=== PATIENT | male | born 1930 | race Hispanic/Latino ===

== ENCOUNTER 2016-10-19 09:12 | Observation (INO) | payer MEDICARE ==
[2016-10-19 09:14] VITALS: BMI 32.3
--- NOTE | 2016-10-19 09:27 | ED PDOC ---
Arrival/HPI - General Chief Complaint: Medical Clearance Time Seen by Provider: 10/19/16 09:15 - History of Present Illness Narrative History of Present Illness (Text): 10/19/16 09:24 Patient is an 85 y/o M, bed bound at baseline, presenting after fall out of bed. Patient reports that his aide did not put up his bed rail, so he fell out of bed. He denies LOC. He denies any pain. He denies chest pain, shortness of breath, hip pain, headache or back pain. He reports that he is here because "my wants me checked out." PMD: Dr. Barnhart 10/19/16 09:44 presented to ED and agrees wtih above story. She reports that aide was trying to turn patient when she left the bed rail down. She also denies LOC. She reports that at baseline he cannot move his legs- only wiggle his toes and is bed bound. 10/19/16 09:45 Past Medical History - Past History Past History: Non-Contributing - Infectious Disease Hx of Infectious Diseases: None - Tetanus Immunization Tetanus Immunization: Unknown - Cardiac Hx Cardiac Arrhythmia: Yes (afib) Hx Hypertension: Yes - Pulmonary Hx Asthma: Yes - Neurological Hx Transient Ischemic Attacks (TIA): Yes (several) - HEENT Hx HEENT Disorder: (WEARS RX GLASSES) - Renal Hx Renal Disorder: Yes Date of Last Dialysis Treatment: 04/18/08 - Endocrine/Metabolic Hx Endocrine Disorders: No - Hematological/Oncological Hx Cancer: Yes (RENAL CELL CA) - Musculoskeletal/Rheumatological Hx Arthritis: Yes (both hips) - Gastrointestinal Hx Gastrointestinal Disorders: Yes (CONSTIPATION) - Genitourinary/Gynecological Hx Genitourinary Disorders: Yes (PYELONEPHRITIS,FREQUENT UTI'S,RENAL CA) Hx Incontinence: Yes Hx Reproductive Disorders: No Hx Urinary Tract Infection: Yes - Psychiatric Hx Depression: No Hx Emotional Abuse: No Hx Physical Abuse: No Hx Substance Use: No - Past Surgical History Past Surgical History: Non-Contributing - Surgical History Other/Comment: tumor removed from the kidney 2007 - Anesthesia Hx Anesthesia Reactions: No Hx Malignant Hyperthermia: No - Suicidal Assessment Feels Threatened In Home Enviroment: No Family/Social History Family/Social History: No Known Family HX Smoking Status: Former Smoker Hx Alcohol Use: No Hx Substance Use: No Hx Substance Use Treatment: No Allergies/Home Meds Allergies/Adverse Reactions: Allergies No Known Allergies Allergy (Verified 10/19/16 09:18) Home Medications: Home Meds Medication Instructions Recorded Confirmed Atorvastatin Calcium [Lipitor] 10 mg PO DAILY 07/13/12 10/19/16 Warfarin [Coumadin] 5 mg PO DAILY 09/22/12 10/19/16 Aspirin [Aspirin Chewable] 81 mg PO DAILY 10/17/13 10/19/16 Potassium Chloride [Klor-Con M10] 10 meq PO DAILY 09/25/16 10/19/16 Tobramycin 0.3% [Tobrex 0.3% Ophth 1 applic OU TID PRN 09/25/16 10/19/16 Oint] amLODIPine [Norvasc] 5 mg PO DAILY 10/19/16 10/19/16 Review of Systems - Review of Systems Constitutional: absent: Fatigue, Weight Change Eyes: absent: Vision Changes ENT: absent: Hearing Changes Respiratory: absent: SOB, Cough, Sputum, Wheezing Cardiovascular: absent: Chest Pain Gastrointestinal: absent: Abdominal Pain, Constipation, Diarrhea, Nausea, Vomiting Genitourinary Male: absent: Dysuria Musculoskeletal: absent: Arthralgias, Back Pain, Neck Pain, Joint Swelling, Myalgias Skin: absent: Rash, Skin Lesions Neurological: absent: Headache, Dizziness, Focal Weakness, Gait Changes Endocrine: absent: Diaphoresis Hemo/Lymphatic: absent: Adenopathy Psychiatric: absent: Anxiety Physical Exam Vital Signs Temp Pulse Resp BP Pulse Ox 10/19/16 09:22 98.5 F 81 16 147/89 94 L Temperature: Afebrile Blood Pressure: Normal Pulse: Regular Respiratory Rate: Normal Appearance: Positive for: Well-Appearing, Non-Toxic, Comfortable Mental Status: Positive for: Alert and Oriented X 3 - Systems Exam Head: Present: Atraumatic Pupils: Present: PERRL Extroacular Muscles: Present: EOMI Conjunctiva: Present: Normal Mouth: Present: Moist Mucous Membranes Neck: Present: Normal Range of Motion. No: Meningeal Signs, MIDLINE TENDERNESS Respiratory/Chest: Present: Clear to Auscultation, Good Air Exchange. No: Respiratory Distress, Accessory Muscle Use Cardiovascular: Present: Regular Rate and Rhythm, Normal S1, S2. No: Murmurs Abdomen: No: Tenderness, Distention Back: Present: Normal Inspection. No: Midline Tenderness Upper Extremity: Present: Normal Inspection, Normal ROM. No: Swelling Lower Extremity: Present: Other (able to move toes b/l (baseline). no bony tenderness to legs. no hip tenderness) Neurological: Present: GCS=15, CN II-XII Intact, Speech Normal Psychiatric: Present: Alert, Oriented x 3, Normal Insight, Normal Concentration Medical Decision Making ED Course and Treatment: 10/19/16 09:24 Patient has no complaints. At baseline neuro status. At baseline ambulation. Will get ct head due to anticoagulant use. 10/19/16 10:12 Head to toe exam again performed with at bedside. Patient continues to have his baseline movement and denies pain. No areas of tenderness. AAOx3. Will get CT head and reeval Report Date : 10/19/2016 10:19:59 PROCEDURE: CT HEAD WITHOUT CONTRAST. Dictator : Jeanie Soliman IMPRESSION: No evidence of acute intracranial hemorrhage intracranial collection mass effect or midline shift. Moderate atrophy and moderate to severe white matter changes are again seen. 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 Small air-fluid level at the right sphenoid sinus. 10/19/16 12:26 INR:1.91. Patient continues to deny pain and is AAOx3. Paged Dr. Barnhart and he recommends repeat CT head at 6 hours due to anticoagulant use. Will sign out to Dr. matos to continue to monitor, get repeat CT head and reevaluate. - RAD Interpretation Radiology Orders: 10/19/16 09:25 HEAD W/O CONTRAST [CT] Stat Disposition/Present on Arrival - Present on Arrival Any Indicators Present on Arrival: No History of DVT/PE: No History of Uncontrolled Diabetes: No Urinary Catheter: No History of Decub. Ulcer: No History Surgical Site Infection Following: None - Disposition Have Diagnosis and Disposition been Completed?: Yes Diagnosis: Fall Disposition Time: :26 Patient Plan: Observation Patient Problems: Current Active Problems Problem Status Diagnosed Fall Acute Urosepsis Acute Condition: FAIR
--- NOTE | 2016-10-19 10:21 | CT ---
PROCEDURE: CT HEAD WITHOUT CONTRAST. HISTORY: fall COMPARISON: Comparison is made to the previous study dated 10/10/2012 TECHNIQUE: Axial computed tomography images were obtained through the head/brain without intravenous contrast. Radiation dose: Total exam DLP = 768.07 mGy-cm. FINDINGS: HEMORRHAGE: No intracranial hemorrhage. BRAIN: Foci of encephalomalacia are again seen more prominent at the right frontal and left cerebellum suggestive of old infarct. There are also small foci of encephalomalacia at the iqbal radiata bilaterally larger on the right. Moderate atrophy and extensive white matter changes are again seen. VENTRICLES: Unremarkable. No hydrocephalus. CALVARIUM: Unremarkable. PARANASAL SINUSES: Small air-fluid level seen at the right sphenoid sinus. Otherwise the sinuses are clear. MASTOID AIR CELLS: Unremarkable as visualized. No inflammatory changes. OTHER FINDINGS: None. IMPRESSION: No evidence of acute intracranial hemorrhage intracranial collection mass effect or midline shift. Moderate atrophy and moderate to severe white matter changes are again seen. 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 Small air-fluid level at the right sphenoid sinus.
[2016-10-19 11:57] LABS: ADD MANUAL DIFF? NO
[2016-10-19 12:05] LABS: EOS # 0.1 (0.0-0.7); EOS % 1.2 % (1.5-5.0); GRAN # 7.91 (1.4-6.5); GRAN % 76.6 % (50.0-68.0); HEMATOCRIT 45.6 % (42.0-52.0); LYMPH # 1.8 (1.2-3.4); LYMPH % 17.1 % (22.0-35.0); MEAN CELL VOLUME 95.8 fL (80.0-105.0); MEAN CORPUSCULAR HEMOGLOBIN 31.9 pg (25.0-35.0); MEAN CORPUSCULAR HGB CONC 33.3 g/dl (31.0-37.0); MEAN PLATELET VOLUME 9.1 fl (7.0-11.0); MONO # 0.5 (0.1-0.6); MONO % 5.1 % (1.0-6.0); PLATELET COUNT 170 10^3/uL (120.0-450.0); RED CELL DISTRIBUTION WIDTH 14.5 % (11.5-14.5); WHITE BLOOD COUNT 10.3 10^3/ul (4.5-11.0)
[2016-10-19 12:17] LABS: BLOOD UREA NITROGEN 32 mg/dL (7-21); CALCIUM 9.2 mg/dL (8.4-10.5); CARBON DIOXIDE 30 mmol/L (21-33); CHLORIDE 100 mmol/L (98-107); GFR AFRICAN-AMERICAN > 60; GLUCOSE,RANDOM 126 mg/dL (70-110); POTASSIUM 4.3 mmol/L (3.6-5.0); SODIUM 140 mmol/L (132-148)
[2016-10-19 12:20] LABS: INR 1.91 (0.93-1.08); PARTIAL THROMBOPLASTIN TIME 35.6 Seconds (23.7-30.8)
--- NOTE | 2016-10-19 15:42 | CT ---
PROCEDURE: CT HEAD WITHOUT CONTRAST. HISTORY: repeat CT COMPARISON: Comparison is made to the previous study dated 10/19/2016 TECHNIQUE: Axial computed tomography images were obtained through the head/brain without intravenous contrast. Radiation dose: Total exam DLP = 710.91 mGy-cm. FINDINGS: HEMORRHAGE: No intracranial hemorrhage. 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 Atrophy and extensive white matter changes are also again seen. VENTRICLES: Unremarkable. No hydrocephalus. CALVARIUM: Unremarkable. PARANASAL SINUSES: Unremarkable as visualized. No significant inflammatory changes. MASTOID AIR CELLS: Unremarkable as visualized. No inflammatory changes. OTHER FINDINGS: None. IMPRESSION: No evidence of significant interval change compared to the previous exam. No evidence of acute intracranial hemorrhage.
--- NOTE | 2016-10-19 16:36 | RAD ---
HISTORY: cough r/o pna COMPARISON: January 07, 2016. TECHNIQUE: Chest PA and lateral FINDINGS: LUNGS: No active pulmonary disease. PLEURA: No significant pleural effusion identified. No pneumothorax apparent. CARDIOVASCULAR: Cardiomegaly. No evidence of acute, significant cardiovascular disease. OSSEOUS STRUCTURES: No significant abnormalities. VISUALIZED UPPER ABDOMEN: Normal. OTHER FINDINGS: None. IMPRESSION: No active disease. No significant interval change compared to the prior examination(s).
[2016-10-19 17:59] VITALS: BP 155/83; PULSE 78; RESP 20; TEMP 97.4; O2SAT 97
== END 2016-10-19 17:11 | disposition home or self-care (01) ==
LOC: ED 09:12 → EROBSV 09:27
PROVIDERS: ADMIT Emergency Medicine; ATTEND Emergency Medicine
DX: Z04.8 Encounter for examination and observation for other specified reasons (principal); W06.XXXA Fall from bed, initial encounter; Z74.01 Bed confinement status; I48.91 Unspecified atrial fibrillation; I10 Essential (primary) hypertension
CPT/HCPCS: 36415; 70450; 71020; 80048; 85025; 85610; 85730; 99283; G0378

== ENCOUNTER 2016-10-24 10:41 | Emergency (ER) | payer MEDICARE, OTHER ==
[2016-10-24 10:56] VITALS: TEMP 97.6
--- NOTE | 2016-10-24 11:00 | ED PDOC ---
Arrival/HPI - General Time Seen by Provider: 10/24/16 10:47 Historian: Patient, Spouse - History of Present Illness Narrative History of Present Illness (Text): 10/24/16 11:00 85 year old male with a past medical history that includes dementia, Afib, HTN, Asthma, Renal, presents to the emergency department with right shoulder pain for the past five days. Patient states pain is worse with movement. Patient's states he was seen in the emergency department for a fall five days ago. Patient claims he fell again but states he did not. No chest pain, shortness of breath. No other complaints at this time. PMD: Dr. Barnhart Time/Duration: < week Symptom Onset: Sudden Symptom Course: Unchanged Modifying Factors (Text): None Associated Symptoms (Text): None Past Medical History - Provider Review Nursing Documentation Reviewed: Yes Family/Social History - Physician Review Nursing Documentation Reviewed: Yes Family/Social History: Unknown Family HX Allergies/Home Meds Allergies/Adverse Reactions: Allergies No Known Allergies Allergy (Unverified 10/24/16 10:54) Home Medications: Home Meds Medication Instructions Recorded Confirmed Atorvastatin Calcium [Lipitor] 10 mg PO DAILY 07/13/12 10/19/16 Warfarin [Coumadin] 5 mg PO DAILY 09/22/12 10/19/16 Aspirin [Aspirin Chewable] 81 mg PO DAILY 10/17/13 10/19/16 Potassium Chloride [Klor-Con M10] 10 meq PO DAILY 09/25/16 10/19/16 Tobramycin 0.3% [Tobrex 0.3% Ophth 1 applic OU TID PRN 09/25/16 10/19/16 Oint] amLODIPine [Norvasc] 5 mg PO DAILY 10/19/16 10/19/16 Albuterol 0.083% [Albuterol 0.083% 1 inh INH PRN PRN 10/24/16 10/24/16 Inhal Ivette (2.5 mg/3 ml) UD] Aspirin [Aspirin Chewable] 81 mg PO DAILY 10/24/16 10/24/16 Atorvastatin [Lipitor] 10 mg PO DAILY 10/24/16 10/24/16 Budesonide [Pulmicort Respules] 1 inh INH PRN PRN 10/24/16 10/24/16 Clotrimazole/Betamethasone 1 appful TOP PRN PRN 10/24/16 10/24/16 [Lotrisone] Dexamethasone/Tobramycin [Tobradex 1 drop BOTHEYES TID PRN 10/24/16 10/24/16 Opht Susp] Econazole 1% [Spectazole Cr] 1 appful TOP PRN PRN 10/24/16 10/24/16 Erythromycin 0.5% [Erythromycin 1 appful BOTHEYES DAILY 10/24/16 10/24/16 0.5% Oint] Fluocinonide 0.05% Cream [Lidex 1 appful TOP PRN PRN 10/24/16 10/24/16 0.05% Cream] Furosemide [Lasix] 40 mg PO DAILY 10/24/16 10/24/16 Halobetasol Propionate [Ultravate] 1 appful TOP PRN PRN 10/24/16 10/24/16 Ipratropium 0.02% [Atrovent] 1 inh INH PRN PRN 10/24/16 10/24/16 Linaclotide [Linzess] 145 mcg PO DAILY 10/24/16 10/24/16 Potassium Chloride [Klor-Con 10] 10 meq PO DAILY 10/24/16 10/24/16 Silver Sulfadiazine 1% [Silvadene 1 appful TOP PRN PRN 10/24/16 10/24/16 1%] Warfarin [Coumadin] 5 mg PO DAILY 10/24/16 10/24/16 amLODIPine [Norvasc] 5 mg PO DAILY 10/24/16 10/24/16 Review of Systems - Physician Review All systems were reviewed & negative as marked: Yes - Review of Systems Respiratory: absent: SOB Cardiovascular: absent: Chest Pain Musculoskeletal: Other (Right shoulder pain) Physical Exam Vital Signs Reviewed: Yes Vital Signs Temp Pulse Resp BP Pulse Ox 10/24/16 11:17 73 18 157/95 H 96 10/24/16 10:55 97.6 F 76 19 157/96 H 96 Temperature: Afebrile Blood Pressure: Hypertensive Pulse: Regular Respiratory Rate: Normal Appearance: Positive for: Well-Appearing, Non-Toxic, Comfortable Pain Distress: Mild Mental Status: Positive for: other (Awake, alert, baseline) - Systems Exam Head: Present: Atraumatic, Normocephalic Pupils: Present: PERRL Extroacular Muscles: Present: EOMI Conjunctiva: Present: Normal Mouth: Present: Moist Mucous Membranes Neck: Present: Normal Range of Motion Respiratory/Chest: Present: Clear to Auscultation, Good Air Exchange. No: Respiratory Distress, Accessory Muscle Use Cardiovascular: Present: Regular Rate and Rhythm, Normal S1, S2. No: Murmurs Abdomen: Present: Normal Bowel Sounds. No: Tenderness, Distention, Peritoneal Signs Back: Present: Normal Inspection Upper Extremity: Present: NORMAL PULSES, Tenderness (to the right shoulder with decreased ROM. ), Neurovascularly Intact, Other (Right shoulder appears anteriorly displaced. Sensation intact. ). No: Cyanosis, Edema, Normal ROM Lower Extremity: Present: Normal Inspection. No: Edema Neurological: Present: GCS=15, CN II-XII Intact, Speech Normal Skin: Present: Warm, Dry, Normal Color. No: Rashes Psychiatric: Present: Alert, Normal Concentration Medical Decision Making ED Course and Treatment: Impression: 85 year old male with a past medical history that includes dementia presents to the emergency department with right shoulder pain for the past five days. Differential Diagnosis included but are not limited to: R/o fracture r/o dislocation Plan: -- XR right shoulder -- Reassess and disposition PROCEDURE: Radiographs of the Right Shoulder Side Trimmer : CELESTINO ALFARO MD BONES: There is a cortical step-off and linear lucency in the humeral head. There is diffuse bone demineralization. 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 IMPRESSION: Suspect of acute nondisplaced fracture in the head of the humerus. No dislocation. Progress Notes: 10/24/16 13:28 Dr. Godwin who is on ortho was called x [address] call[address] Dr[address] Lee was called and case was discussed with him. He said to place patient in a sling and have him f/u with him tomorrow in his office. - RAD Interpretation Radiology Orders: 10/24/16 11:00 SHOULDER RIGHT [RAD] Stat Chief Load Dispatcher: Radiologist - Scribe Statement The provider has reviewed the documentation as recorded by the Fany Hay Provider Scribe Attestation: All medical record entries made by the Fany were at my direction and personally dictated by me. I have reviewed the chart and agree that the record accurately reflects my personal performance of the history, physical exam, medical decision making, and the department course for this patient. I have also personally directed, reviewed, and agree with the discharge instructions and disposition. Disposition/Present on Arrival - Present on Arrival Any Indicators Present on Arrival: No - Disposition Have Diagnosis and Disposition been Completed?: Yes Diagnosis: Right humeral fracture Disposition: HOME/ ROUTINE Disposition Time: 13:29 Patient Plan: Discharge Patient Problems: Current Active Problems Problem Status Diagnosed Right humeral fracture Acute Urosepsis Acute Condition: IMPROVED Additional Instructions: Mr Flores, thank you for letting us take care of you today. Your provider was Dr. Tilley. You were treated for Right Humerus Fracture. The emergency medical care you received today was directed at your acute symptoms. If you were prescribed any medication, please fill it and take as directed. It may take several days for your symptoms to resolve. Return to the Emergency Department if your symptoms worsen, do not improve, or if you have any other problems. Please contact your doctor or call one of the physicians/clinics you have been referred to that are listed on the Patient Visit Information form that is included in your discharge packet. Bring any paperwork you were given at discharge with you along with any medications you are taking to your follow up visit. Our treatment cannot replace ongoing medical care by a primary care provider (PCP) outside of the emergency department. Make sure to follow up with Dr. Lee tomorrow for the shoulder fracture as discussed. Thank you for allowing the [facility] team to be part of your care today. If you had an X-Ray or CT scan: A Radiologist will review the ED reading if any change in treatment is needed we will contact you. If you had a blood, urine, or wound culture: It will take several days for the results, if any change in treatment is needed we will contact you. If you had an STI test: It will take 48 hours for the results. Please call after 1 week if you have not heard back. Referrals: Adams Barnhart MD [Primary Care Provider] - Follow up with primary Renard Espana DO [Staff Provider] - Follow up with primary
--- NOTE | 2016-10-24 12:10 | RAD ---
PROCEDURE: Radiographs of the Right Shoulder HISTORY: shoulder pain r/o fx r/o dislocation COMPARISON: No prior. FINDINGS: BONES: There is a cortical step-off and linear lucency in the humeral head. There is diffuse bone demineralization. 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 SOFT TISSUES: Normal. OTHER FINDINGS: None. IMPRESSION: Suspect of acute nondisplaced fracture in the head of the humerus. No dislocation.
[2016-10-24 12:31] VITALS: BMI 32.3
--- NOTE | 2016-10-24 15:00 | CT ---
PROCEDURE: CT Lumbar Spine without contrast HISTORY: Back pain r/o fx COMPARISON: None. TECHNIQUE: Axial computed tomography images were obtained of the lumbar spine without the use of intravenous contrast. Coronal and sagittal reformatted images were created and reviewed. Radiation dose: Total exam DLP = 710.91 mGy-cm. FINDINGS: VERTEBRAE: There is normal alignment of the lumbar vertebral bodies. Lumbar lordosis is maintained. There is diffuse bone demineralization. There is question of an age indeterminate superior endplate compression fracture in L2 vertebral body. There are multilevel Schmorl's nodes. DISCS/SPINAL CANAL/NEURAL FORAMINA: There is multilevel degenerative disc disease, worse at L5-S1. There is mild lower lumbar spinal canal stenosis. PARASPINAL SOFT TISSUES: Unremarkable. OTHER FINDINGS: There is an infrarenal IVC filter. Incompletely imaged is a 2.9 cm hyperdense mass in the left renal interpolar region. There is a large amount of stool in the sigmoid colon and rectum. There are bilateral hip arthroplasties. There is a 6.0 x 6.7 cm fluid collection with high attenuation density medial to the left pelvic sidewall. There is also probable erosion of the sidewall. There is ectasia of the infrarenal aorta. IMPRESSION: 1. Age indeterminate superior endplate compression fracture in the L2 vertebral body. 2. 2.9 cm high density lesion in the left interpolar region may represent a hemorrhagic cyst however correlation with retroperitoneal ultrasound is advised. 3. Large fluid collection along the left medial side wall with probable erosion of ischium. Findings are likely related to bursal fluid collection with probable high-density metallic components. Clinical follow-up is advised.
[2016-10-24 15:10] VITALS: BP 143/83; RESP 18
--- NOTE | 2016-10-24 15:18 | CT ---
PROCEDURE: CT Thoracic Spine without contrast HISTORY: Back pain r/o fx COMPARISON: None. TECHNIQUE: Axial computed tomography images were obtained of the thoracic spine without intravenous contrast. Coronal and sagittal reformatted images were created and reviewed. Radiation dose: Total exam DLP = 1262.05 mGy-cm. FINDINGS: VERTEBRAE: There is normal alignment of the thoracic vertebral bodies. Thoracic kyphosis is maintained. Vertebral bodies are normal in height. There is no acute fracture. There is diffuse bone demineralization. DISCS/SPINAL CANAL/NEURAL FORAMINA: There is multilevel degenerative disc disease in the lower thoracic spine. The spinal canal is grossly patent. PARASPINAL SOFT TISSUES: Normal. OTHER FINDINGS: There is a right lower lobe airspace disease and small right pleural effusion. The ascending aorta. There is mild cardiomegaly. There are atherosclerotic calcifications in the coronary arteries. There is cholelithiasis. IMPRESSION: 1. No acute fracture. 2. 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 3. Right lower lobe atelectasis/ pneumonia and small right pleural effusion. 4. Cholelithiasis.
[2016-10-24 15:42] VITALS: PULSE 65; O2SAT 96
== END 2016-10-24 15:55 | disposition home or self-care (01) ==
LOC: EDSEX → EDUNIT# → ED 10:41
DX: S42.301D Unspecified fracture of shaft of humerus, right arm, subsequent encounter for fracture with routine healing (principal); W06.XXXD Fall from bed, subsequent encounter; I48.91 Unspecified atrial fibrillation; I10 Essential (primary) hypertension

== ENCOUNTER 2017-03-06 20:03 | Inpatient (IN) | payer MEDICARE, OTHER ==
[2017-03-06 20:15] VITALS: BMI 39.1
--- NOTE | 2017-03-06 21:06 | ED PDOC ---
Arrival/HPI - General Chief Complaint: Abdominal Pain Time Seen by Provider: 03/06/17 20:04 Historian: Patient - History of Present Illness Narrative History of Present Illness (Text): 03/06/17 20:14 Amber Flores is an 86 year old male, whose past medical history includes dementia, atrial fibrillation, hypertension, asthma, COPD, and renal cell carcinoma, who presents to the Emergency department complaining of RLQ pain for past few months. Patient states pain worsened tonight. Patient denies any fever , chest pain, shortness of breath, nausea, vomiting, diarrhea, bowel changes, urinary symptoms, back pain, headache, or any other complaints. Time/Duration: Other (Few months) Symptom Onset: Gradual Symptom Course: Worsening Activities at Onset: Rest, Light Context: Home Past Medical History - Provider Review Nursing Documentation Reviewed: Yes - Past History Past History: Non-Contributing - Infectious Disease Hx of Infectious Diseases: None - Tetanus Immunization Tetanus Immunization: Unknown - Cardiac Hx Cardiac Disorders: Yes - Pulmonary Hx Chronic Obstructive Pulmonary Disease (COPD): Yes - Neurological Hx Transient Ischemic Attacks (TIA): Yes - HEENT Hx HEENT Disorder: No - Renal Other/Comment: kidney tumor - Endocrine/Metabolic Hx Endocrine Disorders: No - Hematological/Oncological Hx Blood Disorders: No - Integumentary Hx Dermatological Disorder: No - Musculoskeletal/Rheumatological Hx Musculoskeletal Disorders: Yes - Gastrointestinal Hx Gastrointestinal Disorders: No - Genitourinary/Gynecological Hx Genitourinary Disorders: No - Psychiatric Hx Psychophysiologic Disorder: No Hx Substance Use: No - Past Surgical History Past Surgical History: Non-Contributing - Surgical History Hx Cardiac Catheterization: Yes (x1 stent) Hx Coronary Stent: Yes Hx Joint Replacement: Yes Other/Comment: tumor removed from the kidney 2008 - Anesthesia Hx Anesthesia: Yes Hx Anesthesia Reactions: No Hx Malignant Hyperthermia: No - Suicidal Assessment Feels Threatened In Home Enviroment: No Family/Social History - Physician Review Nursing Documentation Reviewed: Yes Family/Social History: Unknown Family HX Smoking Status: Former Smoker Hx Alcohol Use: No Hx Substance Use: No Hx Substance Use Treatment: No Allergies/Home Meds Allergies/Adverse Reactions: Allergies No Known Allergies Allergy (Unverified 10/24/16 10:54) Home Medications: Home Meds Medication Instructions Recorded Confirmed Unobtainable 03/07/17 03/07/17 Review of Systems - Physician Review All systems were reviewed & negative as marked: Yes - Review of Systems Constitutional: Normal. absent: Fevers Eyes: Normal ENT: Normal Respiratory: Normal. absent: SOB, Cough Cardiovascular: Normal. absent: Chest Pain Gastrointestinal: Abdominal Pain. absent: Stool Changes, Diarrhea, Nausea, Vomiting Genitourinary Male: Normal. absent: Dysuria, Frequency, Hematuria, Urinary Output Changes Musculoskeletal: Normal. absent: Back Pain Skin: Normal. absent: Rash Neurological: Normal. absent: Headache, Dizziness Endocrine: Normal Hemo/Lymphatic: Normal Psychiatric: Normal Physical Exam Vital Signs Reviewed: Yes Vital Signs Temp Pulse Resp BP Pulse Ox 03/07/17 02:01 65 14 127/73 96 03/07/17 00:45 77 16 138/81 95 03/06/17 22:30 74 16 132/80 95 03/06/17 20:29 98.1 F 03/06/17 20:23 72 18 136/78 96 Temperature: Afebrile Blood Pressure: Normal Pulse: Regular Respiratory Rate: Normal Appearance: Positive for: Well-Appearing, Non-Toxic, Comfortable Pain Distress: None Mental Status: Positive for: Alert and Oriented X 3 - Systems Exam Head: Present: Atraumatic, Normocephalic Pupils: Present: PERRL Extroacular Muscles: Present: EOMI Conjunctiva: Present: Normal Mouth: Present: Moist Mucous Membranes Neck: Present: Normal Range of Motion Respiratory/Chest: Present: Clear to Auscultation, Good Air Exchange. No: Respiratory Distress, Accessory Muscle Use Cardiovascular: Present: Regular Rate and Rhythm, Normal S1, S2. No: Murmurs Abdomen: Present: Normal Bowel Sounds. No: Tenderness, Distention, Peritoneal Signs Back: Present: Normal Inspection Upper Extremity: Present: Normal Inspection. No: Cyanosis, Edema Lower Extremity: Present: Normal Inspection. No: Edema Neurological: Present: GCS=15, CN II-XII Intact, Speech Normal Skin: Present: Warm, Dry, Normal Color. No: Rashes Psychiatric: Present: Alert, Oriented x 3, Normal Insight, Normal Concentration Medical Decision Making ED Course and Treatment: 03/06/17 20:14 Impression: 86 year old male complaining of RLQ pain for past few months, worse today. Differential Diagnosis included but are not limited to: Plan: -- CT Abdomen and Pelvis w/o contrast -- EKG -- CXR -- Labs, cardiac enzymes, amylase, lipase, blood cultures -- UA -- Reassess and disposition Prior Visits: Notes and results from previous visits were reviewed. On 10/24/2016, pt was seen in the Emergency department for right shoulder pain. Pt was d/c home. Progress Notes: Reviewed EKG, NSR at 69 bpm. Sinus arrhythmia. LAD. Non-specific ST/T wave changes. 03/06/17 23:15 Reviewed radiology, Chest X-ray shows no acute processes. CT Abdomen and Pelvis shows: Dictated and Authenticated by: Brad Mccullough MD 1. 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 There is borderline aneurysmal dilatation of the descending thoracic aorta. Aneurysmal dilatation is also noted of the abdominal aorta measuring 3.8 cm in diameter. 2. Cholelithiasis. 3. Hypodense probable renal cysts are seen bilaterally. At the midpole of the left kidney, there is a 3.1 x 3.4 cm hyperdense complex or hemorrhagic probable cyst. Inferior to the right kidney, there is a 3.4 x 2.4 cm lesion which is hypodense centrally. This may be contributed by postoperative change. 4. Postoperative changes are identified with bilateral hip prostheses. There is acetabular protrusion on the left side, with an isodense mass medially measuring 5.8 x 4.3 cm. Malignancy is considered. 5. A mass is identified within the right side of the pelvis measuring 4.4 x 4.0 cm which is contiguous with the internal iliac arteries and suspicious for aneurysm. 6. There is a small right pleural effusion. A consolidation is visualized at the right lung base posteriorly, with calcifications. Additional pleural calcifications are visualized, which can be associated with asbestos exposure. 7. Additional CT findings described above. Correlation with prior studies is recommended. 03/06/17 23:[address] Hale, who is aware and agrees with plan. Accepts pt in to hospitalist service. residential program director notified. Pt will go to [facility] observation for abdominal pain. Pt aware and verbalizes understanding. - Lab Interpretations Microbiology Results: Microbiology Results 03/06/17 21:54 Blood-Venous Blood Culture - Preliminary NO GROWTH AFTER 3 DAYS 03/06/17 21:20 Blood-Venous Blood Culture - Preliminary NO GROWTH AFTER 3 DAYS Lab Results: 03/08/17 09:00 03/08/17 09:00 Lab Results 03/08/17 09:00: Sodium 138, Chloride 97 L, Potassium 4.7, Carbon Dioxide 32, Anion Gap 14, BUN 31 H, Creatinine 1.2, Est GFR ( Amer) > 60, Est GFR ( Non-Af Amer) 58, Random Glucose 88, Calcium 8.6, Total Bilirubin 0.5, AST 16, ALT 24, Alkaline Phosphatase 120, Total Protein 6.1, Albumin 3.4, Globulin 2.7, Albumin/Globulin Ratio 1.3 03/08/17 09:00: PT 18.2 H, INR 1.69 H 03/08/17 09:00: WBC 8.5, RBC 4.55, Hgb 14.2, Hct 43.8, MCV 96.3, MCH 31.2, MCHC 32.4, RDW 13.8, Plt Count 169, MPV 8.7, Gran % 69.1 H, Lymph % (Auto) 21.8 L, Beaver % (Auto) 7.5 H, Eos % (Auto) 1.5, Baso % (Auto) 0.1, Gran # 5.87, Lymph # 1.9, Beaver # 0.6, Eos # 0.1, Baso # 0.01 03/07/17 07:35: Sodium 137, Chloride 101, Potassium 4.3, Carbon Dioxide 30, Anion Gap 10, BUN 35 H, Creatinine 1.2, Est GFR ( Amer) > 60, Est GFR ( Non-Af Amer) 58, Random Glucose 78, Calcium 8.3 L, Total Bilirubin 0.4, AST 20, ALT 23, Alkaline Phosphatase 112, Total Protein 5.7 L, Albumin 3.1, Globulin 2.6 , Albumin/Globulin Ratio 1.2 03/07/17 07:35: PT 18.9 H, INR 1.75 H 03/07/17 07:35: WBC 7.4, RBC 4.47, Hgb 13.8 L, Hct 42.9, MCV 96.0, MCH 30.9, MCHC 32.2, RDW 13.9, Plt Count 173, MPV 8.9, Gran % 63.4, Lymph % (Auto) 26.7, Beaver % (Auto) 7.0 H, Eos % (Auto) 2.8, Baso % (Auto) 0.1, Gran # 4.68, Lymph # 2.0, Beaver # 0.5, Eos # 0.2, Baso # 0.01 03/06/17 21:20: pO2 64 H, VBG pH 7.36, VBG pCO2 57.0, VBG HCO3 32.2 H, VBG Total CO2 33.9 H, VBG O2 Sat (Calc) 95.1 H, VBG Base Excess 5.0 H, VBG Potassium 4.7, Sodium 134.0, Chloride 103.0, Glucose 88, Lactate 0.8, FiO2 21.0 , Venous Blood Potassium 4.7 03/06/17 21:20: Sodium 136, Chloride 98, Potassium 4.8, Carbon Dioxide 31, Anion Gap 12, BUN 40 H, Creatinine 1.3, Est GFR ( Amer) > 60, Est GFR ( Non-Af Amer) 52, Random Glucose 86, Calcium 8.5, Total Bilirubin 0.3, AST 17, ALT 28, Alkaline Phosphatase 114, Lactate Dehydrogenase 336, Total Creatine Kinase < 20 L, Troponin I < 0.01, Total Protein 6.2, Albumin 3.3, Globulin 2.9, Albumin/Globulin Ratio 1.1, Amylase 78, Lipase 219 03/06/17 21:20: PT 20.2 H, INR 1.87 H, APTT 39.0 H 03/06/17 21:20: WBC 9.1 D, RBC 4.50, Hgb 14.2, Hct 43.3, MCV 96.2, MCH 31.6, MCHC 32.8, RDW 14.0, Plt Count 176, MPV 8.9, Gran % 63.2, Lymph % (Auto) 28.0, Beaver % (Auto) 6.4 H, Eos % (Auto) 2.3, Baso % (Auto) 0.1, Gran # 5.77, Lymph # 2.6, Beaver # 0.6, Eos # 0.2, Baso # 0.01 I have reviewed the lab results: Yes - RAD Interpretation Narrative RAD Interpretations (Text): CT Abdomen and Pelvis shows: Dictated and Authenticated by: Brad Mccullough MD Lower thorax: There 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 There is borderline aneurysmal dilatation of the descending thoracic aorta measuring 3.1 cm in diameter. Aneurysmal dilatation is also noted of the abdominal aorta measuring 3.8 cm in diameter. There is a small right pleural effusion. A consolidation is visualized at the right lung base posteriorly, with calcifications. Additional pleural calcifications are visualized, which can be associated with asbestos exposure. Atelectatic changes are identified at the left lung base. There is coronary artery calcification. ABDOMEN: Liver: No mass. Gallbladder and bile ducts: Multiple calcified gallstones are visualized. Pancreas: Normal contour. No ductal dilation. Spleen: No splenomegaly. Adrenals: No mass. Kidneys and ureters: Surgical clips are visualized within the right renal cortex. Right perinephric stranding and scarring is visualized. Inferior to the right kidney, there is a 3.4 x 2.4 cm lesion which is hypodense centrally. This may be contributed by postoperative change. Hypodense probable renal cysts are seen bilaterally. At the midpole of the left kidney, there is a 3.1 x 3.4 cm hyperdense complex or hemorrhagic probable cyst. Stomach and bowel: There is interposition of bowel anterior to the liver. There is fecal distention of the sigmoid colon. Appendix: No findings to suggest acute appendicitis. PELVIS: Bladder: No stones. Reproductive: Hydroceles are visualized within the scrotum. ABDOMEN and PELVIS: Intraperitoneal space: No free air. Bones/joints: Postoperative changes are identified with bilateral hip prostheses. There is acetabular protrusion on the left side, with an isodense mass medially measuring 5.8 x 4.3 cm. Malignancy is considered. Osteopenia. Hypertrophic degenerative changes are noted within the spine. There is dextroscoliosis of the thoracic spine. Soft tissues: Muscle atrophy is identified. Vasculature: A mass is identified within the right side of the pelvis measuring 4.4 x 4.0 cm which is contiguous with the internal iliac arteries and suspicious for aneurysm. An IVC filter is identified. Atherosclerotic changes are visualized. Lymph nodes: No enlarged lymph nodes. Other findings: Additional postoperative changes are identified involving the right hemipelvis. IMPRESSION: 1. 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 There is borderline aneurysmal dilatation of the descending thoracic aorta. Aneurysmal dilatation is also noted of the abdominal aorta measuring 3.8 cm in diameter. 2. Cholelithiasis. 3. Hypodense probable renal cysts are seen bilaterally. At the midpole of the left kidney, there is a 3.1 x 3.4 cm hyperdense complex or hemorrhagic probable cyst. Inferior to the right kidney, there is a 3.4 x 2.4 cm lesion which is hypodense centrally. This may be contributed by postoperative change. 4. Postoperative changes are identified with bilateral hip prostheses. There is acetabular protrusion on the left side, with an isodense mass medially measuring 5.8 x 4.3 cm. Malignancy is considered. 5. A mass is identified within the right side of the pelvis measuring 4.4 x 4.0 cm which is contiguous with the internal iliac arteries and suspicious for aneurysm. 6. There is a small right pleural effusion. A consolidation is visualized at the right lung base posteriorly, with calcifications. Additional pleural calcifications are visualized, which can be associated with asbestos exposure. 7. Additional CT findings described above. Correlation with prior studies is recommended. 03/06/17 23:15 Radiology Orders: 03/06/17 20:14 ABD & PELVIS W/O PO OR IV CONT [CT] Stat 03/06/17 20:16 CHEST ONE VIEW [RAD] Stat 03/08/17 08:00 ANGIOGRAPHY PELVIS WITH CONT [CT] Urgent Rotor Balancer: Radiologist - EKG Interpretation Interpreted by ED Physician: Yes Type: 12 lead EKG - Medication Orders Current Medication Orders: Albuterol/Ipratropium (Duoneb 3 Mg/0.5 Mg (3 Ml) Ud) 3 ml IH [id number] PRN PRN Reason: Shortness of Breath Amlodipine Besylate (Norvasc) 5 mg PO DAILY [facility] Last Admin: 03/09/17 09:23 Dose: 5 mg Aspirin (Aspirin Chewable) 81 mg PO DAILY [facility] Last Admin: 03/09/17 09:22 Dose: Atorvastatin Calcium (Lipitor) 10 mg PO DAILY [facility] Last Admin: 03/09/17 09:22 Dose: 10 mg Docusate Sodium (Colace) 100 mg PO TID [facility] Last Admin: 03/09/17 17:10 Dose: Not Given Non-Admin Reason: Patient Refused Furosemide (Lasix) 40 mg PO DAILY [facility] Last Admin: 03/09/17 09:26 Dose: 40 mg Labetalol HCl (Trandate) 100 mg PO BID PRN PRN Reason: Systolic Blood Pressure Last Admin: 03/07/17 16:35 Dose: 100 mg Nystatin (Nystop Topical Powder) 0 gm TOP DAILY [facility] Last Admin: 03/09/17 15:09 Dose: 1 unit Pantoprazole Sodium (Protonix Inj) 40 mg IVP DAILY [facility] Last Admin: 03/09/17 09:22 Dose: 40 mg Polyethylene Glycol (Miralax) 17 gm PO DAILY [facility] Last Admin: 03/09/17 09:22 Dose: 17 gm Potassium Chloride (Klor-Con 10) 10 meq PO DAILY [facility] Last Admin: 03/09/17 09:22 Dose: 10 meq Discontinued Medications Atropine Sulfate (Atropine) Confirm Administered Dose 1 mg .ROUTE .STK-MED ONE Stop: 03/10/17 06:22 Cefazolin Sodium (Ancef) Confirm Administered Dose 1 gm .ROUTE .STK-MED ONE Stop: 03/10/17 08:16 Fentanyl (Fentanyl) Confirm Administered Dose 100 mcg .ROUTE .STK-MED ONE Stop: 03/10/17 06:52 Heparin Sodium (Porcine) (Heparin) Confirm Administered Dose 10,000 units .ROUTE .STK-MED ONE Stop: 03/10/17 06:22 Sodium Chloride (Sodium Chloride 0.45%) 1,000 mls @ 60 mls/hr IV .[id number] [facility] Stop: 03/08/17 18:00 Last Admin: 03/08/17 08:28 Dose: 60 mls/hr Nitroglycerin/Dextrose (Nitroglycerin 50 Mg/250 Ml D5w) Confirm Administered Dose 50 mg in 250 mls @ ud IV .STK-MED ONE Stop: 03/10/17 06:23 Heparin Sodium (Porcine) (Heparin 1000 Units/500 Ml Ns) Confirm Administered Dose 2,000 mls @ ud IV .STK-MED ONE Stop: 03/10/17 06:23 Iodixanol (Visipaque 320 Mg/Ml 100 Ml) Confirm Administered Dose 200 ml IV .STK- MED ONE Stop: 03/10/17 06:22 Iodixanol (Visipaque 320 Mg/Ml 200 Ml) Confirm Administered Dose 200 ml IV .STK- MED ONE Stop: 03/10/17 06:22 Iodixanol (Visipaque) Confirm Administered Dose 150 ml IV .STK-MED ONE Stop: 03/10/17 06:24 Iohexol (Omnipaque 350 150 Ml) Confirm Administered Dose 150 ml .ROUTE .STK-MED ONE Stop: 03/08/17 07:57 Lidocaine HCl (Lidocaine 2% 20ml Vial) Confirm Administered Dose 40 ml .ROUTE .STK-MED ONE Stop: 03/10/17 06:22 Magnesium Citrate (Citrate Of Mag) 300 ml PO ONCE ONE Stop: 03/07/17 14:09 Last Admin: 03/07/17 14:59 Dose: 300 ml Midazolam HCl (Versed Inj) Confirm Administered Dose 2 mg .ROUTE .STK-MED ONE Stop: 03/10/17 06:52 Propofol (Diprivan) Confirm Administered Dose 200 mg .ROUTE .STK-MED ONE Stop: 03/10/17 07:50 Warfarin Sodium (Coumadin) 5 mg PO 1800 NICK PRN Reason: Protocol - Scribe Statement The provider has reviewed the documentation as recorded by the Scribeufemia Sierra All medical record entries made by the Scribe were at my direction and personally dictated by me. I have reviewed the chart and agree that the record accurately reflects my personal performance of the history, physical exam, medical decision making, and the department course for this patient. I have also personally directed, reviewed, and agree with the discharge instructions and disposition. Disposition/Present on Arrival - Present on Arrival Any Indicators Present on Arrival: No History of DVT/PE: Yes History of Uncontrolled Diabetes: No Urinary Catheter: No History of Decub. Ulcer: No History Surgical Site Infection Following: None - Disposition Have Diagnosis and Disposition been Completed?: Yes Diagnosis: Abdominal pain Disposition: HOSPITALIZED Disposition Time: 23:55 Condition: FAIR
[2017-03-06 21:44] LABS: VENOUS BLOOD GAS PO2 64 mm/Hg (30-55); VENOUS BLOOD PH 7.36 (7.32-7.43)
[2017-03-06 21:45] LABS: BASO # 0.01 K/mm3 (0.0-2.0); BASO % 0.1 % (0.0-3.0); EOS # 0.2 (0.0-0.7); EOS % 2.3 % (1.5-5.0); GRAN # 5.77 (1.4-6.5); GRAN % 63.2 % (50.0-68.0); HEMOGLOBIN 14.2 gm/dL (14.0-18.0); LYMPH # 2.6 (1.2-3.4); MEAN CELL VOLUME 96.2 fL (80.0-105.0); MEAN CORPUSCULAR HEMOGLOBIN 31.6 pg (25.0-35.0); MEAN CORPUSCULAR HGB CONC 32.8 g/dl (31.0-37.0); MEAN PLATELET VOLUME 8.9 fl (7.0-11.0); MONO # 0.6 (0.1-0.6); MONO % 6.4 % (1.0-6.0); PLATELET COUNT 176 10^3/uL (120.0-450.0); WHITE BLOOD COUNT 9.1 10^3/ul (4.5-11.0)
[2017-03-06 21:54] LABS: ALB/GLOB RATIO 1.1 (1.1-1.8); ALBUMIN 3.3 g/dL (3.0-4.8); AMYLASE 78 U/L (35-125); BLOOD UREA NITROGEN 40 mg/dL (7-21); CALCIUM 8.5 mg/dL (8.4-10.5); GFR AFRICAN-AMERICAN > 60; GFR NON-AFRICAN AMERICAN 52
[2017-03-06 21:59] LABS: INR 1.87 (0.93-1.08); PROTHROMBIN TIME 20.2 Seconds (9.9-11.8)
[2017-03-06 22:01] LABS: ALT/SGPT 28 U/L (7-56); AST/SGOT 17 U/L (15-59); LIPASE 219 U/L (23-300)
[2017-03-06 22:07] LABS: TROPONIN I < 0.01 ng/mL
--- NOTE | 2017-03-06 23:05 | CT ---
EXAM: CT Abdomen and Pelvis Without Intravenous Contrast CLINICAL HISTORY: The patient age is 86 years old and is male; Pain; Abdominal pain; Patient HX: Abd pain Facility exam id and description: Ct abdpelscon abd pelvis w/o po or iv cont TECHNIQUE: Axial computed tomography images of the abdomen and pelvis without intravenous contrast. This CT exam was performed using one or more of the following dose reduction techniques: automated exposure control, adjustment of the mA and/or kV according to patient size, and/or use of iterative reconstruction technique. Coronal and sagittal reformatted images were created and reviewed. EXAM DATE/TIME: 03/06/2017 8:14 PM COMPARISON: No relevant prior studies available. 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 There is borderline aneurysmal dilatation of the descending thoracic aorta measuring 3.1 cm in diameter. Aneurysmal dilatation is also noted of the abdominal aorta measuring 3.8 cm in diameter. There is a small right pleural effusion. A consolidation is visualized at the right lung base posteriorly, with calcifications. Additional pleural calcifications are visualized, which can be associated with asbestos exposure. Atelectatic changes are identified at the left lung base. There is coronary artery calcification. ABDOMEN: Liver: No mass. Gallbladder and bile ducts: Multiple calcified gallstones are visualized. Pancreas: Normal contour. No ductal dilation. Spleen: No splenomegaly. Adrenals: No mass. Kidneys and ureters: Surgical clips are visualized within the right renal cortex. Right perinephric stranding and scarring is visualized. Inferior to the right kidney, there is a 3.4 x 2.4 cm lesion which is hypodense centrally. This may be contributed by postoperative change. Hypodense probable renal cysts are seen bilaterally. At the midpole of the left kidney, there is a 3.1 x 3.4 cm hyperdense complex or hemorrhagic probable cyst. Stomach and bowel: There is interposition of bowel anterior to the liver. There is fecal distention of the sigmoid colon. Appendix: No findings to suggest acute appendicitis. PELVIS: Bladder: No stones. Reproductive: Hydroceles are visualized within the scrotum. ABDOMEN and PELVIS: Intraperitoneal space: No free air. Bones/joints: Postoperative changes are identified with bilateral hip prostheses. There is acetabular protrusion on the left side, with an isodense mass medially measuring 5.8 x 4.3 cm. Malignancy is considered. Osteopenia. Hypertrophic degenerative changes are noted within the spine. There is dextroscoliosis of the thoracic spine. Soft tissues: Muscle atrophy is identified. Vasculature: A mass is identified within the right side of the pelvis measuring 4.4 x 4.0 cm which is contiguous with the internal iliac arteries and suspicious for aneurysm. An IVC filter is identified. Atherosclerotic changes are visualized. Lymph nodes: No enlarged lymph nodes. Other findings: Additional postoperative changes are identified involving the right hemipelvis. IMPRESSION: 1. 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 There is borderline aneurysmal dilatation of the descending thoracic aorta. Aneurysmal dilatation is also noted of the abdominal aorta measuring 3.8 cm in diameter. 2. Cholelithiasis. 3. Hypodense probable renal cysts are seen bilaterally. At the midpole of the left kidney, there is a 3.1 x 3.4 cm hyperdense complex or hemorrhagic probable cyst. Inferior to the right kidney, there is a 3.4 x 2.4 cm lesion which is hypodense centrally. This may be contributed by postoperative change. 4. Postoperative changes are identified with bilateral hip prostheses. There is acetabular protrusion on the left side, with an isodense mass medially measuring 5.8 x 4.3 cm. Malignancy is considered. 5. A mass is identified within the right side of the pelvis measuring 4.4 x 4.0 cm which is contiguous with the internal iliac arteries and suspicious for aneurysm. 6. There is a small right pleural effusion. A consolidation is visualized at the right lung base posteriorly, with calcifications. Additional pleural calcifications are visualized, which can be associated with asbestos exposure. 7. Additional CT findings described above. Correlation with prior studies is recommended.
--- NOTE | 2017-03-07 02:44 | CP.PCM.HP ---
<RICHARDSON GARCES - Last Filed: 03/07/17 02:47> History of Present Illness - History of Present Illness History of Present Illness: CC: RLQ Pain HPI: Mr. Flores is an 86 year old male, whose past medical history includes dementia, atrial fibrillation, hypertension, asthma, COPD, and renal cell carcinoma, presented to the ED complaining of RLQ pain. Patient reports an intermittent sharp to dull non-radiating RLQ pain over the course of the past 5 months. Patient reports that over the course of the past week it has gotten worse and this prompted him to come to the ED. Patients endorses that patient suffers from chronic constipation and that usually the pain is somewhat relieved with prescription linzess and OTC colace. However, these have actually worsened the pain over the past week. Patient reports his last BM was on 03/05. 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 Patients reports that the abdominal aorta and internal iliac aneurysmal dilatation are new findings to her knowledge. Patient denies any fever, anorexia, painful urination , hematuria, or bloody diarrhea over the course of the past few months. Currently, patient states that his pain is somewhat resolved but still present on palpation but is otherwise asymptomatic. Patient denies any fever, headache, dizziness, changes in vision, chest pain, cough, shortness of breath, N/V, diarrhea, urinary symptoms, back pain or neck pain. PMH: DVT, dementia, atrial fibrillation, hypertension, asthma, COPD, bilateral hip replacement, and renal cell carcinoma PSH: cardiac stent (2000), multiple hip surgeries, tumor removal of kidney (2007 ) Family History: No aneurysms Social History: Former smoker (Quit 40 years ago), denies alcohol or illicit drug use, lives at home with , has several caretakers as patient is unable to ambulate due to complications from hip surgery Allergies: NKDA Home meds: as per MAR Present on Admission - Present on Admission Any Indicators Present on Admission: Yes History of DVT/PE: Yes Review of Systems - Review of Systems Review of Systems: As per HPI Past Patient History - Infectious Disease Hx of Infectious Diseases: None - Tetanus Immunizations Tetanus Immunization: Unknown - Past Social History Smoking Status: Former Smoker - CARDIAC Hx Cardiac Disorders: Yes - PULMONARY Hx Chronic Obstructive Pulmonary Disease (COPD): Yes - NEUROLOGICAL Hx Transient Ischemic Attacks (TIA): Yes - HEENT Hx HEENT Problems: No - RENAL Other/Comment: kidney tumor - ENDOCRINE/METABOLIC Hx Endocrine Disorders: No - HEMATOLOGICAL/ONCOLOGICAL Hx Blood Disorders: No - INTEGUMENTARY Hx Dermatological Problems: No - MUSCULOSKELETAL/RHEUMATOLOGICAL Hx Musculoskeletal Disorders: Yes - GASTROINTESTINAL Hx Gastrointestinal Disorders: No - GENITOURINARY/GYNECOLOGICAL Hx Genitourinary Disorders: No - PSYCHIATRIC Hx Psychophysiologic Disorder: No Hx Substance Use: No - SURGICAL HISTORY Hx Cardiac Catheterization: Yes (x1 stent) Hx Coronary Stent: Yes Hx Joint Replacement: Yes Other/Comment: tumor removed from the kidney 2007 - ANESTHESIA Hx Anesthesia: Yes Hx Anesthesia Reactions: No Hx Malignant Hyperthermia: No Meds Allergies/Adverse Reactions: Allergies Allergy/AdvReac Type Severity Reaction Status Date / Time No Known Allergies Allergy Unverified 10/24/16 10:54 Physical Exam - Constitutional Appears: No Acute Distress - Head Exam Head Exam: NORMAL INSPECTION, NORMOCEPHALIC - Eye Exam Eye Exam: EOMI, Normal appearance, PERRL - ENT Exam ENT Exam: Mucous Membranes Moist, Normal Exam - Neck Exam Neck exam: Positive for: Full Rom, Normal Inspection. Negative for: Lymphadenopathy, Tenderness - Respiratory Exam Respiratory Exam: Clear to Auscultation Bilateral, NORMAL BREATHING PATTERN. absent: Rales, Rhonchi, Wheezes, Respiratory Distress - Cardiovascular Exam Cardiovascular Exam: REGULAR RHYTHM, RRR, +S1, +S2. absent: Tachycardia, Irregular Rhythm, Systolic Murmur - GI/Abdominal Exam GI & Abdominal Exam: Normal Bowel Sounds, Tenderness. absent: Distended, Firm, Guarding, Mass, Rebound, Rigid Additional comments: RLQ and hypogastric TTP - Exam Exam: absent: Bladder Distension - Extremities Exam Extremities exam: Positive for: normal capillary refill, pedal pulses present. Negative for: calf tenderness, pedal edema, tenderness Additional comments: multiple scab-like lesions on bilateral LE - Back Exam Back exam: absent: CVA tenderness (L), CVA tenderness (R) - Neurological Exam Neurological exam: Alert, Oriented x3 - Psychiatric Exam Psychiatric exam: Normal Affect, Normal Mood - Skin Skin Exam: Dry, Intact, Normal Color, Warm Results - Vital Signs Recent Vital Signs: Last Vital Signs Temp 98.1 F 03/06/17 20:29 Pulse 72 03/06/17 20:23 Resp 18 03/06/17 20:23 BP 136/78 03/06/17 20:23 Pulse Ox 96 03/06/17 20:23 - Labs Result Diagrams: 03/06/17 21:20 03/06/17 21:20 Assessment & Plan - Assessment and Plan (Free Text) Assessment: 86 year old male, whose past medical history includes dementia, atrial fibrillation, hypertension, asthma, COPD, and renal cell carcinoma, presented to the ED complaining of RLQ pain Plan: 1. RLQ tenderness with new onset right internal iliac aneurysm -see CT report -Amylase, Lipase WNL -UA pending -cont norvasc, lasix and KCL -Labetalol 100mg BID PRN for SBP >150 (held if HR <55) -monitor BP with Q8H vital signs -monitor daily CBC -Vascular/IR and Surgery consulted, will follow recommendations 2. History of DVT -cont coumadin 5mg PO every other day (home dose) -monitor daily INR -will adjust as necessary based on INR 3. History of ACS -cont ASA and lipitor 4. GI Prophylaxis -protonix Patient seen and case discussed with attending, Dr. Hale. - Date & Time Date: 03/07/17 Time: 02:30 Decision To Admit - Pt Status Changed To: Hospital Disposition Of: Observation - . Bed Request Type: Med/Surg <Benton Hale MD - Last Filed: 03/07/17 09:06> Results - Vital Signs Recent Vital Signs: Last Vital Signs Temp 98.0 F 03/07/17 08:08 Pulse 95 H 03/07/17 08:08 Resp 20 03/07/17 08:08 BP 138/84 03/07/17 08:08 Pulse Ox 95 03/07/17 08:08 - Labs Result Diagrams: 03/07/17 07:35 03/07/17 07:35 Labs: Laboratory Results - last 24 hr 03/07/17 03/07/17 03/07/17 07:35 07:35 07:35 WBC 7.4 RBC 4.47 Hgb 13.8 L Hct 42.9 MCV 96.0 MCH 30.9 MCHC 32.2 RDW 13.9 Plt Count 173 MPV 8.9 Gran % 63.4 Lymph % (Auto) 26.7 [place] % (Auto) 7.0 H Eos % (Auto) 2.8 Baso % (Auto) 0.1 Gran # 4.68 Lymph # 2.0 [place] # 0.5 Eos # 0.2 Baso # 0.01 PT 18.9 H INR 1.75 H Sodium 137 Potassium 4.3 Chloride 101 Carbon Dioxide 30 Anion Gap 10 BUN 35 H Creatinine 1.2 Est GFR ( Amer) > 60 Est GFR (Non-Af Amer) 58 Random Glucose 78 Calcium 8.3 L Total Bilirubin 0.4 AST 20 ALT 23 Alkaline Phosphatase 112 Total Protein 5.7 L Albumin 3.1 Globulin 2.6 Albumin/Globulin Ratio 1.2 Attending/Attestation - Attestation I have personally seen and examined this patient.: Yes I have fully participated in the care of the patient.: Yes I have reviewed all pertinent clinical information: Yes Notes (Text): -I agree with the above H&P completed by the resident physician with the following additions and/or changes: The patient is an 86 year old man, with a history of dementia, DVT (on Coumadin) , CAD (s/p PCI) paroxysmal atrial fibrillation, hypertension, COPD, and renal cell carcinoma (s/p resection), who presents with 1 month history of worsening intermittent RLQ abdominal pain. Over the past few days, the pain became markedly more severe and pulsatile in character and as a result, the patient decided to come to the ED. CT-A/P done in the ED shows basically unchanged aortic (ascending and descending aneurysms). 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 Given his acutely worsening pain, RLQ tenderness and possibly new right iliac artery aneurysm on imaging, he will be admitted for observation , in order to have a specialist evaluation and also for pain control.
[2017-03-07] MEDS ORDERED: Albuterol-Ipratrop 3 mg / 0.5 (3 ml) UD IH PRN (02:52)
--- NOTE | 2017-03-07 06:37 | CP.PCM.CON ---
History of Present Illness - History of Present Illness History of Present Illness: General surgery consult note for Jessy Olguin, PGY-1 Pt S & E at bedside. 86M w/PMH sig for DVT, dementia, afib, HTN, asthma, COPD, B/L hip replacement, RCC consulted for RUQ ab pain x 1 day. Pain is sharp, intermittent, non radiating,. Pt reports having similar episodes in the past. Aggravated by food. No alleviating factors identified. Admits to headache, dysuria. Denies N/V/F/C, SOB, CP, constipation, diarrhea, other changes in bowel or bladder habits. PMH: DVT, dementia, afib, HTN, asthma, COPD, B/L hip replacement, RCC PSH: cardiac stent (2000), multiple hip surgeries, tumor removal of kidney (2007 ) All: NKDA SH: Occasional ETOH use (#1 drink/mo), 1ppd x 10 yr tobacco hx, denies illicit drugs Review of Systems - Review of Systems Systems not reviewed;Unavailable: Dementia All systems: reviewed and no additional remarkable complaints except - Constitutional Constitutional: absent: Chills, Fever - EENT Eyes: Change in Vision Ears: absent: Dizziness Nose/Mouth/Throat: absent: Sore Throat - Cardiovascular Cardiovascular: absent: Chest Pain, Palpitations - Respiratory Respiratory: absent: Cough - Gastrointestinal Gastrointestinal: Abdominal Pain. absent: Constipation, Diarrhea, Hematemesis, Hematochezia, Nausea, Vomiting - Genitourinary Genitourinary: Dysuria. absent: Hematuria - Musculoskeletal Musculoskeletal: absent: Numbness, Tingling - Neurological Neurological: absent: Weakness Past Patient History - Infectious Disease Hx of Infectious Diseases: None - Tetanus Immunizations Tetanus Immunization: Unknown - Past Social History Smoking Status: Former Smoker - CARDIAC Hx Hypertension: Yes - PULMONARY Hx Chronic Obstructive Pulmonary Disease (COPD): Yes - NEUROLOGICAL HX Cerebrovascular Accident: Yes - HEENT Hx HEENT Problems: No - RENAL Other/Comment: kidney tumor - ENDOCRINE/METABOLIC Hx Endocrine Disorders: No - HEMATOLOGICAL/ONCOLOGICAL Hx Blood Disorders: No - INTEGUMENTARY Hx Dermatological Problems: No - MUSCULOSKELETAL/RHEUMATOLOGICAL Hx Falls: No - GASTROINTESTINAL Hx Gastrointestinal Disorders: No - GENITOURINARY/GYNECOLOGICAL Hx Genitourinary Disorders: No - PSYCHIATRIC Hx Psychophysiologic Disorder: No Hx Substance Use: No - SURGICAL HISTORY Other/Comment: rt. Kidney tumor removed - ANESTHESIA Hx Anesthesia: Yes Hx Anesthesia Reactions: No Hx Malignant Hyperthermia: No Meds Allergies/Adverse Reactions: Allergies Allergy/AdvReac Type Severity Reaction Status Date / Time No Known Allergies Allergy Unverified 10/24/16 10:54 - Medications Medications: Current Medications Albuterol/Ipratropium (Duoneb 3 Mg/0.5 Mg (3 Ml) Ud) 3 ml IH [id number] PRN PRN Reason: Shortness of Breath Amlodipine Besylate (Norvasc) 5 mg PO DAILY [facility] Aspirin (Aspirin Chewable) 81 mg PO DAILY [facility] Atorvastatin Calcium (Lipitor) 10 mg PO DAILY [facility] Furosemide (Lasix) 40 mg PO DAILY [facility] Labetalol HCl (Trandate) 100 mg PO BID PRN PRN Reason: Systolic Blood Pressure Pantoprazole Sodium (Protonix Inj) 40 mg IVP DAILY [facility] Potassium Chloride (Klor-Con 10) 10 meq PO DAILY [facility] Warfarin Sodium (Coumadin) 5 mg PO QOTHERDAY@1800 [facility] PRN Reason: Protocol Physical Exam - Constitutional Appears: Non-toxic, No Acute Distress - Head Exam Head Exam: ATRAUMATIC, NORMAL INSPECTION, NORMOCEPHALIC - Eye Exam Eye Exam: EOMI, Normal appearance - ENT Exam ENT Exam: Mucous Membranes Moist, Normal Exam - Neck Exam Neck exam: Positive for: Normal Inspection - Respiratory Exam Respiratory Exam: Clear to Auscultation Bilateral, NORMAL BREATHING PATTERN - Cardiovascular Exam Cardiovascular Exam: REGULAR RHYTHM, +S1, +S2 - GI/Abdominal Exam GI & Abdominal Exam: Normal Bowel Sounds, Soft. absent: Distended, Firm, Guarding, Pulsatile Mass, Rebound, Rigid, Tenderness - Extremities Exam Extremities exam: Negative for: tenderness - Neurological Exam Neurological exam: Alert, CN II-XII Intact Additional comments: AOx2 (time, self, not place) - Psychiatric Exam Psychiatric exam: Normal Affect, Normal Mood - Skin Skin Exam: Dry, Warm Additional comments: Lower extremities with diffuse dark discoloration of skin, LLE w/large 5x4 cm dark, papular lesion on anterior aspect on leg Results - Vital Signs Recent Vital Signs: Last Vital Signs Temp 97.5 F L 03/07/17 03:10 Pulse 79 03/07/17 03:10 Resp 18 03/07/17 03:10 BP 160/89 H 03/07/17 03:10 Pulse Ox 96 03/07/17 02:01 - Labs Result Diagrams: 03/06/17 21:20 03/06/17 21:20 Assessment & Plan - Assessment and Plan (Free Text) Assessment: 86M w/RUQ ab pain Plan: Cholelithaisis and previously noted aneurysms on ab CT LFTs WNL No change in size of aneurysm Serial U/S as outpatient to monitor aneurysm On ASA, Coumadin No surgical intervention at this time Further recs as per Dr. Jonnie SALOMON attending Audra, PGY-1 - Date & Time Date: 03/07/17 Time: 06:15
[2017-03-07 07:55] LABS: BASO # 0.01 K/mm3 (0.0-2.0); BASO % 0.1 % (0.0-3.0); EOS # 0.2 (0.0-0.7); EOS % 2.8 % (1.5-5.0); GRAN # 4.68 (1.4-6.5); GRAN % 63.4 % (50.0-68.0); HEMOGLOBIN 13.8 gm/dL (14.0-18.0); LYMPH % 26.7 % (22.0-35.0); MEAN CORPUSCULAR HEMOGLOBIN 30.9 pg (25.0-35.0); MEAN CORPUSCULAR HGB CONC 32.2 g/dl (31.0-37.0); MEAN PLATELET VOLUME 8.9 fl (7.0-11.0); MONO # 0.5 (0.1-0.6); PLATELET COUNT 173 10^3/uL (120.0-450.0); RBC 4.47 10^6/uL (3.5-6.1); RED CELL DISTRIBUTION WIDTH 13.9 % (11.5-14.5); WHITE BLOOD COUNT 7.4 10^3/ul (4.5-11.0)
[2017-03-07 08:01] LABS: INR 1.75 (0.93-1.08); PROTHROMBIN TIME 18.9 Seconds (9.9-11.8)
[2017-03-07 08:13] LABS: ALB/GLOB RATIO 1.2 (1.1-1.8); ALBUMIN 3.1 g/dL (3.0-4.8); ALT/SGPT 23 U/L (7-56); AST/SGOT 20 U/L (15-59); BLOOD UREA NITROGEN 35 mg/dL (7-21); CALCIUM 8.3 mg/dL (8.4-10.5); GFR AFRICAN-AMERICAN > 60; GFR NON-AFRICAN AMERICAN 58
[2017-03-07] MEDS: Potassium Chloride 10 mEq ER Tab PO SCH (09:35)
--- NOTE | 2017-03-07 09:38 | RAD ---
PROCEDURE: CHEST RADIOGRAPH, 1 VIEW HISTORY: pain COMPARISON: 10/19/2016 FINDINGS: LUNGS: Clear. PLEURA: No pneumothorax or pleural fluid seen. CARDIOVASCULAR: Moderate cardiomegaly OSSEOUS STRUCTURES: No significant abnormalities. VISUALIZED UPPER ABDOMEN: Normal. OTHER FINDINGS: None. IMPRESSION: No active disease.
[2017-03-07] MEDS: POLYETHYLENE GLYCOL 3350 17 GM/Dose PACKET PO SCH (12:40)
[2017-03-07] MEDS ORDERED: Magnesium Citrate Oral SOL (300 ml) PO ONE (14:08)
[2017-03-07] MEDS: Sodium Chloride 0.45% 1,000 ML IV SCH (16:34)
--- NOTE | 2017-03-07 19:57 | CON ---
DATE: 03/07/2017 TIME: 04:00 p.m. CHIEF COMPLAINT/HISTORY OF PRESENT ILLNESS: I have known Mr. Flores for several years regarding previous DVT and stasis changes. He is essentially bedridden at this time, but coherent and responsive. He is admitted with right lower quadrant pain(approx [address] of the abdomen and pelvis demonstrates a 5 cm right internal iliac aneurysm. No obvious hematoma is appreciated. Mr. Flores also has ectatic changes in the thoracic and abdominal aorta. His groin pulses are normal. PAST MEDICAL HISTORY: Significant for the previous DVTs with IVC filter placement. He has significant bilateral lower extremity stasis changes. He has a history of atrial fibrillation (on Coumadin). He has asthma and COPD. He has had previous bilateral hip replacements with revisions. He has a history renal cell carcinoma with partial resection-right kidney. I reviewed his CT scan and spoke with Mr. Flores and his at length. Certainly, his right internal iliac aneurysm is above 3 cm threshold for repair. Mr. Flores is not a candidate for traditional surgical repair. The most concerning issue is the tenderness he is experiencing in the right lower quadrant, which appears to be new over the past several months and related to the aneurysm. I discussed with him/ endovascular repair with stent grafting and embolization including alternatives and potential complications. The family will discuss the issue among themselves and decide what they would like to do. In the meantime, I will perform a CTA of the pelvis and obtain measurements for stent graft placement and embolization. Jorge Fabian MD MTDD
[2017-03-08] MEDS: Sodium Chloride 0.45% 1,000 ML IV SCH (08:28)
[2017-03-08 09:28] LABS: BASO # 0.01 K/mm3 (0.0-2.0); BASO % 0.1 % (0.0-3.0); EOS # 0.1 (0.0-0.7); EOS % 1.5 % (1.5-5.0); GRAN # 5.87 (1.4-6.5); GRAN % 69.1 % (50.0-68.0); HEMOGLOBIN 14.2 g/dL (14.0-18.0); LYMPH # 1.9 (1.2-3.4); LYMPH % 21.8 % (22.0-35.0); MEAN CELL VOLUME 96.3 fl (80.0-105.0); MEAN CORPUSCULAR HEMOGLOBIN 31.2 pg (25.0-35.0); MEAN CORPUSCULAR HGB CONC 32.4 g/dl (31.0-37.0); MEAN PLATELET VOLUME 8.7 fl (7.0-11.0); MONO # 0.6 (0.1-0.6); MONO % 7.5 % (1.0-6.0); PLATELET COUNT 169 10^3/uL (120.0-450.0); RBC 4.55 10^6/uL (3.5-6.1); RED CELL DISTRIBUTION WIDTH 13.8 % (11.5-14.5); WHITE BLOOD COUNT 8.5 10^3/ul (4.5-11.0)
[2017-03-08 09:37] LABS: INR 1.69 (0.93-1.08); PROTHROMBIN TIME 18.2 Seconds (9.9-11.8)
--- NOTE | 2017-03-08 09:42 | CARD ---
APPROVED REPORT EKG Measurement Heart [id number] MI [id number] <Conclusion> Normal sinus rhythm with sinus arrhythmia Left axis deviation, LAHB Septal infarct, old No change
[2017-03-08] MEDS: POLYETHYLENE GLYCOL 3350 17 GM/Dose PACKET PO SCH (09:44)
[2017-03-08 09:46] LABS: ALB/GLOB RATIO 1.3 (1.1-1.8); ALBUMIN 3.4 g/dL (3.0-4.8); ALT/SGPT 24 U/L (7-56); AST/SGOT 16 U/L (15-59); BLOOD UREA NITROGEN 31 mg/dL (7-21); CALCIUM 8.6 mg/dL (8.4-10.5); GFR AFRICAN-AMERICAN > 60; GFR NON-AFRICAN AMERICAN 58
[2017-03-08] MEDS: Potassium Chloride 10 mEq ER Tab PO SCH (09:49)
--- NOTE | 2017-03-08 09:57 | CT ---
PROCEDURE: CT Pelvis with contrast HISTORY: 5cm rt iliac aneursym. CTA 50cc cont/50 saline. COMPARISON: 01/07/2016 TECHNIQUE: Contiguous axial images of the pelvis with contrast. Coronal and sagittal reformats generated. Contrast dose: 100 cc Omni 350 Radiation dose: Total exam DLP = 504 mGy-cm. This CT exam was performed using one or more of the following dose reduction techniques: Automated exposure control, adjustment of the mA and/or kV according to patient size, and/or use of iterative reconstruction technique. FINDINGS: BLADDER: Unremarkable. No mass. REPRODUCTIVE ORGANS: Unremarkable. VISUALIZED BOWEL: Unremarkable. PERITONEUM: Unremarkable, as visualized. No free fluid. No free air. LYMPH NODES: Unremarkable. No enlarged lymph nodes. VASCULATURE: There is a 4 cm partially thrombosed aneurysm on the right side of the pelvis. This arises from the right internal iliac artery. The right common and external iliac arteries are unremarkable. Finding is best seen on axial image 122 and coronal image 54. There is enhancement within the lumen of the aneurysm that is less intense than the adjacent arterial enhancement indicating slow flow. There is a large amount of thrombus. 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 Bilateral hip prostheses. OTHER FINDINGS: None. 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
--- NOTE | 2017-03-08 16:23 | CP.PCM.PN ---
<Lisa Magaña - Last Filed: 03/08/17 16:19> Subjective - Date & Time of Evaluation Date of Evaluation: 03/08/17 Time of Evaluation: 16:20 - Subjective Subjective: PT S&E at bedside. PAL. Patient states he had multiple bowel movements. Patient admits to some pain, but states he's doing fine. Patient is a poor historian due to dementia, but is able to answer questions. Patient denies F/C, N/V. Admits to abdominal pain, multiple bowel movements and history of constipation. PAtient and were seen at bedside: patient and were made aware of 's stent placement with IR Objective - Vital Signs/Intake and Output Vital Signs (last 24 hours): Temp Pulse Resp BP Pulse Ox 97.8 F 63 20 128/65 95 03/08/17 16:15 03/08/17 16:15 03/08/17 16:15 03/08/17 16:15 03/08/17 16:15 Intake and Output: 03/08/17 03/08/17 06:59 18:59 Intake Total 640 Balance 640 - Medications Medications: Current Medications Albuterol/Ipratropium (Duoneb 3 Mg/0.5 Mg (3 Ml) Ud) 3 ml IH [id number] PRN PRN Reason: Shortness of Breath Amlodipine Besylate (Norvasc) 5 mg PO DAILY [facility] Last Admin: 03/08/17 09:49 Dose: 5 mg Aspirin (Aspirin Chewable) 81 mg PO DAILY [facility] Last Admin: 03/08/17 09:49 Dose: 81 mg Atorvastatin Calcium (Lipitor) 10 mg PO DAILY [facility] Last Admin: 03/08/17 09:49 Dose: 10 mg Docusate Sodium (Colace) 100 mg PO TID [facility] Last Admin: 03/08/17 13:12 Dose: Not Given Furosemide (Lasix) 40 mg PO DAILY [facility] Last Admin: 03/08/17 09:49 Dose: 40 mg Sodium Chloride (Sodium Chloride 0.45%) 1,000 mls @ 60 mls/hr IV .[id number] [facility] Stop: 03/08/17 18:00 Last Admin: 03/08/17 08:28 Dose: 60 mls/hr Labetalol HCl (Trandate) 100 mg PO BID PRN PRN Reason: Systolic Blood Pressure Last Admin: 03/07/17 16:35 Dose: 100 mg Pantoprazole Sodium (Protonix Inj) 40 mg IVP DAILY [facility] Last Admin: 03/08/17 09:48 Dose: 40 mg Polyethylene Glycol (Miralax) 17 gm PO DAILY [facility] Last Admin: 03/08/17 09:44 Dose: Not Given Potassium Chloride (Klor-Con 10) 10 meq PO DAILY [facility] Last Admin: 03/08/17 09:49 Dose: 10 meq Warfarin Sodium (Coumadin) 5 mg PO QOTHERDAY@1800 [facility] PRN Reason: Protocol - Labs Labs: PT 18.2 Seconds (9.9-11.8) H 03/08/17 09:00 INR 1.69 (0.93-1.08) H 03/08/17 09:00 APTT 39.0 Seconds (23.7-30.8) H 03/06/17 21:20 - Constitutional Appears: Confused, Chronically Ill - Head Exam Head Exam: NORMAL INSPECTION - Eye Exam Eye Exam: EOMI, Normal appearance - ENT Exam ENT Exam: Mucous Membranes Moist - Neck Exam Neck Exam: Full ROM - Respiratory Exam Respiratory Exam: Clear to Ausculation Bilateral, NORMAL BREATHING PATTERN - GI/Abdominal Exam GI & Abdominal Exam: Soft, Tenderness, Hypoactive Bowel Sounds. absent: Guarding, Rebound Additional comments: tenderness in right lower quadrant and midepigastric region. less than yesterday's exam no rebound tenderness, no radiating pain. no involuntary guarding - Extremities Exam Extremities Exam: Full ROM. absent: Pedal Edema - Psychiatric Exam Psychiatric exam: Normal Mood Additional comments: dementia - Skin Skin Exam: Dry, Mottled, Warm Assessment and Plan - Assessment and Plan (Free Text) Assessment: 86 M Admitted for RUQ abdominal pain and RLQ abdominal pain with a PMH of chronic constipation, DVT, dementia, afib, HTN, asthma, COPD, B/L hip replacement, and renal cell carcinoma Plan: 1. RLQ tenderness with new onset right internal iliac aneurysm -cont norvasc, lasix and KCL -monitor BP with Q8H vital signs -monitor daily CBC -IR will place stent 2. History of DVT -cont coumadin 5mg PO every other day -monitor daily INR -will adjust as necessary based on INR 3. History of ACS -cont ASA and lipitor 4. Hx of tobacco abuse 1ppd x 10 yr tobacco hx, denies illicit drugs 5. GI Prophylaxis -protonix <Rangasamy,Ajantha - Last Filed: 03/08/17 17:06> Objective - Vital Signs/Intake and Output Vital Signs (last 24 hours): Temp Pulse Resp BP Pulse Ox 97.8 F 63 20 128/65 95 03/08/17 16:15 03/08/17 16:15 03/08/17 16:15 03/08/17 16:15 03/08/17 16:15 Intake and Output: 03/08/17 03/08/17 06:59 18:59 Intake Total 640 Balance 640 - Medications Medications: Current Medications Albuterol/Ipratropium (Duoneb 3 Mg/0.5 Mg (3 Ml) Ud) 3 ml IH [id number] PRN PRN Reason: Shortness of Breath Amlodipine Besylate (Norvasc) 5 mg PO DAILY [facility] Last Admin: 03/08/17 09:49 Dose: 5 mg Aspirin (Aspirin Chewable) 81 mg PO DAILY [facility] Last Admin: 03/08/17 09:49 Dose: 81 mg Atorvastatin Calcium (Lipitor) 10 mg PO DAILY [facility] Last Admin: 03/08/17 09:49 Dose: 10 mg Docusate Sodium (Colace) 100 mg PO TID [facility] Last Admin: 03/08/17 13:12 Dose: Not Given Furosemide (Lasix) 40 mg PO DAILY [facility] Last Admin: 03/08/17 09:49 Dose: 40 mg Sodium Chloride (Sodium Chloride 0.45%) 1,000 mls @ 60 mls/hr IV .[id number] [facility] Stop: 03/08/17 18:00 Last Admin: 03/08/17 08:28 Dose: 60 mls/hr Labetalol HCl (Trandate) 100 mg PO BID PRN PRN Reason: Systolic Blood Pressure Last Admin: 03/07/17 16:35 Dose: 100 mg Pantoprazole Sodium (Protonix Inj) 40 mg IVP DAILY [facility] Last Admin: 03/08/17 09:48 Dose: 40 mg Polyethylene Glycol (Miralax) 17 gm PO DAILY [facility] Last Admin: 03/08/17 09:44 Dose: Not Given Potassium Chloride (Klor-Con 10) 10 meq PO DAILY [facility] Last Admin: 08/08/17 09:49 Dose: 10 meq - Labs Labs: PT 18.2 Seconds (9.9-11.8) H 03/08/17 09:00 INR 1.69 (0.93-1.08) H 03/08/17 09:00 APTT 39.0 Seconds (23.7-30.8) H 03/06/17 21:20 Attending/Attestation - Attestation I have personally seen and examined this patient.: Yes I have fully participated in the care of the patient.: Yes I have reviewed all pertinent clinical information, including history, physical exam and plan: Yes Notes (Text): 03/08/17 17:03 attending note; Patient seen and examined with resident. Patient's by the bedside. Patient is a 86-year-old male with a past medical history of aortic aneurysm, dementia, atrial fibrillation, hypertension, asthma and COPD, presented to the ED complaining of RLQ pain.CT abdomen and pelvis showed right iliac aneurysm. Patient was evaluated By Dr. Jorge Fabian. Plan for stent on . Surgery evaluation appreciated. Hold Coumadin. constipation; resolved. Continue MiraLAX and Colace. The diagnosis and treatment plan discussed with patient's in detail. Upon discharge the patient will follow-up with PMD . 03/08/17 17:04
[2017-03-09 06:19] LABS: BASO # 0.01 K/mm3 (0.0-2.0); BASO % 0.1 % (0.0-3.0); EOS # 0.1 (0.0-0.7); EOS % 1.7 % (1.5-5.0); GRAN # 5.03 (1.4-6.5); HEMOGLOBIN 13.8 g/dL (14.0-18.0); LYMPH # 1.9 (1.2-3.4); MEAN CELL VOLUME 96.2 fl (80.0-105.0); MEAN CORPUSCULAR HEMOGLOBIN 31.2 pg (25.0-35.0); MEAN CORPUSCULAR HGB CONC 32.4 g/dl (31.0-37.0); MEAN PLATELET VOLUME 8.6 fl (7.0-11.0); MONO # 0.6 (0.1-0.6); MONO % 8.2 % (1.0-6.0); PLATELET COUNT 176 10^3/uL (120.0-450.0); RBC 4.43 10^6/uL (3.5-6.1); WHITE BLOOD COUNT 7.7 10^3/ul (4.5-11.0)
[2017-03-09 06:23] LABS: INR 1.43 (0.93-1.08); PROTHROMBIN TIME 15.4 Seconds (9.9-11.8)
[2017-03-09 07:05] LABS: ALB/GLOB RATIO 1.2 (1.1-1.8); ALBUMIN 3.2 g/dL (3.0-4.8); ALT/SGPT 24 U/L (7-56); AST/SGOT 17 U/L (15-59); BLOOD UREA NITROGEN 29 mg/dL (7-21); CALCIUM 8.4 mg/dL (8.4-10.5); GFR AFRICAN-AMERICAN > 60; GFR NON-AFRICAN AMERICAN 52
[2017-03-09] MEDS: Potassium Chloride 10 mEq ER Tab PO SCH (09:22)
[2017-03-09] MEDS: POLYETHYLENE GLYCOL 3350 17 GM/Dose PACKET PO SCH (09:22)
[2017-03-09] MEDS: Nystatin 100,000 Units/gm Topical Pow(15 gm) TOP SCH (15:09)
--- NOTE | 2017-03-09 15:36 | CP.PCM.PN ---
Addendum entered and electronically signed by Lisa Magaña DO 03/09/17 15:51: procedure is 03/10 (not today 03/09) Original Note: <Lisa Magaña - Last Filed: 03/09/17 15:37> Subjective - Date & Time of Evaluation Date of Evaluation: 03/09/17 Time of Evaluation: 15:29 - Subjective Subjective: PT S&E at bedside. NAEON. Patient states he had multiple bowel movements. Patient admits to some pain, but states he's doing fine. Patient is a poor historian due to dementia, but is able to answer questions. Patient denies F/C, N/V. Admits to abdominal pain, multiple bowel movements and history of constipation. Patient and were seen at bedside: patient and were made aware of today's stent placement with IR . 03/09 Objective - Vital Signs/Intake and Output Vital Signs (last 24 hours): Temp Pulse Resp BP Pulse Ox 97.7 F 70 20 147/84 68 L 03/09/17 08:00 03/09/17 09:23 03/09/17 08:00 03/09/17 09:26 03/09/17 08:00 Intake and Output: 03/09/17 03/09/17 06:59 18:59 Intake Total 960 480 Balance 960 480 - Medications Medications: Current Medications Albuterol/Ipratropium (Duoneb 3 Mg/0.5 Mg (3 Ml) Ud) 3 ml IH [id number] PRN PRN Reason: Shortness of Breath Amlodipine Besylate (Norvasc) 5 mg PO DAILY [facility] Last Admin: 03/09/17 09:23 Dose: 5 mg Aspirin (Aspirin Chewable) 81 mg PO DAILY [facility] Last Admin: 03/09/17 09:22 Dose: Not Given Atorvastatin Calcium (Lipitor) 10 mg PO DAILY [facility] Last Admin: 03/09/17 09:22 Dose: 10 mg Docusate Sodium (Colace) 100 mg PO TID [facility] Last Admin: 03/09/17 13:26 Dose: Not Given Furosemide (Lasix) 40 mg PO DAILY [facility] Last Admin: 03/09/17 09:26 Dose: 40 mg Labetalol HCl (Trandate) 100 mg PO BID PRN PRN Reason: Systolic Blood Pressure Last Admin: 03/07/17 16:35 Dose: 100 mg Nystatin (Nystop Topical Powder) 0 gm TOP DAILY [facility] Pantoprazole Sodium (Protonix Inj) 40 mg IVP DAILY [facility] Last Admin: 03/09/17 09:22 Dose: 40 mg Polyethylene Glycol (Miralax) 17 gm PO DAILY [facility] Last Admin: 03/09/17 09:22 Dose: 17 gm Potassium Chloride (Klor-Con 10) 10 meq PO DAILY [facility] Last Admin: 03/09/17 09:22 Dose: 10 meq - Labs Labs: 03/09/17 05:30 03/09/17 05:30 PT 15.4 Seconds (9.9-11.8) H 03/09/17 05:30 INR 1.43 (0.93-1.08) H 03/09/17 05:30 APTT 39.0 Seconds (23.7-30.8) H 03/06/17 21:20 - Constitutional Appears: Non-toxic - Head Exam Head Exam: NORMAL INSPECTION - Eye Exam Eye Exam: EOMI, Normal appearance - ENT Exam ENT Exam: Mucous Membranes Moist - Neck Exam Neck Exam: Full ROM - Respiratory Exam Respiratory Exam: Clear to Ausculation Bilateral, NORMAL BREATHING PATTERN. absent: Accessory Muscle Use, Respiratory Distress - Cardiovascular Exam Cardiovascular Exam: absent: Bradycardia, Tachycardia - GI/Abdominal Exam GI & Abdominal Exam: Soft, Tenderness, Normal Bowel Sounds. absent: Guarding, Rigid Assessment and Plan - Assessment and Plan (Free Text) Assessment: 86 M Admitted for RUQ abdominal pain and RLQ abdominal pain with a PMH of chronic constipation, DVT, dementia, afib, HTN, asthma, COPD, B/L hip replacement, and renal cell carcinoma Plan: 1. RLQ tenderness with new onset right internal iliac aneurysm -cont norvasc, lasix and KCL -monitor BP with Q8H vital signs -monitor daily CBC -IR will place stent today 03/09 monitor stent entrance site for signs of induration, infection, drainage. 2. History of DVT -cont coumadin 5mg PO every other day -monitor daily INR -will adjust as necessary based on INR 3. History of ACS -cont ASA and lipitor 4. Hx of tobacco abuse 1ppd x 10 yr tobacco hx, denies illicit drugs 5. GI Prophylaxis -protonix <Rangasamy,Ajantha - Last Filed: 03/09/17 17:35> Objective - Vital Signs/Intake and Output Vital Signs (last 24 hours): Temp Pulse Resp BP Pulse Ox 97.4 F L 72 19 132/76 95 03/09/17 16:00 03/09/17 16:00 03/09/17 16:00 03/09/17 16:00 03/09/17 16:00 Intake and Output: 03/09/17 03/09/17 06:59 18:59 Intake Total 960 480 Balance 960 480 - Medications Medications: Current Medications Albuterol/Ipratropium (Duoneb 3 Mg/0.5 Mg (3 Ml) Ud) 3 ml IH [id number] PRN PRN Reason: Shortness of Breath Amlodipine Besylate (Norvasc) 5 mg PO DAILY [facility] Last Admin: 03/09/17 09:23 Dose: 5 mg Aspirin (Aspirin Chewable) 81 mg PO DAILY [facility] Last Admin: 03/09/17 09:22 Dose: Not Given Atorvastatin Calcium (Lipitor) 10 mg PO DAILY [facility] Last Admin: 03/09/17 09:22 Dose: 10 mg Docusate Sodium (Colace) 100 mg PO TID [facility] Last Admin: 03/09/17 17:10 Dose: Not Given Furosemide (Lasix) 40 mg PO DAILY [facility] Last Admin: 03/09/17 09:26 Dose: 40 mg Labetalol HCl (Trandate) 100 mg PO BID PRN PRN Reason: Systolic Blood Pressure Last Admin: 03/07/17 16:35 Dose: 100 mg Nystatin (Nystop Topical Powder) 0 gm TOP DAILY [facility] Pantoprazole Sodium (Protonix Inj) 40 mg IVP DAILY [facility] Last Admin: 03/09/17 09:22 Dose: 40 mg Polyethylene Glycol (Miralax) 17 gm PO DAILY [facility] Last Admin: 03/09/17 09:22 Dose: 17 gm Potassium Chloride (Klor-Con 10) 10 meq PO DAILY [facility] Last Admin: 03/09/17 09:22 Dose: 10 meq - Labs Labs: 03/09/17 05:30 03/09/17 05:30 PT 15.4 Seconds (9.9-11.8) H 03/09/17 05:30 INR 1.43 (0.93-1.08) H 03/09/17 05:30 APTT 39.0 Seconds (23.7-30.8) H 03/06/17 21:20 Attending/Attestation - Attestation I have personally seen and examined this patient.: Yes I have fully participated in the care of the patient.: Yes I have reviewed all pertinent clinical information, including history, physical exam and plan: Yes Notes (Text): 03/09/17 17:35 attending note; Patient seen and examined with resident. Patient's daughter by the bedside. Patient is a 86-year-old male with a past medical history of aortic aneurysm, dementia, atrial fibrillation, hypertension, asthma and COPD, presented to the ED complaining of RLQ pain.CT abdomen and pelvis showed right iliac aneurysm. Patient was evaluated By Dr. Jorge Fabian. Plan for stent in AM. Surgery evaluation appreciated. Coumadin on hold. constipation; resolved. Continue MiraLAX and Colace. Upon discharge the patient will follow-up with PMD .
[2017-03-10] MEDS ORDERED: Lidocaine 2% Inj (20ml) ONE (06:21)
[2017-03-10] MEDS ORDERED: Iodixanol 320 MG/ML 100 ML BOTTLE IV ONE (06:21)
[2017-03-10] MEDS ORDERED: Iodixanol 320 MG/ML 200 ML BOTTLE IV ONE (06:21)
[2017-03-10] MEDS ORDERED: Nitroglycerin 50mg in D5W 50 MG/250 ML BOTTLE IV ONE (06:22)
[2017-03-10] MEDS ORDERED: Heparin 2,000 ML IV ONE (06:22)
[2017-03-10] MEDS ORDERED: Iodixanol 320 mg/ml 150 ml Bottle IV ONE (06:23)
[2017-03-10 06:39] LABS: BASO # 0.01 K/mm3 (0.0-2.0); BASO % 0.1 % (0.0-3.0); EOS # 0.2 (0.0-0.7); GRAN % 65.6 % (50.0-68.0); HEMOGLOBIN 13.8 g/dL (14.0-18.0); LYMPH # 1.8 (1.2-3.4); LYMPH % 23.2 % (22.0-35.0); MEAN CELL VOLUME 95.8 fl (80.0-105.0); MEAN CORPUSCULAR HEMOGLOBIN 30.7 pg (25.0-35.0); MEAN CORPUSCULAR HGB CONC 32.1 g/dl (31.0-37.0); MEAN PLATELET VOLUME 8.8 fl (7.0-11.0); MONO # 0.7 (0.1-0.6); MONO % 9.1 % (1.0-6.0); PLATELET COUNT 178 10^3/uL (120.0-450.0); RBC 4.49 10^6/uL (3.5-6.1); RED CELL DISTRIBUTION WIDTH 13.9 % (11.5-14.5); WHITE BLOOD COUNT 7.9 10^3/ul (4.5-11.0)
[2017-03-10 06:44] LABS: INR 1.23 (0.93-1.08); PROTHROMBIN TIME 13.3 Seconds (9.9-11.8)
[2017-03-10] MEDS ORDERED: Midazolam 2 MG/2 ML VIAL ONE (06:51)
[2017-03-10 06:54] LABS: ALB/GLOB RATIO 1.2 (1.1-1.8); ALBUMIN 3.2 g/dL (3.0-4.8); CALCIUM 8.5 mg/dL (8.4-10.5)
[2017-03-10] MEDS ORDERED: Propofol 10 mg/ml Inj (20 ML) ONE ×2 (07:49→08:17)
[2017-03-10] MEDS ORDERED: Sodium Chloride 0.9% 1,000 ML IV SCH (09:15)
[2017-03-10] MEDS ORDERED: Morphine 2 mg/ml ISec IVP PRN (09:15)
--- NOTE | 2017-03-10 13:30 | CP.PCM.PN ---
Subjective - Date & Time of Evaluation Date of Evaluation: 03/10/17 Time of Evaluation: 11:00 Objective - Vital Signs/Intake and Output Vital Signs (last 24 hours): Temp Pulse Resp BP Pulse Ox 97.4 F L 69 20 139/82 99 03/10/17 09:07 03/10/17 12:40 03/10/17 12:40 03/10/17 12:00 03/10/17 12:40 Intake and Output: 03/10/17 03/10/17 06:59 18:59 Intake Total 360 Balance 360 - Medications Medications: Current Medications Albuterol/Ipratropium (Duoneb 3 Mg/0.5 Mg (3 Ml) Ud) 3 ml IH [id number] PRN PRN Reason: Shortness of Breath Amlodipine Besylate (Norvasc) 5 mg PO DAILY [facility] Last Admin: 03/09/17 09:23 Dose: 5 mg Aspirin (Aspirin Chewable) 81 mg PO DAILY [facility] Last Admin: 03/09/17 09:22 Dose: Not Given Atorvastatin Calcium (Lipitor) 10 mg PO DAILY [facility] Last Admin: 03/09/17 09:22 Dose: 10 mg Docusate Sodium (Colace) 100 mg PO TID [facility] Last Admin: 03/10/17 10:46 Dose: Not Given Furosemide (Lasix) 40 mg PO DAILY [facility] Last Admin: 03/09/17 09:26 Dose: 40 mg Sodium Chloride (Sodium Chloride 0.45%) 1,000 mls @ 80 mls/hr IV .[id number] [facility] Stop: 03/11/17 08:00 Labetalol HCl (Trandate) 100 mg PO BID PRN PRN Reason: Systolic Blood Pressure Last Admin: 03/07/17 16:35 Dose: 100 mg Nystatin (Nystop Topical Powder) 0 gm TOP DAILY [facility] Last Admin: 03/09/17 15:09 Dose: 1 unit Ondansetron HCl (Zofran Inj) 4 mg IVP ONCE PRN PRN Reason: Nausea/Vomiting Ondansetron HCl (Zofran Inj) 4 mg IVP ONCE PRN PRN Reason: Nausea/Vomiting Pantoprazole Sodium (Protonix Inj) 40 mg IVP DAILY [facility] Last Admin: 03/09/17 09:22 Dose: 40 mg Polyethylene Glycol (Miralax) 17 gm PO DAILY [facility] Last Admin: 03/09/17 09:22 Dose: 17 gm Potassium Chloride (Klor-Con 10) 10 meq PO DAILY [facility] Last Admin: 03/09/17 09:22 Dose: 10 meq - Labs Labs: 03/10/17 06:15 03/10/17 06:15 PT 13.3 Seconds (9.9-11.8) H 03/10/17 06:15 INR 1.23 (0.93-1.08) H 03/10/17 06:15 APTT 39.0 Seconds (23.7-30.8) H 03/06/17 21:20
--- NOTE | 2017-03-10 13:38 | CP.PCM.PN ---
<Lisa Magaña - Last Filed: 03/10/17 19:50> Subjective - Date & Time of Evaluation Date of Evaluation: 03/10/17 Time of Evaluation: 13:34 - Subjective Subjective: Progress Note for Dr. Heidi Canales PT S&E at bedside. NAEON. Patient is a poor historian due to dementia, but is able to answer questions. Patient denies F/C, N/V. This morning, patient was taken for stent placement with IR 8/ POD#0. Patient moved to ICU 129-2 for post -op management. PT S&E at bedside after the procedure. tolerating pain well. Patient tolerated his solid diet well. No complaints. Patient's said they were told the plan was to Discharge the patient tomorrow if patient does well overnight. Objective - Vital Signs/Intake and Output Vital Signs (last 24 hours): Temp Pulse Resp BP Pulse Ox 97.4 F L 69 20 139/82 99 03/10/17 09:07 03/10/17 12:40 03/10/17 12:40 03/10/17 12:00 03/10/17 12:40 Intake and Output: 03/10/17 03/10/17 06:59 18:59 Intake Total 360 Balance 360 - Medications Medications: Current Medications Albuterol/Ipratropium (Duoneb 3 Mg/0.5 Mg (3 Ml) Ud) 3 ml IH [id number] PRN PRN Reason: Shortness of Breath Amlodipine Besylate (Norvasc) 5 mg PO DAILY [facility] Last Admin: 03/09/17 09:23 Dose: 5 mg Aspirin (Aspirin Chewable) 81 mg PO DAILY [facility] Last Admin: 03/09/17 09:22 Dose: Not Given Atorvastatin Calcium (Lipitor) 10 mg PO DAILY [facility] Last Admin: 03/09/17 09:22 Dose: 10 mg Docusate Sodium (Colace) 100 mg PO TID [facility] Last Admin: 03/10/17 10:46 Dose: Not Given Furosemide (Lasix) 40 mg PO DAILY [facility] Last Admin: 03/09/17 09:26 Dose: 40 mg Sodium Chloride (Sodium Chloride 0.45%) 1,000 mls @ 80 mls/hr IV .[id number] [facility] Stop: 03/11/17 08:00 Labetalol HCl (Trandate) 100 mg PO BID PRN PRN Reason: Systolic Blood Pressure Last Admin: 03/07/17 16:35 Dose: 100 mg Nystatin (Nystop Topical Powder) 0 gm TOP DAILY [facility] Last Admin: 03/09/17 15:09 Dose: 1 unit Ondansetron HCl (Zofran Inj) 4 mg IVP ONCE PRN PRN Reason: Nausea/Vomiting Ondansetron HCl (Zofran Inj) 4 mg IVP ONCE PRN PRN Reason: Nausea/Vomiting Pantoprazole Sodium (Protonix Inj) 40 mg IVP DAILY [facility] Last Admin: 03/09/17 09:22 Dose: 40 mg Polyethylene Glycol (Miralax) 17 gm PO DAILY [facility] Last Admin: 03/09/17 09:22 Dose: 17 gm Potassium Chloride (Klor-Con 10) 10 meq PO DAILY [facility] Last Admin: 03/09/17 09:22 Dose: 10 meq - Labs Labs: 03/10/17 06:15 03/10/17 06:15 PT 13.3 Seconds (9.9-11.8) H 03/10/17 06:15 INR 1.23 (0.93-1.08) H 03/10/17 06:15 APTT 39.0 Seconds (23.7-30.8) H 03/06/17 21:20 - Constitutional Appears: Non-toxic - Head Exam Head Exam: NORMAL INSPECTION - Eye Exam Eye Exam: EOMI, Normal appearance - ENT Exam ENT Exam: Mucous Membranes Moist - Neck Exam Neck Exam: Full ROM - Respiratory Exam Respiratory Exam: Decreased Breath Sounds, NORMAL BREATHING PATTERN. absent: Accessory Muscle Use, Respiratory Distress - Cardiovascular Exam Cardiovascular Exam: REGULAR RHYTHM - GI/Abdominal Exam GI & Abdominal Exam: Soft, Tenderness - Extremities Exam Extremities Exam: absent: Pedal Edema - Neurological Exam Neurological Exam: Awake. absent: Normal Gait, Oriented x3 Additional comments: Patient is bedridden - Psychiatric Exam Psychiatric exam: Normal Affect, Normal Mood - Skin Skin Exam: Dry, Intact, Normal Color, Warm Additional comments: entrance site for stent placement (Left inguinal region) hematoma, drainage. 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 POD#0 PMH of chronic constipation, DVT, dementia, A fib, HTN, Asthma, COPD, and renal cell carcinoma Plan: Diet: monitor for tolerance. patient tolerated regular diet. likely to DC tomorrow if patient is doing well on new diet and hemodynamically stable. 1. RLQ tenderness with new onset right internal iliac aneurysm and AAA -cont norvasc, lasix and KCL -monitor BP with Q8H vital signs -monitor daily CBC -IR will place stent today s/p stent placement POD #0 monitor EVAR and stent graft entrance site for signs of induration, infection, drainage. 2. History of DVT -coumadin placed on hold prior to procedure. - cont coumadin 5mg PO every other day when IR okay'd - monitor daily INR 1.43 -will adjust as necessary based on INR 3. History of ACS -cont ASA and lipitor 4. Hx of tobacco abuse encourage smoking cessation 1ppd x 10 yr tobacco hx, denies illicit drugs 5. GI Prophylaxis -protonix <Heidi Canales B - Last Filed: 03/11/17 17:53> Objective - Vital Signs/Intake and Output Vital Signs (last 24 hours): Temp Pulse Resp BP Pulse Ox 98.3 F 82 20 132/63 95 03/10/17 16:00 03/11/17 10:00 03/11/17 10:00 03/11/17 09:15 03/11/17 10:00 Intake and Output: 03/11/17 03/11/17 06:59 18:59 Intake Total 950 Balance 950 - Labs Labs: 03/11/17 06:10 03/11/17 06:10 PT 12.7 Seconds (9.9-11.8) H 03/11/17 06:10 INR 1.18 (0.93-1.08) H 03/11/17 06:10 APTT 39.0 Seconds (23.7-30.8) H 03/06/17 21:20 Attending/Attestation - Attestation I have personally seen and examined this patient.: Yes I have fully participated in the care of the patient.: Yes I have reviewed all pertinent clinical information, including history, physical exam and plan: Yes Notes (Text): I have seen and examined patient at bedside. Agree with the note above with the following additions/ exceptions: Briefly this is 86 year old male with history of aortic aneurysm,dementia, atrial fibrillation, hypertension, asthma and COPD who was admitted for RLQ pain and found to have right iliac artery aneurysm now s/p stent by IR. Patient denies any complaints. As per Dr Fabian, patient can be discharged tomorrow. Upon discharge patient will follow up with Dr Urias. Dr Heidi ayala
[2017-03-10] MEDS: Sodium Chloride 0.45% 1,000 ML IV SCH (13:39)
[2017-03-10] MEDS: Potassium Chloride 10 mEq ER Tab PO SCH (13:42)
[2017-03-10] MEDS: Nystatin 100,000 Units/gm Topical Pow(15 gm) TOP SCH (13:43)
[2017-03-10] MEDS: POLYETHYLENE GLYCOL 3350 17 GM/Dose PACKET PO SCH (13:43)
--- NOTE | 2017-03-10 13:54 | CP.PCM.CON ---
<Dione Calloway - Last Filed: 03/10/17 13:59> History of Present Illness - History of Present Illness History of Present Illness: ICU Consult Note 86 bed-ridden M with PMHx of DVT (on Coumadin-held), CAD (s/p PCI) paroxysmal atrial fibrillation, hypertension, COPD, and renal cell carcinoma (s/p resection ), who presents with 1 month history of worsening intermittent RLQ abdominal pain. presented to [facility] [place] with complaints of worsening RLQ localized pain. 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 IR, Dr. Jorge Fabian evaluated pt for EVAR with stent grafting. Pt was taken for procedure this morning and tolerated well. ICU was consulted for close monitoring for HD stability. Pt was seen ad examined at bedside with family present. Pt has no acute complaints other than being hungry. He denied any pains at this time, and stated that his abdominal pain has resolved since the procedure. Pt family noted that he has a history of constipation however has been moving his bowels regularly while admitted. Pt denied fever, chills, sob, chest pains, abdominal pains, n/v/d/c or urinary symptoms. PMHx: DVT, dementia, afib, HTN, asthma, COPD, B/L hip replacement, RCC PSHx: cardiac stent (2000), multiple hip surgeries, tumor removal of kidney ( 2007) SHx: Occasional ETOH use (#1 drink/mo), 1ppd x 10 yr tobacco hx, denies illicit drugs Allergies: NKDA Review of Systems - Review of Systems Review of Systems: as per hpi otherwise negative Past Patient History - Infectious Disease Hx of Infectious Diseases: None - Tetanus Immunizations Tetanus Immunization: Unknown - Past Social History Smoking Status: Former Smoker - CARDIAC Hx Cardiac Disorders: Yes - PULMONARY Hx Chronic Obstructive Pulmonary Disease (COPD): Yes - NEUROLOGICAL Hx Transient Ischemic Attacks (TIA): Yes - HEENT Hx HEENT Problems: No - RENAL Other/Comment: kidney tumor - ENDOCRINE/METABOLIC Hx Endocrine Disorders: No - HEMATOLOGICAL/ONCOLOGICAL Hx Blood Disorders: No - INTEGUMENTARY Hx Dermatological Problems: No - MUSCULOSKELETAL/RHEUMATOLOGICAL Hx Musculoskeletal Disorders: Yes - GASTROINTESTINAL Hx Gastrointestinal Disorders: No - GENITOURINARY/GYNECOLOGICAL Hx Genitourinary Disorders: No - PSYCHIATRIC Hx Psychophysiologic Disorder: No Hx Substance Use: No - SURGICAL HISTORY Hx Cardiac Catheterization: Yes (x1 stent) Hx Coronary Stent: Yes Hx Joint Replacement: Yes Other/Comment: tumor removed from the kidney 2008 - ANESTHESIA Hx Anesthesia: Yes Hx Anesthesia Reactions: No Hx Malignant Hyperthermia: No Meds Allergies/Adverse Reactions: Allergies Allergy/AdvReac Type Severity Reaction Status Date / Time No Known Allergies Allergy Unverified 10/24/16 10:54 - Medications Medications: Current Medications Albuterol/Ipratropium (Duoneb 3 Mg/0.5 Mg (3 Ml) Ud) 3 ml IH [id number] PRN PRN Reason: Shortness of Breath Amlodipine Besylate (Norvasc) 5 mg PO DAILY [facility] Last Admin: 03/09/17 09:23 Dose: 5 mg Aspirin (Aspirin Chewable) 81 mg PO DAILY [facility] Last Admin: 03/09/17 09:22 Dose: Not Given Atorvastatin Calcium (Lipitor) 10 mg PO DAILY [facility] Last Admin: 03/09/17 09:22 Dose: 10 mg Docusate Sodium (Colace) 100 mg PO TID [facility] Last Admin: 03/10/17 10:46 Dose: Not Given Furosemide (Lasix) 40 mg PO DAILY [facility] Last Admin: 03/09/17 09:26 Dose: 40 mg Sodium Chloride (Sodium Chloride 0.45%) 1,000 mls @ 80 mls/hr IV .[id number] [facility] Stop: 03/11/17 08:00 Labetalol HCl (Trandate) 100 mg PO BID PRN PRN Reason: Systolic Blood Pressure Last Admin: 03/07/17 16:35 Dose: 100 mg Nystatin (Nystop Topical Powder) 0 gm TOP DAILY [facility] Last Admin: 03/09/17 15:09 Dose: 1 unit Ondansetron HCl (Zofran Inj) 4 mg IVP ONCE PRN PRN Reason: Nausea/Vomiting Ondansetron HCl (Zofran Inj) 4 mg IVP ONCE PRN PRN Reason: Nausea/Vomiting Pantoprazole Sodium (Protonix Inj) 40 mg IVP DAILY [facility] Last Admin: 03/09/17 09:22 Dose: 40 mg Polyethylene Glycol (Miralax) 17 gm PO DAILY [facility] Last Admin: 03/09/17 09:22 Dose: 17 gm Potassium Chloride (Klor-Con 10) 10 meq PO DAILY [facility] Last Admin: 03/09/17 09:22 Dose: 10 meq Physical Exam - Constitutional Appears: No Acute Distress - Head Exam Head Exam: ATRAUMATIC, NORMAL INSPECTION, NORMOCEPHALIC - Eye Exam Eye Exam: EOMI, Normal appearance, PERRL Pupil Exam: NORMAL ACCOMODATION, PERRL - ENT Exam ENT Exam: Mucous Membranes Moist, Normal Exam - Neck Exam Neck exam: Positive for: Normal Inspection - Respiratory Exam Respiratory Exam: Clear to Auscultation Bilateral, NORMAL BREATHING PATTERN - Cardiovascular Exam Cardiovascular Exam: Irregular Rhythm, +S1, +S2 - GI/Abdominal Exam GI & Abdominal Exam: Normal Bowel Sounds, Soft. absent: Tenderness Additional comments: + left groin dressing CDI - Extremities Exam Additional comments: eschar on left le dopplerable pulses on b/l R>L - Neurological Exam Neurological exam: Alert, CN II-XII Intact, Normal Gait, Oriented x3, Reflexes Normal - Psychiatric Exam Psychiatric exam: Normal Affect, Normal Mood - Skin Skin Exam: Dry, Intact, Normal Color, Warm Results - Vital Signs Recent Vital Signs: Last Vital Signs Temp 97.4 F L 03/10/17 09:07 Pulse 69 03/10/17 12:40 Resp 20 03/10/17 12:40 BP 139/82 03/10/17 12:00 Pulse Ox 99 03/10/17 12:40 - Labs Result Diagrams: 03/10/17 06:15 03/10/17 06:15 Labs: Laboratory Results - last 24 hr 03/10/17 03/10/17 03/10/17 06:15 06:15 06:15 WBC 7.9 RBC 4.49 Hgb 13.8 L Hct 43.0 MCV 95.8 MCH 30.7 MCHC 32.1 RDW 13.9 Plt Count 178 MPV 8.8 Gran % 65.6 Lymph % (Auto) 23.2 [place] % (Auto) 9.1 H Eos % (Auto) 2.0 Baso % (Auto) 0.1 Gran # 5.20 Lymph # 1.8 [place] # 0.7 H Eos # 0.2 Baso # 0.01 PT 13.3 H INR 1.23 H Sodium 137 Potassium 4.7 Chloride 99 Carbon Dioxide 31 Anion Gap 12 BUN 29 H Creatinine 1.5 H Est GFR ( Amer) 54 Est GFR (Non-Af Amer) 44 Random Glucose 87 Calcium 8.5 Total Bilirubin 0.5 AST 23 ALT 23 Alkaline Phosphatase 115 Total Protein 5.8 Albumin 3.2 Globulin 2.6 Albumin/Globulin Ratio 1.2 Blood Type Antibody Screen BBK History Checked 03/10/17 06:15 WBC RBC Hgb Hct MCV MCH MCHC RDW Plt Count MPV Gran % Lymph % (Auto) [place] % (Auto) Eos % (Auto) Baso % (Auto) Gran # Lymph # [place] # Eos # Baso # PT INR Sodium Potassium Chloride Carbon Dioxide Anion Gap BUN Creatinine Est GFR ( Amer) Est GFR (Non-Af Amer) Random Glucose Calcium Total Bilirubin AST ALT Alkaline Phosphatase Total Protein Albumin Globulin Albumin/Globulin Ratio Blood Type B POSITIVE Antibody Screen Negative BBK History Checked Patient has bt Assessment & Plan - Assessment and Plan (Free Text) Assessment: 86 bed-ridden M with PMHx of DVT (on Coumadin-held), CAD (s/p PCI) paroxysmal atrial fibrillation, hypertension, COPD, and renal cell carcinoma (s/p resection ), admitted to ICU s/p EVAR with stent grafting POD#0 for close HD monitoring and further deterioration. Neuro: hx Dementia stable mentating well Respiratory: Stable 02 sat >90% on NC Hx COPD continue duonebs CVS: rt iliac artery aneurysm, IR Dr. Jorge Fabian consulted s/p EVAR with stent grafting for rt iliac artery aneurysm POD#0 HD stable, no signs of bleeding, dopplerable pulses b/l LE continue to monitor vitals q1 HTN stable Afib on coumadin - held s/p procedure, will resume as per IR reccs continue home meds GI: GI ppx NPO will advance diet as tolerated miralax and colace for constipation Renal: mild worsening of renal fcn s/p EVAR continue to monitor renal fcn strict I&Os gentle hydration 1/2 NS @80cc/hr continue to monitor electrolytes and supplement as needed ID: stable afebrile no leukocytosis continue to monitor Heme: INR 1.23, coumadin held s/p EVAR will resume pending IR reccs Endo: Maintain euglycemia 140-180 DVT GI ppx reviewed Seen reviewed and discussed with attending <Keegan Fields - Last Filed: 03/10/17 15:08> Meds - Medications Medications: Current Medications Albuterol/Ipratropium (Duoneb 3 Mg/0.5 Mg (3 Ml) Ud) 3 ml IH [id number] PRN PRN Reason: Shortness of Breath Amlodipine Besylate (Norvasc) 5 mg PO DAILY [facility] Last Admin: 03/10/17 13:43 Dose: 5 mg Aspirin (Aspirin Chewable) 81 mg PO DAILY [facility] Last Admin: 03/10/17 13:42 Dose: 81 mg Atorvastatin Calcium (Lipitor) 10 mg PO DAILY [facility] Last Admin: 03/10/17 13:44 Dose: 10 mg Docusate Sodium (Colace) 100 mg PO TID [facility] Last Admin: 03/10/17 13:41 Dose: 100 mg Furosemide (Lasix) 40 mg PO DAILY [facility] Last Admin: 03/10/17 13:42 Dose: 40 mg Sodium Chloride (Sodium Chloride 0.45%) 1,000 mls @ 80 mls/hr IV .[id number] [facility] Stop: 03/11/17 08:00 Last Admin: 03/10/17 13:39 Dose: 80 mls/hr Labetalol HCl (Trandate) 100 mg PO BID PRN PRN Reason: Systolic Blood Pressure Last Admin: 03/07/17 16:35 Dose: 100 mg Nystatin (Nystop Topical Powder) 0 gm TOP DAILY [facility] Last Admin: 03/09/17 15:09 Dose: 1 unit Ondansetron HCl (Zofran Inj) 4 mg IVP ONCE PRN PRN Reason: Nausea/Vomiting Ondansetron HCl (Zofran Inj) 4 mg IVP ONCE PRN PRN Reason: Nausea/Vomiting Pantoprazole Sodium (Protonix Inj) 40 mg IVP DAILY [facility] Last Admin: 03/10/17 13:42 Dose: 40 mg Polyethylene Glycol (Miralax) 17 gm PO DAILY [facility] Last Admin: 03/10/17 13:43 Dose: 17 gm Potassium Chloride (Klor-Con 10) 10 meq PO DAILY [facility] Last Admin: 03/10/17 13:42 Dose: 10 meq Results - Vital Signs Recent Vital Signs: Last Vital Signs Temp 97.4 F L 03/10/17 09:07 Pulse 69 03/10/17 12:40 Resp 20 03/10/17 12:40 BP 142/87 03/10/17 13:42 Pulse Ox 99 03/10/17 12:40 - Labs Result Diagrams: 03/10/17 06:15 03/10/17 06:15 Labs: Laboratory Results - last 24 hr 03/10/17 03/10/17 03/10/17 06:15 06:15 06:15 WBC 7.9 RBC 4.49 Hgb 13.8 L Hct 43.0 MCV 95.8 MCH 30.7 MCHC 32.1 RDW 13.9 Plt Count 178 MPV 8.8 Gran % 65.6 Lymph % (Auto) 23.2 [place] % (Auto) 9.1 H Eos % (Auto) 2.0 Baso % (Auto) 0.1 Gran # 5.20 Lymph # 1.8 [place] # 0.7 H Eos # 0.2 Baso # 0.01 PT 13.3 H INR 1.23 H Sodium 137 Potassium 4.7 Chloride 99 Carbon Dioxide 31 Anion Gap 12 BUN 29 H Creatinine 1.5 H Est GFR ( Amer) 54 Est GFR (Non-Af Amer) 44 Random Glucose 87 Calcium 8.5 Total Bilirubin 0.5 AST 23 ALT 23 Alkaline Phosphatase 115 Total Protein 5.8 Albumin 3.2 Globulin 2.6 Albumin/Globulin Ratio 1.2 Blood Type Antibody Screen BBK History Checked 03/10/17 06:15 WBC RBC Hgb Hct MCV MCH MCHC RDW Plt Count MPV Gran % Lymph % (Auto) [place] % (Auto) Eos % (Auto) Baso % (Auto) Gran # Lymph # [place] # Eos # Baso # PT INR Sodium Potassium Chloride Carbon Dioxide Anion Gap BUN Creatinine Est GFR ( Amer) Est GFR (Non-Af Amer) Random Glucose Calcium Total Bilirubin AST ALT Alkaline Phosphatase Total Protein Albumin Globulin Albumin/Globulin Ratio Blood Type B POSITIVE Antibody Screen Negative BBK History Checked Patient has bt Assessment & Plan - Assessment and Plan (Free Text) Assessment: Patient seen and examined with Dr Calloway, agree with assesment and plan with following additions/exceptions: 86 bed-ridden M with PMHx of DVT (on Coumadin-held), CAD (s/p PCI) paroxysmal atrial fibrillation, hypertension, COPD, and renal cell carcinoma (s/p resection ), admitted to ICU s/p EVAR with stent grafting POD#0 for close HD monitoring and further deterioration. 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
[2017-03-10 17:54] VITALS: TEMP 98.3
--- NOTE | 2017-03-10 20:08 | VASCULAR ---
PROCEDURE: 1. Stent graft repair right internal iliac artery aneurysm 2. Sub selective embolization posterior division right internal iliac artery HISTORY: Symptomatic 4-5 cm right internal iliac artery aneurysm. PHYSICIAN(S): Jorge Fabian M.D. TECHNIQUE: The relative risks and indications of the procedure were explained to the patient, his , and daughter and consent obtained. The patient was hydrated prior to the procedure and the appropriate labs drawn. The patient was placed supine on the arteriogram table and the left groin prepped and draped in the usual sterile fashion. Conscious sedation and monitoring were provided throughout the procedure by the anesthesia department. The left common femoral artery was punctured under ultrasound guidance with a micropuncture set. Two Perclose devices were pre deployed at the left puncture site. A 5 [place]gas[place] sheath was placed at the left groin. A 5 [place]gas[place] marker catheter was placed in the distal abdominal aorta and multiple DSA abdominal and pelvic arteriograms performed. The catheter was advanced over the bifurcation and exchanged for a a bearing sting catheter. This catheter was placed the origin of the right internal iliac artery. Selective right internal iliac artery angiograms were obtained. The catheter was advanced through the aneurysm and into the large posterior division. Additional sub selective right internal iliac artery arteriograms were performed. A support wire was placed in the right inferior gluteal artery. A 6 Monegasque 65 cm sheath was placed in the posterior division of the right internal iliac artery. A 12 millimeter Amplatzer -2 plug was deployed in the proximal posterior division. The sheath was retracted and 0.035 glidewire advanced into the right SFA. Exchange is made for a Amplatz support wire. A marker catheter J a gram of the right iliac system was performed. An 18-14 by 100 over a olivo iliac stent graft was deployed from the right common iliac artery origin to the right external iliac artery. Completion angiogram showed a widely patent right iliac system with no opacification of the right internal iliac artery aneurysm. The sheath was removed and hemostasis obtained with the pre deployed Perclose systems. The patient tolerated the procedure well. FINDINGS: The distal abdominal aorta and common and external iliac arteries are widely patent. There is brisk opacification of the iliac venous system and IVC, consistent with small fistulas bilaterally. There is a large saccular aneurysm of the right internal iliac artery. Large posterior division branches are seen. The anterior division is not opacified. IMPRESSION: 1.Successful stent graft repair of a large right internal iliac artery aneurysm. 2. Successful sub selective embolization of posterior division of the right internal iliac artery
[2017-03-11] MEDS: Sodium Chloride 0.45% 1,000 ML IV SCH (03:00)
[2017-03-11 06:28] LABS: BASO # 0.01 K/mm3 (0.0-2.0); BASO % 0.1 % (0.0-3.0); EOS # 0.1 (0.0-0.7); GRAN # 6.58 (1.4-6.5); GRAN % 71.7 % (50.0-68.0); HEMOGLOBIN 13.3 g/dL (14.0-18.0); LYMPH # 1.7 (1.2-3.4); LYMPH % 18.9 % (22.0-35.0); MEAN CELL VOLUME 95.6 fl (80.0-105.0); MEAN CORPUSCULAR HEMOGLOBIN 30.8 pg (25.0-35.0); MEAN CORPUSCULAR HGB CONC 32.2 g/dl (31.0-37.0); MEAN PLATELET VOLUME 8.7 fl (7.0-11.0); MONO # 0.8 (0.1-0.6); MONO % 8.3 % (1.0-6.0); PLATELET COUNT 166 10^3/uL (120.0-450.0); RBC 4.32 10^6/uL (3.5-6.1); RED CELL DISTRIBUTION WIDTH 13.9 % (11.5-14.5); WHITE BLOOD COUNT 9.2 10^3/ul (4.5-11.0)
[2017-03-11 06:38] LABS: INR 1.18 (0.93-1.08); PROTHROMBIN TIME 12.7 Seconds (9.9-11.8)
[2017-03-11 06:45] LABS: ALB/GLOB RATIO 1.2 (1.1-1.8); ALT/SGPT 22 U/L (7-56); AST/SGOT 16 U/L (15-59); BLOOD UREA NITROGEN 26 mg/dL (7-21); CALCIUM 8.3 mg/dL (8.4-10.5); GFR AFRICAN-AMERICAN > 60; GFR NON-AFRICAN AMERICAN 58
[2017-03-11 06:58] VITALS: RESP 20
[2017-03-11] MEDS: Potassium Chloride 10 mEq ER Tab PO SCH (09:15)
[2017-03-11] MEDS: POLYETHYLENE GLYCOL 3350 17 GM/Dose PACKET PO SCH (09:15)
[2017-03-11 09:17] VITALS: BP 132/63
[2017-03-11] MEDS ORDERED: Nystatin 100,000 Units/gm Topical Pow(15 gm) TOP SCH (10:00)
[2017-03-11 10:49] VITALS: PULSE 82; O2SAT 95
--- NOTE | 2017-03-11 15:53 | CP.PCM.DIS ---
<GómezLisa - Last Filed: 03/11/17 16:10> Provider - Provider Date of Admission: 03/08/17 13:25 Attending physician: Heidi Canales MD Primary care physician: Adams Barnhart MD Consults: Consult: Dr. Fabian for RLQ pain and R internal ilial artery aneurysm Consult: Dr. Cristina for RLQ pain and R internal ilial artery aneurysm Time Spent in preparation of Discharge (in minutes): 15 Hospital Course - Lab Results Lab Results: Most Recent Lab Values WBC 9.2 10^3/ul (4.5-11.0) 03/11/17 06:10 RBC 4.32 10^6/uL (3.5-6.1) 03/11/17 06:10 Hgb 13.3 g/dL (14.0-18.0) L 03/11/17 06:10 Hct 41.3 % (42.0-52.0) L 03/11/17 06:10 MCV 95.6 fl (80.0-105.0) 03/11/17 06:10 MCH 30.8 pg (25.0-35.0) 03/11/17 06:10 MCHC 32.2 g/dl (31.0-37.0) 03/11/17 06:10 RDW 13.9 % (11.5-14.5) 03/11/17 06:10 Plt Count 166 10^3/uL (120.0-450.0) 03/11/17 06:10 MPV 8.7 fl (7.0-11.0) 03/11/17 06:10 Gran % 71.7 % (50.0-68.0) H 03/11/17 06:10 Lymph % (Auto) 18.9 % (22.0-35.0) L 03/11/17 06:10 Luna % (Auto) 8.3 % (1.0-6.0) H 03/11/17 06:10 Eos % (Auto) 1.0 % (1.5-5.0) L 03/11/17 06:10 Baso % (Auto) 0.1 % (0.0-3.0) 03/11/17 06:10 Gran # 6.58 (1.4-6.5) H 03/11/17 06:10 Lymph # 1.7 (1.2-3.4) 03/11/17 06:10 Luna # 0.8 (0.1-0.6) H 03/11/17 06:10 Eos # 0.1 (0.0-0.7) 03/11/17 06:10 Baso # 0.01 K/mm3 (0.0-2.0) 03/11/17 06:10 PT 12.7 Seconds (9.9-11.8) H 03/11/17 06:10 INR 1.18 (0.93-1.08) H 03/11/17 06:10 APTT 39.0 Seconds (23.7-30.8) H 03/06/17 21:20 pO2 64 mm/Hg (30-55) H 03/06/17 21:20 VBG pH 7.36 (7.32-7.43) 03/06/17 21:20 VBG pCO2 57.0 (40-60) 03/06/17 21:20 VBG HCO3 32.2 mmol/l (21-28) H 03/06/17 21:20 VBG Total CO2 33.9 mmol.L (22-28) H 03/06/17 21:20 VBG O2 Sat (Calc) 95.1 % (40-65) H 03/06/17 21:20 VBG Base Excess 5.0 mmol/L (0.0-2.0) H 03/06/17 21:20 VBG Potassium 4.7 mmol/L (3.6-5.2) 03/06/17 21:20 Sodium 134.0 mmol/L (132-148) 03/06/17 21:20 Chloride 103.0 mmol/L (98-107) 03/06/17 21:20 Glucose 88 mg/dl (75-110) 03/06/17 21:20 Lactate 0.8 mmol/L (0.7-2.1) 03/06/17 21:20 FiO2 21.0 % 03/06/17 21:20 Sodium 137 mmol/L (132-148) 03/11/17 06:10 Potassium 4.4 mmol/L (3.6-5.0) 03/11/17 06:10 Chloride 102 mmol/L (98-107) 03/11/17 06:10 Carbon Dioxide 27 mmol/L (21-33) 03/11/17 06:10 Anion Gap 12 (10-20) 03/11/17 06:10 BUN 26 mg/dL (7-21) H 03/11/17 06:10 Creatinine 1.2 mg/dL (0.5-1.4) 03/11/17 06:10 Est GFR ( Amer) > 60 03/11/17 06:10 Est GFR (Non-Af Amer) 58 03/11/17 06:10 Random Glucose 89 mg/dL (70-110) 03/11/17 06:10 Calcium 8.3 mg/dL (8.4-10.5) L 03/11/17 06:10 Total Bilirubin 0.5 mg/dL (0.2-1.3) 03/11/17 06:10 AST 16 U/L (15-59) 03/11/17 06:10 ALT 22 U/L (7-56) 03/11/17 06:10 Alkaline Phosphatase 108 U/L (38-133) 03/11/17 06:10 Lactate Dehydrogenase 336 U/L (333-699) 03/06/17 21:20 Total Creatine Kinase < 20 U/L (35-230) L 03/06/17 21:20 Troponin I < 0.01 ng/mL 03/06/17 21:20 Total Protein 5.5 g/dL (5.8-8.3) L 03/11/17 06:10 Albumin 3.0 g/dL (3.0-4.8) 03/11/17 06:10 Globulin 2.6 gm/dL 03/11/17 06:10 Albumin/Globulin Ratio 1.2 (1.1-1.8) 03/11/17 06:10 Amylase 78 U/L (35-125) 03/06/17 21:20 Lipase 219 U/L (23-300) 03/06/17 21:20 Venous Blood Potassium 4.7 mmol/L (3.6-5.2) 03/06/17 21:20 Blood Type B POSITIVE 03/10/17 06:15 Antibody Screen Negative 03/10/17 06:15 BBK History Checked Patient has bt 03/10/17 06:15 - Hospital Course Hospital Course: Discharge Note for 03/07 bed-ridden patient admitted for RLQ pain that occurred intermittently for the past few months, worsening over the past week, which brought the patient to the ED. Patient admitted for surgery and IR consult to evaluate the aortic aneurysm and right iliac aneurysm. Patient stayed at the hospital, bowel movements were monitored. Patient was placed on miralax to help with the bowel movements. Patient was a poor historian during his stay due to dementia, but very pleasant. 03/09 Admits to abdominal pain, multiple bowel movements and history of constipation. Patient and were seen at bedside each day during rounds with Dr. Henson and Dr. Canales when service was changed. Patient was stable for EVAR and stent graft placement on 03/10. POD#0. Patient moved to ICU 129-2 for post-op management. Patient observed overnight with no issues. 03/11 POD#1 Today PT S&E at bedside. NAEON. Patient is a poor historian due to dementia, but is able to answer questions. Patient denies F/C, N/V. Patient's was at bedside and stated she would like to talk to social work. Patient has Visiting nurses come 3 times a week and she would like more help if funding was available. Marielos Johnathon spoke with family and made referral to [facility] to see if they could provide services. [facility] set up for discharge to transport the patient to his home. - Date & Time of H&P Date of H&P: 03/11/17 Time of H&P: 16:05 Discharge Exam - Head Exam Head Exam: NORMAL INSPECTION - Eye Exam Eye Exam: EOMI, Normal appearance - ENT Exam ENT Exam: Mucous Membranes Moist - Respiratory Exam Respiratory Exam: NORMAL BREATHING PATTERN. absent: Accessory Muscle Use, Decreased Breath Sounds, Prolonged Expiratory Phase, Respiratory Distress - Cardiovascular Exam Cardiovascular Exam: absent: Bradycardia, Tachycardia - GI/Abdominal Exam GI & Abdominal Exam: Distended, Tenderness. absent: Pulsatile Mass, Rebound - Extremities Exam Additional comments: patient does not move his lower extremities. decreased blood flow delayed capillary refill skin lesion on left olivo 3"x3" diameter, raised, papule, brown/black (never biopsied) - Skin Skin Exam: Dry, Mottled (patient has poor circulation of lower extremities, dry skin, with some ecchymosis and a large papule located on left leg (anterior tibial)), Pallor Discharge Plan - Follow Up Plan Condition: FAIR Disposition: HOME/ ROUTINE Patient education suggested?: Yes Instructions: Constipation (DC), How to Prevent Pressure Ulcers (DC), Abdominal Aortic Aneurysm Repair (DC), Acute Abdominal Pain (DC), Acute Abdominal Pain (GEN) Additional Instructions: 1. Follow up with your primary doctor, Dr. Barnhart within 1 week. 2. Follow up with your vascular doctor, Dr. Jorge Fabian within 1-2 weeks of discharge. 3. Continue to take your medications as directed 4. Coumadin given on 03/11 in the hospital (day of discharge), skip coumadin dose tomorrow (03/12) and resume home regimen of coumadin 5mg every other day. 5. Return to the emergency room should your condition worsen. Referrals: Adams Barnhart MD [Primary Care Provider] - Jorge Fabian MD [Staff Provider] - <Heidi Canales - Last Filed: 03/11/17 17:59> Provider - Provider Date of Admission: 03/08/17 13:25 Attending physician: Heidi Canales MD Primary care physician: Adams Barnhart MD Hospital Course - Lab Results Lab Results: Most Recent Lab Values WBC 9.2 10^3/ul (4.5-11.0) 03/11/17 06:10 RBC 4.32 10^6/uL (3.5-6.1) 03/11/17 06:10 Hgb 13.3 g/dL (14.0-18.0) L 03/11/17 06:10 Hct 41.3 % (42.0-52.0) L 03/11/17 06:10 MCV 95.6 fl (80.0-105.0) 03/11/17 06:10 MCH 30.8 pg (25.0-35.0) 03/11/17 06:10 MCHC 32.2 g/dl (31.0-37.0) 03/11/17 06:10 RDW 13.9 % (11.5-14.5) 03/11/17 06:10 Plt Count 166 10^3/uL (120.0-450.0) 03/11/17 06:10 MPV 8.7 fl (7.0-11.0) 03/11/17 06:10 Gran % 71.7 % (50.0-68.0) H 03/11/17 06:10 Lymph % (Auto) 18.9 % (22.0-35.0) L 03/11/17 06:10 Luna % (Auto) 8.3 % (1.0-6.0) H 03/11/17 06:10 Eos % (Auto) 1.0 % (1.5-5.0) L 03/11/17 06:10 Baso % (Auto) 0.1 % (0.0-3.0) 03/11/17 06:10 Gran # 6.58 (1.4-6.5) H 03/11/17 06:10 Lymph # 1.7 (1.2-3.4) 03/11/17 06:10 Luna # 0.8 (0.1-0.6) H 03/11/17 06:10 Eos # 0.1 (0.0-0.7) 03/11/17 06:10 Baso # 0.01 K/mm3 (0.0-2.0) 03/11/17 06:10 PT 12.7 Seconds (9.9-11.8) H 03/11/17 06:10 INR 1.18 (0.93-1.08) H 03/11/17 06:10 APTT 39.0 Seconds (23.7-30.8) H 03/06/17 21:20 pO2 64 mm/Hg (30-55) H 03/06/17 21:20 VBG pH 7.36 (7.32-7.43) 03/06/17 21:20 VBG pCO2 57.0 (40-60) 03/06/17 21:20 VBG HCO3 32.2 mmol/l (21-28) H 03/06/17 21:20 VBG Total CO2 33.9 mmol.L (22-28) H 03/06/17 21:20 VBG O2 Sat (Calc) 95.1 % (40-65) H 03/06/17 21:20 VBG Base Excess 5.0 mmol/L (0.0-2.0) H 03/06/17 21:20 VBG Potassium 4.7 mmol/L (3.6-5.2) 03/06/17 21:20 Sodium 134.0 mmol/L (132-148) 03/06/17 21:20 Chloride 103.0 mmol/L (98-107) 03/06/17 21:20 Glucose 88 mg/dl (75-110) 03/06/17 21:20 Lactate 0.8 mmol/L (0.7-2.1) 03/06/17 21:20 FiO2 21.0 % 03/06/17 21:20 Sodium 137 mmol/L (132-148) 03/11/17 06:10 Potassium 4.4 mmol/L (3.6-5.0) 03/11/17 06:10 Chloride 102 mmol/L (98-107) 03/11/17 06:10 Carbon Dioxide 27 mmol/L (21-33) 03/11/17 06:10 Anion Gap 12 (10-20) 03/11/17 06:10 BUN 26 mg/dL (7-21) H 03/11/17 06:10 Creatinine 1.2 mg/dL (0.5-1.4) 03/11/17 06:10 Est GFR ( Amer) > 60 03/11/17 06:10 Est GFR (Non-Af Amer) 58 03/11/17 06:10 Random Glucose 89 mg/dL (70-110) 03/11/17 06:10 Calcium 8.3 mg/dL (8.4-10.5) L 03/11/17 06:10 Total Bilirubin 0.5 mg/dL (0.2-1.3) 03/11/17 06:10 AST 16 U/L (15-59) 03/11/17 06:10 ALT 22 U/L (7-56) 03/11/17 06:10 Alkaline Phosphatase 108 U/L (38-133) 03/11/17 06:10 Lactate Dehydrogenase 336 U/L (333-699) 03/06/17 21:20 Total Creatine Kinase < 20 U/L (35-230) L 03/06/17 21:20 Troponin I < 0.01 ng/mL 03/06/17 21:20 Total Protein 5.5 g/dL (5.8-8.3) L 03/11/17 06:10 Albumin 3.0 g/dL (3.0-4.8) 03/11/17 06:10 Globulin 2.6 gm/dL 03/11/17 06:10 Albumin/Globulin Ratio 1.2 (1.1-1.8) 03/11/17 06:10 Amylase 78 U/L (35-125) 03/06/17 21:20 Lipase 219 U/L (23-300) 03/06/17 21:20 Venous Blood Potassium 4.7 mmol/L (3.6-5.2) 03/06/17 21:20 Blood Type B POSITIVE 03/10/17 06:15 Antibody Screen Negative 03/10/17 06:15 BBK History Checked Patient has bt 03/10/17 06:15 Attending/Attestation - Attestation I have personally seen and examined this patient.: Yes I have fully participated in the care of the patient.: Yes I have reviewed all pertinent clinical information, including history, physical exam and plan: Yes Notes (Text): I have seen and examined patient at bedside. 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 Patient denies any complaints. Patient is cleared for discahrge by IR. Discussed with PMD who advised the patient to dc today and advise patient to resume coumadin at home. Patient's INR has not been therapeutic for many years. He also has IVC filter as per pmd. Upon discharge patient will follow up with Dr Urias. Dr Heidi Canales
== END 2017-03-11 15:13 | disposition home health service (06) | DRG 272 ==
LOC: ED 20:03 → ERH 03-07 00:17 → 5RNO 03-07 02:26 → OBSVTOIN 03-08 13:25 → CCU 03-10 10:07
PROVIDERS: ADMIT Internal Medicine; ATTEND Hospitalist
PROC: 04VE3DZ Restriction of Right Internal Iliac Artery with Intraluminal Device, Percutaneous Approach (ICD-10-PCS; principal; 2017-03-10)
DX: I72.3 Aneurysm of iliac artery (principal); I71.2 Thoracic aortic aneurysm, without rupture; F03.90 Unspecified dementia, unspecified severity, without behavioral disturbance, psychotic disturbance, mood disturbance, and anxiety; K59.09 Other constipation; I48.0 Paroxysmal atrial fibrillation; J44.9 Chronic obstructive pulmonary disease, unspecified; I25.10 Atherosclerotic heart disease of native coronary artery without angina pectoris; I10 Essential (primary) hypertension; Z96.643 Presence of artificial hip joint, bilateral; Z95.5 Presence of coronary angioplasty implant and graft; Z86.718 Personal history of other venous thrombosis and embolism; Z87.891 Personal history of nicotine dependence; Z85.528 Personal history of other malignant neoplasm of kidney; Z79.01 Long term (current) use of anticoagulants; Z74.01 Bed confinement status

== ENCOUNTER 2017-03-21 10:06 | Inpatient (IN) | payer MEDICARE, OTHER ==
[2017-03-21] MEDS ORDERED: Sodium Chloride 0.9% 500 ML IV STA (10:25)
[2017-03-21 10:27] VITALS: BMI 28.1
--- NOTE | 2017-03-21 10:33 | ED PDOC ---
Arrival/HPI - General Time Seen by Provider: 03/21/17 10:21 Historian: Spouse - History of Present Illness Narrative History of Present Illness (Text): 03/21/17 10:15 An 86 year old male whose past medical history includes, dementia, atrial fibrillation, hypertension, asthma, COPD, and renal cell carcinoma, as per , the patient presents to the emergency department with bright red blood per rectum yesterday. The patient's states that there was more blood present this morning and she called EMS. The patient denies fevers, chills, headache, cough, shortness of breath, dyspnea on exertion, nausea, vomiting, or any other complaint. PMD: Dr. Adams Barnhart Time/Duration: Other (Last night) Symptom Onset: Sudden Symptom Course: Unchanged Activities at Onset: Rest, Light Context: Home Past Medical History - Provider Review Nursing Documentation Reviewed: Yes - Past History Past History: Non-Contributing - Infectious Disease Hx of Infectious Diseases: None - Tetanus Immunization Tetanus Immunization: Unknown - Cardiac Hx Cardiac Disorders: Yes - Pulmonary Hx Chronic Obstructive Pulmonary Disease (COPD): Yes - Neurological Hx Transient Ischemic Attacks (TIA): Yes - HEENT Hx HEENT Disorder: No - Renal Other/Comment: kidney tumor - Endocrine/Metabolic Hx Endocrine Disorders: No - Hematological/Oncological Hx Blood Disorders: No - Integumentary Hx Dermatological Disorder: No - Musculoskeletal/Rheumatological Hx Musculoskeletal Disorders: Yes - Gastrointestinal Hx Gastrointestinal Disorders: No - Genitourinary/Gynecological Hx Genitourinary Disorders: No - Psychiatric Hx Psychophysiologic Disorder: No Hx Substance Use: No - Past Surgical History Past Surgical History: Non-Contributing - Surgical History Hx Cardiac Catheterization: Yes (x1 stent) Hx Coronary Stent: Yes Hx Joint Replacement: Yes Other/Comment: tumor removed from the kidney 2008 - Anesthesia Hx Anesthesia: Yes Hx Anesthesia Reactions: No Hx Malignant Hyperthermia: No - Suicidal Assessment Feels Threatened In Home Enviroment: No Family/Social History - Physician Review Nursing Documentation Reviewed: Yes Family/Social History: No Known Family HX Smoking Status: Former Smoker Hx Alcohol Use: No Hx Substance Use: No Hx Substance Use Treatment: No Allergies/Home Meds Allergies/Adverse Reactions: Allergies No Known Allergies Allergy (Unverified 10/24/16 10:54) Home Medications: Home Meds Medication Instructions Recorded Confirmed Albuterol Sulfate 1 puff PRN PRN 03/11/17 03/11/17 Amlodipine Besylate/Benazepril 5 mg PO DAILY 03/11/17 03/11/17 [Amlodipine-Benazepril 5-10 mg] Aspirin [Aspirin Chewable] 81 mg PO DAILY 03/11/17 03/11/17 Atorvastatin Calcium [Lipitor] 10 mg PO DAILY 03/11/17 03/11/17 Bisacodyl [Dulcolax] 5 mg PO PRN PRN 03/11/17 03/11/17 Cholecalciferol [Vitamin D 1000 IU] DAILY 03/11/17 Clotrimazole/Betameth Dip/Zinc 1 mg PRN PRN 03/11/17 03/11/17 [Dermacinrx Therazole Johnathon] Docusate [Colace] 70 mg PRN PRN 03/11/17 03/11/17 Econazole Nitrate 1 mg PRN PRN 03/11/17 03/11/17 Furosemide [Lasix] 40 mg PO DAILY 03/11/17 03/11/17 Ipratropium Frederica 0.5 mg PRN PRN 03/11/17 03/11/17 Neomycin Sulfate [Neomycin Tab] 03/11/17 Warfarin [Coumadin] 5 mg PO DAILY 03/11/17 03/11/17 Physical Exam - Physical Exam Narrative Physical Exam (Text): 03/21/17 10:26 - Review of Systems Constitutional: Normal. absent: Fatigue, Weight Change, Fevers Eyes: Normal ENT: Normal Respiratory: Normal absent: SOB, Cough, Sputum Cardiovascular: Normal absent: Chest pain, Palpitations, Syncope Gastrointestinal:(+) bright red blood per rectum. absent: Abdominal pain, Diarrhea, Nausea, Vomiting Genitourinary: Normal. absent: Dysuria, Frequency, Hematuria Musculoskeletal: Normal. absent: Arthralgias, Back Pain, Neck Pain Skin: Normal Neurological: Normal absent: Focal Weakness Endocrine: Normal Hemo/Lymphatic: Normal Psychiatric: Normal - Physical exam Patient appears age appropriate, speaking full sentences without difficulty - Systems Exam Head: Present: Atraumatic, Normocephalic Pupils: Present: PERRL Extraocular Muscles: Present: EOMI Conjunctiva: Present: Normal Mouth: Present: Moist Mucous Membranes Neck: Present: Normal Range of Motion. No: MIDLINE TENDERNESS, Paraspinal Tenderness Respiratory/Chest: Present: Clear to Auscultation, Good Air Exchange. No: Respiratory Distress, Accessory Muscle Use, Tachypnic Cardiovascular: Present: Regular Rate and Rhythm, Normal S1, S2, Peripheral Pulses Present. No: Murmurs Abdomen: Present: Normal Bowel Sounds, No: Tenderness, Peritoneal Signs, Rebound, Guarding, Distention Gastrointestinal: Bright red blood per rectum noted. multiple external hemorrhoids. [employer] Representative [employer] Juliette present. Back: Present: Normal Inspection. No: Midline Tenderness, Paraspinal Tenderness Upper Extremity: Present: Normal Inspection. No: Cyanosis, Edema Lower Extremity: Present: Normal Inspection. No: Edema Neurological: Present: GCS=15, Speech Normal, cranial nerves II through XII fully intact with no cerebellar abnormality, neuro-sensory fully intact. No focal neurological deficits. Skin: Present: Warm, Dry, Normal Color. No: Rashes Lymphatic: Present: OX3, NI, NC Psychiatric: Present: Alert, Oriented x 3, Normal Insight, Normal Concentration Vital Signs Reviewed: Yes Vital Signs Temp Pulse Resp BP Pulse Ox 03/21/17 12:21 77 18 134/64 95 03/21/17 11:02 79 18 131/69 96 03/21/17 10:15 97.5 F L 81 18 133/73 96 Blood Pressure: Normal Pulse: Regular Respiratory Rate: Normal Medical Decision Making ED Course and Treatment: 03/21/17 10:18 Impression: An 86 year old male brought in via EMS with a complaint of bright red blood per rectum yesterday and this morning. On exam, bright red blood per rectum and external hemorrhoids noted. Pt in no distress, hemodynamically stable. Differential Diagnosis included but are not limited to: LGIB, hemorrhoids Plan: -- EKG -- Chest X-ray -- Labs --IV Fluids and Protonix -- Reassess and disposition Progress Notes: 03/21/17 10:32 EKG: Ordered, reviewed, and independently interpreted the EKG. Rate : 87 BPM Rhythm : Irregular A- Fib Interpretation : No ST-segment elevations. PVC. 03/21/17 11:48 Chest X-ray Dictator : Vira Myrick MD Report Date : 03/21/2017 10:56:20 IMPRESSION: Apparent new opacity in the right apex and upper lobe could represent prominent SVC shadow however atelectasis/pneumonia cannot be excluded. Follow-up is advised 03/21/17 11:[address] Sumner, accepted admission to his service. Pt and aware of and agree with plan - Lab Interpretations Lab Results: 03/21/17 10:58 03/21/17 10:58 Lab Results 03/21/17 10:58: Blood Type B POSITIVE, Antibody Screen Negative, BBK History Checked Patient has bt 03/21/17 10:58: Sodium 141, Potassium 4.8, Chloride 103, Carbon Dioxide 29, Anion Gap 14, BUN 27 H, Creatinine 1.1, Est GFR ( Amer) > 60, Est GFR ( Non-Af Amer) > 60, Random Glucose 94, Calcium 9.1, Total Bilirubin 0.4, AST 16, ALT 20, Alkaline Phosphatase 96, Lactate Dehydrogenase 329 L, Total Creatine Kinase < 20 L, Troponin I 0.01, Total Protein 6.5, Albumin 3.5, Globulin 3.0, Albumin/Globulin Ratio 1.2, Amylase 72, Lipase 119 03/21/17 10:58: PT 15.7 H, INR 1.45 H, APTT 37.0 H 03/21/17 10:58: WBC 11.4 H D, RBC 4.47, Hgb 14.1, Hct 42.9, MCV 96.0, MCH 31.5, MCHC 32.9, RDW 13.7, Plt Count 250, MPV 8.9, Gran % 72.1 H, Lymph % (Auto) 18.3 L, Otero % (Auto) 7.6 H, Eos % (Auto) 1.9, Baso % (Auto) 0.1, Gran # 8.19 H, Lymph # 2.1, Otero # 0.9 H, Eos # 0.2, Baso # 0.01 I have reviewed the lab results: Yes - RAD Interpretation Radiology Orders: 03/21/17 10:25 CHEST PORTABLE [RAD] Stat - EKG Interpretation Interpreted by ED Physician: Yes Type: 12 lead EKG - Medication Orders Current Medication Orders: Ceftriaxone Sodium (Rocephin 1 Gram Ivpb) 1 gm in 100 mls @ 200 mls/hr IV STAT STA PRN Reason: Protocol Stop: 03/21/17 12:25 Last Admin: 03/21/17 12:13 Dose: 200 mls/hr Azithromycin (Zithromax 500mg In Ns) 500 mg in 250 mls @ 167 mls/hr IVPB STAT STA PRN Reason: Protocol Stop: 03/21/17 13:25 Discontinued Medications Sodium Chloride (Sodium Chloride 0.9%) 500 mls @ 1,000 mls/hr IV .Q30M STA Stop: 03/21/17 10:54 Last Admin: 03/21/17 10:45 Dose: 1,000 mls/hr Pantoprazole Sodium (Protonix Inj) 80 mg IVP STAT STA Stop: 03/21/17 10:26 Last Admin: 03/21/17 10:45 Dose: 80 mg - Scribe Statement The provider has reviewed the documentation as recorded by the Fany Ramirez Provider Scribe Attestation: All medical record entries made by the Fany were at my direction and personally dictated by me. I have reviewed the chart and agree that the record accurately reflects my personal performance of the history, physical exam, medical decision making, and the department course for this patient. I have also personally directed, reviewed, and agree with the discharge instructions and disposition. Disposition/Present on Arrival - Present on Arrival Any Indicators Present on Arrival: No History of DVT/PE: Yes History of Uncontrolled Diabetes: No Urinary Catheter: No History Surgical Site Infection Following: None - Disposition Have Diagnosis and Disposition been Completed?: Yes Diagnosis: Rectal bleed Disposition: HOSPITALIZED Disposition Time: 11:56 Patient Plan: Admission Patient Problems: Current Active Problems Problem Status Onset Rectal bleed Acute Condition: FAIR
--- NOTE | 2017-03-21 10:58 | RAD ---
HISTORY: poss admission COMPARISON: 03/06/2017. FINDINGS: LUNGS: There is opacity in the right apex and upper lobe, new since the prior examination. The left lung is clear. PLEURA: No significant pleural effusion identified, no pneumothorax apparent. CARDIOVASCULAR: The cardiomediastinal silhouette is stable. Atherosclerotic aortic arch calcifications are present. OSSEOUS STRUCTURES: No significant abnormalities. VISUALIZED UPPER ABDOMEN: Normal. OTHER FINDINGS: None. IMPRESSION: Apparent new opacity in the right apex and upper lobe could represent prominent SVC shadow however atelectasis/pneumonia cannot be excluded. Follow-up is advised
[2017-03-21 11:09] LABS: BASO # 0.01 K/mm3 (0.0-2.0); BASO % 0.1 % (0.0-3.0); EOS # 0.2 (0.0-0.7); EOS % 1.9 % (1.5-5.0); GRAN # 8.19 (1.4-6.5); GRAN % 72.1 % (50.0-68.0); HEMATOCRIT 42.9 % (42.0-52.0); LYMPH # 2.1 (1.2-3.4); LYMPH % 18.3 % (22.0-35.0); MEAN CORPUSCULAR HEMOGLOBIN 31.5 pg (25.0-35.0); MEAN CORPUSCULAR HGB CONC 32.9 g/dl (31.0-37.0); MEAN PLATELET VOLUME 8.9 fl (7.0-11.0); MONO # 0.9 (0.1-0.6); MONO % 7.6 % (1.0-6.0); RED CELL DISTRIBUTION WIDTH 13.7 % (11.5-14.5); WHITE BLOOD COUNT 11.4 10^3/ul (4.5-11.0)
[2017-03-21 11:14] LABS: INR 1.45 (0.93-1.08)
[2017-03-21 11:36] LABS: ALB/GLOB RATIO 1.2 (1.1-1.8); ALKALINE PHOSPHATASE 96 U/L (38-133); ALT/SGPT 20 U/L (7-56); AMYLASE 72 U/L (35-125); AST/SGOT 16 U/L (15-59); BILIRUBIN,TOTAL 0.4 mg/dL (0.2-1.3); BLOOD UREA NITROGEN 27 mg/dL (7-21); CALCIUM 9.1 mg/dL (8.4-10.5); CARBON DIOXIDE 29 mmol/L (21-33); CHLORIDE 103 mmol/L (98-107); GFR AFRICAN-AMERICAN > 60; GLUCOSE,RANDOM 94 mg/dL (70-110); LIPASE 119 U/L (23-300); POTASSIUM 4.8 mmol/L (3.6-5.0); SODIUM 141 mmol/L (132-148); TOTAL PROTEIN 6.5 g/dL (5.8-8.3)
[2017-03-21] MEDS ORDERED: Azithromycin 500MG/NS 250ml 500 MG/250 ML BAG IVPB STA (11:56)
[2017-03-21] MEDS ORDERED: cefTRIAXone 1 gm 1 GM/100 ML BAG IV STA (11:56)
[2017-03-21 11:59] LABS: TROPONIN I 0.01 ng/mL
[2017-03-21] MEDS ORDERED: Ipratropium 0.02% Inhal Soln (0.5 mg/2.5 ml) UD IH PRN ×2 (13:05→13:58)
[2017-03-21] MEDS ORDERED: Bisacodyl 5mg EC Tab PO PRN (13:07)
--- NOTE | 2017-03-21 13:59 | CP.PCM.HP ---
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 Patient's reports that last night, patient began to complain of intense rectal pain, and when she examined his rectum, he had a hard , painful lump inside his rectum, that was not bleeding. states that this morning when she checked his diaper, he had a bright red blood in his diaper, about as much as "a light period on a pad", and after changing his diaper, he had more blood on the diaper. She did not check his rectum at the time and does not know if he had active bleeding. Additionally, states that over the past week, the patient has been complaining of intermittent, diffuse, abdominal pain, but he has no pain currently. Last bowel movement was 2 days ago (03/19). Denies nausea, vomiting, light headedness. states that patient has never had a problem with rectal bleeding in the past and has never had a colonoscopy. Pt was evaluated in the ED, had a CARLA (+) occult positive, labs & blood cx including CBC (Hgb = 14.1), had an EKG showing afib with no STTWC, and was given IV Protonix and IVF. Pt additionally had a CXR showing new RUL opacity, possible prominent SVC shadow vs atelectasis/pneumonia, and was started on Ceftriaxone 1gm and Zithromax 500 mg. PMHX: Dementia, afib, HTN, hypercholesterolemia, DVT (last 5 years ago), constipation, gallstones, kidney tumor (resected, RCC per EMR), COPD, asthma, AAA, Right iliac aneurysm PSHX: R iliac aneurysm with stent placement 03/11/[address] Fabian, hip surgery 5 years ago, cardiac stent 2001, resected RCC, hip surgeries x 5. Med hx: Daily: Warfarin 5 mg PO, Furosemide 40 mg PO, Vitamin D, Lipitor 10 mg PO, ASA 81 mg PO, Amlodipine-Benazepril 5 mg PO, PRN: Albuterol 1 puff, Ipatropium 0.5 mg, Econazole nitrate 1 mg, Colace 70 mg, Dermacinrx Therazole Johnathon 2 mg, Ducolax 5 mg PO Allergies: NKDA Family hx: no family history of CA Social history: - lives with , has visiting healthcare aides - denies smoking, EtOH, or recreational drugs - normal appetite Urologist: Vicky GI: Miky (is patient's 's physician) PMD: Dr. Barnhart ROS: General: Denies fevers or chills HEENT: Denies cough or congestion CV: Denies chest pain Resp: (+) occasional SOB (takes nebulizer tx PRN, Hx COPD) GI: (+) rectal bleed x 1 day, (+) Intermittent, diffuse abd pain x 1 week, (+) constipation. Denies N/V/D. : (+) Occasional hematuria. Denies dysuria, urinary retention MSK: (+) chronic LE claudication Neuro: Dementia at baseline, no recent changes in mentation, unable to walk or move self at baseline Present on Admission - Present on Admission Any Indicators Present on Admission: Yes History of DVT/PE: Yes History of Uncontrolled Diabetes: No Urinary Catheter: No Decubitus Ulcer Present: No Past Patient History - Infectious Disease Hx of Infectious Diseases: None - Tetanus Immunizations Tetanus Immunization: Unknown - Past Social History Smoking Status: Former Smoker - CARDIAC Hx Cardiac Disorders: Yes - PULMONARY Hx Chronic Obstructive Pulmonary Disease (COPD): Yes - NEUROLOGICAL Hx Transient Ischemic Attacks (TIA): Yes - HEENT Hx HEENT Problems: No - RENAL Other/Comment: kidney tumor - ENDOCRINE/METABOLIC Hx Endocrine Disorders: No - HEMATOLOGICAL/ONCOLOGICAL Hx Blood Disorders: No - INTEGUMENTARY Hx Dermatological Problems: No - MUSCULOSKELETAL/RHEUMATOLOGICAL Hx Musculoskeletal Disorders: Yes - GASTROINTESTINAL Hx Gastrointestinal Disorders: No - GENITOURINARY/GYNECOLOGICAL Hx Genitourinary Disorders: No - PSYCHIATRIC Hx Psychophysiologic Disorder: No Hx Substance Use: No - SURGICAL HISTORY Hx Cardiac Catheterization: Yes (x1 stent) Hx Coronary Stent: Yes Hx Joint Replacement: Yes Other/Comment: tumor removed from the kidney 2007 - ANESTHESIA Hx Anesthesia: Yes Hx Anesthesia Reactions: No Hx Malignant Hyperthermia: No Meds Allergies/Adverse Reactions: Allergies Allergy/AdvReac Type Severity Reaction Status Date / Time No Known Allergies Allergy Unverified 10/24/16 10:54 Physical Exam - Constitutional Appears: Non-toxic, No Acute Distress, Confused - Head Exam Head Exam: NORMAL INSPECTION, NORMOCEPHALIC - Eye Exam Eye Exam: EOMI, Normal appearance - ENT Exam ENT Exam: Mucous Membranes Moist - Respiratory Exam Respiratory Exam: Clear to Auscultation Bilateral, NORMAL BREATHING PATTERN. absent: Accessory Muscle Use, Respiratory Distress - Cardiovascular Exam Cardiovascular Exam: Irregular Rhythm. absent: Bradycardia, Tachycardia - GI/Abdominal Exam GI & Abdominal Exam: Distended, Hypoactive Bowel Sounds, Tenderness Additional comments: tenderness to palpation on left lower quadrant. Distended abdomen. hypoactive bowel sounds - Extremities Exam Extremities exam: Positive for: pedal pulses present. Negative for: full ROM, joint swelling, normal inspection, pedal edema Additional comments: large black raised papule on left anterior olivo. no biopsy in the past. It has not grown in size since last visit. dimensions roughly 2.5" x 2.5" - Neurological Exam Additional comments: patient cannot move lower extremities. upper extremities are weak - Psychiatric Exam Psychiatric exam: Normal Affect, Normal Mood - Skin Skin Exam: Dry, Intact, Normal Color, Warm Results - Vital Signs Recent Vital Signs: Last Vital Signs Temp 97.5 F L 03/21/17 10:15 Pulse 85 03/21/17 13:25 Resp 18 03/21/17 13:25 BP 132/61 03/21/17 13:25 Pulse Ox 95 03/21/17 13:25 - Labs Result Diagrams: 03/21/17 10:58 03/21/17 10:58 Assessment & Plan - Assessment and Plan (Free Text) Assessment: 86M presents with GI bleeding per rectum. PMH: Plan: Rectal bleeding monitor daily H/Hs CBC q6H coumadin (on hold) ASA 81 mg POQD (on hold) f/u Dr. Bolaños's recommendations for colonoscopy or sigmoidoscopy Constipation CT Abdomen/Pelvis PO contrast (gastrograffin) Monitor BM Miralax, Dulcolax, Colace (PRN post CT abdomen results) A-fib 03/21 EKbpm, irregularly irregular rhythm. atrial fibrillation coumadin (on hold) ASA 81 mg POQD (on hold) INR: 1.45 monitor INR Elevated WBC 11.4 CXR: inconclusive. monitor ceftriaxone 1 gm IVP QDaily daily CBCs q6H Vitals stable HTN c/w Norvasc furosemide on hold. monitor BP HLD Hx continue lipitor Diet: Heart Healthy Diet GI PPX: Protonix DVT PPX: held for evaluation of rectal bleed Consult: Dr. Bolaños Cardio: Dr. Tripathi - Date & Time Date: 03/21/17 Time: 14:17
--- NOTE | 2017-03-21 15:34 | CARD ---
APPROVED REPORT EKG Measurement Heart [id number] <Conclusion> Sinus rhythm with occasional premature ventricular complexes and premature atrial complexes Left axis deviation Inferior infarct, age undetermined Anteroseptal infarct, age undetermined Abnormal ECG
[2017-03-21] MEDS ORDERED: Pneumococcal 23-Valent Vaccine IM ONE (16:41)
[2017-03-21 18:20] LABS: BASO # 0.02 K/mm3 (0.0-2.0); BASO % 0.2 % (0.0-3.0); EOS # 0.2 (0.0-0.7); GRAN # 7.33 (1.4-6.5); GRAN % 71.6 % (50.0-68.0); HEMATOCRIT 41.3 % (42.0-52.0); LYMPH % 19.2 % (22.0-35.0); MEAN CELL VOLUME 96.3 fl (80.0-105.0); MEAN CORPUSCULAR HEMOGLOBIN 31.9 pg (25.0-35.0); MEAN CORPUSCULAR HGB CONC 33.2 g/dl (31.0-37.0); MEAN PLATELET VOLUME 8.9 fl (7.0-11.0); MONO # 0.7 (0.1-0.6); RED CELL DISTRIBUTION WIDTH 13.8 % (11.5-14.5); WHITE BLOOD COUNT 10.2 10^3/ul (4.5-11.0)
[2017-03-21 20:41] LABS: URINE BILIRUBIN NEGATIVE (NEGATIVE); URINE BLOOD SMALL (NEGATIVE); URINE GLUCOSE (UA) NEGATIVE (NEGATIVE); URINE KETONE NEGATIVE (NEGATIVE); URINE LEUKOCYTE ESTERASE NEGATIVE Leu/uL (NEGATIVE); URINE PROTEIN NEGATIVE mg/dL (<30 mg/dL); URINE UROBILINOGEN 0.2 E.U./dL (<1 E.U./dL)
[2017-03-21 20:42] LABS: URINE APPEARANCE CLEAR (CLEAR); URINE COLOR YELLOW (YELLOW)
[2017-03-21 21:45] LABS: URINE BACTERIA SMALL (NEG); URINE EPITHELIAL CELLS 0 - 2 /hpf (0-5); URINE WBC 0 - 2 /hpf (0-6)
[2017-03-21 21:56] LABS: BASO # 0.01 K/mm3 (0.0-2.0); BASO % 0.1 % (0.0-3.0); EOS # 0.2 (0.0-0.7); EOS % 1.9 % (1.5-5.0); GRAN # 6.37 (1.4-6.5); GRAN % 69.6 % (50.0-68.0); HEMATOCRIT 38.4 % (42.0-52.0); LYMPH % 21.8 % (22.0-35.0); MEAN CORPUSCULAR HEMOGLOBIN 30.4 pg (25.0-35.0); MEAN PLATELET VOLUME 8.3 fl (7.0-11.0); MONO # 0.6 (0.1-0.6); MONO % 6.6 % (1.0-6.0); RED CELL DISTRIBUTION WIDTH 13.5 % (11.5-14.5); WHITE BLOOD COUNT 9.1 10^3/ul (4.5-11.0)
[2017-03-22 04:22] LABS: BASO # 0.01 K/mm3 (0.0-2.0); BASO % 0.1 % (0.0-3.0); EOS # 0.2 (0.0-0.7); GRAN # 6.01 (1.4-6.5); GRAN % 69.1 % (50.0-68.0); HEMATOCRIT 38.9 % (42.0-52.0); LYMPH # 1.9 (1.2-3.4); LYMPH % 21.3 % (22.0-35.0); MEAN CELL VOLUME 95.3 fl (80.0-105.0); MEAN CORPUSCULAR HEMOGLOBIN 31.6 pg (25.0-35.0); MEAN CORPUSCULAR HGB CONC 33.2 g/dl (31.0-37.0); MEAN PLATELET VOLUME 8.3 fl (7.0-11.0); MONO # 0.7 (0.1-0.6); MONO % 7.5 % (1.0-6.0); RED CELL DISTRIBUTION WIDTH 13.6 % (11.5-14.5); WHITE BLOOD COUNT 8.7 10^3/ul (4.5-11.0)
[2017-03-22 04:28] LABS: ALKALINE PHOSPHATASE 85 U/L (38-133); ALT/SGPT 24 U/L (7-56); AST/SGOT 23 U/L (15-59); BILIRUBIN,TOTAL 0.5 mg/dL (0.2-1.3); BLOOD UREA NITROGEN 28 mg/dL (7-21); CALCIUM 8.5 mg/dL (8.4-10.5); CARBON DIOXIDE 27 mmol/L (21-33); CHLORIDE 103 mmol/L (95-110); GFR AFRICAN-AMERICAN > 60; GLUCOSE,RANDOM 86 mg/dL (70-110); INR 1.55 (0.93-1.08); POTASSIUM 4.1 mmol/L (3.6-5.0); SODIUM 138 mmol/L (132-148); TOTAL PROTEIN 5.9 g/dL (5.8-8.3)
--- NOTE | 2017-03-22 06:20 | CON ---
DATE: REASON FOR CONSULTATION: Abnormal EKG, history of coronary artery disease as well as rectal bleeding. HISTORY OF PRESENT ILLNESS: The patient is an 86 years old white male who has a history of coronary artery disease status post coronary stenting in 2000, history of DVT and IVC filter placement and recently early this month, he was admitted because of right lower quadrant pain and was found to have right iliac artery aneurysm, underwent EVAR and stent graft placement by interventional radiology. The patient has a history of paroxysmal atrial fibrillation. The patient is on Coumadin therapy. The patient was admitted because of rectal bleeding. According to the , she noticed him to have very painful hard mass in the rectum with rectal bleeding. According to , the patient had only hemorrhoids in the past. There was no reported chest pain or shortness of breath. SOCIAL HISTORY: The patient is a nonsmoker, nondrinker. He is . Lives with his and he is practically bedridden. PAST MEDICAL HISTORY: History of bilateral hip replacement, history of hypertension, coronary artery disease status post coronary intervention in 2000, history of DVT, and recently underwent EVAR for right iliac artery aneurysm. CURRENT MEDICATIONS: Atrovent inhaler q. 4 hours, Dulcolax 5 mg p.o. daily, Lasix 40 mg once a day, Lipitor 10 mg once a day, Norvasc 5 mg once a day, Protonix 40 mg intravenously twice a day, Rocephin 1 g intravenously daily and Zithromax 500 mg intravenously daily. PHYSICAL EXAMINATION: GENERAL: The patient is an elderly male who does not appear to be in acute distress. VITAL SIGNS: Blood pressure 120/66, heart rate 68, temperature 98 and respiration 18. HEENT: Normocephalic. NECK: No JVD. CHEST: Diminished breath sounds bilaterally. HEART: S1 and S2 regular. ABDOMEN: Soft. EXTREMITIES: Chronic skin changes and possible bilateral leg cellulitis. LABORATORY DATA: CBC; WBC 11.4, hemoglobin and hematocrit 14.1 and 42.9 and platelet count 150,000. INR 1.45. PTT 37. SMA-7 within normal limits except for BUN of 27, one set of troponin is negative. EKG revealed sinus rhythm with APCs and PVCs. Left axis deviation. Anterior and anteroseptal infarcts of indeterminate age. Recent CT angiography of the abdomen and pelvis on 03/08/2017 revealed 4 cm partially thrombosed aneurysm arising from the right internal iliac artery that study must have been done prior to the intervention. ASSESSMENT: 1. Rectal bleeding, questionable rectal mass. 2. Coronary artery disease with history of coronary stenting some 16 years ago. The patient is currently chest pain free and no acute ischemic EKG changes. 3. History of paroxysmal atrial fibrillation. 4. History of deep vein thrombosis. 5. 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 RECOMMENDATIONS: Continue current IV Rocephin and IV Zithromax. Continue Lasix 40 mg orally daily, Norvasc 5 mg once a day, Lipitor 10 mg once a day, Atrovent inhaler q. 4 hours. The patient is not a suitable candidate for either antiplatelet or anticoagulation therapy. The patient will be scheduled for an echocardiogram. The patient will undergo CAT scan of the abdomen and pelvis and will have gastrointestinal evaluation by Dr. Bolaños. Alex Tripathi MD
[2017-03-22] MEDS: Azithromycin 500MG/NS 250ml 500 MG/250 ML BAG IVPB SCH (11:05)
[2017-03-22] MEDS: cefTRIAXone 1 gm 1 GM/100 ML BAG IVPB SCH (11:08)
[2017-03-22 12:13] LABS: BASO # 0.01 K/mm3 (0.0-2.0); BASO % 0.1 % (0.0-3.0); EOS # 0.2 (0.0-0.7); EOS % 2.3 % (1.5-5.0); GRAN # 5.38 (1.4-6.5); GRAN % 72.9 % (50.0-68.0); HEMATOCRIT 38.2 % (42.0-52.0); LYMPH # 1.5 (1.2-3.4); LYMPH % 20.1 % (22.0-35.0); MEAN CELL VOLUME 95.7 fl (80.0-105.0); MEAN CORPUSCULAR HEMOGLOBIN 31.3 pg (25.0-35.0); MEAN CORPUSCULAR HGB CONC 32.7 g/dl (31.0-37.0); MEAN PLATELET VOLUME 8.5 fl (7.0-11.0); MONO # 0.3 (0.1-0.6); MONO % 4.6 % (1.0-6.0); RED CELL DISTRIBUTION WIDTH 13.6 % (11.5-14.5); WHITE BLOOD COUNT 7.4 10^3/ul (4.5-11.0)
--- NOTE | 2017-03-22 13:33 | CP.PCM.PN ---
Subjective - Date & Time of Evaluation Date of Evaluation: 03/22/17 Time of Evaluation: 13:10 - Subjective Subjective: MEDICINE PROGRESS NOTE: Pt seen and examined at bedside, with present in room. Pt had no new complaints however reports that patient "moans" whenever she presses on his abdomen but reports that this is consistent with his chronic constipation. Pt reports that he is using his IS. Pt denies any headache, dizziness, fever, chills, shortness of breath, cough, chest pain, abdominal pain, N/V, diarrhea or any urinary symptoms. Objective - Vital Signs/Intake and Output Vital Signs (last 24 hours): Temp Pulse Resp BP Pulse Ox 97.6 F 80 22 109/72 93 L 03/22/17 08:16 03/22/17 08:16 03/22/17 08:16 03/22/17 08:16 03/22/17 08:16 Intake and Output: 03/22/17 03/22/17 06:59 18:59 Intake Total 360 240 Balance 360 240 - Medications Medications: Current Medications Amlodipine Besylate (Norvasc) 5 mg PO DAILY [facility] Last Admin: 03/22/17 11:06 Dose: 5 mg Atorvastatin Calcium (Lipitor) 10 mg PO DIN [facility] Stop: 03/28/17 17:01 Last Admin: 03/21/17 19:15 Dose: 10 mg Bisacodyl (Dulcolax) 5 mg PO DAILY PRN PRN Reason: Constipation Last Admin: 03/22/17 11:53 Dose: 5 mg Furosemide (Lasix) 40 mg PO DAILY [facility] Ceftriaxone Sodium (Rocephin 1 Gram Ivpb) 1 gm in 100 mls @ 100 mls/hr IVPB DAILY [facility] PRN Reason: Protocol Last Admin: 03/22/17 11:08 Dose: 100 mls/hr Azithromycin (Zithromax 500mg In Ns) 500 mg in 250 mls @ 167 mls/hr IVPB DAILY [facility] PRN Reason: Protocol Last Admin: 03/22/17 11:05 Dose: 167 mls/hr Ipratropium Lincoln (Atrovent) 0.5 mg IH Q4H PRN PRN Reason: Shortness of Breath Pantoprazole Sodium (Protonix Inj) 40 mg IVP BID [facility] Last Admin: 03/22/17 11:05 Dose: 40 mg - Labs Labs: 03/22/17 12:00 03/22/17 04:05 PT 16.7 Seconds (9.9-11.8) H 03/22/17 04:05 INR 1.55 (0.93-1.08) H 03/22/17 04:05 APTT 37.0 Seconds (23.7-30.8) H 03/21/17 10:58 - Constitutional Appears: Non-toxic, No Acute Distress - Head Exam Head Exam: ATRAUMATIC, NORMOCEPHALIC - Eye Exam Eye Exam: EOMI, Normal appearance, PERRL - ENT Exam ENT Exam: Mucous Membranes Moist, Normal Exam, Normal Oropharynx - Neck Exam Neck Exam: absent: Lymphadenopathy, Tenderness - Respiratory Exam Respiratory Exam: Clear to Ausculation Bilateral, NORMAL BREATHING PATTERN. absent: Rales, Rhonchi, Wheezes, Respiratory Distress - Cardiovascular Exam Cardiovascular Exam: Irregular Rhythm, +S1, +S2. absent: Tachycardia, Diastolic murmur, Murmur - GI/Abdominal Exam GI & Abdominal Exam: Soft, Normal Bowel Sounds. absent: Distended, Firm, Guarding, Rigid, Tenderness - Rectal Exam Rectal Exam: Deferred - Exam Exam: absent: Bladder Distension - Extremities Exam Extremities Exam: Normal Capillary Refill. 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 Rectal Hemorrhage -rectum clear of hemorrhage since admission, per nursing -CT abdomen/pelvis read pending -continue to hold ASA and coumadin, pending GI recommendations -H/H stable at 12.5/38.2, so CBC's will be obtained daily as opposed to Q6H -GI consulted, all recommendations appreciated 2. Leukocytosis -resolved with WBC at 7.4 -chest x-ray showing opacity in right apex and upper lobe, pneumonia not excluded -UA with small amount of bacteria -continue rocephin and zithromax (day 2) -normotensive, non-tachycardic and afebrile since admission -blood culture pending -pneumococcal vaccine administered 3. Atrial Fibrillation -EKG showing atrial fibrillation at 87 bpm -coumadin and ASA on hold pending GI recommendations -INR at 1.55 -ECHO pending -cardiology consulted, all recommendations appreciated -heart healthy diet 4. Constipation -continue Dulcolax PRN 5. HTN -continue Norvasc -hold furosemide -monitoring BP with vital signs Q4H 6. HLD -continue lipitor 7. COPD -continue atrovent PRN -continue PT/OT 8. GI Prophylaxis -Protonix Patient seen and case discussed with attending, Dr. Sumner.
--- NOTE | 2017-03-22 13:58 | CT ---
PROCEDURE: CT Abdomen and Pelvis without intravenous contrast HISTORY: constipation/rule out SBO - with *gastrograffin COMPARISON: 03/06/2017 TECHNIQUE: Without contrast.. Contrast Dose: Radiation dose: Total exam DLP = 1292 mGy-cm. This CT exam was performed using one or more of the following dose reduction techniques: Automated exposure control, adjustment of the mA and/or kV according to patient size, and/or use of iterative reconstruction technique. FINDINGS: LOWER THORAX: There is an infiltrate at the right lung base. Unchanged. Coronary artery calcifications are seen. LIVER: Unremarkable. No gross lesion or ductal dilatation. GALLBLADDER AND BILE DUCTS: Gallstones. No inflammation PANCREAS: Unremarkable. No gross lesion or ductal dilatation. SPLEEN: Unremarkable. ADRENALS: Unremarkable. No mass. KIDNEYS AND URETERS: Bilateral renal cysts. Dense hemorrhagic cysts on the left VASCULATURE: Right iliac stents. 4.4 cm right internal iliac aneurysm. A caval filter is present BOWEL: Unremarkable. No obstruction. No gross mural thickening. APPENDIX: Unremarkable. Normal appendix. PERITONEUM: Unremarkable. No free fluid. No free air. LYMPH NODES: Unremarkable. No enlarged lymph nodes. BLADDER: Unremarkable. REPRODUCTIVE: Unremarkable. BONES: No acute fracture. OTHER FINDINGS: None. IMPRESSION: No evidence of small bowel obstruction. No acute changes from prior study
--- NOTE | 2017-03-22 16:45 | CARD ---
APPROVED REPORT EXAM: Two-dimensional and M-mode echocardiogram with Doppler and color Doppler. INDICATION Cardiac Disease: CAD 2D DIMENSIONS IVSd1.4 (0.7-1.1cm)LVDd4.5 (3.9-5.9cm) PWd1.4 (0.7-1.1cm)LVDs3.4 (2.5-4.0cm) FS (%) 25.3 %LVEF (%)50.1 (>50%) M-Mode DIMENSIONS Aortic Root3.30 (2.2-3.7cm)Aortic Cusp Exc.1.20 (1.5-2.0cm) Aortic Valve AoV Peak Xxcuuexb945.0cm/Alaina Peak GR.13mmHg Mitral Valve MV E Eokluypa03.8cm/sMV A Qfgamwqw16.1cm/sE/A ratio0.6 TDI E/Lateral E'0.0E/Medial E'0.0 Pulmonary Valve PV Peak Llrxkxwx55.2cm/sPV Peak Grad.3mmHg Tricuspid Valve TR Peak Seolbqdx854au/sRAP [id number] Peak Gr.35mmHg [id number] LEFT VENTRICLE The left ventricle is normal size. There is mild concentric left ventricular hypertrophy. Left ventricle is borderline. Septal hypokinesis Transmitral Doppler flow pattern is Grade I-abnormal relaxation pattern. RIGHT VENTRICLE The right ventricle is normal size. There is normal right ventricular wall thickness. The right ventricular systolic function is normal. ATRIA The left atrium size is normal. The right atrium size is normal. AORTIC VALVE The aortic valve is not well visualized. MITRAL VALVE The mitral valve is mildly thickened. TRICUSPID VALVE There is mild to moderate pulmonary hypertension. GREAT VESSELS The aortic root is moderately enlarged. PERICARDIAL EFFUSION There is a trace loculated anterior pericardial effusion. <Conclusion> The left ventricle is normal size. There is mild concentric left ventricular hypertrophy. Left ventricle is borderline. Septal hypokinesis Transmitral Doppler flow pattern is Grade I-abnormal relaxation pattern. There is mild to moderate pulmonary hypertension. The aortic root is moderately enlarged.
[2017-03-22] MEDS: Pantoprazole 40 mg EC Tab PO SCH (17:22)
[2017-03-22] MEDS ORDERED: Peg-Electrolyte Oral Soln 4L (Golytely) PO ONE (19:13)
--- NOTE | 2017-03-22 23:57 | CON ---
DATE: 03/22/2017 REASON FOR CONSULTATION: Rectal discomfort, rectal pain and bleeding per rectum. HISTORY OF PRESENT ILLNESS: This 86-year-old patient with a past medical history of dementia, atrial fibrillation, history of DVT, chronic constipation, on Coumadin, history of coronary artery disease, status post inferior vena cava filter placement. At present, was brought and admitted to the hospital with a rectal bleeding complaint. He was found to have a hard rectal "mass" and painful. They were concerned because of large amount of bleeding per rectum. The patient also was complaining of some abdominal pain. In the ER he was found to have mild leukocytosis with the white cell count at 11.4, had a CT scan of the abdomen done, which was reviewed. The patient had a significant amount of stool left side of the colon and iliac aneurysm 4.4 cm right side. The patient has been using only Dulcolax tablet. The patient did not have any significant bowel movement. PAST MEDICAL HISTORY: Other past medical history as above. History of gallstones, history of kidney tumor removed, COPD, asthma, right iliac aneurysm, coronary artery disease status post stent placement. ALLERGY: NO KNOWN DRUG ALLERGY. 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 Denies smoking, alcohol now. FAMILY HISTORY: Noncontributory REVIEW OF SYSTEMS: Positive as above. Other systems reviewed negative. PHYSICAL EXAMINATION: GENERAL: The patient is lying in the bed, not in any acute distress. LABORATORY DATA: WBC count 7.4, hemoglobin 12.5, hematocrit 30.2, platelets 224. INR 1.55. Chemistry is essentially unremarkable with BUN 28 and creatinine 1.2. IMPRESSION: 1. This 86-year-old patient with chronic constipation admitted with rectal pain, abdominal pain and also mild leukocytosis. CT reviewed showed a significant amount of stool in the left side of the colon. The rectal examination showed what is felt like a posterior [id number] with increased sphincter tone, large amount of stool in the colon, pasty stools, could not have it completely removed by manual disimpaction. 2. Atrial fibrillation, history of deep vein thrombosis, right iliac aneurysm, on Coumadin, INR 1.55. 3. Leukocytosis, abdominal pain rule out colitis. The patient is clinically more comfortable, no tenderness at the present time. 4. Other comorbidities include coronary artery disease, chronic obstructive pulmonary disease, dyslipidemia, atrial fibrillation, dementia, gallstones. RECOMMENDATION: We would start the patient on Golytely one gallon, half a gallon to be taken today and half a gallon in the a.m. We will also give one Fleet oral enema with Golytely. The patient is 86 years with multiple medical comorbidities. Present admission is mainly for fecal impaction with fissure with bleeding per rectum. If the patient continues to have rectal bleeding or drop in blood count, we would consider colonoscopic evaluation. We will discuss with the patient's prior to considering colonic evaluation. Thank you very much for allowing me to participate in the care of the patient. Andreas Bolaños MD
--- NOTE | 2017-03-23 00:24 | PN ---
DATE: SUBJECTIVE: The patient denies any rectal pain. No chest pain or shortness of breath at this time. PHYSICAL EXAMINATION VITAL SIGNS: Blood pressure 114/71, heart rate 69, temperature 98.5, respirations 20. HEENT: Normocephalic. CHEST: Diminished breath sounds over the bases. HEART: S1 and S2 regular. EXTREMITIES: Chronic skin changes involving both lower extremities. LABORATORY DATA: SMA-7 is within normal limits except for BUN of 28. INR is 1.55. Hemoglobin and hematocrit 12.5 and 38.2. White count and platelet count are within normal limits. Abdomen and pelvic CT scan revealed no evidence of small bowel obstruction. Echocardiographic study revealed mild concentric LVH with borderline ejection fraction, septal hypokinesis, reduced diastolic compliance, and [id number] hypertension with moderately dilated aortic root. ASSESSMENT: 1. Rectal bleeding. 2. Coronary artery disease, status post coronary artery stenting in 2000. 3. History of paroxysmal atrial fibrillation. 4. History of deep vein thrombosis and inferior vena cava filter placement. 5. History of recent endovascular aneurysm repair for 4 cm partially thrombosed right internal iliac artery aneurysm. 6. Dilated aortic root, rule out ascending aortic aneurysm. RECOMMENDATIONS: Continue current Lasix 40 mg once a day, Lipitor 10 mg once a day, Norvasc 5 mg once a day, IV Rocephin, and IV Zithromax. The patient is not a suitable candidate for either antiplatelet or anticoagulation until gastrointestinal evaluation and workup is concluded. Alex Tripathi MD
[2017-03-23 06:44] LABS: INR 1.36 (0.93-1.08)
[2017-03-23 06:52] LABS: ALB/GLOB RATIO 1.1 (1.1-1.8); ALKALINE PHOSPHATASE 89 U/L (38-133); ALT/SGPT 26 U/L (7-56); AST/SGOT 17 U/L (15-59); BASO # 0.01 K/mm3 (0.0-2.0); BASO % 0.1 % (0.0-3.0); BILIRUBIN,TOTAL 0.3 mg/dL (0.2-1.3); BLOOD UREA NITROGEN 28 mg/dL (7-21); CALCIUM 8.6 mg/dL (8.4-10.5); CARBON DIOXIDE 27 mmol/L (21-33); CHLORIDE 105 mmol/L (98-107); EOS # 0.2 (0.0-0.7); EOS % 2.2 % (1.5-5.0); GFR AFRICAN-AMERICAN > 60; GLUCOSE,RANDOM 95 mg/dL (70-110); GRAN # 5.62 (1.4-6.5); GRAN % 66.3 % (50.0-68.0); HEMATOCRIT 40.7 % (42.0-52.0); LYMPH % 23.3 % (22.0-35.0); MEAN CELL VOLUME 94.9 fl (80.0-105.0); MEAN CORPUSCULAR HGB CONC 32.7 g/dl (31.0-37.0); MEAN PLATELET VOLUME 8.4 fl (7.0-11.0); MONO # 0.7 (0.1-0.6); MONO % 8.1 % (1.0-6.0); POTASSIUM 4.1 mmol/L (3.6-5.0); RED CELL DISTRIBUTION WIDTH 13.6 % (11.5-14.5); SODIUM 140 mmol/L (132-148); TOTAL PROTEIN 5.9 g/dL (5.8-8.3); WHITE BLOOD COUNT 8.5 10^3/ul (4.5-11.0)
--- NOTE | 2017-03-23 09:55 | PQF GENQUE ---
This form is a permanent part of the medical record Clarification of your documentation is requested to better reflect the severity of illness and intensity of treatment of your patient. Indicators present 03/21 CXR- shows new opacity in Rt apex & upper lobe. Being treated w/ IV Rocephin, Zithromax. Please clarify if you are treating Pneumonia POA as this will show severity of illness & intensity of tx Pt followed by Dr Tripathi, IV Abx ordered by Dr Magaña [] Specify: [] [] Specify: [] [] Specify: [] [] Specify: [] Location in the medical record that reflects the above clinical findings: [x] CXR- 03/21 Treatment Provided: []IV Rocephin, Zithromax PHYSICIAN'S RESPONSE Based on your medical judgment of the clinical indicators outlined above please clarify the following: [] Practitioner response [] If unable to determine, please check the box, sign and date. Present On Admission (POA) Indicator: [] Present at the time of admission [] Not present at the time of admission [] Clinically Undetermined In responding to this query, please exercise your independent professional judgment. The fact that a question is asked does not imply that any particular answer is desired or expected. Thank you for your clarification on this documentation. If you have any questions please call:[ ][phone] * Thank you, [ ]Marietta Almodovar RN CDS edger machine helper SATINDER
[2017-03-23] MEDS: cefTRIAXone 1 gm 1 GM/100 ML BAG IVPB SCH (11:05)
[2017-03-23] MEDS: Pantoprazole 40 mg EC Tab PO SCH ×2 (11:06→17:53)
[2017-03-23] MEDS: Azithromycin 500MG/NS 250ml 500 MG/250 ML BAG IVPB SCH (11:54)
--- NOTE | 2017-03-23 14:46 | CP.PCM.PN ---
Subjective - Date & Time of Evaluation Date of Evaluation: 03/23/17 Time of Evaluation: 14:44 - Subjective Subjective: MEDICINE PROGRESS NOTE: Pt seen and examined at bedside. Pt had no new complaints during the time of evaluation. Of note, patients , who assists in subjective progress/ complaints, was not present as she was at a doctors appointment. Nursing reports that patient had several non-bloody BM's overnight with no complication. Pt reports that he is using his IS. Pt denies any headache, dizziness, fever, chills, shortness of breath, cough, chest pain, abdominal pain , N/V, diarrhea or any urinary symptoms. Objective - Vital Signs/Intake and Output Vital Signs (last 24 hours): Temp Pulse Resp BP Pulse Ox 98.2 F 83 22 159/94 H 94 L 03/23/17 06:00 03/23/17 11:07 03/23/17 06:00 03/23/17 11:07 03/23/17 06:00 Intake and Output: 03/23/17 03/23/17 06:59 18:59 Intake Total 780 480 Balance 780 480 - Medications Medications: Current Medications Amlodipine Besylate (Norvasc) 5 mg PO DAILY [facility] Last Admin: 03/23/17 11:07 Dose: 5 mg Atorvastatin Calcium (Lipitor) 10 mg PO DIN [facility] Stop: 03/28/17 17:01 Last Admin: 03/22/17 17:22 Dose: 10 mg Bisacodyl (Dulcolax) 5 mg PO DAILY PRN PRN Reason: Constipation Last Admin: 03/22/17 11:53 Dose: 5 mg Furosemide (Lasix) 40 mg PO DAILY [facility] Ceftriaxone Sodium (Rocephin 1 Gram Ivpb) 1 gm in 100 mls @ 100 mls/hr IVPB DAILY [facility] PRN Reason: Protocol Last Admin: 03/23/17 11:05 Dose: 100 mls/hr Azithromycin (Zithromax 500mg In Ns) 500 mg in 250 mls @ 167 mls/hr IVPB DAILY [facility] PRN Reason: Protocol Last Admin: 03/23/17 11:54 Dose: 167 mls/hr Ipratropium [place] (Atrovent) 0.5 mg IH Q4H PRN PRN Reason: Shortness of Breath Pantoprazole Sodium (Protonix Ec Tab) 40 mg PO BID [facility] Last Admin: 03/23/17 11:06 Dose: 40 mg - Labs Labs: 03/23/17 05:30 03/23/17 05:30 PT 14.7 Seconds (9.9-11.8) H 03/23/17 05:30 INR 1.36 (0.93-1.08) H 03/23/17 05:30 APTT 37.0 Seconds (23.7-30.8) H 03/21/17 10:58 - Constitutional Appears: Non-toxic, No Acute Distress - Head Exam Head Exam: ATRAUMATIC, NORMOCEPHALIC - Eye Exam Eye Exam: EOMI, Normal appearance, PERRL - ENT Exam ENT Exam: Mucous Membranes Moist, Normal Exam, Normal Oropharynx - Neck Exam Neck Exam: Full ROM, Normal Inspection. absent: Lymphadenopathy, Tenderness - Respiratory Exam Respiratory Exam: Clear to Ausculation Bilateral, NORMAL BREATHING PATTERN. absent: Rales, Rhonchi, Wheezes, Respiratory Distress - Cardiovascular Exam Cardiovascular Exam: REGULAR RHYTHM, +S1, +S2. absent: Tachycardia, Diastolic murmur, Murmur - GI/Abdominal Exam GI & Abdominal Exam: Soft, Normal Bowel Sounds. absent: Distended, Firm, Guarding, Tenderness - Exam Exam: absent: Bladder Distension - Extremities Exam Extremities Exam: Normal Capillary Refill. 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 Patient found to have RUL pneumonia on chest x-ray upon admission. Plan: 1. Rectal Hemorrhage -CT abdomen/pelvis showing no SBO and no acute changes from prior exam -GI rectal exam revealed posterior [id number] -rectum clear of hemorrhage since admission, per nursing -anticoagulation and antiplatelet on hold in setting of possible lower GI bleed -H/H stable at 13.3/40.7 -if patient should have resumption of rectal bleeding or becomes hemodynamically unstable, GI will consider colonoscopic evaluation -GI consulted, all recommendations appreciated -patient will need to follow up with Dr. Bolaños as an outpatient upon discharge -will consider transfer to TCU based on H/H 2. RUL/[place] Pneumonia -continue rocephin and zithromax (day 3) -leukocytosis seen on admission resolved with WBC count at 8.5 -normotensive, non-tachycardic and afebrile since admission -blood culture with no growth after 48 hours -pneumococcal vaccine administered 3. Atrial Fibrillation -EKG showing atrial fibrillation at 87 bpm -coumadin on hold in setting of possible lower GI bleed -INR at 1.36 -ECHO with normal atrial size and EF of 50.1%; see report for further details -cardiology consulted, all recommendations appreciated -heart healthy diet 4. Constipation -CT abdomen/pelvis showed large amounts of retained stool -given one gallon of golytely and one oral fleet enema overnight -nursing reports patient with multiple non-bloody BM's overnight -continue Dulcolax PRN 5. HTN -continue Norvasc -hold furosemide in setting of possible lower GI bleed -monitoring BP with vital signs Q4H 6. HLD -continue lipitor 7. CAD w/ Stent Placement -on hold in setting of possible lower GI bleed -cardiology consulted, appreciate all recommendations 8. COPD -continue atrovent PRN -continue PT/OT 9. GI/DVT Prophylaxis -Protonix/scd's Patient seen and case discussed with attending, Dr. Sumner.
[2017-03-23 16:19] VITALS: BP 140/88; PULSE 84; RESP 21; TEMP 98.4; O2SAT 91
--- NOTE | 2017-03-23 16:30 | PN ---
DATE: SUBJECTIVE: The patient denies any chest pain or abdominal pain. No reported rectal bleeding. PHYSICAL EXAMINATION: VITAL SIGNS: Blood pressure 159/94, heart rate 86, temperature 98.2, respirations 22. HEENT: Normocephalic. CHEST: Diminished breath sounds over the bases. HEART: S1 and S2 regular. ABDOMEN: Soft. EXTREMITIES: Chronic skin changes involving both lower extremities. LABORATORY DATA: Hemoglobin and hematocrit 15.3 and 42.7. No significant drop compared to admitting hemoglobin and hematocrit which were 14.1 and 42.9. SMA-7 is within normal limits except for BUN of 28. ASSESSMENT: 1. Coronary artery disease with history of coronary stenting in 2000. 2. Recent endovascular stenting to the right internal iliac artery. 3. Consider ascending aortic aneurysm. 4. Rectal bleeding on admission. RECOMMENDATIONS: Continue current Atrovent inhaler. Continue Lasix 40 mg p.o. once a day, Lipitor 10 mg once a day, Norvasc 5 mg once a day. Continue IV Rocephin and IV Zithromax. I did review gastroenterology evaluation yesterday by Dr. Staples and his plan is to consider colonoscopic evaluation after he discussed it with his . Alex Tripathi MD
--- NOTE | 2017-03-24 03:07 | CP.PCM.DIS ---
Provider - Provider Date of Admission: 03/21/17 12:05 Attending physician: Allen Sumner MD Primary care physician: Adams Barnhart MD Consults: GI-[facility] Cardio-[place] Time Spent in preparation of Discharge (in minutes): 49 Hospital Course - Lab Results Lab Results: Micro Results 03/21/17 13:15 Blood-Venous Blood Culture - Preliminary NO GROWTH AFTER 48 HOURS 03/21/17 12:40 Blood-Venous Blood Culture - Preliminary NO GROWTH AFTER 48 HOURS Most Recent Lab Values WBC 8.5 10^3/ul (4.5-11.0) 03/23/17 05:30 RBC 4.29 10^6/uL (3.5-6.1) 03/23/17 05:30 Hgb 13.3 g/dL (14.0-18.0) L 03/23/17 05:30 Hct 40.7 % (42.0-52.0) L 03/23/17 05:30 MCV 94.9 fl (80.0-105.0) 03/23/17 05:30 MCH 31.0 pg (25.0-35.0) 03/23/17 05:30 MCHC 32.7 g/dl (31.0-37.0) 03/23/17 05:30 RDW 13.6 % (11.5-14.5) 03/23/17 05:30 Plt Count 246 10^3/uL (120.0-450.0) 03/23/17 05:30 MPV 8.4 fl (7.0-11.0) 03/23/17 05:30 Gran % 66.3 % (50.0-68.0) 03/23/17 05:30 Lymph % (Auto) 23.3 % (22.0-35.0) 03/23/17 05:30 [place] % (Auto) 8.1 % (1.0-6.0) H 03/23/17 05:30 Eos % (Auto) 2.2 % (1.5-5.0) 03/23/17 05:30 Baso % (Auto) 0.1 % (0.0-3.0) 03/23/17 05:30 Gran # 5.62 (1.4-6.5) 03/23/17 05:30 Lymph # 2.0 (1.2-3.4) 03/23/17 05:30 [place] # 0.7 (0.1-0.6) H 03/23/17 05:30 Eos # 0.2 (0.0-0.7) 03/23/17 05:30 Baso # 0.01 K/mm3 (0.0-2.0) 03/23/17 05:30 Corrected WBC (Man) Cancelled 03/21/17 17:55 Neutrophils % (Manual) Cancelled 03/21/17 17:55 Band Neutrophils % Cancelled 03/21/17 17:55 Lymphocytes % (Manual) Cancelled 03/21/17 17:55 Atypical Lymphs % Cancelled 03/21/17 17:55 Monocytes % (Manual) Cancelled 03/21/17 17:55 Eosinophils % (Manual) Cancelled 03/21/17 17:55 Basophils % (Manual) Cancelled 03/21/17 17:55 Metamyelocytes % Cancelled 03/21/17 17:55 Myelocytes % Cancelled 03/21/17 17:55 Promyelocytes % Cancelled 03/21/17 17:55 Nucleated RBC % Cancelled 03/21/17 17:55 Hypersegmented Polys Cancelled 03/21/17 17:55 Immature Lymphocytes Cancelled 03/21/17 17:55 Blast Cells Cancelled 03/21/17 17:55 Smudge Cells Cancelled 03/21/17 17:55 Toxic Granulation Cancelled 03/21/17 17:55 Dohle Bodies Cancelled 03/21/17 17:55 Karin Rods Cancelled 03/21/17 17:55 Platelet Evaluation Cancelled 03/21/17 17:55 Plt Clumps, EDTA Cancelled 03/21/17 17:55 Large Platelets Cancelled 03/21/17 17:55 Giant Platelets Cancelled 03/21/17 17:55 Polychromasia Cancelled 03/21/17 17:55 Hypochromasia Cancelled 03/21/17 17:55 Hyperchromasia Cancelled 03/21/17 17:55 Poikilocytosis (manual Cancelled 03/21/17 17:55 Basophilic Stippling Cancelled 03/21/17 17:55 Anisocytosis (manual) Cancelled 03/21/17 17:55 Microcytosis (manual) Cancelled 03/21/17 17:55 Macrocytosis (manual) Cancelled 03/21/17 17:55 Spherocytes Cancelled 03/21/17 17:55 Sickle Cells Cancelled 03/21/17 17:55 Target Cells Cancelled 03/21/17 17:55 Tear Drop Cells Cancelled 03/21/17 17:55 Ovalocytes Cancelled 03/21/17 17:55 Stomatocytes Cancelled 03/21/17 17:55 Helmet Cells Cancelled 03/21/17 17:55 [address] Rings Cancelled 03/21/17 17:55 Jaja Cells Cancelled 03/21/17 17:55 Acanthocytes (Spur) Cancelled 03/21/17 17:55 Rouleaux Cancelled 03/21/17 17:55 Schistocytes Cancelled 03/21/17 17:55 PT 14.7 Seconds (9.9-11.8) H 03/23/17 05:30 INR 1.36 (0.93-1.08) H 03/23/17 05:30 APTT 37.0 Seconds (23.7-30.8) H 03/21/17 10:58 Sodium 140 mmol/L (132-148) 03/23/17 05:30 Potassium 4.1 mmol/L (3.6-5.0) 03/23/17 05:30 Chloride 105 mmol/L (98-107) 03/23/17 05:30 Carbon Dioxide 27 mmol/L (21-33) 03/23/17 05:30 Anion Gap 12 (10-20) 03/23/17 05:30 BUN 28 mg/dL (7-21) H 03/23/17 05:30 Creatinine 1.3 mg/dL (0.5-1.4) 03/23/17 05:30 Est GFR ( Amer) > 60 03/23/17 05:30 Est GFR (Non-Af Amer) 52 03/23/17 05:30 Random Glucose 95 mg/dL (70-110) 03/23/17 05:30 Calcium 8.6 mg/dL (8.4-10.5) 03/23/17 05:30 Total Bilirubin 0.3 mg/dL (0.2-1.3) 03/23/17 05:30 AST 17 U/L (15-59) 03/23/17 05:30 ALT 26 U/L (7-56) 03/23/17 05:30 Alkaline Phosphatase 89 U/L (38-133) 03/23/17 05:30 Lactate Dehydrogenase 329 U/L (333-699) L 03/21/17 10:58 Total Creatine Kinase < 20 U/L (35-230) L 03/21/17 10:58 Troponin I 0.01 ng/mL 03/21/17 10:58 Total Protein 5.9 g/dL (5.8-8.3) 03/23/17 05:30 Albumin 3.2 g/dL (3.0-4.8) 03/23/17 05:30 Globulin 2.8 gm/dL 03/23/17 05:30 Albumin/Globulin Ratio 1.1 (1.1-1.8) 03/23/17 05:30 Amylase 72 U/L (35-125) 03/21/17 10:58 Lipase 119 U/L (23-300) 03/21/17 10:58 Procalcitonin 0.21 NG/ML (0.19-0.49) 03/21/17 10:58 Urine Color Yellow (YELLOW) 03/21/17 20:32 Urine Appearance Clear (CLEAR) 03/21/17 20:32 Urine pH 6.0 (4.7-8.0) 03/21/17 20:32 Ur Specific [place] 1.010 (1.005-1.035) 03/21/17 20:32 Urine Protein Negative mg/dL (<30 mg/dL) 03/21/17 20:32 Urine Glucose (UA) Negative mg/dL (NEGATIVE) 03/21/17 20:32 Urine Ketones Negative mg/dL (NEGATIVE) 03/21/17 20:32 Urine Blood Small (NEGATIVE) H 03/21/17 20:32 Urine Nitrate Negative (NEGATIVE) 03/21/17 20:32 Urine Bilirubin Negative (NEGATIVE) 03/21/17 20:32 Urine Urobilinogen 0.2 E.U./dL (<1 E.U./dL) 03/21/17 20:32 Ur Leukocyte Esterase Negative Prakash/uL (NEGATIVE) 03/21/17 20:32 Urine RBC 5 - 10 /hpf (0-2) 08/21/17 20:32 Urine WBC 0 - 2 /hpf (0-6) 03/21/17 20:32 Ur Epithelial Cells 0 - 2 /hpf (0-5) 03/21/17 20:32 Urine Bacteria Small (NEG) 03/21/17 20:32 Blood Type B POSITIVE 03/21/17 10:58 Antibody Screen Negative 03/21/17 10:58 BBK History Checked Patient has bt 03/21/17 10:58 - Hospital Course Hospital Course: 86 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 Patient was evaluated in the ED with a CARLA , was found to have fecal occult positive blood test, a CBC showing a hemoglobin of 14.1, an EKG showing afib with no acute changes from prior EKG's, and was given IV Protonix and IVF. A chest x-ray showed new RUL opacity, possible prominent SVC shadow versus atelectasis/pneumonia and, given that he was also found to have a leukocytosis, he was then started on Ceftriaxone 1gm and Zithromax 500 mg. GI and Cardiology were consulted. All anticoagulation and antiplatelet therapy were placed on hold in setting of acute lower GI bleed. A CT Abdomen/Pelvis PO contrast ( gastrograffin) showed no acute findings and large amounts of retained stool. GI gave patient one gallon of golytely and one oral fleet enema, which caused patient to have successful BM, performed a rectal exam which revealed posterior [id number] and stated that if patient should have resumption of rectal bleeding or becomes hemodynamically unstable, that they would then consider emergent colonoscopic evaluation. A TCU evaluation was performed and patient was accepted into the TCU on 03/23 with instructions to continue all medication , consultation and lab orders as they were. - Date & Time of H&P Date of H&P: 03/21/17 Time of H&P: 13:57 Discharge Exam - Head Exam Head Exam: ATRAUMATIC, NORMOCEPHALIC - Eye Exam Eye Exam: EOMI, Normal appearance, PERRL - ENT Exam ENT Exam: Mucous Membranes Moist, Normal Exam, Normal Oropharynx - Neck Exam Neck exam: Full Rom, Normal Inspection - Respiratory Exam Respiratory Exam: NORMAL BREATHING PATTERN, UNREMARKABLE. absent: Rales, Rhonchi, Wheezes, Respiratory Distress - Cardiovascular Exam Cardiovascular Exam: +S1, +S2. absent: Tachycardia - GI/Abdominal Exam GI & Abdominal Exam: Normal Bowel Sounds, Soft. absent: Distended, Firm, Guarding, Tenderness - Exam Exam: absent: Bladder Distension - Extremities Exam Extremities exam: normal capillary refill, normal inspection, pedal pulses present - Back Exam Back exam: absent: CVA tenderness (L), CVA tenderness (R), paraspinal tenderness , vertebral tenderness - Neurological Exam Neurological exam: Alert, Oriented x3 - Psychiatric Exam Psychiatric exam: Normal Affect, Normal Mood - Skin Skin Exam: Dry, Intact, Normal Color, Warm Discharge Plan - Follow Up Plan Condition: FAIR Disposition: TRANSF TO SNF Instructions: Rectal Bleeding (DC), Rectal Bleeding (GEN), Anal Fissure (DC), Anal Fissure (GEN) Additional Instructions: 1. DISCHARGE TO TCU. PLEASE CONTINUE ALL ORDERS THEY ARE CURRENTLY ORDERED. REPEAT CBC AND CMP ON 03/24. Referrals: Adams Barnhart MD [Primary Care Provider] -
== END 2017-03-23 19:32 | DRG 393 ==
LOC: ED 10:06 → ERH 12:05 → 3RSO 16:38
PROVIDERS: ADMIT Internal Medicine; ATTEND Internal Medicine
DX: K60.2 Anal fissure, unspecified (principal); J18.9 Pneumonia, unspecified organism; J44.0 Chronic obstructive pulmonary disease with (acute) lower respiratory infection; I71.2 Thoracic aortic aneurysm, without rupture; R53.2 Functional quadriplegia; K92.2 Gastrointestinal hemorrhage, unspecified; I48.0 Paroxysmal atrial fibrillation; F03.90 Unspecified dementia, unspecified severity, without behavioral disturbance, psychotic disturbance, mood disturbance, and anxiety; I72.3 Aneurysm of iliac artery; E78.5 Hyperlipidemia, unspecified; K64.4 Residual hemorrhoidal skin tags; E78.00 Pure hypercholesterolemia, unspecified; I10 Essential (primary) hypertension; I25.10 Atherosclerotic heart disease of native coronary artery without angina pectoris; I77.810 Thoracic aortic ectasia; K59.09 Other constipation; K80.20 Calculus of gallbladder without cholecystitis without obstruction; Z79.01 Long term (current) use of anticoagulants; Z79.82 Long term (current) use of aspirin; Z79.899 Other long term (current) drug therapy; Z85.528 Personal history of other malignant neoplasm of kidney; Z86.718 Personal history of other venous thrombosis and embolism; Z86.73 Personal history of transient ischemic attack (TIA), and cerebral infarction without residual deficits; Z87.891 Personal history of nicotine dependence; Z95.5 Presence of coronary angioplasty implant and graft; Z96.643 Presence of artificial hip joint, bilateral; R40.2412 Glasgow coma scale score 13-15, at arrival to emergency department; Z74.01 Bed confinement status

== ENCOUNTER 2017-03-23 19:43 | Inpatient (IN) | payer OTHER ==
[~2017-03-23 19:43] MED LIST: Bisacodyl 5mg EC Tab PO PRN
[2017-03-23] MEDS ORDERED: Ipratropium 0.02% Inhal Soln (0.5 mg/2.5 ml) UD IH PRN (20:12)
[2017-03-24] MEDS: cefTRIAXone 1 gm 1 GM/100 ML BAG IVPB SCH (05:24)
[2017-03-24] MEDS: Azithromycin 500MG/NS 250ml 500 MG/250 ML BAG IVPB SCH (05:24)
[2017-03-24 07:57] LABS: BASO # 0.01 K/mm3 (0.0-2.0); BASO % 0.1 % (0.0-3.0); EOS # 0.2 (0.0-0.7); EOS % 3.4 % (1.5-5.0); GRAN # 4.61 (1.4-6.5); GRAN % 65.2 % (50.0-68.0); HEMATOCRIT 38.1 % (42.0-52.0); LYMPH # 1.6 (1.2-3.4); MEAN CELL VOLUME 95.7 fl (80.0-105.0); MEAN CORPUSCULAR HEMOGLOBIN 30.9 pg (25.0-35.0); MEAN CORPUSCULAR HGB CONC 32.3 g/dl (31.0-37.0); MEAN PLATELET VOLUME 8.4 fl (7.0-11.0); MONO # 0.7 (0.1-0.6); MONO % 9.3 % (1.0-6.0); RED CELL DISTRIBUTION WIDTH 13.7 % (11.5-14.5); WHITE BLOOD COUNT 7.1 10^3/ul (4.5-11.0)
[2017-03-24 08:10] LABS: ALB/GLOB RATIO 1.1 (1.1-1.8); ALKALINE PHOSPHATASE 81 U/L (38-133); ALT/SGPT 27 U/L (7-56); AST/SGOT 19 U/L (15-59); BILIRUBIN,TOTAL 0.2 mg/dL (0.2-1.3); BLOOD UREA NITROGEN 28 mg/dL (7-21); CALCIUM 8.6 mg/dL (8.4-10.5); CARBON DIOXIDE 28 mmol/L (21-33); CHLORIDE 106 mmol/L (98-107); GFR AFRICAN-AMERICAN > 60; GLUCOSE,RANDOM 83 mg/dL (70-110); POTASSIUM 4.1 mmol/L (3.6-5.0); SODIUM 141 mmol/L (132-148); TOTAL PROTEIN 5.5 g/dL (5.8-8.3)
[2017-03-24] MEDS: Pantoprazole 40 mg EC Tab PO SCH ×2 (10:30→18:23)
--- NOTE | 2017-03-24 15:09 | PN ---
DATE: SUBJECTIVE: I had evaluated the patient recently when he was admitted to telemetry and now he is transferred to TCU, and the patient has a history of coronary artery disease with coronary stenting in 2000, history of DVT and IVC filter placement and history of recent endovascular stent graft to the right internal iliac artery. He initially presented because of rectal pain and bleeding. Echocardiographic study revealed normal ejection fraction with septal hypokinesis. The patient was evaluated by music typographer who recommended colonoscopy after discussing the issue with the patient's . The patient at this time denies any chest pain. He does report rectal pain and constipation. No recurrence of rectal bleeding. PHYSICAL EXAMINATION: GENERAL: The patient is an elderly male who does not appear to be in any distress. VITAL SIGNS: Blood pressure 137/89, heart rate 78, temperature 98.4, respirations 18. HEENT: Pale conjunctivae. CHEST: Clear. HEART: S1 and S2 regular. ABDOMEN: Soft. EXTREMITIES: Chronic skin changes bilaterally. LABORATORY DATA: Hemoglobin and hematocrit 12.3 and 38.1, white count and platelet count are within normal limits. SMA-7 is within normal limits except for BUN of 28. ASSESSMENT: 1. Coronary artery disease with history of coronary stenting in 2000. 2. 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 3. Rectal bleeding. 4. Constipation. 5. Hypertension. RECOMMENDATIONS: Continue current IV Rocephin and IV Zithromax. Continue amlodipine at 5 mg once a day, Lasix at 40 mg once a day. Consider initiating baby aspirin after gastrointestinal clearance. Alex Tripathi MD
--- NOTE | 2017-03-24 19:42 | CP.PCM.HP ---
<RICHARDSON GARCES - Last Filed: 03/24/17 19:35> History of Present Illness - History of Present Illness History of Present Illness: CC: Hematochezia HPI: Mr. Flores is an 86 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 Patient reports no complaints at this visit. He states that his abdominal pain has significantly reduced in intensity, now that he is passing large amounts of stool. He denies any further hematochezia and this was confirmed with nursing staff. He denies headache, fever, chills, weight loss, changes in his vision, dysphagia, cough, shortness of breath, pleurisy, chest pain, palpitations, N/V, diarrhea, any urinary symptoms or any rectal pain. Previous Hospital Course: Patient was evaluated in the ED with a CARLA, was found to have fecal occult positive blood test, a CBC showing a hemoglobin of 14.1, an EKG showing afib with no acute changes from prior EKG's, and was given IV Protonix and IVF. A chest x-ray showed new RUL opacity, possible prominent SVC shadow versus atelectasis/pneumonia and, given that he was also found to have a leukocytosis, he was then started on Ceftriaxone 1gm and Zithromax 500 mg. GI and Cardiology were consulted. All anticoagulation and antiplatelet therapy were placed on hold in setting of acute lower GI bleed. A CT Abdomen/Pelvis PO contrast (gastrograffin) showed no acute findings and large amounts of retained stool. GI gave patient one gallon of golytely and one oral fleet enema, which caused patient to have successful BM, performed a rectal exam which revealed posterior [id number] and stated that if patient should have resumption of rectal bleeding or becomes hemodynamically unstable, that they would then consider emergent colonoscopic evaluation. A TCU evaluation was performed and patient was accepted into the TCU on 03/23 with instructions to continue all medication, consultation and lab orders as they were. PMH: Dementia, afib, HTN, hypercholesterolemia, DVT (last 5 years ago), constipation, gallstones, kidney tumor (resected, RCC per EMR), COPD, asthma, AAA, Right iliac aneurysm PSH: R iliac aneurysm with stent placement 03/11/[address] Fabian, cardiac stent 2002, resected RCC, hip arthroplasty Family: Denied Social: Denies tobacco, alcohol or illicit drug use and lives with his at his home who has the assistance of visiting healthcare aides Allergies: NKDA Home Medications: As per MAR Present on Admission - Present on Admission Any Indicators Present on Admission: No Review of Systems - Review of Systems Review of Systems: Please refer to HPI Past Patient History - Infectious Disease Hx of Infectious Diseases: None - Tetanus Immunizations Tetanus Immunization: Unknown - Past Social History Smoking Status: Former Smoker - CARDIAC Hx Cardiac Disorders: Yes ( denies mi) Hx Hypercholesterolemia: Yes Hx Hypertension: Yes - PULMONARY Hx Chronic Obstructive Pulmonary Disease (COPD): Yes - NEUROLOGICAL Hx Dementia: Yes Hx Parkinson's Disease: ( denies parkinsons) Hx Transient Ischemic Attacks (TIA): Yes Other/Comment: tia over 15 yrs ago and was found to have had multiple mini strokes prior to tia as per , denies hydrocephalis, spinal tap 2011 - HEENT Hx HEENT Problems: Yes Hx Cataracts: Yes (b/l not a candidate for sx) - RENAL Other/Comment: kidney tumor right removed 2007, 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 tumor was benign as per - ENDOCRINE/METABOLIC Hx Endocrine Disorders: No - HEMATOLOGICAL/ONCOLOGICAL Hx Blood Disorders: Yes (blood transfusion) - INTEGUMENTARY Other/Comment: ble +1 edema with brown discolored skin and multiple raised nodules, 4cm x 5cm dark brown oval shaped dark lumpy area lle doctors are awarre , has had for years no treatment as per - MUSCULOSKELETAL/RHEUMATOLOGICAL Hx Arthritis: Yes (both hips) - GASTROINTESTINAL Hx Gastrointestinal Disorders: (constipation, poor appetite) Hx Gall Bladder Disease: Yes (gallstones) - GENITOURINARY/GYNECOLOGICAL Hx Reproductive Disorders: No - PSYCHIATRIC Hx Psychophysiologic Disorder: No - SURGICAL HISTORY Hx Surgeries: Yes Hx Cardiac Catheterization: Yes (x1 stent 2000) Hx Coronary Stent: Yes Hx Joint Replacement: Yes Other/Comment: tumor removed from the kidney 2007 benign - ANESTHESIA Hx Anesthesia: Yes Hx Anesthesia Reactions: No Hx Malignant Hyperthermia: No Meds Allergies/Adverse Reactions: Allergies Allergy/AdvReac Type Severity Reaction Status Date / Time No Known Allergies Allergy Verified 03/23/17 23:14 Physical Exam - Constitutional Appears: Non-toxic, No Acute Distress - Head Exam Head Exam: ATRAUMATIC, NORMOCEPHALIC - Eye Exam Eye Exam: EOMI, Normal appearance, PERRL Pupil Exam: NORMAL ACCOMODATION - ENT Exam ENT Exam: Mucous Membranes Moist, Normal Exam - Neck Exam Neck exam: Negative for: Tenderness - Respiratory Exam Respiratory Exam: Clear to Auscultation Bilateral, NORMAL BREATHING PATTERN. absent: Rales, Rhonchi, Wheezes, Respiratory Distress - Cardiovascular Exam Cardiovascular Exam: +S1, +S2. absent: Tachycardia, JVD, Systolic Murmur - GI/Abdominal Exam GI & Abdominal Exam: Normal Bowel Sounds, Soft. absent: Distended, Firm, Guarding, Tenderness - Rectal Exam Rectal Exam: Deferred - Exam Exam: absent: Bladder Distension - Extremities Exam Extremities exam: Positive for: normal capillary refill, pedal pulses present. Negative for: calf tenderness, pedal edema - Back Exam Back exam: absent: CVA tenderness (L), CVA tenderness (R), paraspinal tenderness , vertebral tenderness - Neurological Exam Neurological exam: Alert, Oriented x3 - Psychiatric Exam Psychiatric exam: Normal Affect, Normal Mood - Skin Skin Exam: Dry, Intact, Normal Color, Warm Results - Vital Signs Recent Vital Signs: Last Vital Signs Temp 97.9 F 03/24/17 16:58 Pulse 71 03/24/17 16:58 Resp 18 03/24/17 16:58 BP 108/53 L 03/24/17 16:58 Pulse Ox 93 L 03/24/17 16:58 - Labs Result Diagrams: 03/24/17 07:00 03/24/17 07:00 Labs: Laboratory Results - last 24 hr 03/24/17 03/24/17 07:00 07:00 WBC 7.1 RBC 3.98 Hgb 12.3 L Hct 38.1 L MCV 95.7 MCH 30.9 MCHC 32.3 RDW 13.7 Plt Count 223 MPV 8.4 Gran % 65.2 Lymph % (Auto) 22.0 [place] % (Auto) 9.3 H Eos % (Auto) 3.4 Baso % (Auto) 0.1 Gran # 4.61 Lymph # 1.6 [place] # 0.7 H Eos # 0.2 Baso # 0.01 Sodium 141 Potassium 4.1 Chloride 106 Carbon Dioxide 28 Anion Gap 11 BUN 28 H Creatinine 1.3 Est GFR ( Amer) > 60 Est GFR (Non-Af Amer) 52 Random Glucose 83 Calcium 8.6 Total Bilirubin 0.2 AST 19 ALT 27 Alkaline Phosphatase 81 Total Protein 5.5 L Albumin 2.9 L Globulin 2.6 Albumin/Globulin Ratio 1.1 Assessment & Plan - Assessment and Plan (Free Text) Assessment: 86 year old 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 Patient found to have RUL pneumonia on chest x-ray upon admission. Now transferred to TCU for completion of treatment. Plan: 1. Rectal Hemorrhage -CT abdomen/pelvis showing no SBO and no acute changes from prior exam -GI rectal exam revealed posterior [id number] -rectum clear of hemorrhage since admission, per nursing -anticoagulation and antiplatelet on hold until GI clearance is obtained -H/H stable at 12.3/38.7 -if patient should have resumption of rectal bleeding or becomes hemodynamically unstable, GI will consider colonoscopic evaluation -GI consulted, all recommendations appreciated -patient will need to follow up with Dr. Bolaños as an outpatient upon discharge 2. RUL/[place] Pneumonia -continue rocephin and zithromax (day 5) -no leukocytosis, normotensive, non-tachycardic and afebrile since admission -blood culture with no growth after 96 hours -pneumococcal vaccine administered 3. Atrial Fibrillation -EKG showing atrial fibrillation at 87 bpm -coumadin on hold until GI clearance is obtained -INR at 1.36 -ECHO with normal atrial size and EF of 50.1%; see report for further details -cardiology consulted, all recommendations appreciated -heart healthy diet 4. Constipation -CT abdomen/pelvis showed large amounts of retained stool -nursing reports patient with multiple non-bloody BM's overnight -continue Dulcolax PRN 5. HTN -continue Norvasc and lasix 6. HLD -continue lipitor 7. CAD w/ Stent Placement -antiplatelets on hold until GI clearance is obtained -cardiology consulted, appreciate all recommendations 8. COPD -continue atrovent PRN -continue PT/OT 9. GI/DVT Prophylaxis -Protonix/scd's Patient seen and case discussed with attending, Dr. Heidi Canales. - Date & Time Date: 03/24/17 Time: 13:00 Decision To Admit - Pt Status Changed To: Hospital Disposition Of: Inpatient Admission - Admit Certification Admit to Inpatient:: After my assessment, the patient will require hospitalization for at least two midnights. This is because of the severity of symptoms shown, intensity of services needed, and/or the medical risk in this patient being treated as an outpatient. - . Bed Request Type: TRCU <Heidi Canales - Last Filed: 03/27/17 10:00> Results - Vital Signs Recent Vital Signs: Last Vital Signs Temp 98.0 F 03/27/17 06:00 Pulse 69 03/27/17 06:00 Resp 20 03/27/17 06:00 BP 118/71 03/27/17 06:00 Pulse Ox 95 03/27/17 06:00 - Labs Result Diagrams: 03/27/17 07:20 03/27/17 07:20 Labs: Laboratory Results - last 24 hr 03/27/17 03/27/17 03/27/17 07:20 07:20 07:20 WBC 8.3 RBC 4.06 Hgb 12.6 L Hct 39.1 L MCV 96.3 MCH 31.0 MCHC 32.2 RDW 13.9 Plt Count 198 MPV 8.3 Gran % 68.6 H Lymph % (Auto) 21.2 L [place] % (Auto) 7.9 H Eos % (Auto) 2.2 Baso % (Auto) 0.1 Gran # 5.66 Lymph # 1.8 [place] # 0.7 H Eos # 0.2 Baso # 0.01 PT 12.5 H INR 1.16 H Sodium 140 Potassium 3.8 Chloride 103 Carbon Dioxide 31 Anion Gap 10 BUN 27 H Creatinine 1.2 Est GFR ( Amer) > 60 Est GFR (Non-Af Amer) 58 Random Glucose 86 Calcium 8.6 Attending/Attestation - Attestation I have personally seen and examined this patient.: Yes I have fully participated in the care of the patient.: Yes I have reviewed all pertinent clinical information: Yes Notes (Text): I have seen and examined the patient at bedside. 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 ME exam revealed anal fissure. Anticoagulation and antiplatelets on hold due to GI bleeding. Patient also has RUL pneumonia on rocephin and zithro. Continue dulcolax. Upon discharge patient will follow up with Dr Urias. Dr Heidi Canales
[2017-03-24] MEDS ORDERED: POLYETHYLENE GLYCOL 3350 17 GM/Dose PACKET PO ONE (20:01)
[2017-03-25] MEDS: cefTRIAXone 1 gm 1 GM/100 ML BAG IVPB SCH (05:31)
[2017-03-25] MEDS: Azithromycin 500MG/NS 250ml 500 MG/250 ML BAG IVPB SCH (05:31)
[2017-03-25] MEDS ORDERED: POLYETHYLENE GLYCOL 3350 17 GM/Dose PACKET PO SCH (06:00)
[2017-03-25 07:24] LABS: BASO # 0.01 K/mm3 (0.0-2.0); BASO % 0.1 % (0.0-3.0); EOS # 0.2 (0.0-0.7); EOS % 2.2 % (1.5-5.0); GRAN # 5.04 (1.4-6.5); GRAN % 66.7 % (50.0-68.0); HEMATOCRIT 39.6 % (42.0-52.0); LYMPH # 1.8 (1.2-3.4); MEAN CELL VOLUME 95.2 fl (80.0-105.0); MEAN CORPUSCULAR HEMOGLOBIN 30.5 pg (25.0-35.0); MEAN CORPUSCULAR HGB CONC 32.1 g/dl (31.0-37.0); MEAN PLATELET VOLUME 8.3 fl (7.0-11.0); MONO # 0.5 (0.1-0.6); RED CELL DISTRIBUTION WIDTH 13.6 % (11.5-14.5); WHITE BLOOD COUNT 7.6 10^3/ul (4.5-11.0)
[2017-03-25 07:28] LABS: BLOOD UREA NITROGEN 26 mg/dL (7-21); CALCIUM 8.5 mg/dL (8.4-10.5); CARBON DIOXIDE 28 mmol/L (21-33); CHLORIDE 104 mmol/L (95-110); GFR AFRICAN-AMERICAN > 60; GLUCOSE,RANDOM 86 mg/dL (70-110); SODIUM 141 mmol/L (132-148)
[2017-03-25 09:20] LABS: INR 1.22 (0.93-1.08)
[2017-03-25] MEDS: Pantoprazole 40 mg EC Tab PO SCH ×2 (10:52→17:32)
[2017-03-25] MEDS ORDERED: POLYETHYLENE GLYCOL 3350 17 GM/Dose PACKET PO ONE (18:57)
--- NOTE | 2017-03-26 00:58 | PN ---
SUBJECTIVE: The patient denies any chest pain. No reported rectal bleeding. PHYSICAL EXAMINATION: VITAL SIGNS: Blood pressure 115/77, heart rate 84, temperature 98, respirations 18. HEENT: Normocephalic. CHEST: Clear. HEART: S1 and S2 regular. EXTREMITIES: Chronic skin changes bilaterally. LABORATORY DATA: Hemoglobin and hematocrit 12.7 and 39.6, white count and platelet count are within normal limits. SMA-7 is within normal limits except for BUN of 26. INR is 1.22. ASSESSMENT: 1. Status post rectal bleeding. 2. History of coronary artery disease, status post percutaneous coronary intervention in 2000. 3. Status post recent endovascular stenting to right internal iliac artery. RECOMMENDATIONS: Continue current Lipitor 10 mg once daily, Lasix 40 mg once a day, Norvasc 5 mg once a day. Continue IV Rocephin and IV Zithromax. Start aspirin at 81 mg once a day and Pepcid at 20 mg orally once a day unless contraindicated by nutrition teacher. Aelx Tripathi MD
[2017-03-26] MEDS: cefTRIAXone 1 gm 1 GM/100 ML BAG IVPB SCH (05:09)
[2017-03-26] MEDS ORDERED: POLYETHYLENE GLYCOL 3350 17 GM/Dose PACKET PO ONE (06:00)
[2017-03-26] MEDS: Azithromycin 500MG/NS 250ml 500 MG/250 ML BAG IVPB SCH (06:18)
[2017-03-26 07:34] LABS: BASO # 0.01 K/mm3 (0.0-2.0); BASO % 0.1 % (0.0-3.0); EOS # 0.2 (0.0-0.7); EOS % 2.4 % (1.5-5.0); GRAN # 5.94 (1.4-6.5); HEMATOCRIT 39.7 % (42.0-52.0); MEAN CELL VOLUME 95.9 fl (80.0-105.0); MEAN CORPUSCULAR HEMOGLOBIN 31.2 pg (25.0-35.0); MEAN CORPUSCULAR HGB CONC 32.5 g/dl (31.0-37.0); MEAN PLATELET VOLUME 8.5 fl (7.0-11.0); MONO # 0.8 (0.1-0.6); MONO % 8.5 % (1.0-6.0); RED CELL DISTRIBUTION WIDTH 13.7 % (11.5-14.5); WHITE BLOOD COUNT 8.9 10^3/ul (4.5-11.0)
[2017-03-26 07:42] LABS: INR 1.17 (0.93-1.08)
[2017-03-26 07:55] LABS: BLOOD UREA NITROGEN 26 mg/dL (7-21); CALCIUM 8.6 mg/dL (8.4-10.5); CARBON DIOXIDE 30 mmol/L (21-33); CHLORIDE 105 mmol/L (98-107); GFR AFRICAN-AMERICAN > 60; GLUCOSE,RANDOM 86 mg/dL (70-110); POTASSIUM 3.9 mmol/L (3.6-5.0); SODIUM 142 mmol/L (132-148)
[2017-03-26] MEDS: Pantoprazole 40 mg EC Tab PO SCH ×2 (09:13→17:38)
[2017-03-26] MEDS: POLYETHYLENE GLYCOL 3350 17 GM/Dose PACKET PO SCH (12:10)
--- NOTE | 2017-03-26 12:23 | CP.PCM.PN ---
<Dione Calloway - Last Filed: 03/26/17 12:19> Subjective - Date & Time of Evaluation Date of Evaluation: 03/26/17 Time of Evaluation: 11:00 - Subjective Subjective: IM Progress Note Pt seen and examined at bedside. No acute complaints at this time. No acute or adverse events overnight as per nursing staff. Pt is for abdominal US this AM. Pt denied fever, chills, sob, chest pains, abdominal pains, n/v/d/c or urinary symptoms. Objective - Vital Signs/Intake and Output Vital Signs (last 24 hours): Temp Pulse Resp BP Pulse Ox 98 F 92 H 18 116/68 91 L 03/25/17 14:00 03/26/17 09:12 03/25/17 23:36 03/26/17 09:12 03/25/17 14:00 - Medications Medications: Current Medications Amlodipine Besylate (Norvasc) 5 mg PO DAILY [facility] PRN Reason: Protocol Last Admin: 03/26/17 09:12 Dose: 5 mg Aspirin (Aspirin Chewable) 81 mg PO DAILY [facility] Last Admin: 03/26/17 10:26 Dose: 81 mg Atorvastatin Calcium (Lipitor) 10 mg PO DIN [facility] PRN Reason: Protocol Last Admin: 03/25/17 17:32 Dose: 10 mg Bisacodyl (Dulcolax) 5 mg PO DAILY PRN; Protocol PRN Reason: Constipation Last Admin: 03/25/17 13:43 Dose: 5 mg Famotidine (Pepcid) 20 mg PO 1000,2200 [facility] Last Admin: 03/26/17 09:13 Dose: 20 mg Furosemide (Lasix) 40 mg PO DAILY [facility] PRN Reason: Protocol Last Admin: 03/26/17 09:12 Dose: 40 mg Ceftriaxone Sodium (Rocephin 1 Gram Ivpb) 1 gm in 100 mls @ 100 mls/hr IVPB 0600 [facility] PRN Reason: Protocol Last Admin: 03/26/17 05:09 Dose: 100 mls/hr Azithromycin (Zithromax 500mg In Ns) 500 mg in 250 mls @ 167 mls/hr IVPB 0600 [facility] PRN Reason: Protocol Last Admin: 03/26/17 06:18 Dose: 167 mls/hr Ipratropium [place] (Atrovent) 0.5 mg IH Q4H PRN; Protocol PRN Reason: Shortness of Breath Pantoprazole Sodium (Protonix Ec Tab) 40 mg PO BID [facility] Last Admin: 03/26/17 09:13 Dose: 40 mg Polyethylene Glycol (Miralax) 17 gm PO DAILY [facility] Last Admin: 03/26/17 12:10 Dose: 17 gm - Labs Labs: 03/26/17 07:30 03/26/17 07:30 PT 12.6 Seconds (9.9-11.8) H 03/26/17 07:30 INR 1.17 (0.93-1.08) H 03/26/17 07:30 - Constitutional Appears: No Acute Distress - Head Exam Head Exam: ATRAUMATIC, NORMAL INSPECTION, NORMOCEPHALIC - Eye Exam Eye Exam: EOMI, Normal appearance, PERRL Pupil Exam: NORMAL ACCOMODATION, PERRL - ENT Exam ENT Exam: Mucous Membranes Moist, Normal Exam - Neck Exam Neck Exam: Full ROM, Normal Inspection. absent: Lymphadenopathy - Respiratory Exam Respiratory Exam: Clear to Ausculation Bilateral, NORMAL BREATHING PATTERN - Cardiovascular Exam Cardiovascular Exam: REGULAR RHYTHM, +S1, +S2. absent: Murmur - GI/Abdominal Exam GI & Abdominal Exam: Soft, Normal Bowel Sounds. absent: Tenderness - Extremities Exam Extremities Exam: Full ROM, Normal Capillary Refill, Normal Inspection. 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 Patient found to have RUL pneumonia on chest x-ray upon admission. Now transferred to TCU for completion of treatment. 1. Rectal Hemorrhage -CT abdomen/pelvis showing no SBO and no acute changes from prior exam -GI rectal exam revealed posterior [id number] -rectum clear of hemorrhage since admission, per nursing -anticoagulation and antiplatelet on hold until GI clearance is obtained ( pending family decision for colonoscopy) -H/H stable -if patient should have resumption of rectal bleeding or becomes hemodynamically unstable, GI will consider colonoscopic evaluation -GI consulted, all recommendations appreciated -patient will need to follow up with Dr. Bolaños as an outpatient upon discharge 2. RUL/[place] Pneumonia -continue rocephin and zithromax (day 5) -no leukocytosis, normotensive, non-tachycardic and afebrile since admission -blood culture with no growth after 96 hours -pneumococcal vaccine administered 3. Atrial Fibrillation -EKG showing atrial fibrillation at 87 bpm -coumadin on hold until GI clearance is obtained -INR at 1.36 -ECHO with normal atrial size and EF of 50.1%; see report for further details -cardiology consulted, all recommendations appreciated -heart healthy diet 4. Constipation -CT abdomen/pelvis showed large amounts of retained stool -nursing reports patient with multiple non-bloody BM's overnight -continue Dulcolax PRN 5. HTN -continue Norvasc and lasix 6. HLD -continue lipitor 7. CAD w/ Stent Placement -antiplatelets on hold until GI clearance is obtained -cardiology consulted, appreciate all recommendations 8. COPD -continue atrovent PRN -continue PT/OT 9. GI/DVT Prophylaxis -Protonix/scd's Patient seen and case discussed with attending <Heidi Canales - Last Filed: 03/27/17 10:03> Objective - Vital Signs/Intake and Output Vital Signs (last 24 hours): Temp Pulse Resp BP Pulse Ox 98.0 F 69 20 118/71 95 03/27/17 06:00 03/27/17 06:00 03/27/17 06:00 03/27/17 06:00 03/27/17 06:00 - Medications Medications: Current Medications Amlodipine Besylate (Norvasc) 5 mg PO DAILY [facility] PRN Reason: Protocol Last Admin: 03/26/17 09:12 Dose: 5 mg Aspirin (Aspirin Chewable) 81 mg PO DAILY [facility] Last Admin: 03/26/17 10:26 Dose: 81 mg Atorvastatin Calcium (Lipitor) 10 mg PO DIN [facility] PRN Reason: Protocol Last Admin: 03/26/17 17:38 Dose: 10 mg Bisacodyl (Dulcolax) 5 mg PO DAILY PRN; Protocol PRN Reason: Constipation Last Admin: 03/25/17 13:43 Dose: 5 mg Famotidine (Pepcid) 20 mg PO 1000,2200 [facility] Last Admin: 03/26/17 21:24 Dose: 20 mg Furosemide (Lasix) 40 mg PO DAILY [facility] PRN Reason: Protocol Last Admin: 03/26/17 09:12 Dose: 40 mg Ceftriaxone Sodium (Rocephin 1 Gram Ivpb) 1 gm in 100 mls @ 100 mls/hr IVPB 0600 [facility] PRN Reason: Protocol Last Admin: 03/27/17 05:33 Dose: 100 mls/hr Azithromycin (Zithromax 500mg In Ns) 500 mg in 250 mls @ 167 mls/hr IVPB 0600 [facility] PRN Reason: Protocol Last Admin: 03/27/17 06:00 Dose: 167 mls/hr Ipratropium [place] (Atrovent) 0.5 mg IH Q4H PRN; Protocol PRN Reason: Shortness of Breath Pantoprazole Sodium (Protonix Ec Tab) 40 mg PO BID [facility] Last Admin: 03/26/17 17:38 Dose: 40 mg Polyethylene Glycol (Miralax) 17 gm PO DAILY [facility] Last Admin: 03/26/17 12:10 Dose: 17 gm - Labs Labs: 03/27/17 07:20 03/27/17 07:20 PT 12.5 Seconds (9.9-11.8) H 03/27/17 07:20 INR 1.16 (0.93-1.08) H 03/27/17 07:20 Attending/Attestation - Attestation I have personally seen and examined this patient.: Yes I have fully participated in the care of the patient.: Yes I have reviewed all pertinent clinical information, including history, physical exam and plan: Yes Notes (Text): I have seen and examined the patient at bedside. 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 [place] exam revealed anal fissure. Anticoagulation and anti platelets on hold due to GI bleeding. Discussed with GI team. Plan for possible colonoscopy if patient and his agrees. Until then, plan to hold anticoagulants and antiplatelets. Patient also has RUL pneumonia on rocephin and zithro. Continue dulcolax. Miralax was added today. Upon discharge patient will follow up with Dr Urias. Dr Heidi Canales
--- NOTE | 2017-03-26 14:26 | RAD ---
HISTORY: fecal impaction COMPARISON: Comparison made with CT scan abdomen pelvis dated 03/21/2017 and with pelvic radiograph 11/04/2014 FINDINGS: BOWEL: The nonobstructive/nonspecific bowel gas pattern. . There appears to be a moderate amount of stool within the rectosigmoid colon. Mild fecal retention/constipation BONES: Bilateral total hip replacements with details. What appears represent acetabular protrusion on the left side. . Expansile mass lesion with multiple tiny at calcific like densities less well seen compared to high-resolution CT scan. Please refer to prior CT scan and corresponding report for additional OTHER FINDINGS: Metallic clips right upper quadrant of the abdomen with in situ IVC filter. Bilateral total hip replacements. . Endovascular stent grafts seen over the right aspect of the pelvis. Clinical correlation with history recommended. IMPRESSION: No evidence of acute mechanical bowel obstruction. Possible rectosigmoid constipation. Multiple metallic clips in the right upper quadrant of the abdomen. In situ IVC filter. Right iliac endovascular stent. Bilateral total hip replacements. Questionable expansile mass lesion arising from the left medial acetabulum. See prior CT scan abdomen pelvis 03/21/2017 for additional details.
[2017-03-26] MEDS ORDERED: Peg-Electrolyte Oral Soln 4L (Golytely) PO ONE (15:02)
[2017-03-27] MEDS: cefTRIAXone 1 gm 1 GM/100 ML BAG IVPB SCH (05:33)
[2017-03-27] MEDS: Azithromycin 500MG/NS 250ml 500 MG/250 ML BAG IVPB SCH (06:00)
[2017-03-27 08:18] LABS: BASO # 0.01 K/mm3 (0.0-2.0); BASO % 0.1 % (0.0-3.0); EOS # 0.2 (0.0-0.7); EOS % 2.2 % (1.5-5.0); GRAN # 5.66 (1.4-6.5); GRAN % 68.6 % (50.0-68.0); HEMATOCRIT 39.1 % (42.0-52.0); LYMPH # 1.8 (1.2-3.4); LYMPH % 21.2 % (22.0-35.0); MEAN CELL VOLUME 96.3 fl (80.0-105.0); MEAN CORPUSCULAR HGB CONC 32.2 g/dl (31.0-37.0); MEAN PLATELET VOLUME 8.3 fl (7.0-11.0); MONO # 0.7 (0.1-0.6); MONO % 7.9 % (1.0-6.0); RED CELL DISTRIBUTION WIDTH 13.9 % (11.5-14.5); WHITE BLOOD COUNT 8.3 10^3/ul (4.5-11.0)
[2017-03-27 08:25] LABS: INR 1.16 (0.93-1.08)
[2017-03-27 08:27] LABS: BLOOD UREA NITROGEN 27 mg/dL (7-21); CALCIUM 8.6 mg/dL (8.4-10.5); CARBON DIOXIDE 31 mmol/L (21-33); CHLORIDE 103 mmol/L (98-107); GFR AFRICAN-AMERICAN > 60; GLUCOSE,RANDOM 86 mg/dL (70-110); POTASSIUM 3.8 mmol/L (3.6-5.0); SODIUM 140 mmol/L (132-148)
[2017-03-27] MEDS: POLYETHYLENE GLYCOL 3350 17 GM/Dose PACKET PO SCH (10:32)
[2017-03-27] MEDS: Pantoprazole 40 mg EC Tab PO SCH ×2 (10:33→17:32)
--- NOTE | 2017-03-27 10:57 | CP.PCM.PN ---
Subjective - Date & Time of Evaluation Date of Evaluation: 03/26/17 Time of Evaluation: 15:30 - Subjective Subjective: Finally patient had bowel movements but small amount of stool. Abdominal x-ray was reviewed still has significant amount of stool in the rectosigmoid and sigmoid area. No complaint of abdominal pain. Patient's was at bedside at the time of examination. Objective - Vital Signs/Intake and Output Vital Signs (last 24 hours): Temp Pulse Resp BP Pulse Ox 98 F 92 H 18 116/68 91 L 03/25/17 14:00 03/26/17 09:12 03/25/17 23:36 03/26/17 09:12 03/25/17 14:00 - Medications Medications: Current Medications Amlodipine Besylate (Norvasc) 5 mg PO DAILY [facility] PRN Reason: Protocol Last Admin: 03/26/17 09:12 Dose: 5 mg Aspirin (Aspirin Chewable) 81 mg PO DAILY [facility] Last Admin: 03/26/17 10:26 Dose: 81 mg Atorvastatin Calcium (Lipitor) 10 mg PO DIN [facility] PRN Reason: Protocol Last Admin: 03/26/17 17:38 Dose: 10 mg Bisacodyl (Dulcolax) 5 mg PO DAILY PRN; Protocol PRN Reason: Constipation Last Admin: 03/25/17 13:43 Dose: 5 mg Famotidine (Pepcid) 20 mg PO 1000,2200 [facility] Last Admin: 03/26/17 09:13 Dose: 20 mg Furosemide (Lasix) 40 mg PO DAILY [facility] PRN Reason: Protocol Last Admin: 03/26/17 09:12 Dose: 40 mg Ceftriaxone Sodium (Rocephin 1 Gram Ivpb) 1 gm in 100 mls @ 100 mls/hr IVPB 0600 [facility] PRN Reason: Protocol Last Admin: 03/26/17 05:09 Dose: 100 mls/hr Azithromycin (Zithromax 500mg In Ns) 500 mg in 250 mls @ 167 mls/hr IVPB 0600 [facility] PRN Reason: Protocol Last Admin: 03/26/17 06:18 Dose: 167 mls/hr Ipratropium [place] (Atrovent) 0.5 mg IH Q4H PRN; Protocol PRN Reason: Shortness of Breath Pantoprazole Sodium (Protonix Ec Tab) 40 mg PO BID [facility] Last Admin: 03/26/17 17:38 Dose: 40 mg Polyethylene Glycol (Miralax) 17 gm PO DAILY [facility] Last Admin: 03/26/17 12:10 Dose: 17 gm - Labs Labs: 03/26/17 07:30 03/26/17 07:30 PT 12.6 Seconds (9.9-11.8) H 03/26/17 07:30 INR 1.17 (0.93-1.08) H 03/26/17 07:30 - Head Exam Head Exam: NORMOCEPHALIC. absent: ATRAUMATIC - Eye Exam Eye Exam: EOMI. absent: Scleral icterus Pupil Exam: PERRL - ENT Exam ENT Exam: Mucous Membranes Moist - Neck Exam Neck Exam: Normal Inspection. absent: Lymphadenopathy - Respiratory Exam Respiratory Exam: NORMAL BREATHING PATTERN. absent: Rales, Rhonchi - Cardiovascular Exam Cardiovascular Exam: +S1, +S2. absent: JVD - GI/Abdominal Exam GI & Abdominal Exam: Soft. absent: Tenderness, Mass - Extremities Exam Extremities Exam: Normal Inspection. absent: Calf Tenderness - Neurological Exam Neurological Exam: Alert, Awake - Skin Skin Exam: Intact Assessment and Plan - Assessment and Plan (Free Text) Assessment: This 86-year-old patient admitted with the significant constipation with the fecal impaction, rectal bleeding. Patient was found to have a anal fissure on rectal examination. Patient also had a large amount of stool in the left colon. History of DVT history of A. fib patient is on low-dose Coumadin. I did discuss with the Dr. Arvizu patient's primary doctor at length, and also with the patient's with the main cook chill technician at length. Patient's and his son was present at the time of examination patient's told me that they did discuss among the family members and they want this patient to have colonoscopy to find out the the bleeding problem as they're concerned about recurrence of the bleeding at home Patient's comorbidities and performance status were also explained and discussed the fully understood the risk benefits and alternatives Other comorbidities include right upper lobe pneumonia, history of atrial fibrillation, hypertension, coronary artery disease status post PCI, history of DVT,copd. PLAN 1. Will give half a gallon of GoLYTELY today. Consider colonoscopy for bowel clearance 2. Patient is a 70 R Coumadin and the INR has been normalized 3. Patient has been on antibiotics for pneumonia 4. Can resume anticoagulation with heparin, DVT prophylaxis
--- NOTE | 2017-03-28 06:20 | CON ---
DATE: 03/27/2017 HISTORY OF PRESENT ILLNESS: This patient was seen and evaluated earlier. I discussed with the nursing staff. The patient drank only 100 mL of the GoLYTELY so far today. The patient did have small amounts of semisolid stools. No bleeding per rectum. No abdominal pain. Tolerating the diet. PHYSICAL EXAMINATION: VITAL SIGNS: Stable. HEENT: Atraumatic. Anicteric. NECK: Supple. HEART: S1 and S2 heard. LUNGS: Bilateral air entry present. ABDOMEN: Soft. There is no tenderness. EXTREMITIES: No cyanosis. No clubbing. NEUROLOGIC: Alert and oriented. LABORATORY DATA: Reviewed. IMPRESSION: This 86-year-old admitted with weakness has rectal bleeding, found to have mild leukocytosis significant fecal impaction on the left side of colon. The patient had bleeding per rectum. Rectal examination revealed possible fissure and also large amount of stool. Initially, I ordered about a gallon of GoLYTELY, but the patient did not take it. I did have a detailed discussion with the patient's and also son, who were there over the weekend. Regarding the colonoscopy, his comorbidities and performance status are also discussed. However, after further discussion with family members, they decided to go ahead with the colonoscopy, as they were concerned about recurrence of the bleeding, when the anticoagulation is started again. History of atrial fibrillation, history of deep venous thrombosis. The patient was on Coumadin and low therapeutic dose level, when the patient was admitted it was nontherapeutic. RECOMMENDATIONS: 1. We start the patient start again. Encouraged the patient to finish his half a gallon of GoLYTELY and if the patient is able to complete the preparation, we consider continuing the patient for a colonoscopy on Tuesday. 2. The patient has a history of pneumonia. The patient has MRI . The patient to continue the antibiotics. We will continue to closely follow up his care and suggest further recommendations based on the clinical course. I have discussed his case with Dr. Heidi Canales earlier today. Thank you very much for allowing us to participate in the care of the patient. Andreas Bolaños MD [facility] # [id number]
[2017-03-28 07:13] LABS: BASO # 0.01 K/mm3 (0.0-2.0); BASO % 0.1 % (0.0-3.0); EOS # 0.2 (0.0-0.7); EOS % 1.8 % (1.5-5.0); GRAN # 5.84 (1.4-6.5); GRAN % 62.6 % (50.0-68.0); HEMATOCRIT 38.7 % (42.0-52.0); LYMPH # 2.5 (1.2-3.4); LYMPH % 27.1 % (22.0-35.0); MEAN CELL VOLUME 96.3 fl (80.0-105.0); MEAN CORPUSCULAR HEMOGLOBIN 30.6 pg (25.0-35.0); MEAN CORPUSCULAR HGB CONC 31.8 g/dl (31.0-37.0); MEAN PLATELET VOLUME 8.5 fl (7.0-11.0); MONO # 0.8 (0.1-0.6); MONO % 8.4 % (1.0-6.0); WHITE BLOOD COUNT 9.3 10^3/ul (4.5-11.0)
[2017-03-28 07:26] LABS: CALCIUM 8.7 mg/dL (8.4-10.5); POTASSIUM 3.9 mmol/L (3.6-5.0)
[2017-03-28 07:28] LABS: INR 1.13 (0.93-1.08)
[2017-03-28] MEDS: POLYETHYLENE GLYCOL 3350 17 GM/Dose PACKET PO SCH (10:22)
[2017-03-28] MEDS: Pantoprazole 40 mg EC Tab PO SCH ×2 (10:23→18:32)
[2017-03-28] MEDS ORDERED: Bisacodyl 5mg EC Tab PO ONE (10:30)
[2017-03-28] MEDS ORDERED: Peg-Electrolyte Oral Soln 4L (Golytely) PO ONE (12:00)
--- NOTE | 2017-03-28 13:53 | CP.PCM.PN ---
<Liane Worthy - Last Filed: 03/28/17 13:49> Subjective - Date & Time of Evaluation Date of Evaluation: 03/28/17 Time of Evaluation: 09:55 - Subjective Subjective: Seen and examined at the bedside, chart reviewed. Patient was given half a gallon of GoLYTELY yesterday, nursing reports that patient had to formed BMs last night and smears this morning, no reports of bleeding. Patient's is at the bedside. Patient denies nausea, vomiting, or abdominal pain., No reports of acute overnight events. Objective - Vital Signs/Intake and Output Vital Signs (last 24 hours): Temp Pulse Resp BP Pulse Ox 98.3 F 67 20 144/73 95 03/28/17 10:11 03/28/17 10:22 03/28/17 10:11 03/28/17 10:22 03/28/17 10:11 - Medications Medications: Current Medications Acetaminophen (Tylenol 325mg Tab) 650 mg PO Q6H PRN; Protocol PRN Reason: Pain, moderate (4-7) Last Admin: 03/28/17 10:25 Dose: 650 mg Amlodipine Besylate (Norvasc) 5 mg PO DAILY [facility] PRN Reason: Protocol Last Admin: 03/28/17 10:22 Dose: 5 mg Aspirin (Aspirin Chewable) 81 mg PO DAILY [facility] Last Admin: 03/28/17 10:21 Dose: 81 mg Atorvastatin Calcium (Lipitor) 10 mg PO DIN [facility] PRN Reason: Protocol Last Admin: 03/27/17 17:32 Dose: 10 mg Bisacodyl (Dulcolax) 5 mg PO DAILY PRN; Protocol PRN Reason: Constipation Last Admin: 03/25/17 13:43 Dose: 5 mg Famotidine (Pepcid) 20 mg PO 1000,2200 [facility] Last Admin: 03/28/17 10:22 Dose: 20 mg Heparin Sodium (Porcine) (Heparin) 5,000 units SC Q12 [facility] PRN Reason: Protocol Last Admin: 03/28/17 10:21 Dose: 5,000 units Ipratropium [place] (Atrovent) 0.5 mg IH Q4H PRN; Protocol PRN Reason: Shortness of Breath Pantoprazole Sodium (Protonix Ec Tab) 40 mg PO BID [facility] Last Admin: 03/28/17 10:23 Dose: 40 mg Polyethylene Glycol (Miralax) 17 gm PO DAILY [facility] Last Admin: 03/28/17 10:22 Dose: 17 gm - Labs Labs: 03/28/17 06:30 03/28/17 06:30 PT 12.2 Seconds (9.9-11.8) H 03/28/17 06:30 INR 1.13 (0.93-1.08) H 03/28/17 06:30 - Constitutional Appears: No Acute Distress - Head Exam Head Exam: NORMAL INSPECTION - Eye Exam Eye Exam: Normal appearance. absent: Scleral icterus - ENT Exam ENT Exam: Mucous Membranes Moist - Neck Exam Neck Exam: Normal Inspection - Respiratory Exam Respiratory Exam: NORMAL BREATHING PATTERN. absent: Respiratory Distress - Cardiovascular Exam Cardiovascular Exam: +S1, +S2 - GI/Abdominal Exam GI & Abdominal Exam: Soft, Normal Bowel Sounds. absent: Guarding, Tenderness, Rebound - Neurological Exam Neurological Exam: Alert, Awake, Oriented x3 - Skin Skin Exam: Dry, Warm Assessment and Plan - Assessment and Plan (Free Text) Assessment: Assessment: Constipation with fecal impaction and rectal bleeding History of DVT History of A. fib on low-dose Coumadin history of hypertension History of coronary artery disease status post PCI Right upper lobe pneumonia COPD PLAN: Patient placed on clear liquid diet Give half a gallon of GoLYTELY and Dulcolax tablets, see orders Nothing by mouth after midnight except medications Continue antibiotics Hold a.m. dose of heparin, see orders Check labs in a.m., CBC, BMP, PT/INR Seen and discussed with Dr. Bolaños <Andreas Bolaños V - Last Filed: 03/29/17 23:12> Objective - Vital Signs/Intake and Output Vital Signs (last 24 hours): Temp Pulse Resp BP Pulse Ox 97.8 F 77 18 122/74 91 L 03/28/17 16:42 03/28/17 16:42 03/28/17 16:42 03/28/17 16:42 03/28/17 16:42 - Medications Medications: Current Medications Acetaminophen (Tylenol 325mg Tab) 650 mg PO Q6H PRN; Protocol PRN Reason: Pain, moderate (4-7) Last Admin: 03/28/17 10:25 Dose: 650 mg Amlodipine Besylate (Norvasc) 5 mg PO DAILY [facility] PRN Reason: Protocol Last Admin: 03/28/17 10:22 Dose: 5 mg Aspirin (Aspirin Chewable) 81 mg PO DAILY [facility] Last Admin: 03/28/17 10:21 Dose: 81 mg Atorvastatin Calcium (Lipitor) 10 mg PO DIN [facility] PRN Reason: Protocol Last Admin: 03/28/17 18:32 Dose: 10 mg Bisacodyl (Dulcolax) 5 mg PO DAILY PRN; Protocol PRN Reason: Constipation Last Admin: 03/25/17 13:43 Dose: 5 mg Famotidine (Pepcid) 20 mg PO 1000,2200 [facility] Last Admin: 03/28/17 22:00 Dose: 20 mg Heparin Sodium (Porcine) (Heparin) 5,000 units SC Q12 [facility] PRN Reason: Protocol Last Admin: 03/28/17 22:00 Dose: 5,000 units Ipratropium [place] (Atrovent) 0.5 mg IH Q4H PRN; Protocol PRN Reason: Shortness of Breath Pantoprazole Sodium (Protonix Ec Tab) 40 mg PO 0600,1600 [facility] PRN Reason: Protocol Polyethylene Glycol (Miralax) 17 gm PO DAILY [facility] Last Admin: 03/28/17 10:22 Dose: 17 gm - Labs Labs: 03/28/17 06:30 03/28/17 06:30 PT 12.2 Seconds (9.9-11.8) H 03/28/17 06:30 INR 1.13 (0.93-1.08) H 03/28/17 06:30 Attending/Attestation - Attestation I have personally seen and examined this patient.: Yes I have fully participated in the care of the patient.: Yes I have reviewed all pertinent clinical information, including history, physical exam and plan: Yes Notes (Text): This patient underwent EGD and a colonoscopy today. EGD revealed a linear ulcer in the fundus extending to body and also large hiatus hernia. Colonoscopy found to have fair preparation , a polyp measuring about 1 cm in acutely angulated proximally sigmoid descending area. The polyp was atypical , could not rule out inflammatory polyp ,. In view of this acute difficult angulation, fair Preparation and also atypical appearance, the decision was made not to proceed with the polypectomy and multiple biopsies were taken.Patient does have also diverticulosis Patient had moderate to large internal hemorrhoids, and the prominent external hemorrhoids. The most likely cause for the bleeding was from hemorrhoids. . Patient with history of DVT before history of A. fib it is reasonable to resume anticoagulation Coumadin and closely follow up hemoglobin and hematocrit. Follow up on the biopsy report. If the family is agreeable we will consider repeat colonoscopy for polypectomy after review of the biopsy report the findings were discussed with the Parker Pérez
--- NOTE | 2017-03-28 15:32 | US ---
PROCEDURE: Right lower extremity venous US HISTORY: Leg pain and swelling. Evaluate for DVT. PHYSICIAN(S): Jorge Fabian M.D. TECHNIQUE: Duplex sonography and color-flow Doppler with graded compression were used to evaluate the deep venous system of the right lower extremity. The exam is limited by edema. The tibial veins are not well seen. FINDINGS: The visualized deep venous system of the right lower extremity is sonographically normal and compressible. Normal waveforms and augmentation are seen. There is no sonographic evidence for deep venous thrombosis in the visualized segments of the right lower extremity. IMPRESSION: 1. No sonographic evidence for deep venous thrombosis in the visualized segments of the right lower extremity. 2. Limited study
--- NOTE | 2017-03-28 18:31 | CP.PCM.PN ---
<Irasema Pandey - Last Filed: 03/28/17 18:38> Subjective - Date & Time of Evaluation Date of Evaluation: 03/28/17 Time of Evaluation: 07:20 - Subjective Subjective: Medicine progress note for Dr Canales. Patient lying comfortably in bed, in no acute distress. Patient denies abdominal pain, denies n/v/d, denies headache or dizziness. Patient c/o b/l LE pain. Patient denies dizziness. Patient reports he drunk some of the Golytely, had brown bowl movement last night, no blood. Objective - Vital Signs/Intake and Output Vital Signs (last 24 hours): Temp Pulse Resp BP Pulse Ox 97.8 F 77 18 122/74 91 L 03/28/17 16:42 03/28/17 16:42 03/28/17 16:42 03/28/17 16:42 03/28/17 16:42 - Medications Medications: Current Medications Acetaminophen (Tylenol 325mg Tab) 650 mg PO Q6H PRN; Protocol PRN Reason: Pain, moderate (4-7) Last Admin: 03/28/17 10:25 Dose: 650 mg Amlodipine Besylate (Norvasc) 5 mg PO DAILY [facility] PRN Reason: Protocol Last Admin: 03/28/17 10:22 Dose: 5 mg Aspirin (Aspirin Chewable) 81 mg PO DAILY [facility] Last Admin: 03/28/17 10:21 Dose: 81 mg Atorvastatin Calcium (Lipitor) 10 mg PO DIN [facility] PRN Reason: Protocol Last Admin: 03/27/17 17:32 Dose: 10 mg Bisacodyl (Dulcolax) 5 mg PO DAILY PRN; Protocol PRN Reason: Constipation Last Admin: 03/25/17 13:43 Dose: 5 mg Famotidine (Pepcid) 20 mg PO 1000,2200 [facility] Last Admin: 03/28/17 10:22 Dose: 20 mg Heparin Sodium (Porcine) (Heparin) 5,000 units SC Q12 [facility] PRN Reason: Protocol Last Admin: 03/28/17 10:21 Dose: 5,000 units Ipratropium [place] (Atrovent) 0.5 mg IH Q4H PRN; Protocol PRN Reason: Shortness of Breath Pantoprazole Sodium (Protonix Ec Tab) 40 mg PO BID [facility] Last Admin: 03/28/17 10:23 Dose: 40 mg Polyethylene Glycol (Miralax) 17 gm PO DAILY [facility] Last Admin: 03/28/17 10:22 Dose: 17 gm - Labs Labs: 03/28/17 06:30 03/28/17 06:30 PT 12.2 Seconds (9.9-11.8) H 03/28/17 06:30 INR 1.13 (0.93-1.08) H 03/28/17 06:30 - Constitutional Appears: No Acute Distress, Chronically Ill - Head Exam Head Exam: ATRAUMATIC, NORMAL INSPECTION, NORMOCEPHALIC - Eye Exam Eye Exam: EOMI, Normal appearance, PERRL. absent: Scleral icterus Pupil Exam: NORMAL ACCOMODATION, PERRL - ENT Exam ENT Exam: Mucous Membranes Moist, Normal Exam - Neck Exam Neck Exam: Full ROM, Normal Inspection - Respiratory Exam Respiratory Exam: Clear to Ausculation Bilateral, NORMAL BREATHING PATTERN. absent: Rales, Rhonchi, Wheezes, Respiratory Distress, Stridor - Cardiovascular Exam Cardiovascular Exam: Irregular Rhythm, +S1, +S2, Murmur. absent: Gallop, JVD, RRR, Rubs - GI/Abdominal Exam GI & Abdominal Exam: Soft, Normal Bowel Sounds. absent: Distended, Firm, Guarding, Rigid, Tenderness Additional comments: obese abdomen. - Extremities Exam Extremities Exam: Pedal Edema (+1) Additional comments: + Chronic venous stasis, and skin discoloration. - Neurological Exam Neurological Exam: Alert, Awake Additional comments: Baseline mild dementia. 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 Patient is currently in TCU for rehab, pending possible colonoscopy. Plan: 1. Hematochezia likely 2nd to rectal fissures due to constipation. - R/o internal bleed, - patient is pending for possible colonoscopy tomorrow if complaint with the prep. - CT abdo and pelvis on admission is negative - Patient had abdominal x-ray revealing constipation, - Anticoagulation and anti-platelet on hold, awaiting GI and family decision. - Otherwise H/H is stable at 12.3/38.7 - Will continue with protonix 40 mg bid. 2.Right upper lobe infiltration likely 2nd to PNA. - Completed 7 days course of antibiotics. - Will continue with duoneb - patient remains afebrile and has no leukocytosis. 3. Paroxysmal atrial Fibrillation - Coumadin on hold 2nd to hematochezia - Rate controlled off of HR control meds - Cardiology following. 4. Constipation - Patient to drink Golytely tonight for colonoscopy - Otherwise continue with miralax. 5. HTN - Will continue Norvasc and lasix 6. HLD -Will continue continue lipitor 7. CAD w/ Stent Placement - Antiplatelelts on hold 3nd to hematochezia - Pending colonoscopy. 8. 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 10) Chronic venous stasis of b/l lower extremities - LE u/s with no DVT. 11. GI/DVT Prophylaxis -Protonix/scd's Patient seen, examined and case discussed with Dr Canales. <Heidi Canales - Last Filed: 03/29/17 17:08> Objective - Vital Signs/Intake and Output Vital Signs (last 24 hours): Temp Pulse Resp BP Pulse Ox 98.3 F 62 20 127/72 97 03/29/17 10:01 03/29/17 10:36 03/29/17 10:01 03/29/17 10:36 03/29/17 10:01 - Medications Medications: Current Medications Acetaminophen (Tylenol 325mg Tab) 650 mg PO Q6H PRN; Protocol PRN Reason: Pain, moderate (4-7) Last Admin: 03/28/17 10:25 Dose: 650 mg Amlodipine Besylate (Norvasc) 5 mg PO DAILY [facility] PRN Reason: Protocol Last Admin: 03/29/17 10:36 Dose: 5 mg Aspirin (Aspirin Chewable) 81 mg PO 0800 [facility] Atorvastatin Calcium (Lipitor) 10 mg PO DIN [facility] PRN Reason: Protocol Last Admin: 03/28/17 18:32 Dose: 10 mg Bisacodyl (Dulcolax) 5 mg PO DAILY PRN; Protocol PRN Reason: Constipation Last Admin: 03/25/17 13:43 Dose: 5 mg Famotidine (Pepcid) 20 mg PO 1000,2200 [facility] Last Admin: 03/29/17 10:37 Dose: 20 mg Heparin Sodium (Porcine) (Heparin) 5,000 units SC 0600,1800 [facility] PRN Reason: Protocol Sodium Chloride (Sodium Chloride 0.9%) 1,000 mls @ 100 mls/hr IV .Q10H [facility] Ipratropium [place] (Atrovent) 0.5 mg IH Q4H PRN; Protocol PRN Reason: Shortness of Breath Pantoprazole Sodium (Protonix Ec Tab) 40 mg PO 0600,1600 [facility] PRN Reason: Protocol Last Admin: 03/29/17 16:57 Dose: 40 mg Polyethylene Glycol (Miralax) 17 gm PO DAILY [facility] Last Admin: 03/29/17 10:36 Dose: 17 gm - Labs Labs: 03/29/17 06:20 03/29/17 06:20 PT 12.0 Seconds (9.9-11.8) H 03/29/17 06:20 INR 1.11 (0.93-1.08) H 03/29/17 06:20 Attending/Attestation - Attestation I have personally seen and examined this patient.: Yes I have fully participated in the care of the patient.: Yes I have reviewed all pertinent clinical information, including history, physical exam and plan: Yes Notes (Text): I have seen and examined the patient at bedside. 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 RI exam revealed anal fissure. Anticoagulation and anti platelets on hold due to GI bleeding. Discussed with GI team. Plan for possible colonoscopy on Tuesday. Until then, plan to hold anticoagulants and antiplatelets. Patient also has RUL pneumonia. He has completed antibiotics. Continue dulcolax, miralax and go lytely Upon discharge patient will follow up with Dr Urias. Dr Heidi Canales
--- NOTE | 2017-03-28 18:36 | PN ---
SUBJECTIVE: The patient is experiencing right leg pain and constipation. PHYSICAL EXAMINATION: VITAL SIGNS: Blood pressure 144/73, heart rate 67, temperature 98.3, respirations 20. HEENT: Normocephalic. CHEST: Diminished breath sounds over the bases. HEART: S1 and S2 regular. EXTREMITIES: Right calf tenderness. LABORATORY DATA: Hemoglobin and hematocrit 12.3 and 38.7, white count and platelet count are within normal limits. SMA-7 is within normal limits except for BUN and creatinine of 29 and 1.5 respectively. ASSESSMENT: 1. Coronary artery disease with history of coronary artery stenting in 2000. 2. History of deep venous thrombosis and inferior vena cava filter placement. 3. Constipation and recent rectal bleeding. 4. Mild anemia. 5. Mild renal insufficiency. 6. History of recent right internal iliac artery stent graft placement. 7. 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 RECOMMENDATIONS: Continue aspirin 81 mg once a day, subcutaneous heparin 5000 units twice a day, discontinue Lasix, continue Lipitor 10 once a day, amlodipine 5 mg once a day. I did schedule a venous Doppler of the right lower extremity. I discussed the case with the patient's as well as the quality assurance coordinator, Dr. Bolaños. The family wanted everything to be done from the gastrointestinal point of view. Alex Tripathi MD
[2017-03-29] MEDS: Pantoprazole 40 mg EC Tab PO SCH ×3 (05:26→16:57)
[2017-03-29 07:18] LABS: BASO # 0.01 K/mm3 (0.0-2.0); BASO % 0.1 % (0.0-3.0); EOS # 0.2 (0.0-0.7); EOS % 2.2 % (1.5-5.0); GRAN # 4.89 (1.4-6.5); GRAN % 66.6 % (50.0-68.0); LYMPH # 1.8 (1.2-3.4); LYMPH % 24.6 % (22.0-35.0); MEAN CELL VOLUME 96.3 fl (80.0-105.0); MEAN CORPUSCULAR HEMOGLOBIN 30.4 pg (25.0-35.0); MEAN CORPUSCULAR HGB CONC 31.5 g/dl (31.0-37.0); MEAN PLATELET VOLUME 8.7 fl (7.0-11.0); MONO # 0.5 (0.1-0.6); MONO % 6.5 % (1.0-6.0); WHITE BLOOD COUNT 7.4 10^3/ul (4.5-11.0)
[2017-03-29 07:25] LABS: INR 1.11 (0.93-1.08)
[2017-03-29 07:27] LABS: BLOOD UREA NITROGEN 23 mg/dL (7-21); CALCIUM 8.4 mg/dL (8.4-10.5); CARBON DIOXIDE 33 mmol/L (21-33); CHLORIDE 101 mmol/L (95-110); GFR AFRICAN-AMERICAN > 60; GLUCOSE,RANDOM 80 mg/dL (70-110); POTASSIUM 3.5 mmol/L (3.6-5.0); SODIUM 143 mmol/L (132-148)
[2017-03-29] MEDS ORDERED: Potassium Chloride 20 mEq ER Tab PO STA (08:45)
[2017-03-29] MEDS: POLYETHYLENE GLYCOL 3350 17 GM/Dose PACKET PO SCH (10:36)
[2017-03-29] MEDS ORDERED: Sodium Chloride 0.9% 1,000 ML IV SCH (14:45)
--- NOTE | 2017-03-29 21:56 | PN ---
DATE: SUBJECTIVE: The patient denies any right leg pain compared to yesterday. He denies any chest pain. PHYSICAL EXAMINATION VITAL SIGNS: Blood pressure 127/72, heart rate 62, temperature 98.3 and respirations 20. HEENT: Normocephalic. HEART: S1 and S2 regular. CHEST: Diminished breath sounds at the bases. ABDOMEN: Soft. EXTREMITIES: Chronic bilateral leg skin changes. Venous Doppler of the right lower extremity revealed no evidence of DVT. LABORATORY DATA: Today's hemoglobin and hematocrit 12.3 and 39.0, white count and platelet count are within normal limits. SMA-7 is within normal limits except for potassium of 3.5 and BUN of 23. ASSESSMENT: 1. Coronary artery disease status post coronary stenting in 2000. 2. 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 3. Recent rectal bleeding. 4. Mild hypokalemia. 5. Mild anemia. RECOMMENDATIONS: Continue current aspirin, subcutaneous heparin, Lipitor, Norvasc, oral Pepcid. The patient will undergo upper and lower endoscopy today. The patient according to discharge summary was supposed to be placed on Coumadin for his endovascular stent and Coumadin need to be resumed once cleared from the gastrointestinal point of view. Alex Tripathi MD
[2017-03-30 06:07] LABS: INR 1.1 (0.93-1.08)
[2017-03-30] MEDS: Pantoprazole 40 mg EC Tab PO SCH (06:15)
[2017-03-30 10:39] VITALS: BP 117/72; PULSE 73; RESP 18; TEMP 98.4; O2SAT 94
[2017-03-30] MEDS: POLYETHYLENE GLYCOL 3350 17 GM/Dose PACKET PO SCH (10:46)
--- NOTE | 2017-03-30 13:49 | PN ---
SUBJECTIVE: The patient underwent endoscopy yesterday, preliminary report is consistent with gastric ulcer. No official report are available on the medical database. The patient denies any chest pain or shortness of breath. PHYSICAL EXAMINATION: VITAL SIGNS: Blood pressure 117/72, heart rate 76, temperature 98.4 and respirations 18. HEENT: Pale conjunctivae. CHEST: Clear. HEART: S1 and S2 regular. EXTREMITIES: No edema. LABORATORY DATA: INR is 1.10. PT 11.9. ASSESSMENT: 1. Status post right internal iliac endovascular stent grafting. 2. History of deep venous thrombosis with inferior vena cava placement. 3. Coronary artery disease, status post coronary stenting, 2000. 4. History of atrial fibrillation. 5. Recently reported gastric ulcer. RECOMMENDATIONS: Continue aspirin 81 mg once a day, subcutaneous heparin 5000 units twice a day, Lipitor 10 mg once a day, Norvasc 5 mg once a day. Case was discussed with Dr. Canales and Mrs. Darby Worthy APN. The patient is cleared for Coumadin therapy as an outpatient, unless he develops hematuria. Alex Tripathi MD
--- NOTE | 2017-03-30 14:02 | CP.PCM.DIS ---
Provider - Provider Date of Admission: 03/23/17 19:43 Attending physician: Heidi Canales MD Primary care physician: Adams Barnhart MD Consults: GI Cardiology Time Spent in preparation of Discharge (in minutes): 50 Hospital Course - Lab Results Lab Results: Most Recent Lab Values WBC 7.4 10^3/ul (4.5-11.0) D 03/29/17 06:20 RBC 4.05 10^6/uL (3.5-6.1) 03/29/17 06:20 Hgb 12.3 g/dL (14.0-18.0) L 03/29/17 06:20 Hct 39.0 % (42.0-52.0) L 03/29/17 06:20 MCV 96.3 fl (80.0-105.0) 03/29/17 06:20 MCH 30.4 pg (25.0-35.0) 03/29/17 06:20 MCHC 31.5 g/dl (31.0-37.0) 03/29/17 06:20 RDW 14.0 % (11.5-14.5) 03/29/17 06:20 Plt Count 205 10^3/uL (120.0-450.0) 03/29/17 06:20 MPV 8.7 fl (7.0-11.0) 03/29/17 06:20 Gran % 66.6 % (50.0-68.0) 03/29/17 06:20 Lymph % (Auto) 24.6 % (22.0-35.0) 03/29/17 06:20 [place] % (Auto) 6.5 % (1.0-6.0) H 03/29/17 06:20 Eos % (Auto) 2.2 % (1.5-5.0) 03/29/17 06:20 Baso % (Auto) 0.1 % (0.0-3.0) 03/29/17 06:20 Gran # 4.89 (1.4-6.5) 03/29/17 06:20 Lymph # 1.8 (1.2-3.4) 03/29/17 06:20 [place] # 0.5 (0.1-0.6) 03/29/17 06:20 Eos # 0.2 (0.0-0.7) 03/29/17 06:20 Baso # 0.01 K/mm3 (0.0-2.0) 03/29/17 06:20 PT 11.9 Seconds (9.9-11.8) H 03/30/17 05:45 INR 1.10 (0.93-1.08) H 03/30/17 05:45 Sodium 143 mmol/L (132-148) 03/29/17 06:20 Potassium 3.5 mmol/L (3.6-5.0) L 03/29/17 06:20 Chloride 101 mmol/L (95-110) 03/29/17 06:20 Carbon Dioxide 33 mmol/L (21-33) 03/29/17 06:20 Anion Gap 13 (10-20) 03/29/17 06:20 BUN 23 mg/dL (7-21) H 03/29/17 06:20 Creatinine 1.1 mg/dL (0.5-1.4) 03/29/17 06:20 Est GFR ( Amer) > 60 03/29/17 06:20 Est GFR (Non-Af Amer) > 60 03/29/17 06:20 Random Glucose 80 mg/dL (70-110) 03/29/17 06:20 Calcium 8.4 mg/dL (8.4-10.5) 03/29/17 06:20 Total Bilirubin 0.2 mg/dL (0.2-1.3) 03/24/17 07:00 AST 19 U/L (15-59) 03/24/17 07:00 ALT 27 U/L (7-56) 03/24/17 07:00 Alkaline Phosphatase 81 U/L (38-133) 03/24/17 07:00 Total Protein 5.5 g/dL (5.8-8.3) L 03/24/17 07:00 Albumin 2.9 g/dL (3.0-4.8) L 03/24/17 07:00 Globulin 2.6 gm/dL 03/24/17 07:00 Albumin/Globulin Ratio 1.1 (1.1-1.8) 03/24/17 07:00 - Hospital Course Hospital Course: 86 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 Patient reports no complaints at this visit. He states that his abdominal pain has significantly reduced in intensity, now that he is passing large amounts of stool. He denies any further hematochezia and this was confirmed with nursing staff. He denies headache, fever, chills, weight loss, changes in his vision, dysphagia, cough, shortness of breath, pleurisy, chest pain, palpitations, N/V, diarrhea, any urinary symptoms or any rectal pain. GI was consulted, CT and echo were ordered and obtained. Blood in the stool had stopped. Labs were ordered and reviewed accordingly. GI recommended colonoscopy and patient proceeded with colonoscopy. K was low and was repleted and monitored. Patients clinically improved and was discharged on coumadin. Discharge Exam - Head Exam Head Exam: ATRAUMATIC, NORMAL INSPECTION, NORMOCEPHALIC Discharge Plan - Discharge Medications Prescriptions: Atorvastatin [Lipitor] 10 mg PO DIN #30 tab Pantoprazole [Protonix EC Tab] 40 mg PO BID #30 ect - Follow Up Plan Condition: GOOD Disposition: HOME/ ROUTINE Instructions: Gastrointestinal Bleeding (DC), Fall Prevention for Older Adults (GEN), Sepsis (GEN) Additional Instructions: Please follow up with PMD in 1 week. Please come back if you experience fever, chills, chest pain or sob, if the Gi bleeding comes back or worsens. Referrals: Adams Barnhart MD [Primary Care Provider] -
--- NOTE | 2017-03-30 16:40 | CP.PCM.PN ---
Subjective - Date & Time of Evaluation Date of Evaluation: 03/30/17 Time of Evaluation: 10:10 - Subjective Subjective: seen and examined earlier today, the chart was reviewed. Patient with no acute overnight events. Patient had endoscopy and colonoscopy yesterday he denies any nausea, vomiting, or abdominal pain. No reports of overt GI bleed. Tolerating oral intake. No fever, chills Objective - Vital Signs/Intake and Output Vital Signs (last 24 hours): Temp Pulse Resp BP Pulse Ox 98.4 F 73 18 117/72 94 L 03/30/17 10:38 03/30/17 10:46 03/30/17 10:38 03/30/17 10:46 03/30/17 10:38 - Labs Labs: 03/29/17 06:20 03/29/17 06:20 PT 11.9 Seconds (9.9-11.8) H 03/30/17 05:45 INR 1.10 (0.93-1.08) H 03/30/17 05:45 - Constitutional Appears: No Acute Distress - Head Exam Head Exam: NORMOCEPHALIC - Eye Exam Eye Exam: Normal appearance. absent: Scleral icterus - ENT Exam ENT Exam: Mucous Membranes Moist - Respiratory Exam Respiratory Exam: NORMAL BREATHING PATTERN. absent: Respiratory Distress - Cardiovascular Exam Cardiovascular Exam: +S1, +S2 - GI/Abdominal Exam GI & Abdominal Exam: Soft, Normal Bowel Sounds. absent: Guarding, Tenderness, Rebound - Extremities Exam Extremities Exam: Normal Capillary Refill. absent: Calf Tenderness, Pedal Edema - Neurological Exam Neurological Exam: Alert, Awake, Oriented x3 - Skin Skin Exam: Dry, Warm Assessment and Plan - Assessment and Plan (Free Text) Assessment: Assessment: status post EGD colonoscopy. Found to have gastric ulcer, hiatal hernia, diverticulosis and erythematous polyp. History of DVT History of A. fib on low-dose Coumadin history of hypertension History of coronary artery disease status post PCI Right upper lobe pneumonia COPD PLAN: continue diet as tolerated Spoke with medical team and cardiology, patient restart Coumadin. continue PPI Follow-up biopsies Patient to be discharged home today Follow up with PCP Discussed with Dr. Bolaños
== END 2017-03-30 13:40 | disposition home or self-care (01) | DRG 190 ==
LOC: TRCU 19:43
PROVIDERS: ADMIT Internal Medicine; ATTEND Hospitalist
PROC: F07Z9YZ Gait Training/Functional Ambulation Treatment using Other Equipment (ICD-10-PCS; principal; 2017-03-24)
PROC: F08 Physical Rehabilitation and Diagnostic Audiology, Rehabilitation, Activities of Daily Living Treatment (ICD-10-PCS; 2017-03-24)
DX: J44.0 Chronic obstructive pulmonary disease with (acute) lower respiratory infection (principal); J18.9 Pneumonia, unspecified organism; R53.2 Functional quadriplegia; K60.2 Anal fissure, unspecified; K56.41 Fecal impaction; I11.0 Hypertensive heart disease with heart failure; F03.90 Unspecified dementia, unspecified severity, without behavioral disturbance, psychotic disturbance, mood disturbance, and anxiety; I50.22 Chronic systolic (congestive) heart failure; I48.2 Chronic atrial fibrillation; E78.5 Hyperlipidemia, unspecified; I25.10 Atherosclerotic heart disease of native coronary artery without angina pectoris; Z79.2 Long term (current) use of antibiotics; K57.30 Diverticulosis of large intestine without perforation or abscess without bleeding; K64.8 Other hemorrhoids; K64.4 Residual hemorrhoidal skin tags; K44.9 Diaphragmatic hernia without obstruction or gangrene; D64.9 Anemia, unspecified; E87.6 Hypokalemia; K25.9 Gastric ulcer, unspecified as acute or chronic, without hemorrhage or perforation; Z79.01 Long term (current) use of anticoagulants; Z86.718 Personal history of other venous thrombosis and embolism; Z86.73 Personal history of transient ischemic attack (TIA), and cerebral infarction without residual deficits; Z95.5 Presence of coronary angioplasty implant and graft; Z87.891 Personal history of nicotine dependence

== ENCOUNTER 2017-03-29 11:49 | Day surgery (SDC) | payer MEDICARE ==
[2017-03-29] MEDS ORDERED: Benzocaine/Butamben/Tetracai 14-2-2% TOP Spray TOP ONE (13:28)
[2017-03-29] MEDS ORDERED: Propofol 10 mg/ml Inj (20 ML) ONE (13:30)
[2017-03-29] MEDS ORDERED: ePHEDrine 50 mg/ml Inj ONE (13:55)
[2017-03-29 14:53] VITALS: TEMP 98
[2017-03-29 15:40] VITALS: BP 136/66; PULSE 71; RESP 16; O2SAT 95
== END 2017-03-29 16:03 ==
LOC: ENDO 11:49
PROVIDERS: ATTEND Internal Medicine Gastroenterology
DX: K62.0 Anal polyp (principal); K57.30 Diverticulosis of large intestine without perforation or abscess without bleeding; K25.9 Gastric ulcer, unspecified as acute or chronic, without hemorrhage or perforation; K29.50 Unspecified chronic gastritis without bleeding; K44.9 Diaphragmatic hernia without obstruction or gangrene; K64.4 Residual hemorrhoidal skin tags; K64.8 Other hemorrhoids
CPT/HCPCS: 43239; 45380; J2001; J2704; J7040

== ENCOUNTER 2017-05-24 10:27 | Inpatient (IN) | payer MEDICARE, OTHER ==
--- NOTE | 2017-05-24 10:55 | CT ---
PROCEDURE: CT HEAD WITHOUT CONTRAST. HISTORY: Code Stroke COMPARISON: 10/19/2016 CT TECHNIQUE: Axial computed tomography images were obtained through the head/brain without intravenous contrast. Radiation dose: Total exam DLP = 726 mGy-cm. This CT exam was performed using one or more of the following dose reduction techniques: Automated exposure control, adjustment of the mA and/or kV according to patient size, and/or use of iterative reconstruction technique. FINDINGS: HEMORRHAGE: No intracranial hemorrhage. BRAIN: There is right frontal encephalomalacia. Severe chronic microvascular disease is seen in the periventricular white matter. 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 There is moderate atrophy. There are no acute intracranial findings VENTRICLES: Unremarkable. No hydrocephalus. CALVARIUM: Unremarkable. PARANASAL SINUSES: Unremarkable as visualized. No significant inflammatory changes. MASTOID AIR CELLS: Unremarkable as visualized. No inflammatory changes. OTHER FINDINGS: None. IMPRESSION: No acute intracranial findings
--- NOTE | 2017-05-24 10:59 | RAD ---
HISTORY: stroke code COMPARISON: 03/21/2017 FINDINGS: LUNGS: There is elevation of the right hemidiaphragm. The lungs are clear PLEURA: No significant pleural effusion identified, no pneumothorax apparent. CARDIOVASCULAR: Mild cardiomegaly OSSEOUS STRUCTURES: No significant abnormalities. VISUALIZED UPPER ABDOMEN: Normal. OTHER FINDINGS: None. IMPRESSION: No active disease.
[2017-05-24 11:12] LABS: VENOUS BLOOD GAS BASE EXCESS 6.1 mmol/L (0.0-2.0); VENOUS BLOOD PH 7.34 (7.32-7.43)
[2017-05-24 11:15] LABS: EOS # 0.2 (0.0-0.7); EOS % 2.1 % (1.5-5.0); GRAN # 4.37 (1.4-6.5); GRAN % 54.9 % (50.0-68.0); HEMATOCRIT 44.5 % (42.0-52.0); LYMPH # 2.9 (1.2-3.4); LYMPH % 36.8 % (22.0-35.0); MEAN CELL VOLUME 96.1 fl (80.0-105.0); MEAN CORPUSCULAR HEMOGLOBIN 31.5 pg (25.0-35.0); MEAN CORPUSCULAR HGB CONC 32.8 g/dl (31.0-37.0); MEAN PLATELET VOLUME 8.7 fl (7.0-11.0); MONO # 0.5 (0.1-0.6); MONO % 6.2 % (1.0-6.0); RED CELL DISTRIBUTION WIDTH 14.5 % (11.5-14.5)
--- NOTE | 2017-05-24 11:16 | ED PDOC ---
Arrival/HPI - General Chief Complaint: Altered Mental Status Time Seen by Provider: 05/24/17 10:29 Historian: Patient, Spouse, EMS EM Caveat: Altered Mental Status - History of Present Illness Narrative History of Present Illness (Text): 05/24/17 11:00 A 86 year old male, whose past medical history includes atrial fibrillation on Coumadin, abdominal aortic aneurysm without rupture, URI, tachypnea, urosepsis, and shingles, presents to the emergency department via EMS for reported AMS. The patient's reports she found the patient at 09:30 this morning slow responding, but before that the patient was at baseline. The patient denies any shortness of breath, chest pain, and abdominal pain. Limited history is provided. 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, ivc filter placement 07/28/12, - Pulmonary Hx Respiratory Disorders: Yes (pe) - Neurological Hx Paralysis: Yes Hx Parkinson's Disease: ( denies parkinsons) Other/Comment: tia over 15 yrs ago and was found to have had multiple mini strokes prior to tia as per , denies hydrocephalis, spinal tap 2011 - HEENT Hx HEENT Disorder: Yes Hx Cataracts: Yes (b/l not a candidate for sx) - Renal Hx Renal Disorder: Yes Other/Comment: kidney tumor right removed 2007, 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 tumor was benign as per - Endocrine/Metabolic Hx Endocrine Disorders: No - Hematological/Oncological Hx Blood Disorders: Yes (blood transfusion) Hx Blood Transfusions: Yes Hx Blood Transfusion Reaction: No - Integumentary Other/Comment: ble +1 edema with brown discolored skin and multiple raised nodules, 4cm x 5cm dark brown oval shaped dark lumpy area lle doctors are awarre , has had for years no treatment as per - Musculoskeletal/Rheumatological Hx Musculoskeletal Disorders: Yes (LOWER EXTREMETY WEAKNESS R/T NEUROPATHY ) Hx Unsteady Gait: Yes (hoya lift/recliner/bed/w/ch) Other/Comment: b/l hip replacement, 2 revisions of the right, and 1 revision on the left, was using a walker for a time but then couldn't walk at all as per due to arthritis. Pt can only tolerate w/ch for 2 hours due to b/l hip pain, c/o chronic b/l calf pain - Gastrointestinal Hx Gastrointestinal Disorders: (constipation, poor appetite) Hx Gall Bladder Disease: Yes (gallstones) - Genitourinary/Gynecological Hx Genitourinary Disorders: (scrotal edema) Hx Hematuria: Yes Hx Prostate Problems: ( uncertain) Other/Comment: had cysto with dr casey over 10 yrs ago as per - Psychiatric Hx Emotional Abuse: No Hx Physical Abuse: No Hx Substance Use: No - Past Surgical History Past Surgical History: Non-Contributing - Surgical History Hx Cardiac Catheterization: Yes (x1 stent 2000) Other/Comment: tumor removed from the kidney 2007 benign - Anesthesia Hx Anesthesia Reactions: No Hx Malignant Hyperthermia: No - Suicidal Assessment Feels Threatened In Home Enviroment: No Family/Social History - Physician Review Nursing Documentation Reviewed: Yes Family/Social History: No Known Family HX Smoking Status: Never Smoked Hx Alcohol Use: No Hx Substance Use: No Hx Substance Use Treatment: No Allergies/Home Meds Allergies/Adverse Reactions: Allergies No Known Allergies Allergy (Verified 03/23/17 23:14) Home Medications: Home Meds Medication Instructions Recorded Confirmed Albuterol Sulfate 1 puff PRN PRN 03/11/17 05/24/17 Amlodipine Besylate/Benazepril 5 mg PO DAILY 03/11/17 05/24/17 [Amlodipine-Benazepril 5-10 mg] Aspirin [Aspirin Chewable] 81 mg PO DAILY 03/11/17 05/24/17 Docusate [Colace] 70 mg PRN PRN 03/11/17 05/24/17 Ipratropium [place] 0.5 mg PRN PRN 03/11/17 05/24/17 Warfarin [Coumadin] 5 mg PO DAILY 03/11/17 05/24/17 Ipratropium 0.02% [Atrovent] 0.02 % PRN PRN 03/21/17 05/24/17 Linaclotide [Linzess] 145 mcg PO DAILY 03/21/17 05/24/17 Potassium Chloride [Klor-Con 10] 10 meq PO DAILY 03/21/17 05/24/17 Review of Systems - Physician Review All systems were reviewed & negative as marked: Yes - Review of Systems Respiratory: absent: SOB Cardiovascular: absent: Chest Pain Gastrointestinal: absent: Abdominal Pain Psychiatric: Other (AMS) Physical Exam Vital Signs Reviewed: Yes Vital Signs Temp Pulse Resp BP Pulse Ox 05/24/17 12:30 66 16 155/87 H 96 05/24/17 10:59 98.7 F 67 17 141/96 H 95 Temperature: Afebrile Blood Pressure: Hypertensive Pulse: Regular Respiratory Rate: Normal Appearance: Positive for: Well-Appearing, Non-Toxic, Comfortable Pain Distress: None Mental Status: Positive for: Alert and Oriented X 3 Finger Stick Blood Glucose: 86 - Systems Exam Head: Present: Atraumatic, Normocephalic Pupils: Present: PERRL Extroacular Muscles: Present: EOMI Conjunctiva: Present: Normal Mouth: Present: Moist Mucous Membranes Neck: Present: Normal Range of Motion Respiratory/Chest: Present: Clear to Auscultation, Good Air Exchange. No: Respiratory Distress, Accessory Muscle Use Cardiovascular: Present: Regular Rate and Rhythm, Normal S1, S2. No: Murmurs Abdomen: Present: Normal Bowel Sounds. No: Tenderness, Distention, Peritoneal Signs, Rebound, Guarding Back: Present: Normal Inspection Upper Extremity: Present: Normal Inspection. No: Cyanosis, Edema Lower Extremity: Present: Normal Inspection. No: Edema Neurological: Present: GCS=15, CN II-XII Intact, Speech Normal, Motor Func Grossly Intact (baseline), Normal Sensory Function, Normal Cerebellar Funct, Other (slow to respond to questions) Skin: Present: Warm, Dry, Normal Color. No: Rashes Psychiatric: Present: Alert, Oriented x 3, Normal Insight, Normal Concentration Medical Decision Making ED Course and Treatment: 05/24/17 11:16 Impression: A 86 year old male AMS. Differential Diagnosis included but are not limited to: Plan: -- EKG -- Labs -- Reassess and disposition Progress Notes: EKG: Ordered, reviewed, and independently interpreted the EKG. Rate : 63 BPM Rhythm : NSR Interpretation : No ST/T changes. Comparison : No previous EKG for comparison. Report Date : 05/24/2017 10:58:07 Chest X-ray Build Technician : Renard Cardozo MD HISTORY:stroke code COMPARISON:03/21/2017 FINDINGS: LUNGS:There is elevation of the right hemidiaphragm. The lungs are clear PLEURA:No significant pleural effusion identified, no pneumothorax apparent. CARDIOVASCULAR:Mild cardiomegaly OSSEOUS STRUCTURES:No significant abnormalities. VISUALIZED UPPER ABDOMEN:Normal. OTHER FINDINGS:None. IMPRESSION:No active disease. PROCEDURE: CT HEAD WITHOUT CONTRAST. Report Date : 05/24/2017 10:54:08 Build Technician : Renard Cardozo MD HISTORY:Code Stroke COMPARISON:10/19/2016 CT FINDINGS: HEMORRHAGE:No intracranial hemorrhage. BRAIN:There is right frontal encephalomalacia. Severe chronic microvascular disease is seen in the periventricular white matter. 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 There is moderate atrophy. There are no acute intracranial findings VENTRICLES:Unremarkable. No hydrocephalus. CALVARIUM:Unremarkable. PARANASAL SINUSES:Unremarkable as visualized. No significant inflammatory changes. MASTOID AIR CELLS:Unremarkable as visualized. No inflammatory changes. OTHER FINDINGS:None. IMPRESSION:No acute intracranial findings - Lab Interpretations Lab Results: 05/24/17 10:50 05/24/17 10:50 Lab Results 05/24/17 10:50: pO2 29 L, VBG pH 7.34, VBG pCO2 63.0 H, VBG HCO3 34.0 H, VBG Total CO2 35.9 H, VBG O2 Sat (Calc) 64.1, VBG Base Excess 6.1 H, VBG Potassium 4.6, Sodium 139.0, Chloride 103.0, Glucose 90, Lactate 1.0, FiO2 21.0, Venous Blood Potassium 4.6 05/24/17 10:50: Blood Type B POSITIVE, Antibody Screen Negative, BBK History Checked Patient has bt 05/24/17 10:50: PT 30.9 H, INR 2.75 H, APTT 44.6 H 05/24/17 10:50: WBC 8.0, RBC 4.63, Hgb 14.6 D, Hct 44.5, MCV 96.1, MCH 31.5, MCHC 32.8, RDW 14.5, Plt Count 163, MPV 8.7, Gran % 54.9, Lymph % (Auto) 36.8 H , [place] % (Auto) 6.2 H, Eos % (Auto) 2.1, Baso % (Auto) 0.0, Gran # 4.37, Lymph # 2.9, [place] # 0.5, Eos # 0.2, Baso # 0.00 05/24/17 10:50: Sodium 141, Chloride 102, Potassium 4.7, Carbon Dioxide 32, Anion Gap 12, BUN 31 H, Creatinine 1.4, Est GFR ( Amer) 58, Est GFR (Non- Af Amer) 48, Random Glucose 90, Calcium 9.3, Total Bilirubin 0.6, AST 21, ALT 26 , Alkaline Phosphatase 128 H, Lactate Dehydrogenase 352, Total Creatine Kinase < 20 L, Troponin I 0.01, Total Protein 6.4, Albumin 3.6, Globulin 2.7, Albumin/ Globulin Ratio 1.3, Triglycerides 127, Cholesterol 130, LDL Cholesterol Direct 72, HDL Cholesterol 29 - RAD Interpretation Radiology Orders: 05/24/17 10:31 HEAD W/O (CODE STROKE) [CT] Stat CHEST PORTABLE [RAD] Stat - Medication Orders Current Medication Orders: Albuterol/Ipratropium (Duoneb 3 Mg/0.5 Mg (3 Ml) Ud) 3 ml IH [id number] NICK Aspirin (Aspirin Chewable) 81 mg PO DAILY NICK Atorvastatin Calcium (Lipitor) 10 mg PO DIN NICK Clonidine HCl (Catapres) 0.1 mg PO ONCE PRN PRN Reason: Other Pantoprazole Sodium (Protonix Ec Tab) 40 mg PO BID NICK Polyethylene Glycol (Miralax) 17 gm PO DAILY NICK Potassium Chloride (Klor-Con 10) 10 meq PO DAILY NICK Discontinued Medications Aspirin (Aspirin) 325 mg PO STAT STA Stop: 05/24/17 11:32 Last Admin: 05/24/17 11:41 Dose: 325 mg NIHSS Scale ([place]) Time Performed: 12:54 - How Severe is the Stoke Baseline Level of Consciousness: 1=Drowsy LOC to Questions: 0=Both comments correct LOC to commands: 0=Obeys both correctly Best Gaze: 0=Normal Visual: 0=No visual loss Facial: 0=Normal Motor Arm - Left: 0=No drift Motor Arm - Right: 0=No drift Motor Leg - Left: 0=No drift Motor Leg - Right: 0=No drift Limb Ataxia: 0=Absent Sensory: 0=Normal Best Language: 0=No aphasia Dysarthia: 0=Normal articulation Extinction & Inattention (Neglect): 0=Normal, no object Score: 1 Risk Level: Minor Stroke Risk rTPA Inclusion/Exclusion - Refusal of Treatment Patient Refused Treatment: No - Inclusion Criteria for Altepase Patient is 18 years or Older: Yes The Clinical Diagnosis of Ischemic Stroke That is Causing a Potentially Disabling Neurological Deficit: No Time of Onset is Well Established to be Less Than 270 Minute Before Treatment Would Begin: Yes Risk/Benefit Discussed With Patient/Family Member Present: Yes - Scribe Statement The provider has reviewed the documentation as recorded by the Sukhwinderibeufemia Marie Provider Scribe Attestation: All medical record entries made by the Scribe were at my direction and personally dictated by me. I have reviewed the chart and agree that the record accurately reflects my personal performance of the history, physical exam, medical decision making, and the department course for this patient. I have also personally directed, reviewed, and agree with the discharge instructions and disposition. Disposition/Present on Arrival - Present on Arrival Any Indicators Present on Arrival: No History of DVT/PE: Yes History of Uncontrolled Diabetes: No Urinary Catheter: No History of Decub. Ulcer: No History Surgical Site Infection Following: None - Disposition Have Diagnosis and Disposition been Completed?: Yes Diagnosis: Altered mental status Disposition: HOSPITALIZED Disposition Time: 01:00 Patient Problems: Current Active Problems Problem Status Onset Altered mental status Acute Condition: STABLE
[2017-05-24 11:24] LABS: ALB/GLOB RATIO 1.3 (1.1-1.8); ALKALINE PHOSPHATASE 128 U/L (38-126); ALT/SGPT 26 U/L (7-56); AST/SGOT 21 U/L (17-59); BILIRUBIN,TOTAL 0.6 mg/dL (0.2-1.3); BLOOD UREA NITROGEN 31 mg/dL (7-21); CALCIUM 9.3 mg/dL (8.4-10.5); CARBON DIOXIDE 32 mmol/L (21-33); CHLORIDE 102 mmol/L (98-107); CHOLESTEROL 130 mg/dL (130-200); GFR AFRICAN-AMERICAN 58; GLUCOSE,RANDOM 90 mg/dL (70-110); POTASSIUM 4.7 mmol/L (3.6-5.0); SODIUM 141 mmol/L (132-148); TOTAL PROTEIN 6.4 g/dL (5.8-8.3)
[2017-05-24 11:26] LABS: INR 2.75 (0.93-1.08); PARTIAL THROMBOPLASTIN TIME 44.6 Seconds (25.1-36.5)
[2017-05-24 11:38] LABS: TROPONIN I 0.01 ng/mL
--- NOTE | 2017-05-24 13:01 | CARD ---
APPROVED REPORT EKG Measurement Heart [id number] <Conclusion> Normal sinus rhythm Left axis deviation, LAHB Possible Anterior infarct, age undetermined
--- NOTE | 2017-05-24 14:02 | CP.PCM.HP ---
<SmithChino - Last Filed: 05/24/17 14:27> History of Present Illness - History of Present Illness History of Present Illness: 86 year 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 Patient did not recall what happened. History was obtained from who was bedside. She stated that around 8 am this monring she was giving the patient some tylenol for back pain and asked him what he wanted to eat for breakfast. The patient did not respond for 15-20 minutes, but he was able to move his eyes. As a result she called 911. She denied that he lost consciousness or had any seizure like activity. Patient has dementia and states he seems to be back at his baseline. Patient denied any CP, SOB, new onset weakness, slurred speech, change in vision, abdominal pain, fever, sore throat, headaches, dizziness or any other complaints. Past Medical History: Dementia, afib, HTN, hypercholesterolemia, DVT (5 years ago), constipation, gallstones, kidney tumor (resected, RCC per EMR), COPD, AAA , Right iliac aneurysm, CVA Past Surgical History: R iliac aneurysm with stent placement 03/11/[address] Fabian, hip surgery 5 years ago, cardiac stent 2001, resected RCC, hip surgeries x 5 Allergies: NKDA Medications: Warfarin 5 mg , Furosemide 40 mg PO, Vitamin D, Lipitor 10 mg PO, ASA 81 mg PO, Norvasc 5, PRN: Albuterol, Ipatropium 0.5 mg, Miralax Social history:franci villaloobs with , has visiting healthcare aides. denies smoking, EtOH, or recreational drugs Family Hx: nothing contributory PMD: Dr. Barnhart Present on Admission - Present on Admission Any Indicators Present on Admission: Yes History of DVT/PE: Yes Review of Systems - Constitutional Constitutional: absent: Chills, Fever, Headache, Lethargy, Malaise - EENT Eyes: absent: Blurred Vision, Change in Vision Ears: absent: Decreased Hearing Nose/Mouth/Throat: absent: Nasal Congestion, Nasal Discharge, Sore Throat - Cardiovascular Cardiovascular: absent: Chest Pain, Diaphoresis, Dyspnea, Lightheadedness, Palpitations, Pedal Edema, Rapid Heart Rate - Respiratory Respiratory: absent: Cough, Dyspnea, Wheezing, Chest Congestion - Gastrointestinal Gastrointestinal: absent: Abdominal Pain, Constipation, Diarrhea, Nausea, Vomiting - Genitourinary Genitourinary: absent: Change in Urinary Stream, Difficulty Urinating, Dysuria - Musculoskeletal Musculoskeletal: absent: Joint Swelling, Muscle Weakness, Numbness, Tingling - Integumentary Integumentary: absent: Rash - Neurological Neurological: absent: Burning Sensations, Disequilibrium, Numbness, Focal Weakness, Loss of Vision, Paresthesias, Vertigo, Weakness - Endocrine Endocrine: absent: Excessive Sweating, Polyuria Past Patient History - Infectious Disease Hx of Infectious Diseases: None - Tetanus Immunizations Tetanus Immunization: Unknown - Past Social History Smoking Status: Never Smoked - CARDIAC Hx Cardiac Disorders: Yes ( denies mi) Hx Pacemaker: No Hx Peripheral Edema: Yes (ble +1) Other/Comment: hx pe/dvt, on 03/10/17 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, ivc filter placement 07/28/12, - PULMONARY Hx Respiratory Disorders: Yes (pe) - NEUROLOGICAL Hx Paralysis: Yes Hx Parkinson's Disease: ( denies parkinsons) Other/Comment: tia over 15 yrs ago and was found to have had multiple mini strokes prior to tia as per , denies hydrocephalis, spinal tap 2011 - HEENT Hx HEENT Problems: Yes Hx Cataracts: Yes (b/l not a candidate for sx) - RENAL Hx Chronic Kidney Disease: Yes Other/Comment: kidney tumor right removed 2007, 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 tumor was benign as per - ENDOCRINE/METABOLIC Hx Endocrine Disorders: No - HEMATOLOGICAL/ONCOLOGICAL Hx Blood Disorders: Yes (blood transfusion) Hx Blood Transfusions: Yes Hx Blood Transfusion Reaction: No - INTEGUMENTARY Other/Comment: ble +1 edema with brown discolored skin and multiple raised nodules, 4cm x 5cm dark brown oval shaped dark lumpy area lle doctors are awarre , has had for years no treatment as per - MUSCULOSKELETAL/RHEUMATOLOGICAL Hx Musculoskeletal Disorders: Yes (LOWER EXTREMETY WEAKNESS R/T NEUROPATHY ) Hx Unsteady Gait: Yes (hoya lift/recliner/bed/w/ch) Other/Comment: b/l hip replacement, 2 revisions of the right, and 1 revision on the left, was using a walker for a time but then couldn't walk at all as per due to arthritis. Pt can only tolerate w/ch for 2 hours due to b/l hip pain, c/o chronic b/l calf pain - GASTROINTESTINAL Hx Gastrointestinal Disorders: (constipation, poor appetite) Hx Gall Bladder Disease: Yes (gallstones) - GENITOURINARY/GYNECOLOGICAL Hx Genitourinary Disorders: (scrotal edema) Hx Hematuria: Yes Hx Prostate Problems: ( uncertain) Other/Comment: had cysto with dr casey over 10 yrs ago as per - PSYCHIATRIC Hx Emotional Abuse: No Hx Physical Abuse: No Hx Substance Use: No - SURGICAL HISTORY Hx Cardiac Catheterization: Yes (x1 stent 2000) Other/Comment: tumor removed from the kidney 2007 benign - ANESTHESIA Hx Anesthesia Reactions: No Hx Malignant Hyperthermia: No Meds Allergies/Adverse Reactions: Allergies Allergy/AdvReac Type Severity Reaction Status Date / Time No Known Allergies Allergy Verified 03/23/17 23:14 Physical Exam - Constitutional Appears: Non-toxic, No Acute Distress - Head Exam Head Exam: ATRAUMATIC, NORMAL INSPECTION, NORMOCEPHALIC - Eye Exam Eye Exam: PERRL Pupil Exam: PERRL - ENT Exam ENT Exam: Mucous Membranes Moist, Normal Exam - Neck Exam Neck exam: Positive for: Normal Inspection. Negative for: Tenderness - Respiratory Exam Respiratory Exam: Clear to Auscultation Bilateral, NORMAL BREATHING PATTERN - Cardiovascular Exam Cardiovascular Exam: REGULAR RHYTHM, +S1, +S2 - GI/Abdominal Exam GI & Abdominal Exam: Normal Bowel Sounds - Extremities Exam Extremities exam: Positive for: pedal pulses present Additional comments: healing scar on left lower extremity upper and lower sensory in tact bilaterally patient able to move extremeties on command, baseline wekaness in all 4 limbs - Neurological Exam Neurological exam: Alert Additional comments: Alert, oriented x2 (knows name and pace, not time) - Psychiatric Exam Psychiatric exam: Normal Affect, Normal Mood - Skin Skin Exam: Abrasion Results - Vital Signs Recent Vital Signs: Last Vital Signs Temp 98.7 F 05/24/17 10:59 Pulse 66 05/24/17 12:30 Resp 16 05/24/17 12:30 BP 155/87 H 05/24/17 12:30 Pulse Ox 96 05/24/17 12:30 - Labs Result Diagrams: 05/24/17 10:50 05/24/17 10:50 Assessment & Plan - Assessment and Plan (Free Text) Assessment: 86 year 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 He is being worked up for possible stroke and being monitored in telemetry. Plan: 1. Transient increased Altered Mental Status - Rule Out CVA -EKG: normal sinus rhythm 63bpm, pending official read -CT Head: old infarct of left cerebral hemisphere, no acute intracranial event -Patient AAOx2, not to time -No focal neurological deficits present at this time -Aspirin given in ED, continue daily -continue lipitor 10mg -Neurology Consulted: Dr. Almodovar, will follow recommendations -Hemoglobin A1C ordered -TSH level ordered -bedside speech and swallow evaluation ordered 2. Afib-chronic, paroxysmal -Cold coumadin 5 due to INR -INR 2.75, continue to monitor and trend -ECHO: 03/2017 50%EF -holding Lasix due to Cr 1.4, continue to monitor 3. HTN-chronic -current BP: 155/87 -hold home medication norvasc -allow permissive HTN -Clonidine PRN if systolic BP> 180 4. HLD -continue home lipitor 10mg -lipid panel ordered, follow up 5. Constipation-chronic -continue home miralax 6. COPD -started on duonebs 7. GI/DVT prophylaxis -continue home pantoprazole -Sequential compression devices knee high ECHO with normal atrial size and EF of 50.1% <Heidi Canales - Last Filed: 05/24/17 17:17> Results - Vital Signs Recent Vital Signs: Last Vital Signs Temp 98.7 F 05/24/17 13:41 Pulse 68 05/24/17 13:41 Resp 18 05/24/17 13:41 BP 160/85 H 05/24/17 13:41 Pulse Ox 96 05/24/17 12:30 - Labs Result Diagrams: 05/24/17 10:50 05/24/17 10:50 Attending/Attestation - Attestation I have personally seen and examined this patient.: Yes I have fully participated in the care of the patient.: Yes I have reviewed all pertinent clinical information: Yes Notes (Text): I have seen and examined the patient at bedside. 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 Code stroke was called. CT head negative. He passed speech and swallow. Patient is back to baseline as per patients who is at the bedside. Aspirin and lipitor started. PT eval ordered. Upon discharge patient will follow up with Dr Urias. Dr Heidi Canales
[2017-05-24 14:13] VITALS: BMI 30.5
--- NOTE | 2017-05-24 15:20 | CP.PCM.CON ---
History of Present Illness - History of Present Illness History of Present Illness: Neurology consult note for Dr. Almodovar's service HPI: Patient is an 86yo male with past medical history of dementia, atrial fibrillation on coumadin, HTN, HLD, DVT, COPD and CVA [place] [facility] [place] mental status. Per patient's he had been in his usual state of health around 8am however shortly thereafter he was not responding to questions directed to him. Patient's reports that she subsequently called 911. She reports that he did not lose consciousness and denied any urinary/ fecal incontinence or tongue biting. At baseline, patient has underlying dementia and according to his he appears to be back to baseline. In the ER , a code stroke was called. Head CT revealed no acute intracranial abnormalities. Neurology consulted for altered mental status. Patient denied new onset weakness, numbness, tingling, slurred speech, change in vision, chest pain, palpitations, SOB, abdominal pain, nausea, vomiting, fever, chills. 12point ROS as per HPI above otherwise negative PMH: Dementia, afib, HTN, hypercholesterolemia, DVT (5 years ago), constipation , gallstones, kidney tumor (resected, RCC per EMR), COPD, AAA, Right iliac aneurysm, CVA PSH: R iliac aneurysm with stent placement 03/11/[address] Fabian, hip surgery 5 years ago, cardiac stent 2001, resected RCC, hip surgeries x 5 Allergies: NKDA Social Hx: Lives with , has visiting healthcare aides; denies tobacco, alcohol and illicit drug use Family Hx: reviewed and non-contributory Past Patient History - Infectious Disease Hx of Infectious Diseases: None - Tetanus Immunizations Tetanus Immunization: Unknown - Past Social History Smoking Status: Never Smoked - CARDIAC Hx Cardiac Disorders: Yes ( denies mi) Hx Pacemaker: No Hx Peripheral Edema: Yes (ble +1) Other/Comment: hx pe/dvt, on 03/10/17 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, ivc filter placement 07/28/12, - PULMONARY Hx Respiratory Disorders: Yes (pe) - NEUROLOGICAL Hx Paralysis: Yes Hx Parkinson's Disease: ( denies parkinsons) Other/Comment: tia over 15 yrs ago and was found to have had multiple mini strokes prior to tia as per , denies hydrocephalis, spinal tap 2011 - HEENT Hx HEENT Problems: Yes Hx Cataracts: Yes (b/l not a candidate for sx) - RENAL Hx Chronic Kidney Disease: Yes Other/Comment: kidney tumor right removed 2007, 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 tumor was benign as per - ENDOCRINE/METABOLIC Hx Endocrine Disorders: No - HEMATOLOGICAL/ONCOLOGICAL Hx Blood Disorders: Yes (blood transfusion) Hx Blood Transfusions: Yes Hx Blood Transfusion Reaction: No - INTEGUMENTARY Other/Comment: ble +1 edema with brown discolored skin and multiple raised nodules, 4cm x 5cm dark brown oval shaped dark lumpy area lle doctors are awarre , has had for years no treatment as per - MUSCULOSKELETAL/RHEUMATOLOGICAL Hx Musculoskeletal Disorders: Yes (LOWER EXTREMETY WEAKNESS R/T NEUROPATHY ) Hx Unsteady Gait: Yes (hoya lift/recliner/bed/w/ch) Other/Comment: b/l hip replacement, 2 revisions of the right, and 1 revision on the left, was using a walker for a time but then couldn't walk at all as per due to arthritis. Pt can only tolerate w/ch for 2 hours due to b/l hip pain, c/o chronic b/l calf pain - GASTROINTESTINAL Hx Gastrointestinal Disorders: (constipation, poor appetite) Hx Gall Bladder Disease: Yes (gallstones) - GENITOURINARY/GYNECOLOGICAL Hx Genitourinary Disorders: (scrotal edema) Hx Hematuria: Yes Hx Prostate Problems: ( uncertain) Other/Comment: had cysto with dr casey over 10 yrs ago as per - PSYCHIATRIC Hx Emotional Abuse: No Hx Physical Abuse: No Hx Substance Use: No - SURGICAL HISTORY Hx Cardiac Catheterization: Yes (x1 stent 2000) Other/Comment: tumor removed from the kidney 2007 benign - ANESTHESIA Hx Anesthesia Reactions: No Hx Malignant Hyperthermia: No Meds Allergies/Adverse Reactions: Allergies Allergy/AdvReac Type Severity Reaction Status Date / Time No Known Allergies Allergy Verified 03/23/17 23:14 - Medications Medications: Current Medications Albuterol/Ipratropium (Duoneb 3 Mg/0.5 Mg (3 Ml) Ud) 3 ml IH [id number] NICK Aspirin (Aspirin Chewable) 81 mg PO DAILY NICK Atorvastatin Calcium (Lipitor) 10 mg PO DIN NICK Clonidine HCl (Catapres) 0.1 mg PO ONCE PRN PRN Reason: Other Pantoprazole Sodium (Protonix Ec Tab) 40 mg PO BID NICK Polyethylene Glycol (Miralax) 17 gm PO DAILY NICK Potassium Chloride (Klor-Con 10) 10 meq PO DAILY NICK Physical Exam - Constitutional Appears: No Acute Distress - Head Exam Head Exam: ATRAUMATIC, NORMAL INSPECTION, NORMOCEPHALIC - Eye Exam Eye Exam: EOMI Pupil Exam: PERRL - ENT Exam ENT Exam: Mucous Membranes Moist - Respiratory Exam Respiratory Exam: Decreased Breath Sounds. absent: Rales, Rhonchi, Wheezes - Cardiovascular Exam Cardiovascular Exam: +S1, +S2. absent: Gallop, Rubs, Systolic Murmur - GI/Abdominal Exam GI & Abdominal Exam: Soft. absent: Distended, Firm, Guarding, Rebound, Tenderness - Neurological Exam Neurological exam: Alert, Oriented x3 - Psychiatric Exam Psychiatric exam: Normal Affect, Normal Mood - Skin Skin Exam: Dry, Intact, Normal Color, Warm Results - Vital Signs Recent Vital Signs: Last Vital Signs Temp 98.7 F 05/24/17 13:41 Pulse 68 05/24/17 13:41 Resp 18 05/24/17 13:41 BP 160/85 H 05/24/17 13:41 Pulse Ox 96 05/24/17 12:30 - Labs Result Diagrams: 05/24/17 10:50 05/24/17 10:50 Assessment & Plan - Assessment and Plan (Free Text) Plan: 86yo male with history of dementia, atrial fibrillation on coumadin, HTN, HLD, DVT, COPD, CVA and constipation presents for altered mental status. Code stroke called in the ER. Neurology consulted. 1. Altered mental status r/o CVA 2. Atrial fibrillation 3. Hypertension 4. Hyperlipidemia 5. COPD 6. Hx of CVA -Carotid doppler, EEG and MRI Brain has been ordered and is pending -Per patient's , he appears to be at his baseline at this time -CT Head reviewed; revealed no acute intracranial abnormalities -Continue ASA and lipitor for stroke prevention -Neurochecks q4h -Monitor and correct electrolyte abnormalities as indicated -Further recommendations as per attending, Dr. Almodovar Patient seen and case discussed/reviewed with attending, Dr. Almodovar - Date & Time Date: 05/24/17 Time: 15:21
[2017-05-24] MEDS: Pantoprazole 40 mg EC Tab PO SCH (17:09)
[2017-05-24] MEDS: Nystatin 100,000 Units/gm Topical Pow(15 gm) TOP SCH (17:09)
[2017-05-24] MEDS: Albuterol-Ipratrop 3 mg / 0.5 (3 ml) UD IH SCH (19:15)
--- NOTE | 2017-05-24 20:22 | MRI ---
EXAM: MR Head Without Intravenous Contrast EXAM DATE/TIME: 05/24/2017 3:23 PM CLINICAL HISTORY: The patient age is 86 years old and is male; Signs and symptoms; Other: ? Stroke; Additional info: Code stroke Facility exam id and description: Mri br s brain without contrast TECHNIQUE: Magnetic resonance images of the head/brain without intravenous contrast in multiple planes. COMPARISON: CT - HEAD W/O (CODE STROKE) 2017-05-24 10:37, CT - HEAD W/O CONTRAST 10/19/2016 3:25:37 PM FINDINGS: Artifacts: Motion artifact limits this study. Brain: There is a small focus of restricted diffusion within the left frontal white matter, consistent with acute or subacute infarct. This is heterogeneous in signal intensity on the ADC trace sequence. There is an area of encephalomalacia within the left cerebellar lobe, consistent with an old infarct. Peripherally within this area of encephalomalacia, there is a 0.9 x 0.6 cm T2 isointense durally based nodule, which demonstrates restricted diffusion. This is atypical for acute infarct. A small intracranial lesion is suggested. There is no magnetic susceptibility in this region to suggest hemorrhage. This is stable compared to prior CT studies. Encephalomalacia with adjacent gliosis is visualized within the right frontal lobe, consistent with an old infarct. There is moderate to extensive additional high FLAIR signal intensity within the cerebral white matter. There is no mass effect or restricted diffusion associated with this white matter disease. In a patient this age, this likely represents chronic small vessel ischemic disease. There is moderate prominence of the sulci, compatible with atrophy. Small T2 hyperintense chronic lacunar infarcts are visualized within the left cerebellar lobe. There is a small T2 hyperintense chronic lacunar infarct within the superior aspect of the left thalamus. Tiny T2 hyperintense dilated perivascular spaces and/or chronic ischemic changes are identified within the basal ganglia. There is prominent atrophy of the left frontal sulci. Ventricles: There is ventriculomegaly. Periventricular T2 hyperintensity is visualized. 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 Bones/joints: No acute abnormality. Sinuses: A small mucous retention cyst or polyp is identified in the right maxillary sinus. There is minimal mucosal thickening of scattered ethmoid air cells. Mucous retention cysts or polyps are also visualized in the left frontal sinus. Mastoid air cells: There is minimal mucosal thickening/effusions within the right mastoid air cells. Orbits: There is mild abnormal morphology of the bilateral optic globes, which is stable. IMPRESSION: 1. There is a small focus of restricted diffusion within the left frontal white matter, consistent with acute or subacute infarct. 2. There is an area of encephalomalacia within the left cerebellar lobe, consistent with an old infarct. Peripherally within this area of encephalomalacia, there is a 0.9 x 0.6 cm durally based nodule, which demonstrates restricted diffusion. This is atypical for acute infarct. A small intracranial lesion is suggested. This is stable compared to prior CT studies. Post contrast sequences are recommended. 3. Encephalomalacia with adjacent gliosis is visualized within the right frontal lobe, consistent with an old infarct. 4. There is moderate to extensive additional high FLAIR signal intensity within the cerebral white matter. In a patient this age, this likely represents chronic small vessel ischemic disease. 5. Moderate atrophy. 6. Additional chronic ischemic changes are noted above. 7. 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 8. Additional findings described above.
[2017-05-25] MEDS: Albuterol-Ipratrop 3 mg / 0.5 (3 ml) UD IH SCH ×4 (02:30→19:31)
[2017-05-25 07:04] LABS: CHOLESTEROL 132 mg/dL (130-200)
[2017-05-25 08:32] LABS: BASO # 0.01 K/mm3 (0.0-2.0); BASO % 0.1 % (0.0-3.0); EOS # 0.1 (0.0-0.7); EOS % 1.4 % (1.5-5.0); GRAN # 6.38 (1.4-6.5); GRAN % 69.6 % (50.0-68.0); HEMATOCRIT 44.1 % (42.0-52.0); LYMPH # 1.9 (1.2-3.4); LYMPH % 20.8 % (22.0-35.0); MEAN CORPUSCULAR HEMOGLOBIN 31.3 pg (25.0-35.0); MEAN CORPUSCULAR HGB CONC 32.9 g/dl (31.0-37.0); MEAN PLATELET VOLUME 9.3 fl (7.0-11.0); MONO # 0.7 (0.1-0.6); MONO % 8.1 % (1.0-6.0); RED CELL DISTRIBUTION WIDTH 14.3 % (11.5-14.5); WHITE BLOOD COUNT 9.2 10^3/ul (4.5-11.0)
[2017-05-25 08:37] LABS: ALB/GLOB RATIO 1.3 (1.1-1.8); ALKALINE PHOSPHATASE 129 U/L (38-126); ALT/SGPT 33 U/L (7-56); AST/SGOT 21 U/L (17-59); BILIRUBIN,TOTAL 0.7 mg/dL (0.2-1.3); BLOOD UREA NITROGEN 29 mg/dL (7-21); CALCIUM 9.3 mg/dL (8.4-10.5); CARBON DIOXIDE 29 mmol/L (21-33); CHLORIDE 104 mmol/L (98-107); GFR AFRICAN-AMERICAN > 60; GLUCOSE,RANDOM 99 mg/dL (70-110); POTASSIUM 4.5 mmol/L (3.6-5.0); SODIUM 139 mmol/L (132-148); TOTAL PROTEIN 6.3 g/dL (5.8-8.3)
[2017-05-25 08:46] LABS: INR 3.11 (0.93-1.08)
[2017-05-25] MEDS: Pantoprazole 40 mg EC Tab PO SCH ×2 (10:54→18:07)
[2017-05-25] MEDS: Nystatin 100,000 Units/gm Topical Pow(15 gm) TOP SCH ×3 (10:55→18:07)
[2017-05-25] MEDS: POLYETHYLENE GLYCOL 3350 17 GM/Dose PACKET PO SCH (10:55)
[2017-05-25] MEDS: Potassium Chloride 10 mEq ER Tab PO SCH (10:55)
[2017-05-25] MEDS: Multivitamin With Minerals Tab PO SCH (10:58)
--- NOTE | 2017-05-25 11:17 | CP.PCM.PN ---
<Chino Smith - Last Filed: 05/26/17 08:18> Subjective - Date & Time of Evaluation Date of Evaluation: 05/25/17 Time of Evaluation: 07:00 - Subjective Subjective: Patient seen and examined bedside. Patient was lying comfortably with no complaints. He was oriented to self but not time or place. He was asking why he was in the hospital and why he was receiving medicine. I explained the situation and how he was being worked up because of a possible stroke. he did not recall our meeting yesterday, or the face that his was present yesterday at bedside. He denies any chest pain, shortness of breath, fever, chills, abdominal pain, sore throat, fever or any other complaints. Objective - Vital Signs/Intake and Output Vital Signs (last 24 hours): Temp Pulse Resp BP Pulse Ox 97.2 F L 96 H 20 142/84 93 L 05/25/17 06:00 05/25/17 10:54 05/25/17 06:00 05/25/17 10:54 05/25/17 00:01 Intake and Output: 05/25/17 05/25/17 06:59 18:59 Intake Total 0 Output Total 2 Balance -2 - Medications Medications: Current Medications Albuterol/Ipratropium (Duoneb 3 Mg/0.5 Mg (3 Ml) Ud) 3 ml IH [id number] REPLACED BY [facility] Last Admin: 05/25/17 07:31 Dose: 3 ml Amlodipine Besylate (Norvasc) 5 mg PO DAILY REPLACED BY [facility] Last Admin: 05/25/17 10:54 Dose: 5 mg Ascorbic Acid (Vitamin C 500 Mg Tab) 500 mg PO DAILY REPLACED BY [facility] Last Admin: 05/25/17 10:54 Dose: 500 mg Aspirin (Aspirin Chewable) 81 mg PO DAILY REPLACED BY [facility] Last Admin: 05/25/17 10:54 Dose: 81 mg Atorvastatin Calcium (Lipitor) 10 mg PO DIN REPLACED BY [facility] Last Admin: 05/24/17 17:09 Dose: 10 mg Clonidine HCl (Catapres) 0.1 mg PO ONCE PRN PRN Reason: Other Furosemide (Lasix) 40 mg PO DAILY REPLACED BY [facility] Multivitamins/Minerals (Therapeutic-M Tab) 1 tab PO 0800 REPLACED BY [facility] Last Admin: 05/25/17 10:58 Dose: 1 tab Multivitamins/Vitamin C (Multi-Delyn Liquid) 15 ml PO 0800 REPLACED BY [facility] Nystatin (Nystop Topical Powder) 1 gm TOP TID REPLACED BY [facility] Last Admin: 05/25/17 10:55 Dose: 2 applic Pantoprazole Sodium (Protonix Ec Tab) 40 mg PO BID REPLACED BY [facility] Last Admin: 05/25/17 10:54 Dose: 40 mg Polyethylene Glycol (Miralax) 17 gm PO DAILY REPLACED BY [facility] Last Admin: 05/25/17 10:55 Dose: 17 gm Potassium Chloride (Klor-Con 10) 10 meq PO DAILY REPLACED BY [facility] Last Admin: 05/25/17 10:55 Dose: 10 meq Zinc Sulfate (Zinc Sulfate 220 Mg Cap) 220 mg PO DAILY REPLACED BY [facility] Last Admin: 05/25/17 10:54 Dose: 220 mg - Labs Labs: 05/25/17 06:30 05/25/17 06:30 PT 35.0 SECONDS (9.4-12.5) H 05/25/17 06:30 INR 3.11 (0.93-1.08) H 05/25/17 06:30 APTT 44.6 Seconds (25.1-36.5) H 05/24/17 10:50 - Constitutional Appears: Non-toxic, No Acute Distress - Head Exam Head Exam: ATRAUMATIC, NORMAL INSPECTION, NORMOCEPHALIC - Eye Exam Eye Exam: Normal appearance, PERRL Pupil Exam: NORMAL ACCOMODATION, PERRL - ENT Exam ENT Exam: Mucous Membranes Moist, Normal Exam - Neck Exam Neck Exam: Normal Inspection - Respiratory Exam Respiratory Exam: Clear to Ausculation Bilateral, NORMAL BREATHING PATTERN - Cardiovascular Exam Cardiovascular Exam: +S1, +S2 - GI/Abdominal Exam GI & Abdominal Exam: Normal Bowel Sounds. 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 He is being worked up for possible stroke and being monitored in telemetry. Plan: 1. Transient increased Altered Mental Status - Rule Out CVA -EKG: normal sinus rhythm 63bpm, left axis deviation, LAHB, possible anterior infarct, age undetermined -CT Head: small focus of restricted diffusion within the left frontal white matter consistent with acute or subacute infarct; please see full report -Patient AAOx1, not to time -No focal neurological deficits present at this time -Aspirin given in ED, Started on 325 daily today per neuro -continue lipitor 10mg -Neurology Consulted: Dr. Almodovar: -Recommends increasing ASA 81mg PO daily to full dose aspirin 325mg PO daily, Continue lipitor for stroke prevention, EEG ordered pending results, crotid doppler ordered pending -Neurochecks continue -Hemoglobin A1C : 5.9 -TSH level : 3.39 -bedside speech and swallow evaluation ordered 2. Afib-chronic, paroxysmal -Holding coumadin 5 due to INR -INR 3.11, continue to monitor and trend -ECHO: 03/2017 50%EF -resumed home lasix 40 , follow creatinine 3. HTN-chronic -current BP: 168/101 -hold home medication norvasc -allow permissive HTN -Clonidine PRN if systolic BP> 180 4. HLD -continue home lipitor 10mg -lipid panel: Cholesterol: 132, LDL: 71 5. Constipation-chronic -continue home miralax 6. COPD -continue on duonebs 7. Ulcer- Stage 1 -MVI started, continue vitamin C -air mattress -rotatet q2H 8. GI/DVT prophylaxis -continue home pantoprazole -Sequential compression devices knee high ECHO with normal atrial size and EF of 50.1% <Heidi Canales - Last Filed: 05/26/17 16:19> Objective - Vital Signs/Intake and Output Vital Signs (last 24 hours): Temp Pulse Resp BP Pulse Ox 97.4 F L 76 20 138/84 98 05/26/17 12:00 05/26/17 14:00 05/26/17 12:00 05/26/17 12:00 05/26/17 05:58 Intake and Output: 05/26/17 05/26/17 06:59 18:59 Intake Total 50 240 Balance 50 240 - Medications Medications: Current Medications Albuterol/Ipratropium (Duoneb 3 Mg/0.5 Mg (3 Ml) Ud) 3 ml IH [id number] REPLACED BY [facility] Last Admin: 05/26/17 13:45 Dose: 3 ml Amlodipine Besylate (Norvasc) 5 mg PO DAILY REPLACED BY [facility] Last Admin: 05/26/17 10:01 Dose: 5 mg Ascorbic Acid (Vitamin C 500 Mg Tab) 500 mg PO DAILY REPLACED BY [facility] Last Admin: 05/26/17 09:51 Dose: 500 mg Aspirin (Aspirin Chewable) 325 mg PO DAILY REPLACED BY [facility] Last Admin: 05/26/17 10:05 Dose: 325 mg Atorvastatin Calcium (Lipitor) 10 mg PO DIN REPLACED BY [facility] Last Admin: 05/25/17 18:10 Dose: 10 mg Clonidine HCl (Catapres) 0.1 mg PO ONCE PRN PRN Reason: Other Furosemide (Lasix) 40 mg PO DAILY REPLACED BY [facility] Last Admin: 05/26/17 09:52 Dose: 40 mg Multivitamins/Minerals (Therapeutic-M Tab) 1 tab PO 0800 REPLACED BY [facility] Last Admin: 05/26/17 08:34 Dose: Not Given Multivitamins/Vitamin C (Multi-Delyn Liquid) 15 ml PO 0800 REPLACED BY [facility] Last Admin: 05/26/17 08:36 Dose: 15 ml Nystatin (Nystop Topical Powder) 1 gm TOP TID REPLACED BY [facility] Last Admin: 05/26/17 13:25 Dose: 2 applic Pantoprazole Sodium (Protonix Ec Tab) 40 mg PO BID REPLACED BY [facility] Last Admin: 05/26/17 09:51 Dose: 40 mg Polyethylene Glycol (Miralax) 17 gm PO DAILY REPLACED BY [facility] Last Admin: 05/26/17 09:52 Dose: 17 gm Potassium Chloride (Klor-Con 10) 10 meq PO DAILY REPLACED BY [facility] Last Admin: 05/26/17 09:51 Dose: 10 meq Zinc Sulfate (Zinc Sulfate 220 Mg Cap) 220 mg PO DAILY REPLACED BY [facility] Last Admin: 05/26/17 09:51 Dose: 220 mg - Labs Labs: 05/26/17 08:10 05/26/17 08:10 PT 25.6 SECONDS (9.4-12.5) H 05/26/17 11:07 INR 2.29 (0.93-1.08) H 05/26/17 11:07 APTT 40.8 Seconds (25.1-36.5) H 05/26/17 11:07 Attending/Attestation - Attestation I have personally seen and examined this patient.: Yes I have fully participated in the care of the patient.: Yes I have reviewed all pertinent clinical information, including history, physical exam and plan: Yes Notes (Text): I have seen and examined the patient at bedside. 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 CT head negative. He passed speech and swallow. Patient is back to baseline as per patients who is at the bedside. Aspirin dose was increased from 81 mg to 325 mg. Continue lipitor . Contnue to hold coumadin as INR is supratherapeutic. PT eval pending. Upon discharge patient will follow up with Dr Urias. Dr Heidi Canales
--- NOTE | 2017-05-25 12:41 | CP.PCM.PN ---
Subjective - Date & Time of Evaluation Date of Evaluation: 05/25/17 Time of Evaluation: 12:37 - Subjective Subjective: Neurology progress note for Dr. Almodovar's service Patient seen and examined at bedside. No acute overnight events or new complaints reported. MRI reviewed. Carotid doppler pending read. Objective - Vital Signs/Intake and Output Vital Signs (last 24 hours): Temp Pulse Resp BP Pulse Ox 97.2 F L 96 H 20 120/84 93 L 05/25/17 06:00 05/25/17 10:54 05/25/17 06:00 05/25/17 11:48 05/25/17 00:01 Intake and Output: 05/25/17 05/25/17 06:59 18:59 Intake Total 0 Output Total 2 Balance -2 - Medications Medications: Current Medications Albuterol/Ipratropium (Duoneb 3 Mg/0.5 Mg (3 Ml) Ud) 3 ml IH [id number] [facility] Last Admin: 05/25/17 07:31 Dose: 3 ml Amlodipine Besylate (Norvasc) 5 mg PO DAILY [facility] Last Admin: 05/25/17 10:54 Dose: 5 mg Ascorbic Acid (Vitamin C 500 Mg Tab) 500 mg PO DAILY [facility] Last Admin: 05/25/17 10:54 Dose: 500 mg Aspirin (Aspirin Chewable) 81 mg PO DAILY [facility] Last Admin: 05/25/17 10:54 Dose: 81 mg Atorvastatin Calcium (Lipitor) 10 mg PO DIN [facility] Last Admin: 05/24/17 17:09 Dose: 10 mg Clonidine HCl (Catapres) 0.1 mg PO ONCE PRN PRN Reason: Other Furosemide (Lasix) 40 mg PO DAILY [facility] Last Admin: 05/25/17 11:48 Dose: 40 mg Multivitamins/Minerals (Therapeutic-M Tab) 1 tab PO 0800 [facility] Last Admin: 05/25/17 10:58 Dose: 1 tab Multivitamins/Vitamin C (Multi-Delyn Liquid) 15 ml PO 0800 [facility] Nystatin (Nystop Topical Powder) 1 gm TOP TID [facility] Last Admin: 05/25/17 10:55 Dose: 2 applic Pantoprazole Sodium (Protonix Ec Tab) 40 mg PO BID [facility] Last Admin: 05/25/17 10:54 Dose: 40 mg Polyethylene Glycol (Miralax) 17 gm PO DAILY [facility] Last Admin: 05/25/17 10:55 Dose: 17 gm Potassium Chloride (Klor-Con 10) 10 meq PO DAILY [facility] Last Admin: 05/25/17 10:55 Dose: 10 meq Zinc Sulfate (Zinc Sulfate 220 Mg Cap) 220 mg PO DAILY [facility] Last Admin: 05/25/17 10:54 Dose: 220 mg - Labs Labs: 05/25/17 06:30 05/25/17 06:30 PT 35.0 SECONDS (9.4-12.5) H 05/25/17 06:30 INR 3.11 (0.93-1.08) H 05/25/17 06:30 APTT 44.6 Seconds (25.1-36.5) H 05/24/17 10:50 - Constitutional Appears: No Acute Distress - Head Exam Head Exam: ATRAUMATIC, NORMOCEPHALIC - Eye Exam Eye Exam: EOMI Pupil Exam: PERRL - ENT Exam ENT Exam: Mucous Membranes Moist - Respiratory Exam Respiratory Exam: Decreased Breath Sounds. absent: Rales, Rhonchi, Wheezes - Cardiovascular Exam Cardiovascular Exam: +S1, +S2. absent: Gallop, Rubs - GI/Abdominal Exam GI & Abdominal Exam: Soft. absent: Distended, Guarding, Rigid, Tenderness, Rebound - Neurological Exam Neurological Exam: Alert, Awake - Psychiatric Exam Psychiatric exam: Normal Affect, Normal Mood - Skin Skin Exam: Dry, Intact, Normal Color, Warm Assessment and Plan - Assessment and Plan (Free Text) Plan: 86yo male with history of dementia, atrial fibrillation on coumadin, HTN, HLD, DVT, COPD, CVA and constipation presents for altered mental status. Code stroke called in the ER. Neurology consulted. 1. Altered mental status r/o CVA 2. Atrial fibrillation 3. Hypertension 4. Hyperlipidemia 5. COPD 6. Hx of CVA -MRI reviewed; small focus of restricted diffusion within the left frontal white matter consistent with acute or subacute infarct; please see full report -Carotid doppler pending read -EEG pending -CT Head reviewed; revealed no acute intracranial abnormalities -Recommend increasing ASA 81mg PO daily to full dose aspirin 325mg PO daily -Continue lipitor for stroke prevention -Neurochecks -Monitor and correct electrolyte abnormalities as indicated -Further recommendations as per attending, Dr. Almodovar Patient seen and case discussed/reviewed with attending, Dr. Almodovar
--- NOTE | 2017-05-25 18:44 | US ---
PROCEDURE: Bilateral carotid artery duplex ultrasound HISTORY: Carotid stenosis CVA PHYSICIAN(S): Jorge Fabian MD. TECHNIQUE: Duplex sonography and color-flow Doppler were used to evaluate the carotid bifurcations and limited segments of the vertebral arteries bilaterally. FINDINGS: There is moderate heterogeneous plaque noted at the carotid bifurcations bilaterally. The peak systolic velocity in the proximal right internal carotid artery is 79 cm/sec. This corresponds to a 20 to 39% proximal right ICA stenosis. Normal systolic velocities are noted in the proximal right external carotid artery. There is antegrade flow in the right vertebral artery. The peak systolic velocity in the proximal left internal carotid artery is 65 cm/sec. This corresponds to a 20 to 39% proximal left ICA stenosis. Normal systolic velocities are noted in the proximal left external carotid artery. There is antegrade flow in the left vertebral artery. IMPRESSION: 1. Bilateral 20-39% proximal ICA stenoses. 2. Antegrade flow in both vertebral arteries. 3. Limited study.
[2017-05-26 00:24] VITALS: O2SAT 98
[2017-05-26] MEDS: Albuterol-Ipratrop 3 mg / 0.5 (3 ml) UD IH SCH ×3 (01:30→13:45)
--- NOTE | 2017-05-26 07:47 | CP.PCM.PN ---
Subjective - Date & Time of Evaluation Date of Evaluation: 05/26/17 Time of Evaluation: 07:46 - Subjective Subjective: Neurology consult note for Dr. Almodovar's service Patient seen and examined at bedside this morning. No acute overnight events or new complaints reported. Denied chest pain, palpitations, SOB. Had breakfast this morning and was resting comfortably in bed. Objective - Vital Signs/Intake and Output Vital Signs (last 24 hours): Temp Pulse Resp BP Pulse Ox 97.7 F 83 18 122/70 98 05/26/17 05:58 05/26/17 05:58 05/26/17 05:58 05/26/17 05:58 05/26/17 05:58 Intake and Output: 05/26/17 05/26/17 06:59 18:59 Intake Total 50 Balance 50 - Medications Medications: Current Medications Albuterol/Ipratropium (Duoneb 3 Mg/0.5 Mg (3 Ml) Ud) 3 ml IH [id number] [facility] Last Admin: 05/26/17 07:14 Dose: 3 ml Amlodipine Besylate (Norvasc) 5 mg PO DAILY [facility] Last Admin: 05/25/17 10:54 Dose: 5 mg Ascorbic Acid (Vitamin C 500 Mg Tab) 500 mg PO DAILY [facility] Last Admin: 05/25/17 10:54 Dose: 500 mg Aspirin (Aspirin Chewable) 325 mg PO DAILY [facility] Atorvastatin Calcium (Lipitor) 10 mg PO DIN [facility] Last Admin: 05/25/17 18:10 Dose: 10 mg Clonidine HCl (Catapres) 0.1 mg PO ONCE PRN PRN Reason: Other Furosemide (Lasix) 40 mg PO DAILY [facility] Last Admin: 05/25/17 11:48 Dose: 40 mg Multivitamins/Minerals (Therapeutic-M Tab) 1 tab PO 0800 [facility] Last Admin: 05/25/17 10:58 Dose: 1 tab Multivitamins/Vitamin C (Multi-Delyn Liquid) 15 ml PO 0800 [facility] Nystatin (Nystop Topical Powder) 1 gm TOP TID [facility] Last Admin: 05/25/17 18:07 Dose: 2 applic Pantoprazole Sodium (Protonix Ec Tab) 40 mg PO BID [facility] Last Admin: 05/25/17 18:07 Dose: 40 mg Polyethylene Glycol (Miralax) 17 gm PO DAILY [facility] Last Admin: 05/25/17 10:55 Dose: 17 gm Potassium Chloride (Klor-Con 10) 10 meq PO DAILY [facility] Last Admin: 05/25/17 10:55 Dose: 10 meq Zinc Sulfate (Zinc Sulfate 220 Mg Cap) 220 mg PO DAILY [facility] Last Admin: 05/25/17 10:54 Dose: 220 mg - Labs Labs: 05/25/17 06:30 05/25/17 06:30 PT 35.0 SECONDS (9.4-12.5) H 05/25/17 06:30 INR 3.11 (0.93-1.08) H 05/25/17 06:30 APTT 44.6 Seconds (25.1-36.5) H 05/24/17 10:50 - Constitutional Appears: No Acute Distress - Head Exam Head Exam: ATRAUMATIC, NORMAL INSPECTION, NORMOCEPHALIC - Eye Exam Eye Exam: EOMI Pupil Exam: PERRL - ENT Exam ENT Exam: Mucous Membranes Moist - Neck Exam Neck Exam: Normal Inspection - Respiratory Exam Respiratory Exam: Decreased Breath Sounds. absent: Rales, Rhonchi, Wheezes - Cardiovascular Exam Cardiovascular Exam: +S1, +S2. absent: Gallop, Rubs - GI/Abdominal Exam GI & Abdominal Exam: Soft. absent: Distended, Firm, Guarding, Rigid, Tenderness , Rebound - Neurological Exam Neurological Exam: Alert, Awake, CN II-XII Intact (grossly intact) - Psychiatric Exam Psychiatric exam: Normal Affect, Normal Mood - Skin Skin Exam: Dry, Intact, Normal Color, Warm Assessment and Plan - Assessment and Plan (Free Text) Plan: 86yo male with history of dementia, atrial fibrillation on coumadin, HTN, HLD, DVT, COPD, CVA and constipation presents for altered mental status. Code stroke called in the ER. Neurology consulted. 1. Acute Cerebrovascular accident 2. Atrial fibrillation 3. Hypertension 4. Hyperlipidemia 5. COPD 6. Hx of CVA -MRI reviewed; small focus of restricted diffusion within the left frontal white matter consistent with acute or subacute infarct; please see full report -Carotid doppler reviewed -EEG reviewed; revealed no abnormalities -CT Head reviewed; revealed no acute intracranial abnormalities -Recommend increasing ASA 81mg PO daily to full dose aspirin 325mg PO daily -Continue lipitor for stroke prevention -Physical therapy evaluation/treatment -Neurochecks -Monitor and correct electrolyte abnormalities as indicated -Further recommendations as per attending, Dr. Scooby Patient seen and case discussed/reviewed with attending, Dr. Almodovar
[2017-05-26] MEDS ORDERED: Multi Vitamins 15 mL UD Oral Solution PO SCH (08:00)
[2017-05-26 08:20] LABS: BASO # 0.01 K/mm3 (0.0-2.0); BASO % 0.1 % (0.0-3.0); EOS # 0.1 (0.0-0.7); EOS % 1.5 % (1.5-5.0); GRAN # 5.84 (1.4-6.5); HEMATOCRIT 39.8 % (42.0-52.0); LYMPH # 2.9 (1.2-3.4); LYMPH % 30.2 % (22.0-35.0); MEAN CELL VOLUME 95.4 fl (80.0-105.0); MEAN CORPUSCULAR HEMOGLOBIN 30.7 pg (25.0-35.0); MEAN CORPUSCULAR HGB CONC 32.2 g/dl (31.0-37.0); MEAN PLATELET VOLUME 8.6 fl (7.0-11.0); MONO # 0.7 (0.1-0.6); MONO % 7.2 % (1.0-6.0); RED CELL DISTRIBUTION WIDTH 14.7 % (11.5-14.5); WHITE BLOOD COUNT 9.6 10^3/ul (4.5-11.0)
[2017-05-26 08:24] LABS: ALB/GLOB RATIO 1.2 (1.1-1.8); BILIRUBIN,TOTAL 0.7 mg/dL (0.2-1.3); CALCIUM 8.6 mg/dL (8.4-10.5); POTASSIUM 4.3 mmol/L (3.6-5.0); TOTAL PROTEIN 5.7 g/dL (5.8-8.3)
[2017-05-26] MEDS: Multivitamin With Minerals Tab PO SCH (08:34)
--- NOTE | 2017-05-26 08:40 | EEG ---
ELECTROENCEPHALOGRAM DATE: 05/25/2017 CONDITION OF THE RECORDING: Awake and past medical history of dementia, atrial fibrillation, hypertension, deep venous thrombosis, syncope. DESCRIPTION: Background activity of this tracing was composed of 8 to 9 cycles per second. Alpha rhythm small. Amount of beta activity 16 to 20 cycles per second was noted in the tracing and theta activity 5 to 7 cycles per second was noted in the tracing. Drowsiness composed of mixed beta and theta activity. Photic stimulation does not change the record. No activity was seen on the record. IMPRESSION: Normal awake and drowsy electroencephalogram. Darrian Almodovar MD
[2017-05-26] MEDS: Potassium Chloride 10 mEq ER Tab PO SCH (09:51)
[2017-05-26] MEDS: Pantoprazole 40 mg EC Tab PO SCH (09:51)
[2017-05-26] MEDS: POLYETHYLENE GLYCOL 3350 17 GM/Dose PACKET PO SCH (09:52)
[2017-05-26] MEDS: Nystatin 100,000 Units/gm Topical Pow(15 gm) TOP SCH ×2 (10:06→13:25)
--- NOTE | 2017-05-26 10:48 | PQF CVATIA ---
This form is a permanent part of the medical record Clarification of your documentation is requested to better reflect the severity of illness and intensity of treatment of your patient. Indicators present: DR Adams PN states, AMS, r/o CVA, CODE stroke activated , MRI- There is a small focus of restricted diffusion within the left frontal white matter, consistent with acute or subacute infarct. For specificity in Coding, Please document if principle DX POA is due to acute infarct [x] Altered mental status [] Aphasia [] Dysphagia [] Dysphasia [] Facial droop/numbness [] Gait disturbance [] Hemiparesis/plegia [] Speech impairment [] Weakness [x] Neuro Consult []x CT/MRI Findings [] Other: [] Location in the medical record that reflects the above clinical findings: [x] MRI results, Neuro progress notes Treatment Provided: []PT PHYSICIAN'S RESPONSE Based on your medical judgment of the clinical indicators outlined above, are you treating this patient for a known or suspected: [] Acute Cerebrovascular Accident (CVA) Please specify type i.e.; embolic, hemorrhagic, ischemic. Please specify the artery involved if known. [] Transient Ischemic Accident (TIA) [] Prolonged reversible ischemic neurological disorder [] Other, please indicate: [] [] If unable to determine, please check the box, sign and date. Present On Admission (POA) Indicator: [] Present at the time of admission [] Not present at the time of admission [] Clinically Undetermined In responding to this query, please exercise your independent professional judgment. The fact that a question is asked does not imply that any particular answer is desired or expected. Thank you for your clarification on this documentation. If you have any questions please call:[ ][phone] * Thank you, [ ]Marietta Almodovar RN CD[employer] criminal lawyer [employer]
[2017-05-26 11:33] LABS: INR 2.29 (0.93-1.08); PARTIAL THROMBOPLASTIN TIME 40.8 Seconds (25.1-36.5)
--- NOTE | 2017-05-26 12:05 | CP.PCM.DIS ---
<Chino Smith - Last Filed: 05/26/17 13:50> Provider - Provider Date of Admission: 05/24/17 11:47 Attending physician: Heidi Canales MD Primary care physician: Adams Barnhart MD Consults: Neuro: Scooby Time Spent in preparation of Discharge (in minutes): 70 Hospital Course - Lab Results Lab Results: Most Recent Lab Values WBC 9.6 10^3/ul (4.5-11.0) 05/26/17 08:10 RBC 4.17 10^6/uL (3.5-6.1) 05/26/17 08:10 Hgb 12.8 g/dL (14.0-18.0) L 05/26/17 08:10 Hct 39.8 % (42.0-52.0) L 05/26/17 08:10 MCV 95.4 fl (80.0-105.0) 05/26/17 08:10 MCH 30.7 pg (25.0-35.0) 05/26/17 08:10 MCHC 32.2 g/dl (31.0-37.0) 05/26/17 08:10 RDW 14.7 % (11.5-14.5) H 05/26/17 08:10 Plt Count 152 10^3/uL (120.0-450.0) 05/26/17 08:10 MPV 8.6 fl (7.0-11.0) 05/26/17 08:10 Gran % 61.0 % (50.0-68.0) 05/26/17 08:10 Lymph % (Auto) 30.2 % (22.0-35.0) 05/26/17 08:10 [place] % (Auto) 7.2 % (1.0-6.0) H 05/26/17 08:10 Eos % (Auto) 1.5 % (1.5-5.0) 05/26/17 08:10 Baso % (Auto) 0.1 % (0.0-3.0) 05/26/17 08:10 Gran # 5.84 (1.4-6.5) 05/26/17 08:10 Lymph # 2.9 (1.2-3.4) 05/26/17 08:10 [place] # 0.7 (0.1-0.6) H 05/26/17 08:10 Eos # 0.1 (0.0-0.7) 05/26/17 08:10 Baso # 0.01 K/mm3 (0.0-2.0) 05/26/17 08:10 PT 25.6 SECONDS (9.4-12.5) H 05/26/17 11:07 INR 2.29 (0.93-1.08) H 05/26/17 11:07 APTT 40.8 Seconds (25.1-36.5) H 05/26/17 11:07 D-Dimer, Quantitative 604 ng/mL (0-243) H 05/25/17 06:00 pO2 29 mm/Hg (30-55) L 05/24/17 10:50 VBG pH 7.34 (7.32-7.43) 05/24/17 10:50 VBG pCO2 63.0 (40-60) H 05/24/17 10:50 VBG HCO3 34.0 mmol/l (21-28) H 05/24/17 10:50 VBG Total CO2 35.9 mmol.L (22-28) H 05/24/17 10:50 VBG O2 Sat (Calc) 64.1 % (40-65) 05/24/17 10:50 VBG Base Excess 6.1 mmol/L (0.0-2.0) H 05/24/17 10:50 VBG Potassium 4.6 mmol/L (3.6-5.2) 05/24/17 10:50 Sodium 139.0 mmol/L (132-148) 05/24/17 10:50 Chloride 103.0 mmol/L (98-107) 05/24/17 10:50 Glucose 90 mg/dl (75-110) 05/24/17 10:50 Lactate 1.0 mmol/L (0.7-2.1) 05/24/17 10:50 FiO2 21.0 % 05/24/17 10:50 Sodium 140 mmol/L (132-148) 05/26/17 08:10 Potassium 4.3 mmol/L (3.6-5.0) 05/26/17 08:10 Chloride 103 mmol/L (98-107) 05/26/17 08:10 Carbon Dioxide 31 mmol/L (21-33) 05/26/17 08:10 Anion Gap 10 (10-20) 05/26/17 08:10 BUN 32 mg/dL (7-21) H 05/26/17 08:10 Creatinine 1.4 mg/dL (0.8-1.5) 05/26/17 08:10 Est GFR ( Amer) 58 05/26/17 08:10 Est GFR (Non-Af Amer) 48 05/26/17 08:10 Random Glucose 103 mg/dL (70-110) 05/26/17 08:10 Hemoglobin A1c 5.9 % (4.2-6.5) 05/24/17 10:50 Calcium 8.6 mg/dL (8.4-10.5) 05/26/17 08:10 Total Bilirubin 0.7 mg/dL (0.2-1.3) 05/26/17 08:10 AST 18 U/L (17-59) 05/26/17 08:10 ALT 32 U/L (7-56) 05/26/17 08:10 Alkaline Phosphatase 110 U/L (38-126) 05/26/17 08:10 Lactate Dehydrogenase 352 U/L (333-699) 05/24/17 10:50 Total Creatine Kinase < 20 U/L (35-230) L 05/24/17 10:50 Troponin I 0.01 ng/mL 05/24/17 10:50 Total Protein 5.7 g/dL (5.8-8.3) L 05/26/17 08:10 Albumin 3.1 g/dL (3.0-4.8) 05/26/17 08:10 Globulin 2.6 gm/dL 05/26/17 08:10 Albumin/Globulin Ratio 1.2 (1.1-1.8) 05/26/17 08:10 Triglycerides 78 mg/dL (35-160) 05/25/17 06:00 Cholesterol 132 mg/dL (130-200) 05/25/17 06:00 LDL Cholesterol Direct 71 mg/dL (0-129) 05/25/17 06:00 HDL Cholesterol 32 mg/dL (29-60) 05/25/17 06:00 TSH 3rd Generation 3.39 mIU/mL (0.46-4.68) 05/24/17 10:50 Venous Blood Potassium 4.6 mmol/L (3.6-5.2) 05/24/17 10:50 Blood Type B POSITIVE 05/24/17 10:50 Antibody Screen Negative 05/24/17 10:50 BBK History Checked Patient has bt 05/24/17 10:50 - Hospital Course Hospital Course: 86 year 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 He was being worked up for possible stroke and being monitored in telemetry. EKG was done, patient was given aspirin and liptor in the ED. The EKG showed normal sinus rhythm 63bpm, left axis deviation, LAHB, possible anterior infarct, age undetermined. CT head was done no acute process and MRI showed showing small focus of restricted diffusion within the left frontal white matter consistent with acute or subacute infarct. No focal neurological deficits were present. Neurology was consulted, Aspirin increased to 325 mg and liptor continued. EEG was ordered along with carotid dopplers. Hemoglobin A1C and TSH level were obtained and bedside speech and swallow evaluation was done. Other home meds were continued, Coumadin was held due to high INR. Duonebs was given for COPD. Patient was placed on an air mattress with rotation for a stage 1 ulcer on the back. Patient was followed and was stable and got neurology clearance to be discharged home. was present in the room and she agreed with the discharge plan. Patient was told to continue 325 aspirin at home plus new medications given for the ulcer. Patient was to also start warfarin at home tomorrow and follow up with the Primary medical doctor. Discharge Exam - Head Exam Head Exam: ATRAUMATIC, NORMAL INSPECTION, NORMOCEPHALIC - Eye Exam Eye Exam: EOMI, Normal appearance, PERRL Pupil Exam: NORMAL ACCOMODATION, PERRL - Respiratory Exam Respiratory Exam: Clear to PA & Lateral, UNREMARKABLE - Cardiovascular Exam Cardiovascular Exam: REGULAR RHYTHM, +S1, +S2 - GI/Abdominal Exam GI & Abdominal Exam: Normal Bowel Sounds. absent: Unremarkable - Neurological Exam Neurological exam: Alert Additional comments: Oriented to self and place not time - Psychiatric Exam Psychiatric exam: Normal Affect - Skin Skin Exam: Normal Color Discharge Plan - Discharge Medications Prescriptions: Ascorbic Acid [Vitamin C 500 mg Tab] 500 mg PO DAILY #30 tab Aspirin [Aspirin Chewable] 325 mg PO DAILY #30 chew Multimineral/Multivitamin [Therapeutic-M Tab] 1 tab PO 0800 #30 tab Nystatin [Nystop Topical Powder] 1 gm TOP TID #1 bottle Zinc [Zinc Sulfate 220 mg Cap] 220 mg PO DAILY #30 cap - Follow Up Plan Condition: STABLE Disposition: HOME/ ROUTINE Instructions: Altered Mental Status (GEN) Additional Instructions: Please resume previous home medications. Start the coumadin 5mg tomorrow at home. Continue the new MVI, Vitamin C and Zinc for the wound. Follow up the INR with PMD and further management. Continue PT/OT at home with home health care. If patient symptoms worsen or patient has similar symptoms on admission please come back to the Emergency room. Referrals: Adams Barnhart MD [Primary Care Provider] - <Heidi Canales - Last Filed: 05/26/17 16:24> Provider - Provider Date of Admission: 05/24/17 11:47 Attending physician: Heidi Canales MD Primary care physician: Adams Barnhart MD Hospital Course - Lab Results Lab Results: Most Recent Lab Values WBC 9.6 10^3/ul (4.5-11.0) 05/26/17 08:10 RBC 4.17 10^6/uL (3.5-6.1) 05/26/17 08:10 Hgb 12.8 g/dL (14.0-18.0) L 05/26/17 08:10 Hct 39.8 % (42.0-52.0) L 05/26/17 08:10 MCV 95.4 fl (80.0-105.0) 05/26/17 08:10 MCH 30.7 pg (25.0-35.0) 05/26/17 08:10 MCHC 32.2 g/dl (31.0-37.0) 05/26/17 08:10 RDW 14.7 % (11.5-14.5) H 05/26/17 08:10 Plt Count 152 10^3/uL (120.0-450.0) 05/26/17 08:10 MPV 8.6 fl (7.0-11.0) 05/26/17 08:10 Gran % 61.0 % (50.0-68.0) 05/26/17 08:10 Lymph % (Auto) 30.2 % (22.0-35.0) 05/26/17 08:10 [place] % (Auto) 7.2 % (1.0-6.0) H 05/26/17 08:10 Eos % (Auto) 1.5 % (1.5-5.0) 05/26/17 08:10 Baso % (Auto) 0.1 % (0.0-3.0) 05/26/17 08:10 Gran # 5.84 (1.4-6.5) 05/26/17 08:10 Lymph # 2.9 (1.2-3.4) 05/26/17 08:10 [place] # 0.7 (0.1-0.6) H 05/26/17 08:10 Eos # 0.1 (0.0-0.7) 05/26/17 08:10 Baso # 0.01 K/mm3 (0.0-2.0) 05/26/17 08:10 PT 25.6 SECONDS (9.4-12.5) H 05/26/17 11:07 INR 2.29 (0.93-1.08) H 05/26/17 11:07 APTT 40.8 Seconds (25.1-36.5) H 05/26/17 11:07 D-Dimer, Quantitative 604 ng/mL (0-243) H 05/25/17 06:00 pO2 29 mm/Hg (30-55) L 05/24/17 10:50 VBG pH 7.34 (7.32-7.43) 05/24/17 10:50 VBG pCO2 63.0 (40-60) H 05/24/17 10:50 VBG HCO3 34.0 mmol/l (21-28) H 05/24/17 10:50 VBG Total CO2 35.9 mmol.L (22-28) H 05/24/17 10:50 VBG O2 Sat (Calc) 64.1 % (40-65) 05/24/17 10:50 VBG Base Excess 6.1 mmol/L (0.0-2.0) H 05/24/17 10:50 VBG Potassium 4.6 mmol/L (3.6-5.2) 05/24/17 10:50 Sodium 139.0 mmol/L (132-148) 05/24/17 10:50 Chloride 103.0 mmol/L (98-107) 05/24/17 10:50 Glucose 90 mg/dl (75-110) 05/24/17 10:50 Lactate 1.0 mmol/L (0.7-2.1) 05/24/17 10:50 FiO2 21.0 % 05/24/17 10:50 Sodium 140 mmol/L (132-148) 05/26/17 08:10 Potassium 4.3 mmol/L (3.6-5.0) 05/26/17 08:10 Chloride 103 mmol/L (98-107) 05/26/17 08:10 Carbon Dioxide 31 mmol/L (21-33) 05/26/17 08:10 Anion Gap 10 (10-20) 05/26/17 08:10 BUN 32 mg/dL (7-21) H 05/26/17 08:10 Creatinine 1.4 mg/dL (0.8-1.5) 05/26/17 08:10 Est GFR ( Amer) 58 05/26/17 08:10 Est GFR (Non-Af Amer) 48 05/26/17 08:10 Random Glucose 103 mg/dL (70-110) 05/26/17 08:10 Hemoglobin A1c 5.9 % (4.2-6.5) 05/24/17 10:50 Calcium 8.6 mg/dL (8.4-10.5) 05/26/17 08:10 Total Bilirubin 0.7 mg/dL (0.2-1.3) 05/26/17 08:10 AST 18 U/L (17-59) 05/26/17 08:10 ALT 32 U/L (7-56) 05/26/17 08:10 Alkaline Phosphatase 110 U/L (38-126) 05/26/17 08:10 Lactate Dehydrogenase 352 U/L (333-699) 05/24/17 10:50 Total Creatine Kinase < 20 U/L (35-230) L 05/24/17 10:50 Troponin I 0.01 ng/mL 05/24/17 10:50 Total Protein 5.7 g/dL (5.8-8.3) L 05/26/17 08:10 Albumin 3.1 g/dL (3.0-4.8) 05/26/17 08:10 Globulin 2.6 gm/dL 05/26/17 08:10 Albumin/Globulin Ratio 1.2 (1.1-1.8) 05/26/17 08:10 Triglycerides 78 mg/dL (35-160) 05/25/17 06:00 Cholesterol 132 mg/dL (130-200) 05/25/17 06:00 LDL Cholesterol Direct 71 mg/dL (0-129) 05/25/17 06:00 HDL Cholesterol 32 mg/dL (29-60) 05/25/17 06:00 TSH 3rd Generation 3.39 mIU/mL (0.46-4.68) 05/24/17 10:50 Venous Blood Potassium 4.6 mmol/L (3.6-5.2) 05/24/17 10:50 Blood Type B POSITIVE 05/24/17 10:50 Antibody Screen Negative 05/24/17 10:50 BBK History Checked Patient has bt 05/24/17 10:50 Attending/Attestation - Attestation I have personally seen and examined this patient.: Yes I have fully participated in the care of the patient.: Yes I have reviewed all pertinent clinical information, including history, physical exam and plan: Yes Notes (Text): I have seen and examined the patient at bedside. 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 CT head negative. He passed speech and swallow. Patient is back to baseline as per patients who is at the bedside. Aspirin dose was increased from 81 mg to 325 mg. Continue lipitor. INR is 2.25. Advised patient to start coumadin tomorrow. Patient's wants to take patient home and states that there is no need for PT eval. Patient gets PT at home and she is not interested in sending him to rehab. Discussed in detail with patients PMD Dr Urias as well. Upon discharge patient will follow up with Dr Urias. Dr Heidi Canales
[2017-05-26 12:34] VITALS: BP 138/84; RESP 20; TEMP 97.4
[2017-05-26 15:52] VITALS: PULSE 76
== END 2017-05-26 15:35 | disposition home health service (06) | DRG 64 ==
LOC: ED 10:27 → ERH 11:47 → 2RNO 12:55
PROVIDERS: ADMIT Hospitalist; ATTEND Hospitalist
PROC: 3E0F7GC Introduction of Other Therapeutic Substance into Respiratory Tract, Via Natural or Artificial Opening (ICD-10-PCS; principal; 2017-05-24)
DX: I63.9 Cerebral infarction, unspecified (principal); R53.2 Functional quadriplegia; I48.2 Chronic atrial fibrillation; I13.0 Hypertensive heart and chronic kidney disease with heart failure and stage 1 through stage 4 chronic kidney disease, or unspecified chronic kidney disease; I50.22 Chronic systolic (congestive) heart failure; J44.9 Chronic obstructive pulmonary disease, unspecified; F03.90 Unspecified dementia, unspecified severity, without behavioral disturbance, psychotic disturbance, mood disturbance, and anxiety; I71.4 Abdominal aortic aneurysm, without rupture; L98.429 Non-pressure chronic ulcer of back with unspecified severity; N18.9 Chronic kidney disease, unspecified; K59.09 Other constipation; R29.701 NIHSS score 1; E78.00 Pure hypercholesterolemia, unspecified; K44.9 Diaphragmatic hernia without obstruction or gangrene; Z86.718 Personal history of other venous thrombosis and embolism; Z86.711 Personal history of pulmonary embolism; Z79.01 Long term (current) use of anticoagulants; Z86.73 Personal history of transient ischemic attack (TIA), and cerebral infarction without residual deficits; Z85.528 Personal history of other malignant neoplasm of kidney; Z87.11 Personal history of peptic ulcer disease; Z95.5 Presence of coronary angioplasty implant and graft

== ENCOUNTER 2018-05-01 20:43 | Inpatient (IN) | payer MEDICARE ==
[2018-05-01 20:58] VITALS: BMI 29.7
--- NOTE | 2018-05-01 21:10 | ED PDOC ---
Arrival/HPI - General Chief Complaint: Abdominal Pain Time Seen by Provider: 05/01/18 20:48 Historian: Patient, Spouse - History of Present Illness Narrative History of Present Illness (Text): 05/01/18 21:09 Amber Flores is an 87 year old male, whose past medical history includes CAD, TIA, hypertension, COPD, renal cell carcinoma, atrial fibrillation, gallstones, and dementia, who presents to the Emergency department complaining of abdominal pain. reports patient has been complaining of intermittent right-sided abdominal pain since yesterday evening. states patient has a history of constipation, but notes he had 3 bowel movements today. states patient is currently bed-ridden. Patient denies any fever, chills, chest pain, shortness of breath, back pain, neck pain, headache, dizziness, or any other complaints. Symptom Onset: Gradual Symptom Course: Unchanged Activities at Onset: Light Context: Home Past Medical History - Provider Review Nursing Documentation Reviewed: Yes - Past History Past History: Non-Contributing - Infectious Disease Hx of Infectious Diseases: None - Tetanus Immunization Tetanus Immunization: Unknown - Cardiac Hx Cardiac Disorders: Yes ( denies mi) Hx Angina: No Hx Cardiac Arrhythmia: Yes Hx Circulatory Problems: Yes Hx Congestive Heart Failure: No Hx Heart Murmur: No Hx Heart Transplant: No Hx Internal Defibrillator: No Hx Mitral Valve Prolapse: No Hx Pacemaker: No Hx Peripheral Edema: Yes (ble +1) Hx Peripheral Vascular Disease: Yes Other/Comment: hx pe/dvt, on 03/10/17 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, ivc filter placement 07/28/12, - Pulmonary Hx Respiratory Disorders: Yes (pe) Hx Asthma: No Hx Bronchitis: No Hx Emphysema: No Hx Pneumonia: No Hx Respiratory Aspiration: No Hx Respiratory Tract Infection: Yes Hx Sleep Apnea: No Hx Tuberculosis: No - Neurological Hx Alzheimer's Disease: No Hx Dementia: No Hx Dizziness: No Hx Meningitis: No Hx Migraine: No Hx Paralysis: Yes Hx Parkinson's Disease: ( denies parkinsons) Hx Seizures: No Other/Comment: tia over 15 yrs ago and was found to have had multiple mini strokes prior to tia as per , denies hydrocephalis, spinal tap 2011 - ENT Hx HEENT Disorder: Yes Hx Blind: No Hx Cataracts: Yes (b/l not a candidate for sx) Hx Deafness: No Hx Difficulty Chewing: No Hx Epistaxis: No Hx Glaucoma: No Hx Macular Degeneration: No - Renal Hx Renal Disorder: Yes Hx Dialysis: No Hx Kidney Stones: No Hx Neurogenic Bladder: No Hx Pyelonephritis: No Hx Renal Cancer: No Hx Renal Failure: No Other/Comment: kidney tumor right removed 2007, 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 tumor was benign as per - Endocrine/Metabolic Hx Adrenal Cancer: No Hx Diabetes Insipidus: No Hx Diabetes Mellitus Type 1: No Hx Diabetes Mellitus Type 2: No Hx Hyperthyroidism: No Hx Hypothyroidism: No Hx Systemic Lupus Erythematosus: No - Hematological/Oncological Hx Blood Disorders: Yes (blood transfusion) Hx AIDS: No Hx Anemia: No Hx Blood Transfusions: Yes Hx Blood Transfusion Reaction: No Hx Cancer: No Hx Chemotherapy: No Hx Cirrhosis: No Hx Hemophilia: No Hx Hepatitis A: No Hx Hepatitis C: No Hx Metastasis: No Hx Shingles: Yes Hx Sickle Cell Disease: No Hx Unexplained Bleeding: No - Integumentary Hx Basal Cell Carcinoma: No Hx Eczema: No Hx Melanoma: No Hx Psoriasis: No Hx Squamous Cell Carcinoma: No Other/Comment: ble +1 edema with brown discolored skin and multiple raised nodules, 4cm x 5cm dark brown oval shaped dark lumpy area lle doctors are awarre, has had for years no treatment as per - Musculoskeletal/Rheumatological Hx Musculoskeletal Disorders: Yes (LOWER EXTREMETY WEAKNESS R/T NEUROPATHY ) Hx Arthritis: Yes Hx Back Pain: Yes Hx Falls: Yes Hx Osteoarthritis: Yes Hx Unsteady Gait: Yes (hoya lift/recliner/bed/w/ch) Other/Comment: b/l hip replacement, 2 revisions of the right, and 1 revision on the left, was using a walker for a time but then couldn't walk at all as per due to arthritis. Pt can only tolerate w/ch for 2 hours due to b/l hip pain, c/o chronic b/l calf pain - Gastrointestinal Hx Gastrointestinal Disorders: (constipation, poor appetite) Hx Colostomy: No Hx Crohn's Disease: No Hx Diverticulitis: No Hx Gall Bladder Disease: Yes (gallstones) Hx Gastroesophageal Reflux: No Hx Gastrointestinal Ulcer: No Hx Ileostomy: No Hx Liver Failure: No Hx Pancreatitis: No HX Swallowing Problems: No - Genitourinary/Gynecological Hx Genitourinary Disorders: (scrotal edema) Hx Hematuria: Yes Hx Prostate Problems: ( uncertain) Hx Sexually Transmitted Diseases: No Other/Comment: had cysto with dr casey over 10 yrs ago as per - Psychiatric Hx Emotional Abuse: No Hx Physical Abuse: No Hx Substance Use: No - Past Surgical History Past Surgical History: Non-Contributing - Surgical History Hx Cardiac Catheterization: Yes (x1 stent 2000) Hx Musculoskeletal Surgery: Yes Other/Comment: tumor removed from the kidney 2007 benign - Anesthesia Hx Anesthesia Reactions: No Hx Malignant Hyperthermia: No - Suicidal Assessment Feels Threatened In Home Enviroment: No Family/Social History - Physician Review Nursing Documentation Reviewed: Yes Family/Social History: Unknown Family HX Smoking Status: Never Smoked Hx Alcohol Use: No Hx Substance Use: No Hx Substance Use Treatment: No Allergies/Home Meds Allergies/Adverse Reactions: Allergies No Known Allergies Allergy (Verified 05/01/18 20:58) Home Medications: Home Meds Medication Instructions Recorded Confirmed Albuterol Sulfate 1 puff PRN PRN 03/11/17 05/24/17 Amlodipine Besylate/Benazepril 5 mg PO DAILY 03/11/17 05/24/17 [Amlodipine-Benazepril 5-10 mg] Docusate [Colace] 70 mg PRN PRN 03/11/17 05/24/17 Ipratropium Burkett 0.5 mg PRN PRN 03/11/17 05/24/17 Warfarin [Coumadin] 5 mg PO DAILY 03/11/17 05/24/17 Ipratropium 0.02% [Atrovent] 0.02 % PRN PRN 03/21/17 05/24/17 Linaclotide [Linzess] 145 mcg PO DAILY 03/21/17 05/24/17 Potassium Chloride [Klor-Con 10] 10 meq PO DAILY 03/21/17 05/24/17 Review of Systems - Physician Review All systems were reviewed & negative as marked: Yes - Review of Systems Constitutional: Normal. absent: Fevers Eyes: Normal ENT: Normal Respiratory: Normal. absent: SOB, Cough Cardiovascular: Normal. absent: Chest Pain Gastrointestinal: Abdominal Pain. absent: Constipation, Diarrhea Genitourinary Male: Normal. absent: Dysuria, Frequency, Hematuria, Urinary Output Changes Musculoskeletal: Normal. absent: Back Pain, Neck Pain Skin: Normal. absent: Rash Neurological: Normal. absent: Headache, Dizziness Endocrine: Normal Hemo/Lymphatic: Normal Psychiatric: Normal Physical Exam Vital Signs Reviewed: Yes Temperature: Afebrile Blood Pressure: Normal Pulse: Regular Respiratory Rate: Normal Appearance: Positive for: Well-Appearing, Non-Toxic, Comfortable Pain Distress: None Mental Status: Positive for: Alert and Oriented X 3 - Systems Exam Head: Present: Atraumatic, Normocephalic Pupils: Present: PERRL Extroacular Muscles: Present: EOMI Conjunctiva: Present: Normal Mouth: Present: Moist Mucous Membranes Neck: Present: Normal Range of Motion Respiratory/Chest: Present: Clear to Auscultation, Good Air Exchange. No: Respiratory Distress, Accessory Muscle Use Cardiovascular: Present: Regular Rate and Rhythm, Normal S1, S2. No: Murmurs Abdomen: Present: Tenderness (Right-sided abdominal tenderness). No: Distention, Peritoneal Signs Back: Present: Normal Inspection Upper Extremity: Present: Normal Inspection. No: Cyanosis, Edema Lower Extremity: Present: Normal Inspection. No: Edema Neurological: Present: GCS=15, CN II-XII Intact, Speech Normal Skin: Present: Warm, Dry, Normal Color. No: Rashes Psychiatric: Present: Alert, Oriented x 3, Normal Insight, Normal Concentration Medical Decision Making ED Course and Treatment: 05/01/18 21:09 Impression: 87 year old male complaining of right-sided abdominal pain. Plan: -- CT Abdomen and Pelvis w/o contrast -- EKG -- Chest X-Ray -- Labs, lipase, cardiac enzymes -- IV fluids -- Morphine -- Zofran -- Reassess and disposition Prior Visits: Notes and results from previous visits were reviewed. Progress Notes: Reviewed EKG, NSR at 81 bpm. LAHB. Non-specific ST/T wave changes. 05/01/18 23:52 Radiology reviewed, Chest X-Ray shows poor inspiratory effort, no acute processes. CT Abdomen and Pelvis Impression: 1. Dense RLL dense consolidation is noted compatiblee with pneumonia. Trace pleural effusion. 2. The cardiac silhouette is enlarged. There is evidence for pulmonary venous congestion compatible with mild CHF. 3. There are small gallstones noted in the independent porition of the gallbladder. 4. A 3.4 x 2.5 cm hyperdense lesion is present in the mid pole of the left kidney, may represent hemorrhagic versus proteinaceous cyst. Nevertheless, further evaluation is recommended with CT urogram. 5. 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 6. 4.5 x 4.0 cm (40HU) lesion is present in the right pelvis adjacent to the pelvic sidewall of unclear etiology, may represent a hematoma or soft tissue mass. 7. Suggestion of a left 5.5 x 4 cm mass in region of left iliopsoas bursa, may represent bursitis, although evaluation is limited due to artifacts. 8. Consider further evaluation with pelvic MRI. 05/01/18 23:52 Case discussed with medical service representative network security consultant, who is aware and agrees with plan. 05/02/18 00:[address] Fili Canales, who is aware and agrees with plan. Accepts pt in to hospital. Pt will go to remote telemetry observation for abdominal pain. - Lab Interpretations I have reviewed the lab results: Yes - RAD Interpretation Residential Recycle Driver: ED Physician, Radiologist - EKG Interpretation Interpreted by ED Physician: Yes Type: 12 lead EKG (d) - Scribe Statement The provider has reviewed the documentation as recorded by the Scribeufemia Sierra All medical record entries made by the Scribe were at my direction and personally dictated by me. I have reviewed the chart and agree that the record accurately reflects my personal performance of the history, physical exam, medical decision making, and the department course for this patient. I have also personally directed, reviewed, and agree with the discharge instructions and disposition. Disposition/Present on Arrival - Present on Arrival Any Indicators Present on Arrival: No History of DVT/PE: Yes History of Uncontrolled Diabetes: No Urinary Catheter: No History of Decub. Ulcer: No History Surgical Site Infection Following: None - Disposition Have Diagnosis and Disposition been Completed?: Yes Diagnosis: Abdominal pain Disposition: HOSPITALIZED Disposition Time: 23:46 Patient Plan: Observation Patient Problems: Current Active Problems Problem Status Onset Abdominal pain Acute Condition: STABLE
[2018-05-01] MEDS ORDERED: Morphine 2 mg/ml ISec IVP STA (21:17)
[2018-05-01] MEDS: Sodium Chloride 0.9% 1,000 ML IV SCH (22:13)
[2018-05-01 22:26] LABS: HEMOGLOBIN 15.4 g/dL (14.0-18.0); MEAN CELL VOLUME 95.2 fl (80.0-105.0); MEAN CORPUSCULAR HEMOGLOBIN 31.8 pg (25.0-35.0); MEAN CORPUSCULAR HGB CONC 33.4 g/dl (31.0-37.0); MEAN PLATELET VOLUME 8.7 fl (7.0-11.0); RBC 4.84 10^6/uL (3.5-6.1); RED CELL DISTRIBUTION WIDTH 14.3 % (11.5-14.5); WHITE BLOOD COUNT 11.3 10^3/ul (4.5-11.0)
[2018-05-01 22:33] LABS: INR 1.88; PARTIAL THROMBOPLASTIN TIME 36.9 Seconds (25.1-36.5); PROTHROMBIN TIME 21.7 SECONDS (9.4-12.5)
[2018-05-01 22:34] LABS: ALB/GLOB RATIO 1.2 (1.1-1.8); ALBUMIN 3.7 g/dL (3.0-4.8); ALT/SGPT 22 U/L (7-56); AST/SGOT 21 U/L (17-59); BLOOD UREA NITROGEN 35 mg/dL (7-21); CALCIUM 9.1 mg/dL (8.4-10.5); GFR NON-AFRICAN AMERICAN > 60; LIPASE 128 U/L (23-300)
[2018-05-01 22:46] LABS: TROPONIN I 0.08 ng/mL
--- NOTE | 2018-05-02 00:22 | CP.PCM.HP ---
History of Present Illness - History of Present Illness History of Present Illness: Triston Dean PGY1, History and Physical for Dr Kali Canales Pt is an 87 yo male with a PMH of CAD, TIA, CVA, CHF, HTN, COPD, renal cell car cinoma, atrial fibrillation, gallstones, and dementia who presents to the ED complaining of abdominal pain. Per chart review, pt reports that pt has been complaining of right sided abdominal pain since yesterday evening. Pt relates that pt has history of constipation, but has had 3 BM yesterday. Pt is bed ridden. During history when asked if he has pain, or any symptom he states that he does not know, and is unsure why he is at the hospital. Pt knows his name, but does not know the year, he thinks the current month is October. ROS is difficult to obtain since pt has dementia. PMH: Renal Cell carcinoma, Right kidney tumor, CVA, Dementia, atrial fibrillation, AAA, Right iliac aneurysm, HTN, HLD, COPD, PE, DVT, IVC filter, constipation, gallstones PSH: Repair of R iliac aneurysm, ivc filter placement, b/l hip surgery, cardiac stent, resected RCC, hip surgeries x 5 FH: difficult to obtain due to dementia SH: former smoker, denies alcohol, denies drug use, lives with Allergies: NKDA Meds: per chart PMD: Dr. Barnhart Present on Admission - Present on Admission Any Indicators Present on Admission: No Review of Systems - Review of Systems Review of Systems: ROS very limited due to pt dementia Past Patient History - Infectious Disease Hx of Infectious Diseases: None - Tetanus Immunizations Tetanus Immunization: Unknown - Past Social History Smoking Status: Never Smoked - CARDIAC Hx Cardiac Disorders: Yes ( denies mi) Hx Angina: No Hx Cardia Arrhythmia: Yes Hx Circulatory Problems: Yes Hx Congestive Heart Failure: No Hx Heart Murmur: No Hx Heart Transplant: No Hx Internal Defibrillator: No Hx Mitral Valve Prolapse: No Hx Pacemaker: No Hx Peripheral Edema: Yes (ble +1) Hx Peripheral Vascular Disease: Yes Other/Comment: hx pe/dvt, on 03/10/17 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, ivc filter placement 07/28/12, - PULMONARY Hx Respiratory Disorders: Yes (pe) Hx Asthma: No Hx Bronchitis: No Hx Emphysema: No Hx Pneumonia: No Hx Respiratory Aspiration: No Hx Respiratory Tract Infection: Yes Hx Sleep Apnea: No Hx Tuberculosis: No - NEUROLOGICAL Hx Alzheimer's Disease: No Hx Dementia: No Hx Dizziness: No Hx Meningitis: No Hx Migraine: No Hx Paralysis: Yes Hx Parkinson's Disease: ( denies parkinsons) Hx Seizures: No Other/Comment: tia over 15 yrs ago and was found to have had multiple mini strokes prior to tia as per , denies hydrocephalis, spinal tap 2012 - HEENT Hx HEENT Problems: Yes Hx Blind: No Hx Cataracts: Yes (b/l not a candidate for sx) Hx Deafness: No Hx Difficulty Chewing: No Hx Epistaxis: No Hx Glaucoma: No Hx Macular Degeneration: No - RENAL Hx Chronic Kidney Disease: Yes Hx Dialysis: No Hx Kidney Stones: No Hx Neurogenic Bladder: No Hx Pyelonephritis: No Hx Renal (Kidney) Cancer: No Hx Renal Failure: No Other/Comment: kidney tumor right removed 2007, 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 tumor was benign as per - ENDOCRINE/METABOLIC Hx Adrenal Cancer: No Hx Diabetes Insipidus: No Hx Diabetes Mellitus Type 1: No Hx Diabetes Mellitus Type 2: No Hx Hyperthyroidism: No Hx Hypothyroidism: No Hx Systemic Lupus Erythematosus: No - HEMATOLOGICAL/ONCOLOGICAL Hx Blood Disorders: Yes (blood transfusion) Hx AIDS: No Hx Anemia: No Hx Blood Transfusions: Yes Hx Blood Transfusion Reaction: No Hx Cancer: No Hx Chemotherapy: No Hx Cirrhosis: No Hx Hemophilia: No Hx Hepatitis A: No Hx Hepatitis C: No Hx Metastesis: No Hx Shingles: Yes Hx Sickle Cell Disease: No Hx Unexplained Bleeding: No - INTEGUMENTARY Hx Basil Cell: No Hx Eczema: No Hx Melanoma: No Hx Psoriasis: No Hx Squamous Cell: No Other/Comment: ble +1 edema with brown discolored skin and multiple raised nodules, 4cm x 5cm dark brown oval shaped dark lumpy area lle doctors are awarre, has had for years no treatment as per - MUSCULOSKELETAL/RHEUMATOLOGICAL Hx Musculoskeletal Disorders: Yes (LOWER EXTREMETY WEAKNESS R/T NEUROPATHY ) Hx Arthritis: Yes Hx Back Pain: Yes Hx Falls: Yes Hx Osteoarthritis: Yes Hx Unsteady Gait: Yes (hoya lift/recliner/bed/w/ch) Other/Comment: b/l hip replacement, 2 revisions of the right, and 1 revision on the left, was using a walker for a time but then couldn't walk at all as per due to arthritis. Pt can only tolerate w/ch for 2 hours due to b/l hip pain, c/o chronic b/l calf pain - GASTROINTESTINAL Hx Gastrointestinal Disorders: (constipation, poor appetite) Hx Colostomy: No Hx Crohn's Disease: No Hx Diverticulitis: No Hx Gall Bladder Disease: Yes (gallstones) Hx Gastroesophageal Reflux: No Hx Ileostomy: No Hx Liver Failure: No Hx Pancreatitis: No HX Swallowing Problems: No - GENITOURINARY/GYNECOLOGICAL Hx Genitourinary Disorders: (scrotal edema) Hx Hematuria: Yes Hx Prostate Problems: ( uncertain) Hx Sexually Transmitted Disorders: No Other/Comment: had cysto with dr casey over 10 yrs ago as per - PSYCHIATRIC Hx Emotional Abuse: No Hx Physical Abuse: No Hx Substance Use: No - SURGICAL HISTORY Hx Cardiac Catheterization: Yes (x1 stent 2000) Hx Musculoskeletal Surgery: Yes Other/Comment: tumor removed from the kidney 2007 benign - ANESTHESIA Hx Anesthesia Reactions: No Hx Malignant Hyperthermia: No Meds Allergies/Adverse Reactions: Allergies Allergy/AdvReac Type Severity Reaction Status Date / Time No Known Allergies Allergy Verified 05/01/18 20:58 Physical Exam - Constitutional Appears: No Acute Distress - Head Exam Head Exam: ATRAUMATIC, NORMOCEPHALIC - Eye Exam Eye Exam: EOMI - ENT Exam ENT Exam: Mucous Membranes Moist - Respiratory Exam Respiratory Exam: Clear to Auscultation Bilateral, NORMAL BREATHING PATTERN - Cardiovascular Exam Cardiovascular Exam: RRR. absent: Diastolic murmur, JVD, Systolic Murmur - GI/Abdominal Exam GI & Abdominal Exam: Diminished Bowel Sounds, Distended, Tenderness Additional comments: tenderness worse R more than L abdomen distended - Extremities Exam Extremities exam: Positive for: full ROM, normal inspection, pedal pulses present. Negative for: pedal edema - Neurological Exam Neurological exam: Alert, CN II-XII Intact - Skin Skin Exam: Intact, Normal Color, Warm Results - Vital Signs Recent Vital Signs: Last Vital Signs Temp 98.2 F 05/01/18 21:16 Pulse 77 05/01/18 21:16 Resp 18 05/01/18 21:16 BP 135/76 05/01/18 21:16 Pulse Ox 95 05/01/18 21:16 - Labs Result Diagrams: 05/02/18 03:55 05/02/18 03:55 Labs: Laboratory Results - last 24 hr 05/01/18 05/01/18 05/01/18 22:21 22:21 22:21 WBC 11.3 H D RBC 4.84 Hgb 15.4 Hct 46.1 MCV 95.2 MCH 31.8 MCHC 33.4 RDW 14.3 Plt Count 171 MPV 8.7 PT 21.7 H INR 1.88 APTT 36.9 H Sodium 140 Potassium 4.4 Chloride 105 Carbon Dioxide 29 Anion Gap 10 BUN 35 H Creatinine 1.1 Est GFR ( Amer) > 60 Est GFR (Non-Af Amer) > 60 Random Glucose 104 Calcium 9.1 Total Bilirubin 0.4 AST 21 ALT 22 Alkaline Phosphatase 116 Lactate Dehydrogenase 379 Total Creatine Kinase 32 L Troponin I 0.08 D Total Protein 6.7 Albumin 3.7 Globulin 3.0 Albumin/Globulin Ratio 1.2 Lipase 128 Assessment & Plan - Assessment and Plan (Free Text) Assessment: Pt is an 87 yo male with a PMH of CAD, TIA, CVA, HTN, COPD, renal cell carcinoma, atrial fibrillation, gallstones, and dementia who presents to the ED complaining of abdominal pain. Plan: Intractable Abdominal Pain, likely secondary to urinary retention, rule out GI or pulm causes - follow up blood culture - follow up urine culture - rule out cardiac origin, troponins/ EKG negative, continue to trend - pain control - NS 100ml/hr - zosyn 3.375 Q6 - NIGHT MONITOR- follow up procal, to rule out PNA - consulted OT, PT - CTAP shows: 1. dense RLL dense consolidating is noted compatible with PNA, trace right pleural effusion. 2. the cardiac silhouette is enlarged. Evidence of pulmonary venuos congestion compatible with mild CHF 3. there are small gallstones 4. 3.4cm x 2.5cm hyperdense lesion is present in the mid pole of the left kidney, may represent hemorrhagic ve proteinaceous cyst, recommend CT urogram 5. Diatal aortic aneurysm 3.1cm 6. 4.5 x 4.0 hyperdense lesion is present in the right pelvis adjacent to the pelvic sidewall of unclear etiology, which may represent hematoma or soft tissue mass 7. suggestion of left 5.5 x 4cm mass in region of left iliopsoas bursa, may represent bursitis, although ebal is limit due to artifacts 8. consider further eval with pelvic MRI - GI consulted, Dr Bolaños - Surgery consulted, Dr Dixon Urinary Retention hyperdense lesion is present in the mid pole of the left kidney hyperdense lesion @ pelvic - bladder scan: shows 64ml urine, placed Wilkins catheter - rule out cancer, anticholinergic effect, BPH - wilkins in place - order strict I/O - ordered PSA - consulted urology, Dr Casey HTN - continue to monitor Chronic Systolic CHF - lasix 20mg IVP - ECHO from 03-22-17 EF 50% COPD - duonebs PRN Renal Cell Carcinoma, S/p renal tumor resection - continue to follow with heme onc and urologist as out pt - please speak with during the day to determine who he follow with for heme onc Atrial Fibrillation - hold AC for now, possible intra abdominal hematoma - continue to observe - pt not currently on rate control medicine Ppx - pantoprazole 40mg IVP - SCD Pt seen, examined, assessment and plan discussed with Dr Kali Dean PGY1 Internal Medicine Resident - Date & Time Date: 05/02/18 Time: 05:12
[2018-05-02 03:06] VITALS: RESP 20
[2018-05-02 04:31] LABS: ALB/GLOB RATIO 1.2 (1.1-1.8); ALBUMIN 3.2 g/dL (3.0-4.8); ALT/SGPT 26 U/L (7-56); AST/SGOT 18 U/L (17-59); BLOOD UREA NITROGEN 32 mg/dL (7-21); CALCIUM 8.7 mg/dL (8.4-10.5); GFR NON-AFRICAN AMERICAN > 60
[2018-05-02 04:58] LABS: BASO # 0.02 K/mm3 (0.0-2.0); BASO % 0.2 % (0.0-3.0); EOS # 0.2 (0.0-0.7); EOS % 2.2 % (1.5-5.0); GRAN # 6.82 (1.4-6.5); GRAN % 69.3 % (50.0-68.0); HEMOGLOBIN 14.1 g/dL (14.0-18.0); LYMPH # 1.9 (1.2-3.4); LYMPH % 19.3 % (22.0-35.0); MEAN CELL VOLUME 95.6 fl (80.0-105.0); MEAN CORPUSCULAR HEMOGLOBIN 31.3 pg (25.0-35.0); MEAN CORPUSCULAR HGB CONC 32.7 g/dl (31.0-37.0); MEAN PLATELET VOLUME 9.1 fl (7.0-11.0); MONO # 0.9 (0.1-0.6); RBC 4.51 10^6/uL (3.5-6.1); RED CELL DISTRIBUTION WIDTH 14.4 % (11.5-14.5); WHITE BLOOD COUNT 9.9 10^3/ul (4.5-11.0)
[2018-05-02] MEDS: Piperacillin/Tazobact 3.375 gm 100 ML IVPB SCH ×2 (05:16→11:47)
[2018-05-02] MEDS ORDERED: Albuterol-Ipratrop 3 mg / 0.5 (3 ml) UD IH PRN (05:25)
--- NOTE | 2018-05-02 06:08 | CP.PCM.CON ---
<Jam Winn - Last Filed: 05/02/18 06:04> History of Present Illness - History of Present Illness History of Present Illness: General Surgery Consult Note for Dr. Dixon CC: Abdominal Pain This is an 87M with a PMH of CAD, TIA, CVA, HTN, COPD, renal cell carcinoma, atrial fibrillation, gallstones, and dementia who presented to the ED with lower abdominal pain. He reports that he is passing gas and moving his bowels today. HE denies any prior pain like this before. He reports the pain as sore not sharp. Nothing makes it better or worse. He denies any fevers chills chest pain or SOB. PMH: Renal Cell carcinoma, Right kidney tumor, CVA, Dementia, atrial fibrillation, AAA, Right iliac aneurysm, HTN, HLD, COPD, PE, DVT, IVC filter, PSH: Repair of R iliac aneurysm, ivc filter placement, b/l hip surgery, cardiac stent, resected RCC, hip surgeries x 5 FH: difficult to obtain due to dementia SH: denies tobacco, denies alcohol, denies drug use, lives with Allergies: NKDA Review of Systems - Review of Systems All systems: reviewed and no additional remarkable complaints except - Constitutional Constitutional: absent: Anorexia, Chills - EENT Eyes: absent: Blurred Vision, Change in Vision Ears: absent: Ear Pain, Tinnitus Nose/Mouth/Throat: absent: Nasal Congestion, Nasal Discharge - Cardiovascular Cardiovascular: absent: Chest Pain, Dyspnea - Respiratory Respiratory: absent: Cough, Dyspnea - Gastrointestinal Gastrointestinal: Abdominal Pain, Bloating. absent: Change in Bowel Habits, Change in Stool Character, Cramping, Diarrhea, Nausea, Vomiting - Genitourinary Genitourinary: Bladder Distension - Integumentary Integumentary: absent: Bleeding Lesions Past Patient History - Infectious Disease Hx of Infectious Diseases: None - Tetanus Immunizations Tetanus Immunization: Unknown - Past Social History Smoking Status: Never Smoked - CARDIAC Hx Cardiac Disorders: Yes ( denies mi) Hx Angina: No Hx Cardia Arrhythmia: Yes Hx Circulatory Problems: Yes Hx Congestive Heart Failure: No Hx Heart Murmur: No Hx Heart Transplant: No Hx Internal Defibrillator: No Hx Mitral Valve Prolapse: No Hx Pacemaker: No Hx Peripheral Edema: Yes (ble +1) Hx Peripheral Vascular Disease: Yes Other/Comment: hx pe/dvt, on 03/10/17 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, ivc filter placement 07/28/12, - PULMONARY Hx Respiratory Disorders: Yes (pe) Hx Asthma: No Hx Bronchitis: No Hx Emphysema: No Hx Pneumonia: No Hx Respiratory Aspiration: No Hx Respiratory Tract Infection: Yes Hx Sleep Apnea: No Hx Tuberculosis: No - NEUROLOGICAL Hx Alzheimer's Disease: No Hx Dementia: No Hx Dizziness: No Hx Meningitis: No Hx Migraine: No Hx Paralysis: Yes Hx Parkinson's Disease: ( denies parkinsons) Hx Seizures: No Other/Comment: tia over 15 yrs ago and was found to have had multiple mini strokes prior to tia as per , denies hydrocephalis, spinal tap 2012 - HEENT Hx HEENT Problems: Yes Hx Blind: No Hx Cataracts: Yes (b/l not a candidate for sx) Hx Deafness: No Hx Difficulty Chewing: No Hx Epistaxis: No Hx Glaucoma: No Hx Macular Degeneration: No - RENAL Hx Chronic Kidney Disease: Yes Hx Dialysis: No Hx Kidney Stones: No Hx Neurogenic Bladder: No Hx Pyelonephritis: No Hx Renal (Kidney) Cancer: No Hx Renal Failure: No Other/Comment: kidney tumor right removed 2007, 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 tumor was benign as per - ENDOCRINE/METABOLIC Hx Adrenal Cancer: No Hx Diabetes Insipidus: No Hx Diabetes Mellitus Type 1: No Hx Diabetes Mellitus Type 2: No Hx Hyperthyroidism: No Hx Hypothyroidism: No Hx Systemic Lupus Erythematosus: No - HEMATOLOGICAL/ONCOLOGICAL Hx Blood Disorders: Yes (blood transfusion) Hx AIDS: No Hx Anemia: No Hx Blood Transfusions: Yes Hx Blood Transfusion Reaction: No Hx Cancer: No Hx Chemotherapy: No Hx Cirrhosis: No Hx Hemophilia: No Hx Hepatitis A: No Hx Hepatitis C: No Hx Metastesis: No Hx Shingles: Yes Hx Sickle Cell Disease: No Hx Unexplained Bleeding: No - INTEGUMENTARY Hx Basil Cell: No Hx Eczema: No Hx Melanoma: No Hx Psoriasis: No Hx Squamous Cell: No Other/Comment: ble +1 edema with brown discolored skin and multiple raised nodules, 4cm x 5cm dark brown oval shaped dark lumpy area lle doctors are awarre, has had for years no treatment as per - MUSCULOSKELETAL/RHEUMATOLOGICAL Hx Musculoskeletal Disorders: Yes (LOWER EXTREMETY WEAKNESS R/T NEUROPATHY ) Hx Arthritis: Yes Hx Back Pain: Yes Hx Falls: Yes Hx Osteoarthritis: Yes Hx Unsteady Gait: Yes (hoya lift/recliner/bed/w/ch) Other/Comment: b/l hip replacement, 2 revisions of the right, and 1 revision on the left, was using a walker for a time but then couldn't walk at all as per due to arthritis. Pt can only tolerate w/ch for 2 hours due to b/l hip pain, c/o chronic b/l calf pain - GASTROINTESTINAL Hx Gastrointestinal Disorders: (constipation, poor appetite) Hx Colostomy: No Hx Crohn's Disease: No Hx Diverticulitis: No Hx Gall Bladder Disease: Yes (gallstones) Hx Gastroesophageal Reflux: No Hx Ileostomy: No Hx Liver Failure: No Hx Pancreatitis: No HX Swallowing Problems: No - GENITOURINARY/GYNECOLOGICAL Hx Genitourinary Disorders: (scrotal edema) Hx Hematuria: Yes Hx Prostate Problems: ( uncertain) Hx Sexually Transmitted Disorders: No Other/Comment: had cysto with dr casey over 10 yrs ago as per - PSYCHIATRIC Hx Emotional Abuse: No Hx Physical Abuse: No Hx Substance Use: No - SURGICAL HISTORY Hx Cardiac Catheterization: Yes (x1 stent 2000) Hx Musculoskeletal Surgery: Yes Other/Comment: tumor removed from the kidney 2007 benign - ANESTHESIA Hx Anesthesia Reactions: No Hx Malignant Hyperthermia: No Meds Allergies/Adverse Reactions: Allergies Allergy/AdvReac Type Severity Reaction Status Date / Time No Known Allergies Allergy Verified 05/01/18 20:58 - Medications Medications: Current Medications Albuterol/Ipratropium (Duoneb 3 Mg/0.5 Mg (3 Ml) Ud) 3 ml IH [id number] PRN PRN Reason: Wheezing Furosemide (Lasix) 20 mg IVP DAILY [facility] Sodium Chloride (Sodium Chloride 0.9%) 1,000 mls @ 100 mls/hr IV .Q10H NICK Last Admin: 05/01/18 22:13 Dose: 100 mls/hr Piperacillin Sod/Tazobactam Sod (Zosyn 3.375 In Ns 100ml) 100 mls @ 200 mls/hr IVPB Q6 NICK; Protocol Stop: 05/02/18 12:29 Last Admin: 05/02/18 05:16 Dose: 200 mls/hr Pantoprazole Sodium (Protonix Inj) 40 mg IVP DAILY [facility] Physical Exam - Constitutional Appears: Non-toxic, No Acute Distress - Head Exam Head Exam: ATRAUMATIC, NORMOCEPHALIC - Eye Exam Eye Exam: EOMI, Normal appearance - ENT Exam ENT Exam: Mucous Membranes Moist - Respiratory Exam Respiratory Exam: NORMAL BREATHING PATTERN - Cardiovascular Exam Cardiovascular Exam: +S1, +S2 - GI/Abdominal Exam GI & Abdominal Exam: Soft. absent: Distended, Firm, Guarding, Hernia, Tenderness - Neurological Exam Neurological exam: Alert, Oriented x3 - Psychiatric Exam Psychiatric exam: Normal Affect, Normal Mood - Skin Skin Exam: Dry, Intact Results - Vital Signs Recent Vital Signs: Last Vital Signs Temp 98.3 F 05/02/18 02:51 Pulse 75 05/02/18 05:56 Resp 20 05/02/18 02:51 BP 135/82 05/02/18 02:51 Pulse Ox 97 05/02/18 02:51 - Labs Result Diagrams: 05/02/18 03:55 05/02/18 03:55 Labs: Laboratory Results - last 24 hr 05/01/18 05/01/18 05/01/18 22:21 22:21 22:21 WBC 11.3 H D RBC 4.84 Hgb 15.4 Hct 46.1 MCV 95.2 MCH 31.8 MCHC 33.4 RDW 14.3 Plt Count 171 MPV 8.7 Gran % Lymph % (Auto) Wood % (Auto) Eos % (Auto) Baso % (Auto) Gran # Lymph # (Auto) Wood # (Auto) Eos # (Auto) Baso # (Auto) PT 21.7 H INR 1.88 APTT 36.9 H Sodium 140 Potassium 4.4 Chloride 105 Carbon Dioxide 29 Anion Gap 10 BUN 35 H Creatinine 1.1 Est GFR ( Amer) > 60 Est GFR (Non-Af Amer) > 60 Random Glucose 104 Calcium 9.1 Total Bilirubin 0.4 AST 21 ALT 22 Alkaline Phosphatase 116 Lactate Dehydrogenase 379 Total Creatine Kinase 32 L Troponin I 0.08 D Total Protein 6.7 Albumin 3.7 Globulin 3.0 Albumin/Globulin Ratio 1.2 Lipase 128 05/02/18 05/02/18 05/02/18 03:55 03:55 03:55 WBC 9.9 RBC 4.51 Hgb 14.1 Hct 43.1 MCV 95.6 MCH 31.3 MCHC 32.7 RDW 14.4 Plt Count 168 MPV 9.1 Gran % 69.3 H Lymph % (Auto) 19.3 L Wood % (Auto) 9.0 H Eos % (Auto) 2.2 Baso % (Auto) 0.2 Gran # 6.82 H Lymph # (Auto) 1.9 Wood # (Auto) 0.9 H Eos # (Auto) 0.2 Baso # (Auto) 0.02 PT INR APTT Sodium 141 Potassium 4.1 Chloride 108 H Carbon Dioxide 28 Anion Gap 10 BUN 32 H Creatinine 1.0 Est GFR ( Amer) > 60 Est GFR (Non-Af Amer) > 60 Random Glucose 86 Calcium 8.7 Total Bilirubin 0.4 AST 18 ALT 26 Alkaline Phosphatase 103 Lactate Dehydrogenase Total Creatine Kinase Troponin I 0.08 Total Protein 5.9 Albumin 3.2 Globulin 2.7 Albumin/Globulin Ratio 1.2 Lipase Assessment & Plan - Assessment and Plan (Free Text) Assessment: 87M with abdominal pain CT significant for a distended bladder, with no signs of obstruction, a and a right pelvic lesion possibly a hematomavs mass, and a left iliopsoas mass. Recommend Straight Cath Recommend Urology consult Serial Abdominal Exams Monitor Bowel function Further recs per Dr. Zack Winn PGY3 <Ulisses Dixon - Last Filed: 05/03/18 11:39> Meds - Medications Medications: Current Medications Albuterol/Ipratropium (Duoneb 3 Mg/0.5 Mg (3 Ml) Ud) 3 ml IH [id number] PRN PRN Reason: Wheezing Artificial Tears (Artificial Tears) 0 ml OU DAILY NICK Last Admin: 05/03/18 09:14 Dose: 1 drop Furosemide (Lasix) 20 mg IVP DAILY [facility] Last Admin: 05/03/18 09:12 Dose: 20 mg Sodium Chloride (Sodium Chloride 0.9%) 1,000 mls @ 100 mls/hr IV .Q10H NICK Last Admin: 05/02/18 11:52 Dose: 100 mls/hr Lactic Acid (Lac-Hydrin 12% Lotion (225 G)) 0 gm EXT BID NICK Last Admin: 05/03/18 09:10 Dose: 1 applic Mupirocin (Bactroban Ointment) 0 gm TOP BID NICK Stop: 05/15/18 18:01 Last Admin: 05/03/18 09:10 Dose: 1 applic Pantoprazole Sodium (Protonix Inj) 40 mg IVP DAILY [facility] Last Admin: 05/03/18 09:10 Dose: 40 mg Tamsulosin HCl (Flomax) 0.4 mg PO DAILY [facility] Last Admin: 05/03/18 09:11 Dose: 0.4 mg Results - Vital Signs Recent Vital Signs: Last Vital Signs Temp 97.9 F 05/03/18 06:00 Pulse 70 05/03/18 06:00 Resp 20 05/03/18 06:00 BP 146/79 05/03/18 09:12 Pulse Ox 94 L 05/03/18 06:00 - Labs Result Diagrams: 05/03/18 05:30 05/03/18 05:30 Labs: Laboratory Results - last 24 hr 05/02/18 05/03/18 05/03/18 09:00 05:30 05:30 WBC 8.7 RBC 4.07 Hgb 12.7 L Hct 39.8 L MCV 97.8 MCH 31.2 MCHC 31.9 RDW 14.4 Plt Count 158 MPV 8.8 Gran % 63.6 Lymph % (Auto) 24.3 Wood % (Auto) 8.8 H Eos % (Auto) 3.2 Baso % (Auto) 0.1 Gran # 5.50 Lymph # (Auto) 2.1 Wood # (Auto) 0.8 H Eos # (Auto) 0.3 Baso # (Auto) 0.01 PT INR Sodium 143 Potassium 3.9 Chloride 110 H Carbon Dioxide 29 Anion Gap 8 L BUN 27 H Creatinine 1.2 Est GFR ( Amer) > 60 Est GFR (Non-Af Amer) 57 Random Glucose 74 Calcium 8.4 Total Bilirubin 0.4 AST 19 ALT 23 Alkaline Phosphatase 85 Total Protein 5.3 L Albumin 2.8 L Globulin 2.5 Albumin/Globulin Ratio 1.1 Procalcitonin 0.12 L 05/03/18 05:30 WBC RBC Hgb Hct MCV MCH MCHC RDW Plt Count MPV Gran % Lymph % (Auto) Wood % (Auto) Eos % (Auto) Baso % (Auto) Gran # Lymph # (Auto) Wood # (Auto) Eos # (Auto) Baso # (Auto) PT 25.3 H INR 2.17 Sodium Potassium Chloride Carbon Dioxide Anion Gap BUN Creatinine Est GFR ( Amer) Est GFR (Non-Af Amer) Random Glucose Calcium Total Bilirubin AST ALT Alkaline Phosphatase Total Protein Albumin Globulin Albumin/Globulin Ratio Procalcitonin Attending/Attestation - Attestation I have personally seen and examined this patient.: Yes I have fully participated in the care of the patient.: Yes I have reviewed all pertinent clinical information: Yes Notes (Text): Pt was seen and examined at bedside Agree with above note and assessment Pt with Lower abdominal tenderness and urinary distention Abdomen: Soft, NT, ND Nelson was placed in ER Labs and Radiology reviewed Ass: Abdominal Pain related to urinary retention Plan : Straight Cath Urology consult C.w current mx No general surgical intervention required at present. Plan d.w pt in detail Risk and benefit explained in detail.
--- NOTE | 2018-05-02 08:03 | RAD ---
Date of service: 05/01/2018 HISTORY: abdominal pain COMPARISON: 05/24/2017 FINDINGS: LUNGS: No active pulmonary disease. PLEURA: No significant pleural effusion identified, no pneumothorax apparent. CARDIOVASCULAR: Moderate to severe cardiomegaly and aortic tortuosity. OSSEOUS STRUCTURES: No significant abnormalities. VISUALIZED UPPER ABDOMEN: Chronic elevation of the right hemidiaphragm OTHER FINDINGS: None. IMPRESSION: No active disease.
--- NOTE | 2018-05-02 08:43 | CP.PCM.CON ---
<[place] - Last Filed: 05/02/18 08:40> History of Present Illness - History of Present Illness History of Present Illness: Gastroenterology Consult note for Dr. Bolaños CC: Abdominal Pain HPI: Patient is an 87 year old male with past medical history of CAD, COPD, TIA, CVA, HTN, RCC, Afib on anticoagulation, DVT, hx of pulmonary embolism, dementia and cholelithiasis who presented to [facility] ED complaining of abdominal pain. Patient HPI limited to his dementia. Reports indicate patient began to complain of the pain24 hours prior to presentation. Family reports bowel movements, passing of flatus. Patient reports no abdominal pain when questioned and has no evidence of guarding or grimace with abdominal palpation. 12 point ROS benign, but limited to patient cooperation PMH: CAD, TIA, CVA, HTN, RCC, Afib, Dementia, Cataracts, DVT, Pulmonary embo lism, cholelithiasis PSH: IVC filter placement(07/28/12), B/L hip surgery, cardiac stenting(x1 in 20 08), resected RCC, Hip surgery, R iliac aneurysm repair FMH: non-contributory SOCHX: Tobacco: Former smoker (quit 40 years), ETOH, Illicit drug use, lives at home with , multiple caretakers ALL: NKDA MEDS: MAR reviewed Review of Systems - Review of Systems Review of Systems: limited secondary to dementia Past Patient History - Infectious Disease Hx of Infectious Diseases: None - Tetanus Immunizations Tetanus Immunization: Unknown - Past Social History Smoking Status: Former Smoker Alcohol: None Drugs: Denies - CARDIAC Hx Cardiac Disorders: Yes ( denies mi) Hx Angina: No Hx Cardia Arrhythmia: Yes Hx Circulatory Problems: Yes Hx Congestive Heart Failure: No Hx Heart Murmur: No Hx Heart Transplant: No Hx Internal Defibrillator: No Hx Mitral Valve Prolapse: No Hx Pacemaker: No Hx Peripheral Edema: Yes (ble +1) Hx Peripheral Vascular Disease: Yes Other/Comment: hx pe/dvt, on 03/10/17 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, ivc filter placement 07/28/12, - PULMONARY Hx Respiratory Disorders: Yes (pe) Hx Asthma: No Hx Bronchitis: No Hx Emphysema: No Hx Pneumonia: No Hx Respiratory Aspiration: No Hx Respiratory Tract Infection: Yes Hx Sleep Apnea: No Hx Tuberculosis: No - NEUROLOGICAL Hx Alzheimer's Disease: No Hx Dementia: No Hx Dizziness: No Hx Meningitis: No Hx Migraine: No Hx Paralysis: Yes Hx Parkinson's Disease: ( denies parkinsons) Hx Seizures: No Other/Comment: tia over 15 yrs ago and was found to have had multiple mini strokes prior to tia as per , denies hydrocephalis, spinal tap 2012 - HEENT Hx HEENT Problems: Yes Hx Blind: No Hx Cataracts: Yes (b/l not a candidate for sx) Hx Deafness: No Hx Difficulty Chewing: No Hx Epistaxis: No Hx Glaucoma: No Hx Macular Degeneration: No - RENAL Hx Chronic Kidney Disease: Yes Hx Dialysis: No Hx Kidney Stones: No Hx Neurogenic Bladder: No Hx Pyelonephritis: No Hx Renal (Kidney) Cancer: No Hx Renal Failure: No Other/Comment: kidney tumor right removed 2007, 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 tumor was benign as per - ENDOCRINE/METABOLIC Hx Adrenal Cancer: No Hx Diabetes Insipidus: No Hx Diabetes Mellitus Type 1: No Hx Diabetes Mellitus Type 2: No Hx Hyperthyroidism: No Hx Hypothyroidism: No Hx Systemic Lupus Erythematosus: No - HEMATOLOGICAL/ONCOLOGICAL Hx Blood Disorders: Yes (blood transfusion) Hx AIDS: No Hx Anemia: No Hx Blood Transfusions: Yes Hx Blood Transfusion Reaction: No Hx Cancer: No Hx Chemotherapy: No Hx Cirrhosis: No Hx Hemophilia: No Hx Hepatitis A: No Hx Hepatitis C: No Hx Metastesis: No Hx Shingles: Yes Hx Sickle Cell Disease: No Hx Unexplained Bleeding: No - INTEGUMENTARY Hx Basil Cell: No Hx Eczema: No Hx Melanoma: No Hx Psoriasis: No Hx Squamous Cell: No Other/Comment: ble +1 edema with brown discolored skin and multiple raised nodules, 4cm x 5cm dark brown oval shaped dark lumpy area lle doctors are awarre, has had for years no treatment as per - MUSCULOSKELETAL/RHEUMATOLOGICAL Hx Musculoskeletal Disorders: Yes (LOWER EXTREMETY WEAKNESS R/T NEUROPATHY ) Hx Arthritis: Yes Hx Back Pain: Yes Hx Falls: Yes Hx Osteoarthritis: Yes Hx Unsteady Gait: Yes (hoya lift/recliner/bed/w/ch) Other/Comment: b/l hip replacement, 2 revisions of the right, and 1 revision on the left, was using a walker for a time but then couldn't walk at all as per due to arthritis. Pt can only tolerate w/ch for 2 hours due to b/l hip pain, c/o chronic b/l calf pain - GASTROINTESTINAL Hx Gastrointestinal Disorders: (constipation, poor appetite) Hx Colostomy: No Hx Crohn's Disease: No Hx Diverticulitis: No Hx Gall Bladder Disease: Yes (gallstones) Hx Gastroesophageal Reflux: No Hx Ileostomy: No Hx Liver Failure: No Hx Pancreatitis: No HX Swallowing Problems: No - GENITOURINARY/GYNECOLOGICAL Hx Genitourinary Disorders: (scrotal edema) Hx Hematuria: Yes Hx Prostate Problems: ( uncertain) Hx Sexually Transmitted Disorders: No Other/Comment: had cysto with dr casey over 10 yrs ago as per - PSYCHIATRIC Hx Emotional Abuse: No Hx Physical Abuse: No Hx Substance Use: No - SURGICAL HISTORY Hx Cardiac Catheterization: Yes (x1 stent 2000) Hx Musculoskeletal Surgery: Yes Other/Comment: tumor removed from the kidney 2007 benign - ANESTHESIA Hx Anesthesia Reactions: No Hx Malignant Hyperthermia: No Meds Allergies/Adverse Reactions: Allergies Allergy/AdvReac Type Severity Reaction Status Date / Time No Known Allergies Allergy Verified 05/01/18 20:58 - Medications Medications: Current Medications Albuterol/Ipratropium (Duoneb 3 Mg/0.5 Mg (3 Ml) Ud) 3 ml IH [id number] PRN PRN Reason: Wheezing Furosemide (Lasix) 20 mg IVP DAILY [facility] Sodium Chloride (Sodium Chloride 0.9%) 1,000 mls @ 100 mls/hr IV .Q10H NICK Last Admin: 05/01/18 22:13 Dose: 100 mls/hr Piperacillin Sod/Tazobactam Sod (Zosyn 3.375 In Ns 100ml) 100 mls @ 200 mls/hr IVPB Q6 NICK; Protocol Stop: 05/02/18 12:29 Last Admin: 05/02/18 05:16 Dose: 200 mls/hr Pantoprazole Sodium (Protonix Inj) 40 mg IVP DAILY [facility] Physical Exam - Constitutional Appears: Non-toxic, No Acute Distress - Head Exam Head Exam: ATRAUMATIC, NORMAL INSPECTION, NORMOCEPHALIC - Eye Exam Eye Exam: EOMI, PERRL - Respiratory Exam Respiratory Exam: Clear to Auscultation Bilateral, NORMAL BREATHING PATTERN - Cardiovascular Exam Cardiovascular Exam: REGULAR RHYTHM, +S1, +S2 - GI/Abdominal Exam GI & Abdominal Exam: Normal Bowel Sounds, Soft. absent: Firm, Guarding, Tenderness - Extremities Exam Extremities exam: Negative for: calf tenderness, pedal edema - Neurological Exam Additional comments: baseline dementia Alert oriented to name Motor and sensory grossly intact Patient moving all four extremities spontaneously Follows simple commands - Psychiatric Exam Psychiatric exam: Normal Affect - Skin Skin Exam: Dry, Intact Results - Vital Signs Recent Vital Signs: Last Vital Signs Temp 97.9 F 05/02/18 07:54 Pulse 73 05/02/18 07:54 Resp 20 05/02/18 07:54 BP 130/79 05/02/18 07:54 Pulse Ox 96 05/02/18 07:54 - Labs Result Diagrams: 05/02/18 03:55 05/02/18 03:55 Labs: Laboratory Results - last 24 hr 05/01/18 05/01/18 05/01/18 22:21 22:21 22:21 WBC 11.3 H D RBC 4.84 Hgb 15.4 Hct 46.1 MCV 95.2 MCH 31.8 MCHC 33.4 RDW 14.3 Plt Count 171 MPV 8.7 Gran % Lymph % (Auto) [place] % (Auto) Eos % (Auto) Baso % (Auto) Gran # Lymph # (Auto) [place] # (Auto) Eos # (Auto) Baso # (Auto) PT 21.7 H INR 1.88 APTT 36.9 H Sodium 140 Potassium 4.4 Chloride 105 Carbon Dioxide 29 Anion Gap 10 BUN 35 H Creatinine 1.1 Est GFR ( Amer) > 60 Est GFR (Non-Af Amer) > 60 Random Glucose 104 Calcium 9.1 Total Bilirubin 0.4 AST 21 ALT 22 Alkaline Phosphatase 116 Lactate Dehydrogenase 379 Total Creatine Kinase 32 L Troponin I 0.08 D Total Protein 6.7 Albumin 3.7 Globulin 3.0 Albumin/Globulin Ratio 1.2 Lipase 128 05/02/18 05/02/18 05/02/18 03:55 03:55 03:55 WBC 9.9 RBC 4.51 Hgb 14.1 Hct 43.1 MCV 95.6 MCH 31.3 MCHC 32.7 RDW 14.4 Plt Count 168 MPV 9.1 Gran % 69.3 H Lymph % (Auto) 19.3 L [place] % (Auto) 9.0 H Eos % (Auto) 2.2 Baso % (Auto) 0.2 Gran # 6.82 H Lymph # (Auto) 1.9 [place] # (Auto) 0.9 H Eos # (Auto) 0.2 Baso # (Auto) 0.02 PT INR APTT Sodium 141 Potassium 4.1 Chloride 108 H Carbon Dioxide 28 Anion Gap 10 BUN 32 H Creatinine 1.0 Est GFR ( Amer) > 60 Est GFR (Non-Af Amer) > 60 Random Glucose 86 Calcium 8.7 Total Bilirubin 0.4 AST 18 ALT 26 Alkaline Phosphatase 103 Lactate Dehydrogenase Total Creatine Kinase Troponin I 0.08 Total Protein 5.9 Albumin 3.2 Globulin 2.7 Albumin/Globulin Ratio 1.2 Lipase Assessment & Plan - Assessment and Plan (Free Text) Assessment: 87 year old male with past medical history of CAD, TIA, CVA, HTN, RCC, Afib on - , DVT, dementia and cholelithiasis who presents to nonspecific abdominal pain. Abd/Pelvis CT findings showing distention of bladder and right pelvic lesion concerning for hematoma vs mass and left iliopsoas mass. GI consulted for abdominal pain. Plan: Abdominal Pain - DDX bladder distention vs. hematoma vs. iliopsoas mass vs. cholelithiasis vs. adhesions from prior surgery Urinary retention Systolic CHF hx RCC s/p resection COPD Atrail Fibrillation - Patient with urinary straight cath last evenining collecting ~700mL urine - Having bm, passing flatus, no sign of sbo on abd/pelvis CT - Cholelithiasis on imaging, stable - Urinary distention s/p straight cath with removal of ~700mL urine, urology consulted - Previous colonoscopy report 04/11/2017 shows diverticulosis in the entire examiend colon, external and internal hemorrhoids, non, non-bleeding polyp at 55 cm proximal to the anus - Previous endoscopy 04/11/2017 shows z line regular 35cm from the incisors, gastric ulcer, 4 cm hiatus hernia, normal examiend duodenum - Further workup and recommendations per Dr. Bolaños - Date & Time Date: 05/02/18 Time: 08:43 <Andreas Bolaños V - Last Filed: 05/03/18 00:15> Meds - Medications Medications: Current Medications Albuterol/Ipratropium (Duoneb 3 Mg/0.5 Mg (3 Ml) Ud) 3 ml IH [id number] PRN PRN Reason: Wheezing Furosemide (Lasix) 20 mg IVP DAILY [facility] Last Admin: 05/02/18 09:54 Dose: 20 mg Sodium Chloride (Sodium Chloride 0.9%) 1,000 mls @ 100 mls/hr IV .Q10H [facility] Last Admin: 05/02/18 11:52 Dose: 100 mls/hr Lactic Acid (Lac-Hydrin 12% Lotion (225 G)) 0 gm EXT BID [facility] Last Admin: 05/02/18 17:33 Dose: 1 applic Mupirocin (Bactroban Ointment) 0 gm TOP BID [facility] Stop: 05/15/18 18:01 Last Admin: 05/02/18 17:32 Dose: 1 applic Pantoprazole Sodium (Protonix Inj) 40 mg IVP DAILY [facility] Last Admin: 05/02/18 09:54 Dose: 40 mg Tamsulosin HCl (Flomax) 0.4 mg PO DAILY [facility] Last Admin: 05/02/18 11:48 Dose: 0.4 mg Results - Vital Signs Recent Vital Signs: Last Vital Signs Temp 98.1 F 05/02/18 16:29 Pulse 71 05/02/18 22:00 Resp 20 05/02/18 16:29 BP 123/75 05/02/18 16:29 Pulse Ox 95 05/02/18 16:29 - Labs Result Diagrams: 05/02/18 03:55 05/02/18 03:55 Labs: Laboratory Results - last 24 hr 05/02/18 05/02/18 05/02/18 03:55 03:55 03:55 WBC 9.9 RBC 4.51 Hgb 14.1 Hct 43.1 MCV 95.6 MCH 31.3 MCHC 32.7 RDW 14.4 Plt Count 168 MPV 9.1 Gran % 69.3 H Lymph % (Auto) 19.3 L [place] % (Auto) 9.0 H Eos % (Auto) 2.2 Baso % (Auto) 0.2 Gran # 6.82 H Lymph # (Auto) 1.9 [place] # (Auto) 0.9 H Eos # (Auto) 0.2 Baso # (Auto) 0.02 PT INR Sodium 141 Potassium 4.1 Chloride 108 H Carbon Dioxide 28 Anion Gap 10 BUN 32 H Creatinine 1.0 Est GFR ( Amer) > 60 Est GFR (Non-Af Amer) > 60 Random Glucose 86 Calcium 8.7 Total Bilirubin 0.4 AST 18 ALT 26 Alkaline Phosphatase 103 Troponin I 0.08 Total Protein 5.9 Albumin 3.2 Globulin 2.7 Albumin/Globulin Ratio 1.2 Prostate Specific Ag Procalcitonin 05/02/18 05/02/18 05/02/18 09:00 09:00 09:00 WBC RBC Hgb Hct MCV MCH MCHC RDW Plt Count MPV Gran % Lymph % (Auto) [place] % (Auto) Eos % (Auto) Baso % (Auto) Gran # Lymph # (Auto) [place] # (Auto) Eos # (Auto) Baso # (Auto) PT 22.8 H INR 1.96 Sodium Potassium Chloride Carbon Dioxide Anion Gap BUN Creatinine Est GFR ( Amer) Est GFR (Non-Af Amer) Random Glucose Calcium Total Bilirubin AST ALT Alkaline Phosphatase Troponin I Total Protein Albumin Globulin Albumin/Globulin Ratio Prostate Specific Ag 2.4 Procalcitonin 0.12 L Attending/Attestation - Attestation I have personally seen and examined this patient.: Yes I have fully participated in the care of the patient.: Yes I have reviewed all pertinent clinical information: Yes Notes (Text): This is an addendum to GI consult report dictated by the Machine Shop Apprentice.The patient was seen and evaluated earlier. Medical records, lab studies, imagings were reviewed. Last 24 hours events reviewed. Agreed with the above treatment plan as outlined in Machine Shop Apprentice 's notes with the addition of the following This 87 yr ofd patient with multiple medical problems which include: CAD, COPD, TIA, CVA, HTN, RCC, A.fib on anticoagulation. DVT, hx of pulmonary embolism, dementia, and cholelithiasis Admitted with abdominal pain Patient had a CAT scan done Found to have urinary retention with detended bladder that could be the cause of his abdominal pain Discussed with patient's family Will start the patient on clear liquid diet and slowly advance the diet 05/03/18 00:14
[2018-05-02 09:17] LABS: INR 1.96; PROTHROMBIN TIME 22.8 SECONDS (9.4-12.5)
--- NOTE | 2018-05-02 09:46 | CT ---
Date of service: 05/01/2018 PROCEDURE: CT Abdomen and Pelvis without intravenous contrast HISTORY: Abdominal pain COMPARISON: 03/21/2017 TECHNIQUE: CT scan of the abdomen and pelvis was performed without administration of intravenous contrast. Oral contrast was not administered. Coronal and sagittal reformatted images were obtained. . Radiation dose: Total exam DLP = 1009.23 mGy-cm. This CT exam was performed using one or more of the following dose reduction techniques: Automated exposure control, adjustment of the mA and/or kV according to patient size, and/or use of iterative reconstruction technique. FINDINGS: LOWER THORAX: The visualized lungs are clear. Small right pleural effusion. LIVER: Normal in size. No intrahepatic ductal dilatation. GALLBLADDER AND BILE DUCTS: There are multiple calcified gallstones. No biliary dilatation PANCREAS: Normal in size. No ductal dilatation. SPLEEN: Normal in size. ADRENALS: Normal in size. No discrete nodule. KIDNEYS AND URETERS: Again seen is bilateral renal cortical atrophy. There is a cortical scar in the right lower pole. Again seen are simple cysts in both kidneys. There is a stable hemorrhagic cyst in the interpolar region of the left kidney measuring 3.2 cm. No nephrolithiasis. No hydronephrosis. 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 Status post endovascular stent graft in the right common iliac artery. There is redemonstration of a 4.5 x 4.1 cm right internal iliac artery aneurysm. BOWEL: The small bowel loops are normal in caliber. The colon is normal in size. No bowel dilatation or wall thickening. No bowel obstruction. APPENDIX: Normal appendix. PERITONEUM: No free fluid. No free air. LYMPH NODES: No enlarged lymph nodes. BLADDER: Well distended and grossly normal in appearance. REPRODUCTIVE: The prostate gland is normal in size. BONES: No acute fracture. Status post bilateral hip arthroplasty. Extensive streak artifacts limit evaluation of the pelvis. There is diffuse bone demineralization and multilevel degenerative changes in the spine. OTHER FINDINGS: There is a high attenuation collection medial to the left hip joint with multiple peripheral linear metallic densities in the region of the iliopsoas bursa. IMPRESSION: No acute abdominal or pelvic abnormality. Cholelithiasis. Bilateral renal cortical atrophy and stable simple cysts in both kidneys. Little interval change in known presumable hemorrhagic cyst in the interpolar region of the left kidney. 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 Large high attenuation collection in the region of the left iliopsoas bursa which may represent reactive bursitis. Follow-up is advised. A preliminary report was provided by [facility].
[2018-05-02] MEDS: Mupirocin 2% Ointment 15 GM TUBE TOP SCH ×2 (11:44→17:32)
--- NOTE | 2018-05-02 11:50 | CARD ---
APPROVED REPORT Date of service: 05/01/2018 EKG Measurement Heart [id number] <Conclusion> Normal sinus rhythm Left anterior fascicular block Cannot rule out Inferior infarct, age undetermined Abnormal ECG
[2018-05-02] MEDS: Sodium Chloride 0.9% 1,000 ML IV SCH (11:52)
--- NOTE | 2018-05-02 15:01 | CP.PCM.PN ---
<Oliver Rocha - Last Filed: 05/02/18 14:50> Subjective - Date & Time of Evaluation Date of Evaluation: 05/02/18 Time of Evaluation: 11:00 - Subjective Subjective: PGY-1 Medicine Progress Update Patient seen and examined at bedside. A lengthy discussion was had with patient's for CT findings. Patient's was at bedside and options were discussed to discuss. Patient's understood that pain most likely due to distended bladder 2/2 to BPH. Patient's was explained that we will do an ultrasound to determine if there is any acute process concerning the gallbladder. Patient was explained their was findings on CT that may show a mass on the kidney however patient's is not having any hematuria. Patient was explained that pain is most likely due to distended bladder or gallbladder. U ltrasound was ordered and pending. Patient's was amenable to not further workup the mass on left kidney until patient has hematuria or his pain is due to kidney origin. Patient's was made aware of plan of what the workup would consist of for the kidney mass but due to patient's multiple comorbidities and dementia patient's stated that we can just monitor it. Objective - Vital Signs/Intake and Output Vital Signs (last 24 hours): Temp Pulse Resp BP Pulse Ox 97.9 F 73 20 130/79 96 05/02/18 07:54 05/02/18 07:54 05/02/18 07:54 05/02/18 09:54 05/02/18 07:54 Intake and Output: 05/02/18 05/02/18 06:59 18:59 Intake Total 450 Output Total 750 Balance -300 - Medications Medications: Current Medications Albuterol/Ipratropium (Duoneb 3 Mg/0.5 Mg (3 Ml) Ud) 3 ml IH [id number] PRN PRN Reason: Wheezing Furosemide (Lasix) 20 mg IVP DAILY [facility] Last Admin: 05/02/18 09:54 Dose: 20 mg Sodium Chloride (Sodium Chloride 0.9%) 1,000 mls @ 100 mls/hr IV .Q10H NICK Last Admin: 05/02/18 11:52 Dose: 100 mls/hr Lactic Acid (Lac-Hydrin 12% Lotion (225 G)) 0 gm EXT BID NICK Mupirocin (Bactroban Ointment) 0 gm TOP BID [facility] Stop: 05/15/18 18:01 Last Admin: 05/02/18 11:44 Dose: 1 applic Pantoprazole Sodium (Protonix Inj) 40 mg IVP DAILY [facility] Last Admin: 05/02/18 09:54 Dose: 40 mg Tamsulosin HCl (Flomax) 0.4 mg PO DAILY [facility] Last Admin: 05/02/18 11:48 Dose: 0.4 mg - Labs Labs: 05/02/18 03:55 05/02/18 03:55 PT 22.8 SECONDS (9.4-12.5) H 05/02/18 09:00 INR 1.96 05/02/18 09:00 APTT 36.9 Seconds (25.1-36.5) H 05/01/18 22:21 <Karol Patricia - Last Filed: 05/04/18 08:08> Objective - Vital Signs/Intake and Output Vital Signs (last 24 hours): Temp Pulse Resp BP Pulse Ox 97.9 F 59 L 20 146/79 94 L 05/03/18 06:00 05/03/18 17:59 05/03/18 06:00 05/03/18 09:12 05/03/18 06:00 - Labs Labs: 05/03/18 05:30 05/03/18 05:30 PT 25.3 SECONDS (9.4-12.5) H 05/03/18 05:30 INR 2.17 05/03/18 05:30 APTT 36.9 Seconds (25.1-36.5) H 05/01/18 22:21 Attending/Attestation - Attestation I have personally seen and examined this patient.: Yes I have fully participated in the care of the patient.: Yes I have reviewed all pertinent clinical information, including history, physical exam and plan: Yes Notes (Text): 05/04/18 08:07 Medical record note made by the resident after discussion with my direction and input after the patient was personally seen and examined by me. I have reviewed the chart and agree that the record accurately reflects by personal performance of the history, physical exam, data review, and medical decision-making, in the course for the patient. I have also personally directed the plan of care.
--- NOTE | 2018-05-02 15:47 | US ---
Date of service: 05/02/2018 HISTORY: RUQ abdominal pain COMPARISON: None. TECHNIQUE: Sonographic evaluation of the right upper quadrant of the abdomen. FINDINGS: LIVER: Measures 14.0 cm in length. Increased echogenicity of the liver parenchyma. No mass. No intrahepatic bile duct dilatation. GALLBLADDER: Gallstones COMMON BILE DUCT: Measures 6 mm. No stones. No dilatation. PANCREAS: Not visualized RIGHT KIDNEY: Measures 9.0 x 4.3 x 4.4 cm in length. Normal echogenicity. No calculus, mass, or hydronephrosis. There is a 4.3 cm cyst in the upper pole. 1.2 cm cysts are seen in the mid and lower pole. AORTA: Not visible IVC: Not visible OTHER FINDINGS: The study was limited by the patient's inability to turn on the side and to hold his breath. IMPRESSION: Fatty infiltration of the liver. Gallstone. No evidence of cholecystitis
[2018-05-02] MEDS: Ammonium Lactate 12% Lotion (225 g) EXT SCH (17:33)
--- NOTE | 2018-05-02 18:20 | PN ---
DATE: 05/02/2018 SUBJECTIVE: The patient was admitted with a right-sided abdominal pain. The patient is well known to me. Long history of advanced dementia. He is now currently bed-bound. History of recurrent UTIs and recurrent urinary incontinence. The patient was admitted with a vague right-sided abdominal pain. On radiologic imaging, it appears the patient has a consolidation in his right lung consistent with pneumonia which could be a cause of his right-sided pain. The patient also has a long history of multiple vascular issues. He has a right iliac artery aneurysm as well as an abdominal aortic aneurysm which was stented in the past. The patient has a stable hemorrhagic cyst in the interpolar region of the left kidney. There is bilateral renal cortical atrophy noted on the CT scan. The patient had a reportedly distended bladder. A Nelson catheter was placed and 700 mL was drained. LABORATORY DATA: On laboratory report, creatinine is 1 with a GFR greater than 60. WBC count was 11.3 which is now down to 9.9. Urologically, the plan will be to maintain the Nelson catheter at this time. Urine should be sent for culture and sensitivity. The patient does have a history of a renal cell carcinoma and had a partial nephrectomy years ago. There does not appear to be any recurrence on the current CT scan. There are some suspicious masses present. I would recommend a General Surgery consultation. Possibly, Interventional Radiology if a biopsy is to be considered; however, the patient has advanced dementia as well as a multitude of other significant medical issues. I would think he is at very high risk for any invasive surgical procedures. I would try to treat him conservatively and see if his pain resolves with fluids and antibiotics and treatment of the pneumonia. I will continue to follow the patient with you. Gary Perry MD
[2018-05-03 06:01] LABS: BASO # 0.01 K/mm3 (0.0-2.0); BASO % 0.1 % (0.0-3.0); EOS # 0.3 (0.0-0.7); EOS % 3.2 % (1.5-5.0); GRAN # 5.5 (1.4-6.5); GRAN % 63.6 % (50.0-68.0); HEMOGLOBIN 12.7 g/dL (14.0-18.0); LYMPH # 2.1 (1.2-3.4); LYMPH % 24.3 % (22.0-35.0); MEAN CELL VOLUME 97.8 fl (80.0-105.0); MEAN CORPUSCULAR HEMOGLOBIN 31.2 pg (25.0-35.0); MEAN CORPUSCULAR HGB CONC 31.9 g/dl (31.0-37.0); MEAN PLATELET VOLUME 8.8 fl (7.0-11.0); MONO # 0.8 (0.1-0.6); MONO % 8.8 % (1.0-6.0); RBC 4.07 10^6/uL (3.5-6.1); RED CELL DISTRIBUTION WIDTH 14.4 % (11.5-14.5); WHITE BLOOD COUNT 8.7 10^3/ul (4.5-11.0)
[2018-05-03 06:19] LABS: INR 2.17; PROTHROMBIN TIME 25.3 SECONDS (9.4-12.5)
[2018-05-03 07:23] LABS: ALB/GLOB RATIO 1.1 (1.1-1.8); ALBUMIN 2.8 g/dL (3.0-4.8); ALT/SGPT 23 U/L (7-56); AST/SGOT 19 U/L (17-59); BLOOD UREA NITROGEN 27 mg/dL (7-21); CALCIUM 8.4 mg/dL (8.4-10.5); GFR NON-AFRICAN AMERICAN 57
[2018-05-03] MEDS ORDERED: Aritificial Tears (15ml) OU SCH (07:45)
[2018-05-03 07:49] VITALS: BP 146/79; TEMP 97.9; O2SAT 94
[2018-05-03] MEDS: Mupirocin 2% Ointment 15 GM TUBE TOP SCH (09:10)
[2018-05-03] MEDS: Ammonium Lactate 12% Lotion (225 g) EXT SCH (09:10)
--- NOTE | 2018-05-03 10:40 | CP.PCM.PN ---
<[place] - Last Filed: 05/03/18 11:25> Subjective - Date & Time of Evaluation Date of Evaluation: 05/03/18 Time of Evaluation: 10:37 - Subjective Subjective: GI Progress Note for Dr. Bolaños Patient seen and examined this AM. Patient laying comfortably in bed without family at bedside. No acute events reported overnight. Patient with some abdominal tenderness to deep palpation. Reports tolerating diet. Denies nausea, vomiting, fever, chills. 12 point ROS bengin Objective - Vital Signs/Intake and Output Vital Signs (last 24 hours): Temp Pulse Resp BP Pulse Ox 97.9 F 70 20 146/79 94 L 05/03/18 06:00 05/03/18 06:00 05/03/18 06:00 05/03/18 09:12 05/03/18 06:00 Intake and Output: 05/03/18 05/03/18 06:59 18:59 Intake Total 1420 Output Total 900 Balance 520 - Medications Medications: Current Medications Albuterol/Ipratropium (Duoneb 3 Mg/0.5 Mg (3 Ml) Ud) 3 ml IH [id number] PRN PRN Reason: Wheezing Artificial Tears (Artificial Tears) 0 ml OU DAILY [facility] Last Admin: 05/03/18 09:14 Dose: 1 drop Furosemide (Lasix) 20 mg IVP DAILY [facility] Last Admin: 05/03/18 09:12 Dose: 20 mg Sodium Chloride (Sodium Chloride 0.9%) 1,000 mls @ 100 mls/hr IV .Q10H [facility] Last Admin: 05/02/18 11:52 Dose: 100 mls/hr Lactic Acid (Lac-Hydrin 12% Lotion (225 G)) 0 gm EXT BID NICK Last Admin: 05/03/18 09:10 Dose: 1 applic Mupirocin (Bactroban Ointment) 0 gm TOP BID NICK Stop: 05/15/18 18:01 Last Admin: 05/03/18 09:10 Dose: 1 applic Pantoprazole Sodium (Protonix Inj) 40 mg IVP DAILY [facility] Last Admin: 05/03/18 09:10 Dose: 40 mg Tamsulosin HCl (Flomax) 0.4 mg PO DAILY [facility] Last Admin: 05/03/18 09:11 Dose: 0.4 mg - Labs Labs: 05/03/18 05:30 05/03/18 05:30 PT 25.3 SECONDS (9.4-12.5) H 05/03/18 05:30 INR 2.17 05/03/18 05:30 APTT 36.9 Seconds (25.1-36.5) H 05/01/18 22:21 - Head Exam Head Exam: ATRAUMATIC, NORMAL INSPECTION, NORMOCEPHALIC - Eye Exam Eye Exam: EOMI, PERRL - ENT Exam ENT Exam: Mucous Membranes Moist - Respiratory Exam Respiratory Exam: Clear to Ausculation Bilateral, NORMAL BREATHING PATTERN - Cardiovascular Exam Cardiovascular Exam: REGULAR RHYTHM, +S1, +S2 - GI/Abdominal Exam GI & Abdominal Exam: Soft, Tenderness (tenderness to deep palpation lower quadrant R>L), Normal Bowel Sounds - Extremities Exam Extremities Exam: Full ROM - Neurological Exam Neurological Exam: Alert, Awake Neuro motor strength exam: Left Upper Extremity: 5, Right Upper Extremity: 5, Left Lower Extremity: 5, Right Lower Extremity: 5 - Psychiatric Exam Psychiatric exam: Normal Affect - Skin Skin Exam: Dry, Intact Assessment and Plan - Assessment and Plan (Free Text) Assessment: 87 year old male with past medical history of CAD, COPD, TIA, CVA, HTN, RCC, Afib on anticoagulation, DVT, hx of pulmonary embolism, dementia and cholelithiasis. Patient found to have gallstones and renal cyst on abdominal pelvis CT. Plan: Abdominal Pain - Patient being evaluated further for renal and urinary/bladder findings on CAT scan - Abdominal Pelvis CT reviewed - Abdominal ultrasound reviewed - Patient tolerating diet, reports bm - Right iliac artery aneurysm stable after reviews of previous imaging - No plan for endoscopy at this point - Further recommendations per Dr. Bolaños <Andreas Bolaños V - Last Filed: 05/03/18 23:58> Objective - Vital Signs/Intake and Output Vital Signs (last 24 hours): Temp Pulse Resp BP Pulse Ox 97.9 F 59 L 20 146/79 94 L 05/03/18 06:00 05/03/18 17:59 05/03/18 06:00 05/03/18 09:12 05/03/18 06:00 - Labs Labs: 05/03/18 05:30 05/03/18 05:30 PT 25.3 SECONDS (9.4-12.5) H 05/03/18 05:30 INR 2.17 05/03/18 05:30 APTT 36.9 Seconds (25.1-36.5) H 05/01/18 22:21 Attending/Attestation - Attestation I have personally seen and examined this patient.: Yes I have fully participated in the care of the patient.: Yes I have reviewed all pertinent clinical information, including history, physical exam and plan: Yes Notes (Text): This is an addendum to GI followup report dictated by the Newspaper Journalist. The patient was seen and evaluated earlier. Medical records, lab studies, imagings were reviewed. Last 24 hours events reviewed. Agreed with the above treatment plan as outlined in Newspaper Journalist 's notes with the addition of the following Patient appears more comfortable Advance diet urological follow-up Discussed with the patient's year earlier yesterday and prefers mainly conservative management in view of his multiple comorbidities History of gallstones asymptomatic Renal lesion Patient planned to be DC'd with a [facility] and urological follow-up Recommend stool softeners when necessary for constipation 05/03/18 23:57
--- NOTE | 2018-05-03 13:43 | CP.PCM.PCO ---
Physician Communication Note - Physician Communication Note Physician Communication Note: Spoke with who is at bed side.Patient is DNR and DNI, will place order
[2018-05-03 14:02] LABS: URINE BILIRUBIN NEGATIVE (NEGATIVE); URINE BLOOD MODERATE (NEGATIVE); URINE GLUCOSE (UA) NEGATIVE (NEGATIVE); URINE LEUKOCYTE ESTERASE TRACE Leu/uL (NEGATIVE); URINE PROTEIN NEGATIVE mg/dL (<30 mg/dL); URINE UROBILINOGEN 0.2 E.U./dL (<1 E.U./dL)
[2018-05-03 14:05] LABS: URINE APPEARANCE CLEAR (CLEAR); URINE COLOR LIGHT YELLOW (YELLOW)
[2018-05-03 14:15] LABS: URINE BACTERIA MOD (NEG)
--- NOTE | 2018-05-03 15:38 | CP.PCM.DIS ---
<Oliver Rocha - Last Filed: 05/03/18 15:32> Provider - Provider Date of Admission: 05/02/18 08:29 Attending physician: Karol Patricia MD Primary care physician: Adams Barnhart MD Time Spent in preparation of Discharge (in minutes): 45 Hospital Course - Lab Results Lab Results: Micro Results 05/02/18 03:30 Urine,Wilkins Urine Culture - Final No Growth (<1,000 CFU/ML) 05/02/18 03:55 Blood Blood Culture - Preliminary NO GROWTH AFTER 24 HOURS Most Recent Lab Values WBC 8.7 10^3/ul (4.5-11.0) 05/03/18 05:30 RBC 4.07 10^6/uL (3.5-6.1) 05/03/18 05:30 Hgb 12.7 g/dL (14.0-18.0) L 05/03/18 05:30 Hct 39.8 % (42.0-52.0) L 05/03/18 05:30 MCV 97.8 fl (80.0-105.0) 05/03/18 05:30 MCH 31.2 pg (25.0-35.0) 05/03/18 05:30 MCHC 31.9 g/dl (31.0-37.0) 05/03/18 05:30 RDW 14.4 % (11.5-14.5) 05/03/18 05:30 Plt Count 158 10^3/uL (120.0-450.0) 05/03/18 05:30 MPV 8.8 fl (7.0-11.0) 05/03/18 05:30 Gran % 63.6 % (50.0-68.0) 05/03/18 05:30 Lymph % (Auto) 24.3 % (22.0-35.0) 05/03/18 05:30 Webster % (Auto) 8.8 % (1.0-6.0) H 05/03/18 05:30 Eos % (Auto) 3.2 % (1.5-5.0) 05/03/18 05:30 Baso % (Auto) 0.1 % (0.0-3.0) 05/03/18 05:30 Gran # 5.50 (1.4-6.5) 05/03/18 05:30 Lymph # (Auto) 2.1 (1.2-3.4) 05/03/18 05:30 Webster # (Auto) 0.8 (0.1-0.6) H 05/03/18 05:30 Eos # (Auto) 0.3 (0.0-0.7) 05/03/18 05:30 Baso # (Auto) 0.01 K/mm3 (0.0-2.0) 05/03/18 05:30 PT 25.3 SECONDS (9.4-12.5) H 05/03/18 05:30 INR 2.17 05/03/18 05:30 APTT 36.9 Seconds (25.1-36.5) H 05/01/18 22:21 Sodium 143 mmol/L (132-148) 05/03/18 05:30 Potassium 3.9 mmol/L (3.6-5.0) 05/03/18 05:30 Chloride 110 mmol/L (98-107) H 05/03/18 05:30 Carbon Dioxide 29 mmol/L (21-33) 05/03/18 05:30 Anion Gap 8 (10-20) L 05/03/18 05:30 BUN 27 mg/dL (7-21) H 05/03/18 05:30 Creatinine 1.2 mg/dl (0.8-1.5) 05/03/18 05:30 Est GFR ( Amer) > 60 05/03/18 05:30 Est GFR (Non-Af Amer) 57 05/03/18 05:30 Random Glucose 74 mg/dL (70-110) 05/03/18 05:30 Calcium 8.4 mg/dL (8.4-10.5) 05/03/18 05:30 Total Bilirubin 0.4 mg/dL (0.2-1.3) 05/03/18 05:30 AST 19 U/L (17-59) 05/03/18 05:30 ALT 23 U/L (7-56) 05/03/18 05:30 Alkaline Phosphatase 85 U/L (38-126) 05/03/18 05:30 Lactate Dehydrogenase 379 U/L (333-699) 05/01/18 22:21 Total Creatine Kinase 32 U/L (35-230) L 05/01/18 22:21 Troponin I 0.08 ng/mL 05/02/18 03:55 Total Protein 5.3 g/dL (5.8-8.3) L 05/03/18 05:30 Albumin 2.8 g/dL (3.0-4.8) L 05/03/18 05:30 Globulin 2.5 gm/dL 05/03/18 05:30 Albumin/Globulin Ratio 1.1 (1.1-1.8) 05/03/18 05:30 Lipase 128 U/L (23-300) 05/01/18 22:21 Prostate Specific Ag 2.4 ng/mL (0.00-2.5) 05/02/18 09:00 Procalcitonin 0.12 NG/ML (0.19-0.49) L 05/02/18 09:00 Urine Color Light yellow (YELLOW) 05/03/18 13:40 Urine Appearance Clear (CLEAR) 05/03/18 13:40 Urine pH 6.0 (4.7-8.0) 05/03/18 13:40 Ur Specific Rosenberg 1.015 (1.005-1.035) 05/03/18 13:40 Urine Protein Negative mg/dL (<30 mg/dL) 05/03/18 13:40 Urine Glucose (UA) Negative mg/dL (NEGATIVE) 05/03/18 13:40 Urine Ketones Negative mg/dL (NEGATIVE) 05/03/18 13:40 Urine Blood Moderate (NEGATIVE) H 05/03/18 13:40 Urine Nitrate Negative (NEGATIVE) 05/03/18 13:40 Urine Bilirubin Negative (NEGATIVE) 05/03/18 13:40 Urine Urobilinogen 0.2 E.U./dL (<1 E.U./dL) 05/03/18 13:40 Ur Leukocyte Esterase Trace Prakash/uL (NEGATIVE) H 05/03/18 13:40 Urine RBC 10 - 15 /hpf (0-2) 05/03/18 13:40 Urine WBC 2 - 5 /hpf (0-6) 05/03/18 13:40 Ur Epithelial Cells None /hpf (0-5) 05/03/18 13:40 Urine Bacteria Mod (NEG) 05/03/18 13:40 - Hospital Course Hospital Course: Upon admission Pt is an 87 yo male with a PMH of CAD, TIA, CVA, CHF, HTN, COPD, renal cell carcinoma, atrial fibrillation, gallstones, and dementia who presents to the ED complaining of abdominal pain. Per chart review, pt reports that pt has been complaining of right sided abdominal pain since yesterday evening. Pt relates that pt has history of constipation, but has had 3 BM yesterday. Pt is bed ridden. During history when asked if he has pain, or any symptom he states that he does not know, and is unsure why he is at the hospital. Pt knows his name, but does not know the year, he thinks the current month is October. ROS is difficult to obtain since pt has dementia. Hospital Course 87 year old male admitted for intractable abdominal pain and urinary retention. EKG, CXR, and serial troponins obtained to rule out cardiac cause. EKG and CXR resulted WNL. Troponins resulted 0.08. 1x zosyn given. Blood and urine cultures obtained. Bladder scan showed 640 mL urine. Surgery was consulted and wilkins catheter was placed. U/A was benign with some moderate blood likely 2/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 Gallbladder US resulted fatty infiltration of the liver, gallstone, no evidence of cholecystitis. GI and urology consulted. GI reviewed patients records, including endoscopy and colonoscopy from 2017. Endoscopy was not recommended. Urology recommended general surgery consult to evaluate suspicious masses seen on CT due to patients history of renal cell carcinoma, possibly interventional radiology for biopsy; however because patient is high risk for any invasive procedure, conservative treatment with fluids, antibiotics, and treatment of pneumonia is preferred. Procal resulted low, no further antibiotic was started. Lengthy, in- depth, discussion with about imaging showing possible kidney mass, possible causes, and treatment options. Discussed that patient did not have hematuria and that pain was unlikely of renal origin. She was agreeable to no further kidney workup until patient has hematuria or pain of kidney origin. also confirmed that patient is DNR/DNI. Patient was started on Flomax, which he tolerated well. Urology recommended discharge with wilkins catheter in place, and to f/u outpatient. Discussed with , and she is agreeable to discharge home. Discharge plan Patient is stable for discharge to home as per Dr. Patricia. Patients was counseled to return to the emergency department if symptoms return or worsen. Patient is to follow up with primary medical doctor, Dr. Adams Barnhart, within 3-5 days of discharge. Patient is to follow up with urology, Dr. Gary Perry, within 3-5 days of discharge. Patient is to follow up with heme/onc as scheduled. Patient discharged with wilkins catheter in place, counseled on management and importance of f/u with urology. Patient is to take home medications, Aspirin, Amlodipine-Benazepril, Warfarin, Miralax, Protonix, Nystatin, Atrovent, Lasix, colace, Lipitor, and albuterol sulfate as prescribed and instructed in discharge instructions. Reviewed all medications with patients , and she understands instructions. Patients understands and agrees with discharge plan. Disclaimer Written above is a synopsis of patients current hospital admission. For full admission refer to EMR. Discharge Exam - Head Exam Head Exam: ATRAUMATIC, NORMAL INSPECTION, NORMOCEPHALIC - Eye Exam Eye Exam: EOMI, Normal appearance. absent: Nystagmus, Scleral icterus - Respiratory Exam Respiratory Exam: NORMAL BREATHING PATTERN. absent: Decreased Breath Sounds, Rales, Rhonchi, Wheezes - Cardiovascular Exam Cardiovascular Exam: REGULAR RHYTHM, +S1, +S2 - GI/Abdominal Exam GI & Abdominal Exam: Normal Bowel Sounds, Soft. absent: Tenderness - Neurological Exam Additional comments: baseline dementia - Psychiatric Exam Psychiatric exam: Normal Affect, Normal Mood - Skin Skin Exam: Intact, Normal Color Discharge Plan - Follow Up Plan Condition: STABLE Disposition: HOME/ ROUTINE Instructions: How to Care for Your Wilkins Catheter, Male, Acute Abdomen (Belly Pain), Adult (DC), Wilkins Catheter, Male Additional Instructions: 1. Patient is stable for discharge to home as per Dr. Patricia. 2. Patient is to followup with urologist, Dr. Perry, for continued management of wilkins catheter. Patient is to followup primary medical doctor with Dr. Barnhart for continued management of chronic conditions. Patient will be discharged with wilkins catheter in place and social working/nursing is planning to get an ambulance due to patient being nonambulatory. 3. Patient is to resume all of his home medications as no adjustments were made during this admission. Patient will continue home warfarin as patient hemoglobin is stable at its baseline. Patient U/A not concerning for infection and will be discharged with catheter for urinary retention. Possible weaning trial of wilkins as per urology outpatient. 4. Patient is to return to hospital if symptoms worsen or recur. 5. Patient's understands the plan as above and agrees. Patient has baseline dementia and unable to take care of himself individually. Patient's has ass istance from [place] who send a nurse practitioner to help the patient. Referrals: Gary Perry MD [Staff Provider] - Adams Barnhart MD [Primary Care Provider] - <Karol Patricia - Last Filed: 05/04/18 08:07> Provider - Provider Date of Admission: 05/02/18 08:29 Attending physician: Karol Patricia MD Primary care physician: Adams Barnhart MD Hospital Course - Lab Results Lab Results: Micro Results 05/02/18 03:55 Blood Blood Culture - Preliminary NO GROWTH AFTER 48 HOURS 05/02/18 03:30 Urine,Wilkins Urine Culture - Final No Growth (<1,000 CFU/ML) Most Recent Lab Values WBC 8.7 10^3/ul (4.5-11.0) 05/03/18 05:30 RBC 4.07 10^6/uL (3.5-6.1) 05/03/18 05:30 Hgb 12.7 g/dL (14.0-18.0) L 05/03/18 05:30 Hct 39.8 % (42.0-52.0) L 05/03/18 05:30 MCV 97.8 fl (80.0-105.0) 05/03/18 05:30 MCH 31.2 pg (25.0-35.0) 05/03/18 05:30 MCHC 31.9 g/dl (31.0-37.0) 05/03/18 05:30 RDW 14.4 % (11.5-14.5) 05/03/18 05:30 Plt Count 158 10^3/uL (120.0-450.0) 05/03/18 05:30 MPV 8.8 fl (7.0-11.0) 05/03/18 05:30 Gran % 63.6 % (50.0-68.0) 05/03/18 05:30 Lymph % (Auto) 24.3 % (22.0-35.0) 05/03/18 05:30 Webster % (Auto) 8.8 % (1.0-6.0) H 05/03/18 05:30 Eos % (Auto) 3.2 % (1.5-5.0) 05/03/18 05:30 Baso % (Auto) 0.1 % (0.0-3.0) 05/03/18 05:30 Gran # 5.50 (1.4-6.5) 05/03/18 05:30 Lymph # (Auto) 2.1 (1.2-3.4) 05/03/18 05:30 Webster # (Auto) 0.8 (0.1-0.6) H 05/03/18 05:30 Eos # (Auto) 0.3 (0.0-0.7) 05/03/18 05:30 Baso # (Auto) 0.01 K/mm3 (0.0-2.0) 05/03/18 05:30 PT 25.3 SECONDS (9.4-12.5) H 05/03/18 05:30 INR 2.17 05/03/18 05:30 APTT 36.9 Seconds (25.1-36.5) H 05/01/18 22:21 Sodium 143 mmol/L (132-148) 05/03/18 05:30 Potassium 3.9 mmol/L (3.6-5.0) 05/03/18 05:30 Chloride 110 mmol/L (98-107) H 05/03/18 05:30 Carbon Dioxide 29 mmol/L (21-33) 05/03/18 05:30 Anion Gap 8 (10-20) L 05/03/18 05:30 BUN 27 mg/dL (7-21) H 05/03/18 05:30 Creatinine 1.2 mg/dl (0.8-1.5) 05/03/18 05:30 Est GFR ( Amer) > 60 05/03/18 05:30 Est GFR (Non-Af Amer) 57 05/03/18 05:30 Random Glucose 74 mg/dL (70-110) 05/03/18 05:30 Calcium 8.4 mg/dL (8.4-10.5) 05/03/18 05:30 Total Bilirubin 0.4 mg/dL (0.2-1.3) 05/03/18 05:30 AST 19 U/L (17-59) 05/03/18 05:30 ALT 23 U/L (7-56) 05/03/18 05:30 Alkaline Phosphatase 85 U/L (38-126) 05/03/18 05:30 Lactate Dehydrogenase 379 U/L (333-699) 05/01/18 22:21 Total Creatine Kinase 32 U/L (35-230) L 05/01/18 22:21 Troponin I 0.08 ng/mL 05/02/18 03:55 Total Protein 5.3 g/dL (5.8-8.3) L 05/03/18 05:30 Albumin 2.8 g/dL (3.0-4.8) L 05/03/18 05:30 Globulin 2.5 gm/dL 05/03/18 05:30 Albumin/Globulin Ratio 1.1 (1.1-1.8) 05/03/18 05:30 Lipase 128 U/L (23-300) 05/01/18 22:21 Prostate Specific Ag 2.4 ng/mL (0.00-2.5) 05/02/18 09:00 Procalcitonin 0.12 NG/ML (0.19-0.49) L 05/02/18 09:00 Urine Color Light yellow (YELLOW) 05/03/18 13:40 Urine Appearance Clear (CLEAR) 05/03/18 13:40 Urine pH 6.0 (4.7-8.0) 05/03/18 13:40 Ur Specific Rosenberg 1.015 (1.005-1.035) 05/03/18 13:40 Urine Protein Negative mg/dL (<30 mg/dL) 05/03/18 13:40 Urine Glucose (UA) Negative mg/dL (NEGATIVE) 05/03/18 13:40 Urine Ketones Negative mg/dL (NEGATIVE) 05/03/18 13:40 Urine Blood Moderate (NEGATIVE) H 05/03/18 13:40 Urine Nitrate Negative (NEGATIVE) 05/03/18 13:40 Urine Bilirubin Negative (NEGATIVE) 05/03/18 13:40 Urine Urobilinogen 0.2 E.U./dL (<1 E.U./dL) 05/03/18 13:40 Ur Leukocyte Esterase Trace Prakash/uL (NEGATIVE) H 05/03/18 13:40 Urine RBC 10 - 15 /hpf (0-2) 05/03/18 13:40 Urine WBC 2 - 5 /hpf (0-6) 05/03/18 13:40 Ur Epithelial Cells None /hpf (0-5) 05/03/18 13:40 Urine Bacteria Mod (NEG) 05/03/18 13:40 Attending/Attestation - Attestation I have personally seen and examined this patient.: Yes I have fully participated in the care of the patient.: Yes I have reviewed all pertinent clinical information, including history, physical exam and plan: Yes Notes (Text): 05/04/18 08:05 Medical record note made by the resident after discussion with my direction and input after the patient was personally seen and examined by me. I have reviewed the chart and agree that the record accurately reflects by personal performance of the history, physical exam, data review, and medical decision-making, in the course for the patient. I have also personally directed the plan of care. 87 yo male with a PMH of CAD, TIA, CVA, CHF, HTN, COPD, renal cell carcinoma, atrial fibrillation, gallstones, and dementia who presents to the ED complaining of abdominal pain.He was found to have Urinary Retention. Wilkins catheter was placed. U/A was negative for UTI.Procalcitonin level was normal.Patient was started on Flomax.He was evaluated by Urology and plan to DC home with Wilkins Catheter.He will follow up with Urologist . 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 Gallbladder US resulted fatty infiltration of the liver, gallstone, no evidence of cholecystitis. GI and urology consulted. GI reviewed patients records, including endoscopy and colonoscopy from 2017. Patient diet was advanced gradually. He is tolerating diet at the time of discharge. Lengthy, in-depth, discussion with about imaging showing possible kidney mass, possible causes, and treatment options. Patient has advance dementia, he is bed bound. She has opted for not any further work up. Patient is not having any hematuria.Hemoglobin is stable. also confirmed that patient is DNR/DNI. Patient was started on Flomax, which he tolerated well. Patient is at his base line. Patient does not want him to go NH. He will be discharged home .He will follow up with PCP /Urology. Management plan was discussed in detail with . Education was provided. Prognosis is guarded. 05/04/18 08:06
[2018-05-03 18:00] VITALS: PULSE 59
== END 2018-05-03 18:36 | disposition home or self-care (01) | DRG 695 ==
LOC: ED 20:43 → ERH 23:45 → UNDOADMOB 23:47 → ERH 05-02 01:15 → 3RNO 05-02 02:12 → OBSVTOIN 05-02 08:29
PROVIDERS: ADMIT Internal Medicine; ATTEND Internal Medicine
DX: R33.9 Retention of urine, unspecified (principal); J18.9 Pneumonia, unspecified organism; I13.0 Hypertensive heart and chronic kidney disease with heart failure and stage 1 through stage 4 chronic kidney disease, or unspecified chronic kidney disease; J44.0 Chronic obstructive pulmonary disease with (acute) lower respiratory infection; I25.10 Atherosclerotic heart disease of native coronary artery without angina pectoris; I50.9 Heart failure, unspecified; N18.9 Chronic kidney disease, unspecified; E78.5 Hyperlipidemia, unspecified; F03.90 Unspecified dementia, unspecified severity, without behavioral disturbance, psychotic disturbance, mood disturbance, and anxiety; I48.91 Unspecified atrial fibrillation; I73.9 Peripheral vascular disease, unspecified; K76.0 Fatty (change of) liver, not elsewhere classified; K80.20 Calculus of gallbladder without cholecystitis without obstruction; R10.9 Unspecified abdominal pain; N28.1 Cyst of kidney, acquired; N28.89 Other specified disorders of kidney and ureter; Z74.01 Bed confinement status; Z79.01 Long term (current) use of anticoagulants; Z85.528 Personal history of other malignant neoplasm of kidney; Z86.711 Personal history of pulmonary embolism; Z86.73 Personal history of transient ischemic attack (TIA), and cerebral infarction without residual deficits; Z87.440 Personal history of urinary (tract) infections; Z87.891 Personal history of nicotine dependence; Z95.5 Presence of coronary angioplasty implant and graft; Z96.643 Presence of artificial hip joint, bilateral; Z66 Do not resuscitate; Z86.718 Personal history of other venous thrombosis and embolism; I72.3 Aneurysm of iliac artery; N26.1 Atrophy of kidney (terminal); M71.9 Bursopathy, unspecified; H26.9 Unspecified cataract

== ENCOUNTER 2018-05-27 21:08 | Inpatient (IN) | payer MEDICARE, OTHER ==
[2018-05-27 21:11] VITALS: BMI 29.7
--- NOTE | 2018-05-27 21:23 | ED PDOC ---
Arrival/HPI - General Historian: Spouse <Meño Rodarte - Last Filed: 05/28/18 05:09> - History of Present Illness Narrative History of Present Illness (Text): CC: hematuria s/p wilkins catheter insertion This is an 87 year old male with PMH of CAD with stent, TIA, CVA, CHF, HTN, COPD, renal cell carcinoma, constipation, atrial fibrillation on coumadin, gallstones, and dementia who presents with a 1 day history of blood via the urinary catheter. As per , who is at bedside, pt's wilkins catheter was replaced at around noon today, and he has had bleeding through the wilkins catheter since. Pt is complaining of lower abdominal pain described as pressure, nonradiating, and starting since the insertion of the wilkins, associated with pain on urination. Denies fever, chills, lightheadedness, dizziness, headache, blurry vision, double vision, visual changes, chest pain, sob, n/v/d, or any other complaints. Pt's INR was elevated at 3.34 on , 05/25, and has not given coumadin since then after being told to do so by Dr. Barnhart. Pt was recently admitted for intractable abdominal pain and urinary retention on 05/02 and discharged on 05/03. Patient and were instructed to f/u with Dr. Casey and Dr. Barnhart after discharge. Pt has not seen Dr. Barnhart or Dr. Casey as per . PMH: CAD with stent, TIA, CVA, CHF, HTN, COPD, renal cell carcinoma, atrial fibrillation on coumadin, gallstones, and dementia PSH: Repair of R iliac aneurysm, ivc filter placement, b/l hip surgery, cardiac stent, resected RCC, hip surgeries x 5 FH: difficult to obtain due to dementia SH: former smoker, denies alcohol, denies drug use, lives with Allergies: NKDA Meds: per chart PMD: Dr. Barnhart Urology: Vicky Time/Duration: 24 hours Symptom Onset: Sudden Symptom Course: Worsening Quality: Pressure <DestinyKeegan - Last Filed: 05/28/18 18:42> - General Chief Complaint: Male Genitourinary Time Seen by Provider: 05/27/18 21:13 Past Medical History - Provider Review Nursing Documentation Reviewed: Yes <Meño Rodarte - Last Filed: 05/28/18 05:09> - Past History Past History: Non-Contributing - Infectious Disease Hx of Infectious Diseases: None - Tetanus Immunization Tetanus Immunization: Unknown - Cardiac Hx Cardiac Disorders: Yes ( denies mi) Hx Angina: No Hx Cardiac Arrhythmia: Yes Hx Circulatory Problems: Yes Hx Congestive Heart Failure: No Hx Heart Murmur: No Hx Heart Transplant: No Hx Internal Defibrillator: No Hx Mitral Valve Prolapse: No Hx Pacemaker: No Hx Peripheral Edema: Yes (ble +1) Hx Peripheral Vascular Disease: Yes Other/Comment: hx pe/dvt, on 03/10/17 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, ivc filter placement 07/28/12, - Pulmonary Hx Respiratory Disorders: Yes (pe) Hx Asthma: No Hx Bronchitis: No Hx Emphysema: No Hx Pneumonia: No Hx Respiratory Aspiration: No Hx Respiratory Tract Infection: Yes Hx Sleep Apnea: No Hx Tuberculosis: No - Neurological Hx Alzheimer's Disease: No Hx Dementia: No Hx Dizziness: No Hx Meningitis: No Hx Migraine: No Hx Paralysis: Yes Hx Parkinson's Disease: ( denies parkinsons) Hx Seizures: No Other/Comment: tia over 15 yrs ago and was found to have had multiple mini strokes prior to tia as per , denies hydrocephalis, spinal tap 2012 - HEENT Hx HEENT Disorder: Yes Hx Blind: No Hx Cataracts: Yes (b/l not a candidate for sx) Hx Deafness: No Hx Difficulty Chewing: No Hx Epistaxis: No Hx Glaucoma: No Hx Macular Degeneration: No - Renal Hx Renal Disorder: Yes Hx Dialysis: No Hx Kidney Stones: No Hx Neurogenic Bladder: No Hx Pyelonephritis: No Hx Renal Cancer: No Hx Renal Failure: No Other/Comment: kidney tumor right removed 2007, 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 tumor was benign as per - Endocrine/Metabolic Hx Adrenal Cancer: No Hx Diabetes Insipidus: No Hx Diabetes Mellitus Type 1: No Hx Diabetes Mellitus Type 2: No Hx Hyperthyroidism: No Hx Hypothyroidism: No Hx Systemic Lupus Erythematosus: No - Hematological/Oncological Hx Blood Disorders: Yes (blood transfusion) Hx AIDS: No Hx Anemia: No Hx Blood Transfusions: Yes Hx Blood Transfusion Reaction: No Hx Cancer: No Hx Chemotherapy: No Hx Cirrhosis: No Hx Hemophilia: No Hx Hepatitis A: No Hx Hepatitis C: No Hx Metastasis: No Hx Shingles: Yes Hx Sickle Cell Disease: No Hx Unexplained Bleeding: No - Integumentary Hx Basal Cell Carcinoma: No Hx Eczema: No Hx Melanoma: No Hx Psoriasis: No Hx Squamous Cell Carcinoma: No Other/Comment: ble +1 edema with brown discolored skin and multiple raised nodules, 4cm x 5cm dark brown oval shaped dark lumpy area lle doctors are aw arre, has had for years no treatment as per - Musculoskeletal/Rheumatological Hx Musculoskeletal Disorders: Yes (LOWER EXTREMETY WEAKNESS R/T NEUROPATHY ) Hx Arthritis: Yes Hx Back Pain: Yes Hx Falls: Yes Hx Osteoarthritis: Yes Hx Unsteady Gait: Yes (hoya lift/recliner/bed/w/ch) Other/Comment: b/l hip replacement, 2 revisions of the right, and 1 revision on the left, was using a walker for a time but then couldn't walk at all as per due to arthritis. Pt can only tolerate w/ch for 2 hours due to b/l hip pain, c/o chronic b/l calf pain - Gastrointestinal Hx Gastrointestinal Disorders: (constipation, poor appetite) Hx Colostomy: No Hx Crohn's Disease: No Hx Diverticulitis: No Hx Gall Bladder Disease: Yes (gallstones) Hx Gastroesophageal Reflux: No Hx Ileostomy: No Hx Liver Failure: No Hx Pancreatitis: No HX Swallowing Problems: No - Genitourinary/Gynecological Hx Genitourinary Disorders: (scrotal edema) Hx Hematuria: Yes Hx Prostate Problems: ( uncertain) Hx Sexually Transmitted Diseases: No Other/Comment: had cysto with dr casey over 10 yrs ago as per - Psychiatric Hx Emotional Abuse: No Hx Physical Abuse: No Hx Substance Use: No - Past Surgical History Past Surgical History: Non-Contributing - Surgical History Hx Cardiac Catheterization: Yes (x1 stent 2000) Hx Musculoskeletal Surgery: Yes Other/Comment: tumor removed from the kidney 2007 benign - Anesthesia Hx Anesthesia Reactions: No Hx Malignant Hyperthermia: No - Suicidal Assessment Feels Threatened In Home Enviroment: No <Keegan Dixon - Last Filed: 05/28/18 18:42> Family/Social History - Physician Review Nursing Documentation Reviewed: Yes <Meño Rodarte - Last Filed: 05/28/18 05:09> Family/Social History: Unknown Family HX Smoking Status: Never Smoked Hx Alcohol Use: No Hx Substance Use: No Hx Substance Use Treatment: No <Keegan Dixon - Last Filed: 05/28/18 18:42> Allergies/Home Meds <Meño Rodarte - Last Filed: 05/28/18 05:09> <Keegan Dixon - Last Filed: 05/28/18 18:42> Allergies/Adverse Reactions: Allergies No Known Allergies Allergy (Verified 05/01/18 20:58) Home Medications: Home Meds Medication Instructions Recorded Confirmed Albuterol Sulfate 1 puff PRN PRN 03/11/17 05/27/18 Amlodipine Besylate/Benazepril 5 mg PO DAILY 03/11/17 05/27/18 [Amlodipine-Benazepril 5-10 mg] Docusate [Colace] 70 mg PRN PRN 03/11/17 05/27/18 Ipratropium [place] 0.5 mg PRN PRN 03/11/17 05/27/18 Warfarin [Coumadin] 5 mg PO DAILY 03/11/17 05/27/18 Ipratropium 0.02% [Atrovent] 0.02 % PRN PRN 03/21/17 05/27/18 Potassium Chloride [Klor-Con 10] 10 meq PO DAILY 03/21/17 05/27/18 Review of Systems - Physician Review All systems were reviewed & negative as marked: Yes <Meño Rodarte - Last Filed: 05/28/18 05:09> - Review of Systems Constitutional: Normal Eyes: Normal ENT: Normal Respiratory: Normal Cardiovascular: Normal Gastrointestinal: Constipation Genitourinary Male: Hematuria (since insertion of wilkins catheter at around noon today) <Keegan Dixon - Last Filed: 05/28/18 18:42> Physical Exam Vital Signs Temp Pulse Resp BP Pulse Ox 05/28/18 01:11 84 18 150/78 97 05/28/18 00:28 88 18 138/76 97 05/27/18 21:26 98.8 F 79 18 141/78 98 <Meño Rodarte - Last Filed: 05/28/18 05:09> Vital Signs Reviewed: Yes Temperature: Afebrile Blood Pressure: Normal Pulse: Regular Respiratory Rate: Normal Appearance: Positive for: Non-Toxic, Comfortable Pain Distress: None - Systems Exam Head: Present: Atraumatic, Normocephalic Extroacular Muscles: Present: EOMI Conjunctiva: Present: Normal Respiratory/Chest: Present: Clear to Auscultation. No: Respiratory Distress, Accessory Muscle Use Cardiovascular: Present: Regular Rate and Rhythm, Normal S1, S2 Abdomen: Present: Tenderness (mild suprapubic tenderness), Normal Bowel Sounds. No: Distention, Rebound, Guarding Genitourinary Male: Present: Other (clots and blood around the meatus, wilkins catheter in place with about 75 cc of gross hematuria in the bag) Upper Extremity: Present: Normal Inspection, NORMAL PULSES, Capillary Refill < 2s Lower Extremity: Present: NORMAL PULSES. No: Normal Inspection (ble +1 edema with brown discolored skin and multiple raised nodules, 4cm x 5cm dark brown oval shaped dark lumpy area lle doctors are awarre, has had for years no treatment as per ), CALF TENDERNESS Neurological: Present: GCS=15 Skin: Present: Warm, Dry Psychiatric: Present: Alert <Keegan Dixon - Last Filed: 05/28/18 18:42> Medical Decision Making ED Course and Treatment: Patient Seen with Resident: In agreement with resident note which contains more details about the patient. Patient seen and evaluated with resident. Came up with plan and treatment together. 87 year old male presents complaining of blood via urinary catheter for the past day. Plan: -- Labs -- CT Abd & pelvis -- EKG -- Chest X-ray -- Tylenol, IV Fluids -- Urine Culture -- Urinalysis w/ micro -- Reassess and disposition - Lab Interpretations Lab Results: 05/27/18 22:10 05/27/18 22:10 Lab Results 05/27/18 22:10: Sodium 139, Potassium 4.7, Chloride 102, Carbon Dioxide 32, Anion Gap 10, BUN 35 H, Creatinine 1.4, Est GFR ( Amer) 58, Est GFR (Non- Af Amer) 48, Random Glucose 100, Calcium 8.6, Total Bilirubin 0.3, AST 23, ALT 23, Alkaline Phosphatase 109, Total Protein 6.0, Albumin 3.2, Globulin 2.8, Albumin/Globulin Ratio 1.1 05/27/18 22:10: Urine Color Red, Urine Appearance Bloody, Urine pH 7.0, Ur Specific [place] 1.020, Urine Protein >=300 H, Urine Glucose (UA) Negative, Urine Ketones Negative, Urine Blood Large H, Urine Nitrate Negative, Urine Bilirubin Negative, Urine Urobilinogen 1.0 H, Ur Leukocyte Esterase Small H, Urine RBC Tntc, Urine WBC 2 - 5 05/27/18 22:10: PT 16.0 H, INR 1.39, APTT 35.3 05/27/18 22:10: WBC 11.6 H D, RBC 4.69, Hgb 14.9 D, Hct 45.2, MCV 96.4, MCH 31.8, MCHC 33.0, RDW 14.2, Plt Count 188, MPV 8.7, Gran % 73.9 H, Lymph % (Auto) 18.7 L, [place] % (Auto) 6.4 H, Eos % (Auto) 0.9 L, Baso % (Auto) 0.1, Gran # 8.60 H, Lymph # (Auto) 2.2, [place] # (Auto) 0.7 H, Eos # (Auto) 0.1, Baso # (Auto) 0.01 - RAD Interpretation Radiology Orders: 05/27/18 21:42 ABD & PELVIS W/O PO OR IV CONT [CT] Stat 05/28/18 00:35 CHEST PORTABLE [RAD] Stat [place] Debeader: Radiologist - Medication Orders Current Medication Orders: Amlodipine Besylate (Norvasc) 5 mg PO DAILY NICK Ascorbic Acid (Vitamin C 500 Mg Tab) 500 mg PO DAILY NICK Atorvastatin Calcium (Lipitor) 10 mg PO HS NICK Furosemide (Lasix) 40 mg PO DAILY NICK Ceftriaxone Sodium (Rocephin 1 Gram Ivpb) 1 gm in 100 mls @ 100 mls/hr IVPB DAILY NICK; Protocol Levalbuterol HCl (Xopenex) 0.63 mg IH [id number] PRN PRN Reason: Shortness of Breath Multivitamins/Minerals (Therapeutic-M Tab) 1 tab PO 0800 NICK Potassium Chloride (Klor-Con 10) 10 meq PO DAILY NICK Zinc Sulfate (Zinc Sulfate 220 Mg Cap) 220 mg PO DAILY NICK Discontinued Medications Acetaminophen (Tylenol 325mg Tab) 650 mg PO STAT STA Stop: 05/28/18 00:40 Last Admin: 05/28/18 00:47 Dose: 650 mg MAR Pain/Vitals Document 05/28/18 00:47 RD (Rec: 05/28/18 00:47 RD [id number]) Pain Reassessment Is This A Pain ReAssessment? No Sleep Is patient sleeping during reassessment? No Presence of Pain Presence of Pain Yes Sodium Chloride (Sodium Chloride 0.9%) 1,000 mls @ 999 mls/hr IV .Q1H1M STA Stop: 05/28/18 00:08 Last Admin: 05/27/18 23:19 Dose: 999 mls/hr eMAR Start Stop Document 05/27/18 23:19 RD (Rec: 05/27/18 23:19 RD [id number]) Intravenous Solution Start Date 05/27/18 Start Time 23:19 End Date 05/28/18 End time 00:19 Total Infusion Time 60 <Meño Rodarte - Last Filed: 05/28/18 05:09> ED Course and Treatment: Pt presents with hematuria s/p wilkins insertion, on coumadin (hasn't taken for 2 days). PT/PTT/INR, CBC, CMP, UA, Urine culture and sensitivity, abd/pelv CT without contrast stat. Wilkins was attempted to be flushed by myself and RN, with return of large amount of clots and gross hematuria. Bedside bladder scan by RN shows 239 mL. 05/28/18 00:[address] Gee Canales, hospitalist, who will accept the pt. - Lab Interpretations I have reviewed the lab results: Yes - RAD Interpretation Narrative RAD Interpretations (Text): 05/28/18 00:03 EXAM: CT Abdomen and Pelvis Without IV contrast CLINICAL HISTORY: GROSS HEMATURIA S/P OLEY INSERTION TECHNIQUE: Axial computed tomography images of the abdomen and pelvis without intravenous contrast. CONTRAST: No IV contrast. Limited due to lack of IV contrast. COMPARISON: None provided. FINDINGS: LUNG BASES: Atelectatic changes are seen at the right lung base with elevated right hemidiaphragm. Right pleural based calcifications and right basilar atelectasis. LIVER: Unremarkable. GALLBLADDER AND BILE DUCTS: Cholelithiasis. PANCREAS: Unremarkable. SPLEEN: Unremarkable. ADRENAL GLANDS: Unremarkable. KIDNEYS, URETERS, AND BLADDER: Post surgical changes in the right kidney. Bilateral renal cystic lesions are seen which are poorly evaluated of uncertain etiology. 3 x 2 cm soft tissue density containing internal fatty tissue is seen adjacent to a surgical clip located in an infra renal location on the right of uncertain etiology, possibly post procedural scar. 3.5 cm high density lesion in the mid pole of left kidney, may represent hemorrhagic cyst, although mass is not excluded. STOMACH AND BOWEL: Mild fecal retention is seen involving the descending colon. APPENDIX: No evidence of acute appendicitis on CT examination. PERITONEUM: No free fluid. No free air. LYMPH NODES: 5 x 4 cm mass is noted in the region of right pelvis side wall, may represent a pathologic node or malignant mass. REPRODUCTIVE: An mildly enlarged prostate gland is noted. VASCULATURE: Distal abdominal aortic aneurysm measuring up to 3.5 cm. BONES: No aggressive appearing osseous lesion. No acute osseous pathology evident. MISCELLANEOUS: No evidence of obstructive uropathy is seen. Rectosigmoid the fecal retention. 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 IMPRESSION: 1. No evidence of obstructive uropathy is seen. 2. Bilateral renal cystic lesions are seen which are poorly evaluated of uncertain etiology. 3. Rectosigmoid fecal retention. 4. Mild fecal retention is seen involving the descending colon. 5. Cholelithiasis. 6. 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 7. Atelectatic changes are seen at the right lung base with elevated right hemidiaphragm. 8. An mildly enlarged prostate gland is noted. 9. Incidently, a mass like lesion is seen in an infra renal location on the right of uncertain etiology. 10. 5 x 4 cm mass is noted in the region of right pelvis side wall, may represent a pathologic node or malignant mass. 11. 3 x 2 cm soft tissue density containing internal fatty tissue is seen adjacent to a surgical clip located in an infra renal location on the right of uncertain etiology, possibly post procedural scar. 12. Distal abdominal aortic aneurysm measuring up to 3.5 cm. 13. 3.5 cm high density lesion in the mid pole of left kidney, may represent hemorrhagic cyst, although mass is not excluded. Electronically signed on May 27, 2018 11:57:44 PM EDT by: Sky Vang M.D., JASPER Certified By [facility] [facility] Fellowship Trained MRI and CT Specialist <Babayants,Keegan - Last Filed: 05/28/18 18:42> - Scribe Statement The provider has reviewed the documentation as recorded by the Fany Matthews Provider Scribe Attestation: All medical record entries made by the Scribe were at my direction and personally dictated by me. I have reviewed the chart and agree that the record accurately reflects my personal performance of the history, physical exam, medical decision making, and the department course for this patient. I have also personally directed, reviewed, and agree with the discharge instructions and disposition. <Meño Rodarte - Last Filed: 05/28/18 05:09> Disposition/Present on Arrival <Meño Rodarte - Last Filed: 05/28/18 05:09> - Present on Arrival Any Indicators Present on Arrival: No History of DVT/PE: No History of Uncontrolled Diabetes: No Urinary Catheter: No History Surgical Site Infection Following: CABG - Mediastinitis, None - Disposition Have Diagnosis and Disposition been Completed?: Yes Disposition Time: 00:36 Patient Plan: Observation (remote tele) <Keegan Dixon - Last Filed: 05/28/18 18:42> - Disposition Diagnosis: Urinary retention, Hematuria Disposition: HOSPITALIZED Condition: GUARDED
[2018-05-27 22:36] LABS: BASO # 0.01 K/mm3 (0.0-2.0); BASO % 0.1 % (0.0-3.0); EOS # 0.1 (0.0-0.7); EOS % 0.9 % (1.5-5.0); GRAN # 8.6 (1.4-6.5); GRAN % 73.9 % (50.0-68.0); HEMOGLOBIN 14.9 g/dL (14.0-18.0); LYMPH # 2.2 (1.2-3.4); LYMPH % 18.7 % (22.0-35.0); MEAN CELL VOLUME 96.4 fl (80.0-105.0); MEAN CORPUSCULAR HEMOGLOBIN 31.8 pg (25.0-35.0); MEAN PLATELET VOLUME 8.7 fl (7.0-11.0); MONO # 0.7 (0.1-0.6); MONO % 6.4 % (1.0-6.0); RBC 4.69 10^6/uL (3.5-6.1); RED CELL DISTRIBUTION WIDTH 14.2 % (11.5-14.5); WHITE BLOOD COUNT 11.6 10^3/uL (4.5-11.0)
[2018-05-27 22:44] LABS: INR 1.39; PARTIAL THROMBOPLASTIN TIME 35.3 Seconds (25.1-36.5); URINE APPEARANCE BLOODY (CLEAR); URINE BILIRUBIN NEGATIVE (NEGATIVE); URINE BLOOD LARGE (NEGATIVE); URINE COLOR RED (YELLOW); URINE GLUCOSE (UA) NEGATIVE (NEGATIVE); URINE LEUKOCYTE ESTERASE SMALL Leu/uL (NEGATIVE); URINE PROTEIN >=300 mg/dL (<30 mg/dL); URINE RBC TNTC /hpf (0-2)
[2018-05-27 22:51] LABS: ALB/GLOB RATIO 1.1 (1.1-1.8); ALBUMIN 3.2 g/dL (3.0-4.8); CALCIUM 8.6 mg/dL (8.4-10.5)
[2018-05-27] MEDS ORDERED: Sodium Chloride 0.9% 1,000 ML IV STA (23:08)
[2018-05-28] MEDS ORDERED: Levalbuterol 0.63 MG/3 ML Inhal Soln UD IH PRN (01:28)
--- NOTE | 2018-05-28 02:19 | CP.PCM.HP ---
History of Present Illness - History of Present Illness History of Present Illness: Aguilar Ospina PGY1 - Internal Medicine Deputy General Counsel - Medicine H&P CC: Hematuria + Suprapubic Abdominal Pain; Urinary Retention? 87M w/ a PMH of CAD with stent, TIA, CVA, CHF, HTN, COPD, renal cell carcinoma, constipation, atrial fibrillation on coumadin, gallstones, and dementia; recently admitted to [facility] from 05/02-05/03 for urinary retention and intractable abdominal pain; DC'd w/ wilkins. Presented to [facility] ED on 05/28/18 w/ CC of hem aturia and suprapubic abd pain. Patient's reported that earlier around lunch time on 05/27 he had his wilkins changed by visiting nurse. Unable to comment if patient was making urine or having pain at time of wilkins change however post change in evening Patient's reports he was having gross hematuria. She contacted visiting nurses who advised patient to come to ED bhargav. Upon evaluation patient's reports that urine is always tea colored; however as of this evening wilkins output has been gorssly bloody. Patient is describing a pressure/urge sensation in his lower abdomen however reports he is unable to relieve himself in the wilkins. Symptoms are non radiating and have been gradually worsening hours prior to admission. reports that patient has not had any complaints over the days or hours prior to wilkins change. No fevers, chills, n/v/d, CP SOB, cough, Sore throat reported; Patient does infrequently become constipated, his last BM was this AM. Remainder of 12 system ROS is otherwise negative. Of note his ADLs are severely limited and does not ambulate. During previous admission; patient was instructed to follow up with PMD - Obey, and Urology -Vicky, Patient did not follow up. also reported that patient had his INR checked on Tuesday and it was re ported 3.5; He received his last warfarin on Tuesday (05/22) PMH: CAD with stent, TIA, CVA, CHF, HTN, COPD, renal cell carcinoma, atrial fibrillation on coumadin, gallstones, and dementia PSH: Repair of R iliac aneurysm, ivc filter placement, b/l hip surgery, cardiac stent, resected RCC, hip surgeries x 5 FH: difficult to obtain due to dementia SH: former smoker, denies alcohol, denies drug use, lives with Allergies: NKDA Meds: per chart - verified w/ list brought in by . PMD: Dr. Barnhart Urology: Vicky Present on Admission - Present on Admission Any Indicators Present on Admission: No Review of Systems - Review of Systems All systems: reviewed and no additional remarkable complaints except Review of Systems: as per HPI Past Patient History - Infectious Disease Hx of Infectious Diseases: None - Tetanus Immunizations Tetanus Immunization: Unknown - Past Social History Smoking Status: Never Smoked - CARDIAC Hx Cardiac Disorders: Yes ( denies mi) Hx Angina: No Hx Cardia Arrhythmia: Yes Hx Circulatory Problems: Yes Hx Congestive Heart Failure: No Hx Heart Murmur: No Hx Heart Transplant: No Hx Internal Defibrillator: No Hx Mitral Valve Prolapse: No Hx Pacemaker: No Hx Peripheral Edema: Yes (ble +1) Hx Peripheral Vascular Disease: Yes Other/Comment: hx pe/dvt, on 03/10/17 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, ivc filter placement 07/28/12, - PULMONARY Hx Respiratory Disorders: Yes (pe) Hx Asthma: No Hx Bronchitis: No Hx Emphysema: No Hx Pneumonia: No Hx Respiratory Aspiration: No Hx Respiratory Tract Infection: Yes Hx Sleep Apnea: No Hx Tuberculosis: No - NEUROLOGICAL Hx Alzheimer's Disease: No Hx Dementia: No Hx Dizziness: No Hx Meningitis: No Hx Migraine: No Hx Paralysis: Yes Hx Parkinson's Disease: ( denies parkinsons) Hx Seizures: No Other/Comment: tia over 15 yrs ago and was found to have had multiple mini strokes prior to tia as per , denies hydrocephalis, spinal tap 2012 - HEENT Hx HEENT Problems: Yes Hx Blind: No Hx Cataracts: Yes (b/l not a candidate for sx) Hx Deafness: No Hx Difficulty Chewing: No Hx Epistaxis: No Hx Glaucoma: No Hx Macular Degeneration: No - RENAL Hx Chronic Kidney Disease: Yes Hx Dialysis: No Hx Kidney Stones: No Hx Neurogenic Bladder: No Hx Pyelonephritis: No Hx Renal (Kidney) Cancer: No Hx Renal Failure: No Other/Comment: kidney tumor right removed 2007, 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 tumor was benign as per - ENDOCRINE/METABOLIC Hx Adrenal Cancer: No Hx Diabetes Insipidus: No Hx Diabetes Mellitus Type 1: No Hx Diabetes Mellitus Type 2: No Hx Hyperthyroidism: No Hx Hypothyroidism: No Hx Systemic Lupus Erythematosus: No - HEMATOLOGICAL/ONCOLOGICAL Hx Blood Disorders: Yes (blood transfusion) Hx AIDS: No Hx Anemia: No Hx Blood Transfusions: Yes Hx Blood Transfusion Reaction: No Hx Cancer: No Hx Chemotherapy: No Hx Cirrhosis: No Hx Hemophilia: No Hx Hepatitis A: No Hx Hepatitis C: No Hx Metastesis: No Hx Shingles: Yes Hx Sickle Cell Disease: No Hx Unexplained Bleeding: No - INTEGUMENTARY Hx Basil Cell: No Hx Eczema: No Hx Melanoma: No Hx Psoriasis: No Hx Squamous Cell: No Other/Comment: ble +1 edema with brown discolored skin and multiple raised nodules, 4cm x 5cm dark brown oval shaped dark lumpy area lle doctors are awarre, has had for years no treatment as per - MUSCULOSKELETAL/RHEUMATOLOGICAL Hx Musculoskeletal Disorders: Yes (LOWER EXTREMETY WEAKNESS R/T NEUROPATHY ) Hx Arthritis: Yes Hx Back Pain: Yes Hx Falls: Yes Hx Osteoarthritis: Yes Hx Unsteady Gait: Yes (hoya lift/recliner/bed/w/ch) Other/Comment: b/l hip replacement, 2 revisions of the right, and 1 revision on the left, was using a walker for a time but then couldn't walk at all as per due to arthritis. Pt can only tolerate w/ch for 2 hours due to b/l hip pain, c/o chronic b/l calf pain - GASTROINTESTINAL Hx Gastrointestinal Disorders: (constipation, poor appetite) Hx Colostomy: No Hx Crohn's Disease: No Hx Diverticulitis: No Hx Gall Bladder Disease: Yes (gallstones) Hx Gastroesophageal Reflux: No Hx Ileostomy: No Hx Liver Failure: No Hx Pancreatitis: No HX Swallowing Problems: No - GENITOURINARY/GYNECOLOGICAL Hx Genitourinary Disorders: (scrotal edema) Hx Hematuria: Yes Hx Prostate Problems: ( uncertain) Hx Sexually Transmitted Disorders: No Other/Comment: had cysto with dr casey over 10 yrs ago as per - PSYCHIATRIC Hx Emotional Abuse: No Hx Physical Abuse: No Hx Substance Use: No - SURGICAL HISTORY Hx Cardiac Catheterization: Yes (x1 stent 2000) Hx Musculoskeletal Surgery: Yes Other/Comment: tumor removed from the kidney 2007 benign - ANESTHESIA Hx Anesthesia Reactions: No Hx Malignant Hyperthermia: No Meds Allergies/Adverse Reactions: Allergies Allergy/AdvReac Type Severity Reaction Status Date / Time No Known Allergies Allergy Verified 05/01/18 20:58 Physical Exam - Constitutional Appears: Well, Non-toxic, No Acute Distress - Head Exam Head Exam: ATRAUMATIC, NORMAL INSPECTION, NORMOCEPHALIC - Eye Exam Eye Exam: EOMI, Normal appearance, PERRL. absent: Scleral icterus - ENT Exam ENT Exam: Mucous Membranes Moist - Respiratory Exam Respiratory Exam: Clear to Auscultation Bilateral, NORMAL BREATHING PATTERN. absent: Rales, Rhonchi, Wheezes - Cardiovascular Exam Cardiovascular Exam: REGULAR RHYTHM, RRR, +S1, +S2 - GI/Abdominal Exam Additional comments: Abdomen is soft; non distended Bowel sounds are normoactive Suprapubic tenderness appreciated on palpation - Exam Additional comments: Wilkins is inserted; however there is blood noted around insertion site. Insertion site is difficult to visualize; Wilkins bag initially was filled with <25CC of blood; During ED Course catheter was removed; new catheter was inserted and patient output >150CC of blood into wilkins L testicle is swollen on exam and tender on palpation R testicle is wnl - Extremities Exam Additional comments: Distal pulses difficult to palpate Extremities do not appear ischemic - Back Exam Back exam: absent: CVA tenderness (L), CVA tenderness (R) - Neurological Exam Neurological exam: Alert Additional comments: RUE/RLE strength is diminished relative to left - Skin Skin Exam: Dry, Intact, Warm Results - Vital Signs Recent Vital Signs: Last Vital Signs Temp 98.8 F 05/27/18 21:26 Pulse 84 05/28/18 01:11 Resp 18 05/28/18 01:11 BP 150/78 05/28/18 01:11 Pulse Ox 97 05/28/18 01:11 - Labs Result Diagrams: 05/28/18 02:55 05/27/18 22:10 Labs: Laboratory Results - last 24 hr 05/27/18 05/27/18 05/27/18 22:10 22:10 22:10 WBC 11.6 H D RBC 4.69 Hgb 14.9 D Hct 45.2 MCV 96.4 MCH 31.8 MCHC 33.0 RDW 14.2 Plt Count 188 MPV 8.7 Gran % 73.9 H Lymph % (Auto) 18.7 L [place] % (Auto) 6.4 H Eos % (Auto) 0.9 L Baso % (Auto) 0.1 Gran # 8.60 H Lymph # (Auto) 2.2 [place] # (Auto) 0.7 H Eos # (Auto) 0.1 Baso # (Auto) 0.01 PT 16.0 H INR 1.39 APTT 35.3 Sodium Potassium Chloride Carbon Dioxide Anion Gap BUN Creatinine Est GFR ( Amer) Est GFR (Non-Af Amer) Random Glucose Calcium Total Bilirubin AST ALT Alkaline Phosphatase Total Protein Albumin Globulin Albumin/Globulin Ratio Urine Color Red Urine Appearance Bloody Urine pH 7.0 Ur Specific [place] 1.020 Urine Protein >=300 H Urine Glucose (UA) Negative Urine Ketones Negative Urine Blood Large H Urine Nitrate Negative Urine Bilirubin Negative Urine Urobilinogen 1.0 H Ur Leukocyte Esterase Small H Urine RBC Tntc Urine WBC 2 - 5 05/27/18 22:10 WBC RBC Hgb Hct MCV MCH MCHC RDW Plt Count MPV Gran % Lymph % (Auto) [place] % (Auto) Eos % (Auto) Baso % (Auto) Gran # Lymph # (Auto) [place] # (Auto) Eos # (Auto) Baso # (Auto) PT INR APTT Sodium 139 Potassium 4.7 Chloride 102 Carbon Dioxide 32 Anion Gap 10 BUN 35 H Creatinine 1.4 Est GFR ( Amer) 58 Est GFR (Non-Af Amer) 48 Random Glucose 100 Calcium 8.6 Total Bilirubin 0.3 AST 23 ALT 23 Alkaline Phosphatase 109 Total Protein 6.0 Albumin 3.2 Globulin 2.8 Albumin/Globulin Ratio 1.1 Urine Color Urine Appearance Urine pH Ur Specific [place] Urine Protein Urine Glucose (UA) Urine Ketones Urine Blood Urine Nitrate Urine Bilirubin Urine Urobilinogen Ur Leukocyte Esterase Urine RBC Urine WBC Assessment & Plan - Assessment and Plan (Free Text) Assessment: 87M w/ a PMH of CAD with stent, TIA, CVA, CHF, HTN, COPD, renal cell carcinoma, constipation, atrial fibrillation on coumadin, gallstones, and dementia; admitted to [facility] on 05/28 for management and work up of hematuria + dysuria. PLAN: Hematuria + Dysuria + Suprapubic Abd Pain Etiology most likely kinked wilkins vs traumatic insertion vs UTI vs Increasing Tumor [place] Bladder scan showed ~290cc in bladder CTAP Read as: 1. No evidence of obstructive uropathy is seen. 2. Bilateral renal cystic lesions are seen which are poorly evaluated of uncertain etiology. 3. Rectosigmoid fecal retention. 4. Mild fecal retention is seen involving the descending colon. 5. Cholelithiasis. 6. 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 7. Atelectatic changes are seen at the right lung base with elevated right hemidiaphragm. 8. An mildly enlarged prostate gland is noted. 9. Incidently, a mass like lesion is seen in an infra renal location on the right of uncertain etiology. 10. 5 x 4 cm mass is noted in the region of right pelvis side wall, may represent a pathologic node or malignant mass. 11. 3 x 2 cm soft tissue density containing internal fatty tissue is seen adjacent to a surgical clip located in an infra renal location on the right of uncertain etiology, possibly post procedural scar. 12. Distal abdominal aortic aneurysm measuring up to 3.5 cm. 13. 3.5 cm high density lesion in the mid pole of left kidney, may represent hemorrhagic cyst, although mass is not excluded. Wilkins was removed and new wilkins inserted in ED; showed strong return of gross blood UA showed proteinuria, gross hematuria, and small leuk esterase Will repeat CBC /CMP Type and Screen Ucx BUN/Cr wnl 1gm Rocephin QD Urology Consulted, Dr. Casey - Appreciate reccs Testicular pain/ Swelling: Duplex US of testes Hx HTN: C/w home Amlodipine 5 QD Hx CHF: INR 1.39 Hold Warfarin at this time until hematuria resolves Amlodiphine as above Lasix 40 qd Hx COPD: Xopenex PRN Hx CVA/ TIA: C/w lipitor Hold ASA until hematuria resolves PT/OT Eval GI/DVT PPX: Protonix / SCDs Patient was seen, examined discussed w/ attending Dr. Parker Ospina DO PGY1 Internal Medicine Deputy General Counsel - Date & Time Date: 05/28/18 Time: 05:05
[2018-05-28 03:27] LABS: MEAN CELL VOLUME 96.2 fl (80.0-105.0); MEAN CORPUSCULAR HEMOGLOBIN 31.5 pg (25.0-35.0); MEAN CORPUSCULAR HGB CONC 32.7 g/dl (31.0-37.0); MEAN PLATELET VOLUME 8.9 fl (7.0-11.0); RBC 4.45 10^6/uL (3.5-6.1); WHITE BLOOD COUNT 11.6 10^3/uL (4.5-11.0)
[2018-05-28 08:14] LABS: BASO # 0.01 K/mm3 (0.0-2.0); BASO % 0.1 % (0.0-3.0); EOS # 0.1 (0.0-0.7); GRAN # 7.15 (1.4-6.5); GRAN % 69.4 % (50.0-68.0); HEMOGLOBIN 14.2 g/dL (14.0-18.0); LYMPH # 2.4 (1.2-3.4); LYMPH % 23.2 % (22.0-35.0); MEAN CELL VOLUME 95.8 fl (80.0-105.0); MEAN CORPUSCULAR HEMOGLOBIN 31.3 pg (25.0-35.0); MEAN CORPUSCULAR HGB CONC 32.7 g/dl (31.0-37.0); MEAN PLATELET VOLUME 8.8 fl (7.0-11.0); MONO # 0.7 (0.1-0.6); MONO % 6.3 % (1.0-6.0); RBC 4.53 10^6/uL (3.5-6.1); RED CELL DISTRIBUTION WIDTH 14.3 % (11.5-14.5); WHITE BLOOD COUNT 10.3 10^3/uL (4.5-11.0)
[2018-05-28 08:32] LABS: ALB/GLOB RATIO 1.1 (1.1-1.8); ALT/SGPT 22 U/L (7-56); AST/SGOT 18 U/L (17-59); BLOOD UREA NITROGEN 29 mg/dL (7-21); CALCIUM 8.6 mg/dL (8.4-10.5); GFR NON-AFRICAN AMERICAN 57
--- NOTE | 2018-05-28 09:21 | CT ---
Date of service: 05/27/2018 PROCEDURE: CT Abdomen and Pelvis without intravenous contrast HISTORY: gross hematuria s/p wilkins insertion COMPARISON: 05/01/2018. TECHNIQUE: CT scan of the abdomen and pelvis was performed without administration of intravenous contrast. Oral contrast was not administered. Coronal and sagittal reformatted images were obtained. . Radiation dose: Total exam DLP = 943.23 mGy-cm. This CT exam was performed using one or more of the following dose reduction techniques: Automated exposure control, adjustment of the mA and/or kV according to patient size, and/or use of iterative reconstruction technique. FINDINGS: LOWER THORAX: Small high attenuation right pleural effusion and pleural calcifications. The left lung base is clear. There is mild cardiomegaly. Atherosclerotic aortic and coronary artery atherosclerotic calcifications are present. LIVER: Normal in size. No intrahepatic ductal dilatation. GALLBLADDER AND BILE DUCTS: There are multiple calcified gallstones. No biliary dilatation PANCREAS: Normal in size. No ductal dilatation. SPLEEN: Normal in size. ADRENALS: Normal in size. No discrete nodule. KIDNEYS AND URETERS: There is cortical atrophy in both kidneys and cortical scarring with calcifications in the right lower pole. There are stable simple cysts in both kidneys and a stable 3.0 cm hemorrhagic cyst in the left interpolar region. VASCULATURE: There is a 3.3 cm fusiform infrarenal aortic aneurysm. No aortic atherosclerotic calcification or mural plaque present. An infrarenal IVC filter remains in place. There is a right common iliac endovascular stent graft. There is redemonstration of a 4.5 x 4.1 cm right internal iliac artery aneurysm. BOWEL: The small bowel loops are normal in caliber. There is large amount of stool in the colon. No bowel dilatation or wall thickening. No bowel obstruction. There is a stable 2.3 cm soft tissue nodule with central fat attenuation inferior to the kidney in the right mid abdomen. APPENDIX: Normal appendix. PERITONEUM: No free fluid. No free air. LYMPH NODES: No enlarged lymph nodes. BLADDER: The urinary bladder is partially distended and there is an indwelling Wilkins catheter. There is layering high attenuation in the urinary bladder and intraluminal air. REPRODUCTIVE: Evaluation of the pelvis is limited due to extensive streak artifacts from bilateral hip arthroplasties. Mild enlargement of the prostate gland. BONES: No acute fracture. There is diffuse bone demineralization and multilevel degenerative changes in the spine. OTHER FINDINGS: There is redemonstration of high attenuation collection medial to the left hip joint with multiple peripheral linear metallic densities. IMPRESSION: Indwelling Wilkins catheter and presumable hemorrhagic products in the urinary bladder. No other significant interval change when compared to the prior examination done earlier this month.
[2018-05-28] MEDS: cefTRIAXone 1 gm 1 GM/100 ML BAG IVPB SCH (09:30)
[2018-05-28] MEDS: Potassium Chloride 10 mEq ER Tab PO SCH (09:31)
[2018-05-28] MEDS: Multivitamin With Minerals Tab PO SCH (09:32)
--- NOTE | 2018-05-28 09:56 | CARD ---
APPROVED REPORT Date of service: 05/28/2018 EKG Measurement Heart [id number] MN [id number] [id number] <Conclusion> Normal sinus rhythm Left axis deviation/LAHB PRWP, possible anterior MA, age unknown Possible IMI, age unknown
--- NOTE | 2018-05-28 10:15 | RAD ---
Date of service: 05/28/2018 HISTORY: admission COMPARISON: No prior. FINDINGS: LUNGS: There is low lung volume on the right. There is right lower lobe airspace disease. The left lung is well inflated and clear. PLEURA: There is blunting of the right costophrenic angle. No left pleural effusion. No pneumothorax. CARDIOVASCULAR: The heart is normal in size. Atherosclerotic aortic arch calcifications are present. OSSEOUS STRUCTURES: Within normal limits for the patient's age. VISUALIZED UPPER ABDOMEN: Normal. OTHER FINDINGS: There is chronic elevation of the right hemidiaphragm. IMPRESSION: Right lower lobe airspace disease and blunting of the right costophrenic angle could represent pneumonia/effusion. Follow-up is advised.
--- NOTE | 2018-05-28 15:57 | US ---
Date of service: 05/28/2018 HISTORY: L testicle painful and swollen;+suprapubic tender TECHNIQUE: Realtime sonography through the scrotum with color and doppler flow. COMPARISON: None Available. FINDINGS: RIGHT TESTICLE: Measures 3.0 x 2.2 x 2.1 cm. Normal echotexture and flow. RIGHT EPIDIDYMIS: Epididymal head measures 1.1 x 0.7 x 0.9 cm. There are 2 subcentimeter simple cyst in the head of the epididymis. There is a 1.1 x 0.7 x 1.0 cm cystic area in the ready testis. Grossly unremarkable appearance with normal flow. LEFT TESTICLE: Measures 3.3 x 1.9 x 2.6 cm. Normal echotexture and flow. LEFT EPIDIDYMIS: Epididymal head measures 0.6 x 0.6 x 0.6 cm. There is a subcentimeter cyst in the head of the epididymis. Grossly unremarkable appearance with normal flow. HYDROCELE: There are bilateral large hydroceles. VARICOCELE: None. OTHER FINDINGS: None. IMPRESSION: No evidence for testicular mass or torsion. Ectasia of bilateral rete testes. Bilateral large hydroceles.
--- NOTE | 2018-05-28 21:28 | PCM.URO ---
Urology Progress Note - Subjective Hematuria: Yes (pt for probable cysto 05/29 full note to be dictated) - Objective Lab Results Last 24 Hours: Laboratory Results - last 24 hr 05/27/18 05/27/18 05/27/18 22:10 22:10 22:10 WBC 11.6 H D RBC 4.69 Hgb 14.9 D Hct 45.2 MCV 96.4 MCH 31.8 MCHC 33.0 RDW 14.2 Plt Count 188 MPV 8.7 Gran % 73.9 H Lymph % (Auto) 18.7 L [place] % (Auto) 6.4 H Eos % (Auto) 0.9 L Baso % (Auto) 0.1 Gran # 8.60 H Lymph # (Auto) 2.2 [place] # (Auto) 0.7 H Eos # (Auto) 0.1 Baso # (Auto) 0.01 PT 16.0 H INR 1.39 APTT 35.3 Sodium Potassium Chloride Carbon Dioxide Anion Gap BUN Creatinine Est GFR ( Amer) Est GFR (Non-Af Amer) Random Glucose Calcium Phosphorus Magnesium Total Bilirubin AST ALT Alkaline Phosphatase Total Protein Albumin Globulin Albumin/Globulin Ratio Urine Color Red Urine Appearance Bloody Urine pH 7.0 Ur Specific [place] 1.020 Urine Protein >=300 H Urine Glucose (UA) Negative Urine Ketones Negative Urine Blood Large H Urine Nitrate Negative Urine Bilirubin Negative Urine Urobilinogen 1.0 H Ur Leukocyte Esterase Small H Urine RBC Tntc Urine WBC 2 - 5 Blood Type Antibody Screen BBK History Checked 05/27/18 05/28/18 05/28/18 22:10 02:55 02:55 WBC 11.6 H RBC 4.45 Hgb 14.0 Hct 42.8 MCV 96.2 MCH 31.5 MCHC 32.7 RDW 14.0 Plt Count 190 MPV 8.9 Gran % Lymph % (Auto) [place] % (Auto) Eos % (Auto) Baso % (Auto) Gran # Lymph # (Auto) [place] # (Auto) Eos # (Auto) Baso # (Auto) PT INR APTT Sodium 139 Potassium 4.7 Chloride 102 Carbon Dioxide 32 Anion Gap 10 BUN 35 H Creatinine 1.4 Est GFR ( Amer) 58 Est GFR (Non-Af Amer) 48 Random Glucose 100 Calcium 8.6 Phosphorus Magnesium Total Bilirubin 0.3 AST 23 ALT 23 Alkaline Phosphatase 109 Total Protein 6.0 Albumin 3.2 Globulin 2.8 Albumin/Globulin Ratio 1.1 Urine Color Urine Appearance Urine pH Ur Specific [place] Urine Protein Urine Glucose (UA) Urine Ketones Urine Blood Urine Nitrate Urine Bilirubin Urine Urobilinogen Ur Leukocyte Esterase Urine RBC Urine WBC Blood Type B POSITIVE Antibody Screen Negative BBK History Checked Patient has bt 05/28/18 05/28/18 07:00 07:00 WBC 10.3 RBC 4.53 Hgb 14.2 Hct 43.4 MCV 95.8 MCH 31.3 MCHC 32.7 RDW 14.3 Plt Count 191 MPV 8.8 Gran % 69.4 H Lymph % (Auto) 23.2 [place] % (Auto) 6.3 H Eos % (Auto) 1.0 L Baso % (Auto) 0.1 Gran # 7.15 H Lymph # (Auto) 2.4 [place] # (Auto) 0.7 H Eos # (Auto) 0.1 Baso # (Auto) 0.01 PT INR APTT Sodium 140 Potassium 4.3 Chloride 105 Carbon Dioxide 29 Anion Gap 10 BUN 29 H Creatinine 1.2 Est GFR ( Amer) > 60 Est GFR (Non-Af Amer) 57 Random Glucose 79 Calcium 8.6 Phosphorus 2.3 L Magnesium 2.0 Total Bilirubin 0.4 AST 18 ALT 22 Alkaline Phosphatase 96 Total Protein 5.7 L Albumin 3.0 Globulin 2.7 Albumin/Globulin Ratio 1.1 Urine Color Urine Appearance Urine pH Ur Specific [place] Urine Protein Urine Glucose (UA) Urine Ketones Urine Blood Urine Nitrate Urine Bilirubin Urine Urobilinogen Ur Leukocyte Esterase Urine RBC Urine WBC Blood Type Antibody Screen BBK History Checked Intake & Output: Intake & Output 05/28/18 05/28/18 05/29/18 06:59 18:59 06:59 Intake Total 60 520 Output Total 400 800 Balance -340 -280 Weight 190 lb Intake: IV 100 Left Antecubital 100 Oral 60 420 Output: Urine 400 800 Nelson 400 800 Other: Voiding Method Indwelling Catheter # Bowel Movements 2 Vital Signs: Vital Signs - 24 hr 05/28/18 05/28/18 05/28/18 00:28 01:11 01:55 Temperature 97.8 F Pulse Rate 88 84 84 Respiratory 18 18 20 Rate Blood Pressure 138/76 150/78 129/73 O2 Sat by Pulse 97 97 94 L Oximetry 1005/28/18 05/28/18 02:00 04:39 06:00 Temperature 97.9 F Pulse Rate 85 78 Respiratory 20 20 Rate Blood Pressure 135/78 O2 Sat by Pulse 95 Oximetry 05/28/18 05/28/18 05/28/18 09:31 10:00 14:00 Temperature Pulse Rate 78 98 H 86 Respiratory Rate Blood Pressure 135/78 O2 Sat by Pulse Oximetry 05/28/18 05/28/18 16:42 18:00 Temperature 98.1 F Pulse Rate 89 87 Respiratory 19 Rate Blood Pressure 121/77 O2 Sat by Pulse 91 L Oximetry
[2018-05-29 06:52] LABS: BASO # 0.01 K/mm3 (0.0-2.0); BASO % 0.1 % (0.0-3.0); EOS # 0.2 (0.0-0.7); EOS % 1.5 % (1.5-5.0); GRAN # 7.21 (1.4-6.5); GRAN % 66.2 % (50.0-68.0); HEMOGLOBIN 14.1 g/dL (14.0-18.0); LYMPH # 2.8 (1.2-3.4); LYMPH % 25.5 % (22.0-35.0); MEAN CELL VOLUME 96.3 fl (80.0-105.0); MEAN CORPUSCULAR HEMOGLOBIN 30.9 pg (25.0-35.0); MEAN CORPUSCULAR HGB CONC 32.1 g/dl (31.0-37.0); MEAN PLATELET VOLUME 8.9 fl (7.0-11.0); MONO # 0.7 (0.1-0.6); MONO % 6.7 % (1.0-6.0); RBC 4.56 10^6/uL (3.5-6.1); RED CELL DISTRIBUTION WIDTH 14.3 % (11.5-14.5); WHITE BLOOD COUNT 10.9 10^3/uL (4.5-11.0)
[2018-05-29 07:38] LABS: BLOOD UREA NITROGEN 30 mg/dL (7-21); GFR NON-AFRICAN AMERICAN > 60
[2018-05-29 07:39] LABS: ALB/GLOB RATIO 1.2 (1.1-1.8); ALBUMIN 3.2 g/dL (3.0-4.8); ALT/SGPT 23 U/L (7-56); AST/SGOT 21 U/L (17-59); CALCIUM 8.7 mg/dL (8.4-10.5)
[2018-05-29] MEDS: Multivitamin With Minerals Tab PO SCH (07:59)
[2018-05-29] MEDS: Potassium Chloride 10 mEq ER Tab PO SCH (10:00)
[2018-05-29] MEDS: cefTRIAXone 1 gm 1 GM/100 ML BAG IVPB SCH ×2 (10:01→10:11)
--- NOTE | 2018-05-29 13:00 | CT ---
Date of service: 05/28/2018 PROCEDURE: CT Abdomen and Pelvis without intravenous contrast HISTORY: hematuria COMPARISON: 05/27/2018 TECHNIQUE: Without contrast.. Contrast dose: Radiation dose: Total exam DLP = 2202.05 mGy-cm. This CT exam was performed using one or more of the following dose reduction techniques: Automated exposure control, adjustment of the mA and/or kV according to patient size, and/or use of iterative reconstruction technique. FINDINGS: LOWER THORAX: There is focal consolidation at the right lung base LIVER: Unremarkable. No gross lesion or ductal dilatation. GALLBLADDER AND BILE DUCTS: Gallstones PANCREAS: Unremarkable. No gross lesion or ductal dilatation. SPLEEN: Unremarkable. ADRENALS: Unremarkable. No mass. KIDNEYS AND URETERS: There is a dense exophytic lesion arising from the left kidney with a Hounsfield measurement of 42. This is most likely a hemorrhagic cyst. A fluid density cyst is seen in the right kidney. Postoperative changes are seen in the perinephric fat inferior to the right kidney. VASCULATURE: A caval filter is present aortic calcification BOWEL: Unremarkable. No obstruction. No gross mural thickening. APPENDIX: Unremarkable. Normal appendix. PERITONEUM: Unremarkable. No free fluid. No free air. LYMPH NODES: Unremarkable. No enlarged lymph nodes. BLADDER: A Nelson catheter decompresses the bladder. REPRODUCTIVE: 4 x 4.5 cm right adnexal mass BONES: Mass adjacent to the left acetabulum demonstrated previously OTHER FINDINGS: The report concurs with the preliminary [facility] report IMPRESSION: No change from recent nonenhanced scan. No acute findings
[2018-05-29 16:30] VITALS: RESP 20
--- NOTE | 2018-05-29 21:01 | CP.PCM.PN ---
<JremaineMiryamTriston Eduar - Last Filed: 05/29/18 21:20> Subjective - Date & Time of Evaluation Date of Evaluation: 05/29/18 Time of Evaluation: 07:00 - Subjective Subjective: Pt seen and examined this morning at bedside. at bedside. No new complaints. Objective - Vital Signs/Intake and Output Vital Signs (last 24 hours): Temp Pulse Resp BP Pulse Ox 98.4 F 90 20 125/80 96 05/29/18 16:28 05/29/18 16:28 05/29/18 16:28 05/29/18 16:28 05/29/18 16:28 Intake and Output: 05/29/18 05/30/18 18:59 06:59 Intake Total 1080 Output Total 2300 Balance -1220 - Medications Medications: Current Medications Amlodipine Besylate (Norvasc) 5 mg PO DAILY [facility] Last Admin: 05/29/18 10:01 Dose: 5 mg Ascorbic Acid (Vitamin C 500 Mg Tab) 500 mg PO DAILY [facility] Last Admin: 05/29/18 10:00 Dose: 500 mg Atorvastatin Calcium (Lipitor) 10 mg PO HS [facility] Last Admin: 05/28/18 21:12 Dose: 10 mg Furosemide (Lasix) 40 mg PO DAILY [facility] Last Admin: 05/29/18 10:00 Dose: 40 mg Ceftriaxone Sodium (Rocephin 1 Gram Ivpb) 1 gm in 100 mls @ 100 mls/hr IVPB DAILY [facility]; Protocol Last Admin: 05/29/18 10:11 Dose: 100 mls/hr Levalbuterol HCl (Xopenex) 0.63 mg IH [id number] PRN PRN Reason: Shortness of Breath Multivitamins/Minerals (Therapeutic-M Tab) 1 tab PO 0800 [facility] Last Admin: 05/29/18 07:59 Dose: 1 tab Potassium Chloride (Klor-Con 10) 10 meq PO DAILY [facility] Last Admin: 05/29/18 10:00 Dose: 10 meq Zinc Sulfate (Zinc Sulfate 220 Mg Cap) 220 mg PO DAILY [facility] Last Admin: 05/29/18 11:07 Dose: 220 mg - Labs Labs: 05/29/18 05:45 05/29/18 05:45 PT 16.0 SECONDS (9.4-12.5) H 05/27/18 22:10 INR 1.39 05/27/18 22:10 APTT 35.3 Seconds (25.1-36.5) 05/27/18 22:10 - Constitutional Appears: No Acute Distress - Head Exam Head Exam: ATRAUMATIC, NORMAL INSPECTION - Eye Exam Eye Exam: EOMI, Normal appearance. absent: Scleral icterus - Neck Exam Neck Exam: Full ROM - Respiratory Exam Respiratory Exam: Clear to Ausculation Bilateral. absent: Accessory Muscle Use, Wheezes - Cardiovascular Exam Cardiovascular Exam: RRR, +S1, +S2. absent: Murmur - GI/Abdominal Exam GI & Abdominal Exam: Soft, Normal Bowel Sounds. absent: Tenderness Additional comments: midline surgical present - Exam Additional comments: wilkins catheter in place, blood clots noted in wilkins bag, no clots in catheter tu be - Extremities Exam Extremities Exam: absent: Calf Tenderness, Pedal Edema - Neurological Exam Neurological Exam: Alert, Awake - Psychiatric Exam Psychiatric exam: Normal Affect - Skin Skin Exam: Intact, Warm. absent: Rash Assessment and Plan - Assessment and Plan (Free Text) Assessment: 87M w/ a PMH of CAD with stent, TIA, CVA, CHF, HTN, COPD, Right renal tumor resection, constipation, atrial fibrillation on coumadin, gallstones, and dementia; [place] [facility] for management and work up of hematuria + dysuria. Wilkins in place, blood clots noted in bag, but catheter does not have roxanne blood. Plan: Hematuria - possibly 2/2 traumatic insertion - Wilkins was removed and new wilkins inserted in ED; showed strong return of gross blood - UA:proteinuria, gross hematuria, and small leuk esterase - CT abdomen/pelvis: no acute findings, high density lesion in left kidny, most likely hemorrhagic cyst; fluid density cyst in right kidney, - Urine cultures: gram negative rods, speciation pending - continue 1gm IV Rocephin - Urology Consulted, Dr. Perry; 3-way wilkins catheter inserted, f/u recs Testicular pain/ Swelling - testicular ultrasound: no evidence of testicular mass or torsion, ectasia of b/l rete testes, b/l large hydroceles - urology following Hx HTN - continue home Amlodipine Hx CHF - INR 1.39 - Warfarin held until hematuria resolves - continue home Amlodiphine 5mg PO daily - continue home PO Lasix 40mg daily and PO KCl - heart healthy diet - Cardiology, Dr. Walker consulted Hx COPD - continue Xolpenex PRN Hx CVA/TIA - continue home lipitor - ASA until hematuria resolves - PT/OT Ppx - Protonix - SCDs <Karol Patricia - Last Filed: 06/01/18 15:45> Objective - Vital Signs/Intake and Output Vital Signs (last 24 hours): Temp Pulse Resp BP Pulse Ox 97.8 F 74 20 129/81 95 05/31/18 07:48 05/31/18 10:42 05/31/18 07:48 05/31/18 10:42 05/31/18 07:48 - Labs Labs: 05/31/18 06:10 05/31/18 06:10 PT 14.9 SECONDS (9.4-12.5) H 05/31/18 11:10 INR 1.29 05/31/18 11:10 APTT 35.3 Seconds (25.1-36.5) 05/27/18 22:10 Attending/Attestation - Attestation I have personally seen and examined this patient.: Yes I have fully participated in the care of the patient.: Yes I have reviewed all pertinent clinical information, including history, physical exam and plan: Yes Notes (Text): 06/01/18 15:45 Medical record note made by the resident after discussion with my direction and input after the patient was personally seen and examined by me. I have reviewed the chart and agree that the record accurately reflects by personal performance of the history, physical exam, data review, and medical decision-making, in the course for the patient. I have also personally directed the plan of care.
[2018-05-30 06:33] LABS: BASO # 0.01 K/mm3 (0.0-2.0); BASO % 0.1 % (0.0-3.0); EOS # 0.2 (0.0-0.7); EOS % 1.9 % (1.5-5.0); GRAN # 7.69 (1.4-6.5); GRAN % 65.5 % (50.0-68.0); HEMOGLOBIN 14.4 g/dL (14.0-18.0); LYMPH # 2.9 (1.2-3.4); LYMPH % 24.6 % (22.0-35.0); MEAN CELL VOLUME 96.1 fl (80.0-105.0); MEAN CORPUSCULAR HEMOGLOBIN 31.2 pg (25.0-35.0); MEAN CORPUSCULAR HGB CONC 32.5 g/dl (31.0-37.0); MEAN PLATELET VOLUME 8.9 fl (7.0-11.0); MONO # 0.9 (0.1-0.6); MONO % 7.9 % (1.0-6.0); RBC 4.61 10^6/uL (3.5-6.1); RED CELL DISTRIBUTION WIDTH 14.2 % (11.5-14.5); WHITE BLOOD COUNT 11.7 10^3/uL (4.5-11.0)
[2018-05-30 06:41] LABS: ALB/GLOB RATIO 1.1 (1.1-1.8); ALBUMIN 3.4 g/dL (3.0-4.8); ALT/SGPT 21 U/L (7-56); AST/SGOT 26 U/L (17-59); BLOOD UREA NITROGEN 30 mg/dL (7-21); CALCIUM 9.2 mg/dL (8.4-10.5); GFR NON-AFRICAN AMERICAN > 60
[2018-05-30 07:54] VITALS: TEMP 97.8
[2018-05-30] MEDS: Multivitamin With Minerals Tab PO SCH (09:59)
[2018-05-30] MEDS: cefTRIAXone 1 gm 1 GM/100 ML BAG IVPB SCH (09:59)
[2018-05-30] MEDS: Potassium Chloride 10 mEq ER Tab PO SCH (10:00)
--- NOTE | 2018-05-30 19:18 | CP.PCM.PN ---
<Triston Dean - Last Filed: 05/30/18 19:35> Subjective - Date & Time of Evaluation Date of Evaluation: 05/30/18 Time of Evaluation: 07:00 - Subjective Subjective: Pt seen and examined this morning. Pt has no new complaints at this time Objective - Vital Signs/Intake and Output Vital Signs (last 24 hours): Temp Pulse Resp BP Pulse Ox 97.8 F 87 20 120/75 94 L 05/30/18 07:54 05/30/18 18:00 05/30/18 07:54 05/30/18 10:00 05/30/18 07:54 Intake and Output: 05/30/18 05/31/18 18:59 06:59 Intake Total 3520 Output Total 3300 Balance 220 - Medications Medications: Current Medications Amlodipine Besylate (Norvasc) 5 mg PO DAILY [facility] Last Admin: 05/30/18 09:59 Dose: 5 mg Ascorbic Acid (Vitamin C 500 Mg Tab) 500 mg PO DAILY [facility] Last Admin: 05/30/18 09:59 Dose: 500 mg Atorvastatin Calcium (Lipitor) 10 mg PO HS [facility] Last Admin: 05/29/18 21:57 Dose: 10 mg Furosemide (Lasix) 40 mg PO DAILY [facility] Last Admin: 05/30/18 10:00 Dose: 40 mg Ceftriaxone Sodium (Rocephin 1 Gram Ivpb) 1 gm in 100 mls @ 100 mls/hr IVPB DAILY [facility]; Protocol Last Admin: 05/30/18 09:59 Dose: 100 mls/hr Levalbuterol HCl (Xopenex) 0.63 mg IH [id number] PRN PRN Reason: Shortness of Breath Multivitamins/Minerals (Therapeutic-M Tab) 1 tab PO 0800 [facility] Last Admin: 05/30/18 09:59 Dose: 1 tab Potassium Chloride (Klor-Con 10) 10 meq PO DAILY [facility] Last Admin: 05/30/18 10:00 Dose: 10 meq Tamsulosin HCl (Flomax) 0.4 mg PO DAILY [facility] Warfarin Sodium (Coumadin) 5 mg PO 1800 [facility]; Protocol Last Admin: 05/30/18 17:03 Dose: 5 mg Zinc Sulfate (Zinc Sulfate 220 Mg Cap) 220 mg PO DAILY [facility] Last Admin: 05/30/18 09:59 Dose: 220 mg - Labs Labs: 05/30/18 05:30 05/30/18 05:30 PT 16.0 SECONDS (9.4-12.5) H 05/27/18 22:10 INR 1.39 05/27/18 22:10 APTT 35.3 Seconds (25.1-36.5) 05/27/18 22:10 - Constitutional Appears: Non-toxic, No Acute Distress - Head Exam Head Exam: ATRAUMATIC, NORMAL INSPECTION, NORMOCEPHALIC - Eye Exam Eye Exam: EOMI - ENT Exam ENT Exam: Mucous Membranes Moist - Neck Exam Neck Exam: Full ROM, Normal Inspection - Respiratory Exam Respiratory Exam: Clear to Ausculation Bilateral, NORMAL BREATHING PATTERN. absent: Wheezes - Cardiovascular Exam Cardiovascular Exam: RRR, +S1, +S2. absent: Diastolic murmur - GI/Abdominal Exam GI & Abdominal Exam: Soft, Normal Bowel Sounds. absent: Tenderness - Extremities Exam Extremities Exam: Full ROM. absent: Pedal Edema - Neurological Exam Neurological Exam: Alert, Awake, Oriented x3 - Psychiatric Exam Psychiatric exam: Normal Affect, Normal Mood - Skin Skin Exam: Dry, Intact, Warm Assessment and Plan - Assessment and Plan (Free Text) Assessment: 87M w/ a PMH of CAD with stent, TIA, CVA, CHF, HTN, COPD, Right renal tumor re section, constipation, atrial fibrillation on coumadin, gallstones, and dementia; admitted to [facility] [place] on 05/28 for management and work up of hematuria + dysuria. Wilkins in place, blood clots noted in bag, but catheter does not have roxanne blood. Plan: Hematuria - possibly 2/2 traumatic insertion - Wilkins was removed and new wilkins inserted in ED; showed strong return of gross blood - UA:proteinuria, gross hematuria, and small leuk esterase - CT abdomen/pelvis: no acute findings, high density lesion in left kidny, most likely hemorrhagic cyst; fluid density cyst in right kidney, - Urine cultures: morganella morganii - continue 1gm IV Rocephin - Urology Consulted, Dr. Perry; CBI discontinued, will removed wilkins at 6am, if pt can urinated without cath, will be able to discharge pt Atrial Fibrillation - cardio rec restarting warfarin 5mg daily BPH - Dr Perry, rec starting tamsulosin 0.4 Testicular pain/ Swelling - resolved - testicular ultrasound: no evidence of testicular mass or torsion, ectasia of b/l rete testes, b/l large hydroceles - urology following Hx HTN - continue home Amlodipine Hx CHF - INR 1.39 - continue home Amlodiphine 5mg PO daily - continue home PO Lasix 40mg daily and PO KCl - heart healthy diet - Cardiology, Dr. Walker consulted Hx COPD - continue Xolpenex PRN Hx CVA/TIA - continue home lipitor - ASA until hematuria resolves - PT/OT Ppx - Protonix - SCDs Pt seen, examined, assessment and plan discussed with Dr Belem Dean PGY1, Internal Medicine Resident <Karol Patricia - Last Filed: 06/01/18 15:44> Objective - Vital Signs/Intake and Output Vital Signs (last 24 hours): Temp Pulse Resp BP Pulse Ox 97.8 F 74 20 129/81 95 05/31/18 07:48 05/31/18 10:42 05/31/18 07:48 05/31/18 10:42 05/31/18 07:48 - Labs Labs: 05/31/18 06:10 05/31/18 06:10 PT 14.9 SECONDS (9.4-12.5) H 05/31/18 11:10 INR 1.29 05/31/18 11:10 APTT 35.3 Seconds (25.1-36.5) 05/27/18 22:10 Attending/Attestation - Attestation I have personally seen and examined this patient.: Yes I have fully participated in the care of the patient.: Yes I have reviewed all pertinent clinical information, including history, physical exam and plan: Yes Notes (Text): 06/01/18 15:44 Medical record note made by the resident after discussion with my direction and input after the patient was personally seen and examined by me. I have reviewed the chart and agree that the record accurately reflects by personal performance of the history, physical exam, data review, and medical decision-making, in the course for the patient. I have also personally directed the plan of care.
--- NOTE | 2018-05-30 19:28 | PN ---
DATE: 05/29/2018 PROGRESS/PROCEDURE NOTE SUBJECTIVE: The patient is seen in his room. He is well known to me. The patient has advanced dementia, multiple medical issues. He was recently hospitalized for multiple complaints. His at that time decided not to pursue further invasive procedures and he was taken home. At home, the patient has an indwelling Nelson catheter as he had urinary retention during a prior admission. VNS changed the Nelson catheter and the patient began having some blood draining around the urethral meatus. The patient is on anticoagulation for prior DVTs. Due to the blood around the Nelson catheter, his brought him to the emergency room where he was subsequently admitted. Nelson catheter is currently in place. It is draining clear. There is some dried blood around the meatus. There are some clots in the tube. PHYSICAL EXAMINATION: VITAL SIGNS: The patient is afebrile. Temperature was 98.1, pulse of 73, BP 135/85, respirations 18. ABDOMEN: Soft. The patient is complaining of diffuse abdominal pain. However, this is likely from his dementia as he is not having any rebound or guarding. His bladder is not palpably distended. : His phallus is normal. There is some dried blood around the urethral meatus. Scrotum is mild. The edematous testicles are descended. There is no scrotal mass or tenderness noted. Given the patient's current condition and the presence of large clots in the tubing, I removed the 16-[place] two-way Nelson catheter and was able to easily pass a 20-[place] 3-way Nelson catheter. I then copiously irrigated the bladder with sterile saline with removal of small amounts of clots and placed the patient on continuous bladder irrigation which is now running completely clear. PLAN: For now will be to continue CBI for today. If the irrigation is clear tomorrow, I will discontinue the CBI. I would plan on removing the Nelson catheter in 2 days for a voiding trial and continue the patient on tamsulosin. The patient is bed-bound and wears diapers. If he is wetting the diapers and not distended, he can be discharged home from a urologic standpoint. Gary Perry MD
--- NOTE | 2018-05-30 19:34 | PN ---
DATE: 05/30/2018 SUBJECTIVE: The patient is seen in his room. He is awake, in no acute distress. Nelson catheter is in place. It is draining clear urine on very slow continuous bladder irrigation. PLAN: For now is to turn off the bladder irrigation. We will plan on removing the Nelson catheter for a voiding trial tomorrow. The patient has received antibiotics for the positive urine culture. If the patient is able to void spontaneously tomorrow, although this will be in his diaper, I would plan on discharging him home without the Nelson catheter. We will need to discuss whether the patient should continue on Coumadin with his primary medical physician. The patient should be continued on tamsulosin 0.4 mg daily and he should continue this medication at home. Gary Perry MD
--- NOTE | 2018-05-30 20:04 | CON ---
DATE: 05/30/2018 INDICATIONS: Hematuria, atrial fibrillation, and anticoagulation. This is an 87-year-old man known to me admitted on the 05/28/2018 with hematuria. He had had a urinary retention. A Nelson catheter was placed. After changing catheter at home, gross hematuria was noted. He was admitted to the hospital. Subsequently, he has been evaluated by Dr. Willams. His Nelson catheter was replaced. He is currently draining clear urine. He was on warfarin, which is being held. He has dementia. The history is predominantly from the chart. There is no chest pain or shortness of breath reported. There is no fever, chills, or hemoptysis. No rigors or sweats. No recent abdominal pain, nausea, vomiting, diarrhea, constipation, or melena. PAST MEDICAL HISTORY: Notable for coronary artery disease with coronary interventions remotely, paroxysmal atrial fibrillation, stroke, TIA, hypertension, COPD, former smoker, renal cell carcinoma with resection, gallstones, repair of right iliac aneurysm, multiple hip surgeries, IVC filter, and dementia. MEDICATIONS: At the time of admission, his medications were Atrovent, Lotrel, aspirin, albuterol, Colace, warfarin, potassium chloride, Lasix, Lipitor, MiraLax, nystatin, Protonix, multivitamins, vitamin C, and zinc sulfate. ALLERGIES: THERE ARE NO MEDICATION ALLERGIES REPORTED. SOCIAL HISTORY: He lives at home with his . He is not very ambulatory. He no longer smokes cigarettes and does not drink alcohol. FAMILY HISTORY: Not contributory. REVIEW OF SYSTEMS: A 10-point review of systems is limited by dementia. PHYSICAL EXAMINATION: GENERAL: He is a well-developed male lying in bed, in no acute distress. VITAL SIGNS: He is in sinus rhythm, 84 beats per minute. Afebrile. Blood pressure 120/75, respirations 20, and O2 sat 94% to 96% on room air. HEENT: Reveals no neck vein distention, thyromegaly, or carotid bruits. Mucous membranes moist. Conjunctivae pink. NECK: Supple. LUNGS: Lung guerra clear. HEART: Revealed a regular rhythm. There is a systolic murmur along the left sternal border. PMI is not palpable. ABDOMEN: Soft. Bowel sounds are present. No mass, organomegaly, tenderness, rebound, guarding. No CVA tenderness. No palpable abdominal aortic aneurysm. EXTREMITIES: Revealed no cyanosis, clubbing, or edema. NEUROLOGIC: Neurologically, there is dementia. PSYCHIATRIC: Dementia. LABORATORY AND IMAGING STUDIES: An EKG on the 05/28/2018 reveals sinus rhythm; left anterior hemiblock; poor R-wave progression; anterior VT, age unknown; and ST-T wave changes. No change from a prior EKG. CT of the abdomen and pelvis reveals an indwelling Nelson catheter with hemorrhagic products in the bladder. No other significant findings. A chest x-ray, a portable study, reveals right lower lobe airspace disease and blunting of the right costophrenic angle; could represent pneumonia or effusion. Followup is advised. The CT of the abdomen and pelvis with contrast revealed no change from recent nonenhanced scan. No acute findings. White count 11,700, hemoglobin 14.4, hematocrit 44.3, and platelet count normal. PT, INR, and PTT noted. INR 1.39. Electrolytes: BUN and creatinine unremarkable. Blood sugar 100. Magnesium 2.0. LFTs unremarkable. Urinalysis is noted. IMPRESSION: Amber Flores is an 87-year-old man with dementia, coronary artery disease; remote coronary interventions; paroxysmal atrial fibrillation with a history of stroke, on warfarin with recent urinary retention requiring a Nelson catheter; and then an episode of gross hematuria possibly related to replacement of the catheter. At this time, warfarin is on hold. He is undergoing urologic evaluation. A cystoscopy is planned. He should be considered mild to moderately increased cardiac risk. With regard to anticoagulation, if cleared by Urology, an attempt to resume warfarin can be considered. If there is recurrent bleeding, this may have to be discontinued permanently. He is, however, at risk for stroke and the risks and benefits of continued anticoagulation will have to be considered based on his clinical course. He is getting Lasix, potassium, Lipitor, Norvasc, Rocephin, multivitamins, vitamin C, and zinc sulfate. I will follow along with you and make additional recommendations based on his clinical course. Hugh Walker MD [facility]
[2018-05-31 06:44] LABS: ALB/GLOB RATIO 1.2 (1.1-1.8); ALBUMIN 3.5 g/dL (3.0-4.8); ALT/SGPT 16 U/L (7-56); AST/SGOT 35 U/L (17-59); BLOOD UREA NITROGEN 32 mg/dL (7-21); CALCIUM 8.9 mg/dL (8.4-10.5); GFR NON-AFRICAN AMERICAN 57
[2018-05-31 07:18] LABS: BASO # 0.01 K/mm3 (0.0-2.0); BASO % 0.1 % (0.0-3.0); EOS # 0.2 (0.0-0.7); GRAN # 7.31 (1.4-6.5); GRAN % 66.3 % (50.0-68.0); HEMOGLOBIN 14.4 g/dL (14.0-18.0); LYMPH # 2.7 (1.2-3.4); LYMPH % 24.8 % (22.0-35.0); MEAN CELL VOLUME 95.9 fl (80.0-105.0); MEAN CORPUSCULAR HEMOGLOBIN 31.4 pg (25.0-35.0); MEAN CORPUSCULAR HGB CONC 32.8 g/dl (31.0-37.0); MEAN PLATELET VOLUME 9.3 fl (7.0-11.0); MONO # 0.8 (0.1-0.6); MONO % 6.8 % (1.0-6.0); RBC 4.58 10^6/uL (3.5-6.1); RED CELL DISTRIBUTION WIDTH 14.4 % (11.5-14.5)
[2018-05-31 07:49] VITALS: BP 129/81; O2SAT 95
[2018-05-31] MEDS: Multivitamin With Minerals Tab PO SCH (08:41)
--- NOTE | 2018-05-31 10:28 | PN ---
DATE: 05/31/2018 SUBJECTIVE: The patient is seen lying in bed on 3R. He is currently comfortable. A Nelson catheter has been removed. He offers no complaints. His warfarin was resumed yesterday. CURRENT MEDICATIONS: Include warfarin, Flomax, Lasix 40 mg daily, potassium, Lipitor 10 mg daily, Norvasc 5 mg daily, Rocephin, Xopenex. OBJECTIVE: GENERAL: He is a very elderly man, who appears comfortable at rest. VITAL SIGNS: His blood pressure is 130/80 with a pulse of 84 and sinus, respirations are 14. He is afebrile. HEENT: No JVD. CHEST: A few scattered rhonchi. HEART: PMI displaced laterally with a systolic murmur at the left sternal border. ABDOMEN: Soft with normoactive bowel sounds. EXTREMITIES: No edema. Bilateral chronic cellulitic changes noted. DIAGNOSTIC DATA: Potassium 4.7, BUN and creatinine 32 and 1.2. White count 11, hemoglobin and hematocrit 14.4 and 43.9 with platelet count of 213,000. IMPRESSION: 1. Recent hematuria, appears clinically improved. 2. History of prior cerebrovascular accident. 3. Status post prior coronary artery disease with percutaneous coronary intervention. 4. Right renal tumor resection. 5. Paroxysmal atrial fibrillation. 6. History of hypertension. 7. Compensated congestive heart failure. RECOMMENDATIONS: His current cardiac medications should continue for now. Daily INRs will be monitored. Resumption of chronic anticoagulant therapy would be preferable given his constellation of problems and high [id number] score. We will continue to follow and make further recommendations as appropriate. Khanh Potter MD
[2018-05-31] MEDS: cefTRIAXone 1 gm 1 GM/100 ML BAG IVPB SCH (10:43)
[2018-05-31] MEDS: Potassium Chloride 10 mEq ER Tab PO SCH (10:43)
[2018-05-31 10:46] VITALS: PULSE 74
[2018-05-31 11:32] LABS: INR 1.29; PROTHROMBIN TIME 14.9 SECONDS (9.4-12.5)
--- NOTE | 2018-05-31 19:05 | CP.PCM.DIS ---
<Triston Dean - Last Filed: 05/31/18 19:10> Provider - Provider Date of Admission: 05/29/18 08:00 Attending physician: Karol Patricia MD Time Spent in preparation of Discharge (in minutes): 40 Diagnosis - Discharge Diagnosis (1) Hematuria Status: Acute Priority: High (2) Atrial fibrillation Status: Chronic Priority: High (3) BPH (benign prostatic hyperplasia) Status: Chronic Priority: High (4) HTN (hypertension) Status: Acute Priority: High (5) CHF (congestive heart failure) Status: Chronic Priority: High (6) COPD (chronic obstructive pulmonary disease) Status: Acute (7) CVA (cerebral vascular accident) Status: Acute Hospital Course - Lab Results Lab Results: Micro Results 05/27/18 22:10 Urine,Clean Catch Urine Culture - Final Morg Morganii Ss Morganii Most Recent Lab Values WBC 11.0 10^3/uL (4.5-11.0) 05/31/18 06:10 RBC 4.58 10^6/uL (3.5-6.1) 05/31/18 06:10 Hgb 14.4 g/dL (14.0-18.0) 05/31/18 06:10 Hct 43.9 % (42.0-52.0) 05/31/18 06:10 MCV 95.9 fl (80.0-105.0) 05/31/18 06:10 MCH 31.4 pg (25.0-35.0) 05/31/18 06:10 MCHC 32.8 g/dl (31.0-37.0) 05/31/18 06:10 RDW 14.4 % (11.5-14.5) 05/31/18 06:10 Plt Count 213 10^3/uL (120.0-450.0) 05/31/18 06:10 MPV 9.3 fl (7.0-11.0) 05/31/18 06:10 Gran % 66.3 % (50.0-68.0) 05/31/18 06:10 Lymph % (Auto) 24.8 % (22.0-35.0) 05/31/18 06:10 [place] % (Auto) 6.8 % (1.0-6.0) H 05/31/18 06:10 Eos % (Auto) 2.0 % (1.5-5.0) 05/31/18 06:10 Baso % (Auto) 0.1 % (0.0-3.0) 05/31/18 06:10 Gran # 7.31 (1.4-6.5) H 05/31/18 06:10 Lymph # (Auto) 2.7 (1.2-3.4) 05/31/18 06:10 [place] # (Auto) 0.8 (0.1-0.6) H 05/31/18 06:10 Eos # (Auto) 0.2 (0.0-0.7) 05/31/18 06:10 Baso # (Auto) 0.01 K/mm3 (0.0-2.0) 05/31/18 06:10 PT 14.9 SECONDS (9.4-12.5) H 05/31/18 11:10 INR 1.29 05/31/18 11:10 APTT 35.3 Seconds (25.1-36.5) 05/27/18 22:10 Sodium 138 mmol/L (132-148) 05/31/18 06:10 Potassium 4.7 mmol/L (3.6-5.0) 05/31/18 06:10 Chloride 105 mmol/L (98-107) 05/31/18 06:10 Carbon Dioxide 27 mmol/L (21-33) 05/31/18 06:10 Anion Gap 12 (10-20) 05/31/18 06:10 BUN 32 mg/dL (7-21) H 05/31/18 06:10 Creatinine 1.2 mg/dl (0.8-1.5) 05/31/18 06:10 Est GFR ( Amer) > 60 05/31/18 06:10 Est GFR (Non-Af Amer) 57 05/31/18 06:10 Random Glucose 94 mg/dL (70-110) 05/31/18 06:10 Calcium 8.9 mg/dL (8.4-10.5) 05/31/18 06:10 Phosphorus 2.3 mg/dL (2.5-4.5) L 05/28/18 07:00 Magnesium 2.0 mg/dL (1.7-2.2) 05/28/18 07:00 Total Bilirubin 0.6 mg/dL (0.2-1.3) 05/31/18 06:10 AST 35 U/L (17-59) 05/31/18 06:10 ALT 16 U/L (7-56) 05/31/18 06:10 Alkaline Phosphatase 96 U/L (38-126) 05/31/18 06:10 Total Protein 6.5 g/dL (5.8-8.3) 05/31/18 06:10 Albumin 3.5 g/dL (3.0-4.8) 05/31/18 06:10 Globulin 3.0 gm/dL 05/31/18 06:10 Albumin/Globulin Ratio 1.2 (1.1-1.8) 05/31/18 06:10 Urine Color Red (YELLOW) 05/27/18 22:10 Urine Appearance Bloody (CLEAR) 05/27/18 22:10 Urine pH 7.0 (4.7-8.0) 05/27/18 22:10 Ur Specific [place] 1.020 (1.005-1.035) 05/27/18 22:10 Urine Protein >=300 mg/dL (<30 mg/dL) H 05/27/18 22:10 Urine Glucose (UA) Negative mg/dL (NEGATIVE) 05/27/18 22:10 Urine Ketones Negative mg/dL (NEGATIVE) 05/27/18 22:10 Urine Blood Large (NEGATIVE) H 05/27/18 22:10 Urine Nitrate Negative (NEGATIVE) 05/27/18 22:10 Urine Bilirubin Negative (NEGATIVE) 05/27/18 22:10 Urine Urobilinogen 1.0 E.U./dL (<1 E.U./dL) H 05/27/18 22:10 Ur Leukocyte Esterase Small Prakash/uL (NEGATIVE) H 05/27/18 22:10 Urine RBC Tntc /hpf (0-2) 05/27/18 22:10 Urine WBC 2 - 5 /hpf (0-6) 05/27/18 22:10 Blood Type B POSITIVE 05/28/18 02:55 Antibody Screen Negative 05/28/18 02:55 BBK History Checked Patient has bt 05/28/18 02:55 - Hospital Course Hospital Course: Pt is a 87yo male w/ a PMH of CAD with stent, CVA, CHF, HTN, COPD, right renal tumor resection, atrial fibrillation on coumadin, and dementia who was recently admitted to [facility] from 05/02-05/03 for urinary retention and intractable abdominal pain and subsequently discharged w/ wilkins. Pt presented to [facility] ED on 05/28/18 with complaint of hematuria and suprapubic abd pain. Per patients , patient had his wilkins changed by a visiting nurse the previous day. She is unsure if patient was making urine or having pain at the time of wilkins change, however she noticed that his urine looked grossly bloody as compared to the usual dark tea color. She contacted visiting nurses who advised patient to come to ED bhargav. Pt also endorsed a pressure/urge sensation in his lower abdomen and reported being unable to relieve himself in the wilkins. Symptoms did not radiate and had been gradually worsening hours prior to admission. During previous admission; patient was instructed to follow up with PMD -Obey, and Urology -Vicky but patient did not follow up. also reported that patient had his INR checked on Tuesday and it was reported 3.5; He received his last warfarin on Tuesday (05/22). On admission, Wilkins was removed by ER physician and new wilkins was inserted. Wilkins was attempted to be flushed by both ANALYSIS ENGINEER and ER physician with return of large amounts of clots and gross hematuria. Bedside bladder scan showed 239ml. UA showed proteinuria, gross hematuria, and small leukocyte esterase. BUN/Creatinine were within normal limits. CT abdomen/pelvis showed no acute findings, high density lesion in left kidney (most likely hemorrhagic cyst), and fluid density cyst in right kidney. His home Aspirin and warfarin were held. Pt was started on IV rocephin and Urology was consulted. Urine cultures grew pansensitive morganella morganii. Pt had 3-way wilkins catheter inserted by Urology and underwent continuous bladder irrigation with resolution of his hematuria. His wilkins was discontinued and he was able to void on his own into a diaper. Patient was evaluated by cardiology and it was determined that it was safe for patient to resume his warfarin since hematuria resolved. INR on admit was 1.29, repeat INR before restarting warfarin was 1.29. We had extensive discussion with patient and his about the risks and benefits of restarting warfarin in the context of hematuria. His hematuria was likely secondary to a traumatic tap and likely would not have occurred otherwise. His verbalized understanding and expressed desire to speak with his PMD, Dr. Barnhart, after discharge to further discuss rodent exterminator warfarin use. However, she elected to have patient restart his warfarin while admitted. Pt was stable for discharge home on his home meds, Tamsulosin 0.4mg daily, and warfarin 5mg daily with instructions to have repeat INR measured on Tuesday06/02/18 and to follow up with his PMD. - Date & Time of H&P Date of H&P: 05/31/18 Time of H&P: 07:00 Discharge Exam - Head Exam Head Exam: ATRAUMATIC, NORMAL INSPECTION, NORMOCEPHALIC - Eye Exam Eye Exam: EOMI - ENT Exam ENT Exam: Mucous Membranes Moist - Respiratory Exam Respiratory Exam: NORMAL BREATHING PATTERN, UNREMARKABLE. absent: Wheezes, Respiratory Distress - Cardiovascular Exam Cardiovascular Exam: RRR, +S1, +S2. absent: Diastolic murmur, Systolic Murmur - GI/Abdominal Exam GI & Abdominal Exam: Normal Bowel Sounds, Unremarkable - Extremities Exam Extremities exam: pedal pulses present - Neurological Exam Neurological exam: Alert, Oriented x3 - Psychiatric Exam Psychiatric exam: Normal Affect, Normal Mood - Skin Skin Exam: Dry, Intact, Warm Discharge Plan - Discharge Medications Prescriptions: RX: amLODIPine [Norvasc] 5 mg PO DAILY #30 tab RX: Atorvastatin [Lipitor] 10 mg PO DIN #30 tab RX: Furosemide [Lasix] 40 mg PO DAILY #30 tab RX: Tamsulosin [Flomax] 0.4 mg PO DAILY #30 cap RX: Warfarin [Coumadin] 5 mg PO DAILY #30 tab - Follow Up Plan Condition: GUARDED Disposition: HOME/ ROUTINE Instructions: Urinary Retention (DC) Additional Instructions: 1. please follow up with your primary care physician Dr Barnhart within 1 week 2. please complete your blood work this Tuesday to check your INR because you are taking Warfarin 3. we discussed the risks and benefits of restarting or withholding anticoagulation, warfarin. you may continue to discuss this with your primary care physician, Dr Barnhart 4. discontinue taking aspirin 5. continue to take Plavix 6. if your symptoms return or worsen, please go to the nearest emergency department <Karol Patricia - Last Filed: 06/01/18 15:44> Provider - Provider Date of Admission: 05/29/18 08:00 Attending physician: Karol Patricia MD Hospital Course - Lab Results Lab Results: Micro Results 05/27/18 22:10 Urine,Clean Catch Urine Culture - Final Morg Morganii Ss Morganii Most Recent Lab Values WBC 11.0 10^3/uL (4.5-11.0) 05/31/18 06:10 RBC 4.58 10^6/uL (3.5-6.1) 05/31/18 06:10 Hgb 14.4 g/dL (14.0-18.0) 05/31/18 06:10 Hct 43.9 % (42.0-52.0) 05/31/18 06:10 MCV 95.9 fl (80.0-105.0) 05/31/18 06:10 MCH 31.4 pg (25.0-35.0) 05/31/18 06:10 MCHC 32.8 g/dl (31.0-37.0) 05/31/18 06:10 RDW 14.4 % (11.5-14.5) 05/31/18 06:10 Plt Count 213 10^3/uL (120.0-450.0) 05/31/18 06:10 MPV 9.3 fl (7.0-11.0) 05/31/18 06:10 Gran % 66.3 % (50.0-68.0) 05/31/18 06:10 Lymph % (Auto) 24.8 % (22.0-35.0) 05/31/18 06:10 [place] % (Auto) 6.8 % (1.0-6.0) H 05/31/18 06:10 Eos % (Auto) 2.0 % (1.5-5.0) 05/31/18 06:10 Baso % (Auto) 0.1 % (0.0-3.0) 05/31/18 06:10 Gran # 7.31 (1.4-6.5) H 05/31/18 06:10 Lymph # (Auto) 2.7 (1.2-3.4) 05/31/18 06:10 [place] # (Auto) 0.8 (0.1-0.6) H 05/31/18 06:10 Eos # (Auto) 0.2 (0.0-0.7) 05/31/18 06:10 Baso # (Auto) 0.01 K/mm3 (0.0-2.0) 05/31/18 06:10 PT 14.9 SECONDS (9.4-12.5) H 05/31/18 11:10 INR 1.29 05/31/18 11:10 APTT 35.3 Seconds (25.1-36.5) 05/27/18 22:10 Sodium 138 mmol/L (132-148) 05/31/18 06:10 Potassium 4.7 mmol/L (3.6-5.0) 05/31/18 06:10 Chloride 105 mmol/L (98-107) 05/31/18 06:10 Carbon Dioxide 27 mmol/L (21-33) 05/31/18 06:10 Anion Gap 12 (10-20) 05/31/18 06:10 BUN 32 mg/dL (7-21) H 05/31/18 06:10 Creatinine 1.2 mg/dl (0.8-1.5) 05/31/18 06:10 Est GFR ( Amer) > 60 05/31/18 06:10 Est GFR (Non-Af Amer) 57 05/31/18 06:10 Random Glucose 94 mg/dL (70-110) 05/31/18 06:10 Calcium 8.9 mg/dL (8.4-10.5) 05/31/18 06:10 Phosphorus 2.3 mg/dL (2.5-4.5) L 05/28/18 07:00 Magnesium 2.0 mg/dL (1.7-2.2) 05/28/18 07:00 Total Bilirubin 0.6 mg/dL (0.2-1.3) 05/31/18 06:10 AST 35 U/L (17-59) 05/31/18 06:10 ALT 16 U/L (7-56) 05/31/18 06:10 Alkaline Phosphatase 96 U/L (38-126) 05/31/18 06:10 Total Protein 6.5 g/dL (5.8-8.3) 05/31/18 06:10 Albumin 3.5 g/dL (3.0-4.8) 05/31/18 06:10 Globulin 3.0 gm/dL 05/31/18 06:10 Albumin/Globulin Ratio 1.2 (1.1-1.8) 05/31/18 06:10 Urine Color Red (YELLOW) 05/27/18 22:10 Urine Appearance Bloody (CLEAR) 05/27/18 22:10 Urine pH 7.0 (4.7-8.0) 05/27/18 22:10 Ur Specific [place] 1.020 (1.005-1.035) 05/27/18 22:10 Urine Protein >=300 mg/dL (<30 mg/dL) H 05/27/18 22:10 Urine Glucose (UA) Negative mg/dL (NEGATIVE) 05/27/18 22:10 Urine Ketones Negative mg/dL (NEGATIVE) 05/27/18 22:10 Urine Blood Large (NEGATIVE) H 05/27/18 22:10 Urine Nitrate Negative (NEGATIVE) 05/27/18 22:10 Urine Bilirubin Negative (NEGATIVE) 05/27/18 22:10 Urine Urobilinogen 1.0 E.U./dL (<1 E.U./dL) H 05/27/18 22:10 Ur Leukocyte Esterase Small Prakash/uL (NEGATIVE) H 05/27/18 22:10 Urine RBC Tntc /hpf (0-2) 05/27/18 22:10 Urine WBC 2 - 5 /hpf (0-6) 05/27/18 22:10 Blood Type B POSITIVE 05/28/18 02:55 Antibody Screen Negative 05/28/18 02:55 BBK History Checked Patient has bt 05/28/18 02:55 Attending/Attestation - Attestation I have personally seen and examined this patient.: Yes I have fully participated in the care of the patient.: Yes Notes (Text): 06/01/18 15:37 Medical record note made by the resident after discussion with my direction and input after the patient was personally seen and examined by me. I have reviewed the chart and agree that the record accurately reflects by personal performance of the history, physical exam, data review, and medical decision-making, in the course for the patient. I have also personally directed the plan of care. 87 yo male with a PMH of CAD, TIA, CVA, CHF, HTN, COPD, renal cell carcinoma, atrial fibrillation, gallstones, and dementia with complaint of hematuria and suprapubic abd pain. Hematuria started after Folley cathter was changed by visiting nurse.On admission, Wilkins was removed by ER physician and new wilkins was inserted. Wilkins was attempted to be flushed by both ANALYSIS ENGINEER and ER physician with return of large amounts of clots and gross hematuria. . UA showed proteinuria, gross hematuria, and small leukocyte esterase. BUN/Creatinine were within normal limits. CT abdomen/pelvis showed no acute findings, high density lesion in left kidney (most likely hemorrhagic cyst), and fluid density cyst in right kidney. His home Aspirin and warfarin were held. Pt was started on IV rocephin and Urology was consulted. Urine cultures grew pansensitive morganella morganii. Pt had 3-way wilkins catheter inserted by Urology and underwent continuous bladder irrigation with resolution of his hematuria. Patient Folley catheter was discontinued.Patient was able to void prior to discharge. Patient was restarted on warfarin after discussion with .Patient will have repeat INR on 06/03/18. Patient has advance dementia, he is bed bound. Hematuria is resolved. Hemoglobin is stable. also confirmed that patient is DNR/DNI He will be discharged home .He will follow up with PCP /Urology. Management plan was discussed in detail with . Education was provided. 06/01/18 15:40
[2018-06-01] MEDS ORDERED: Cefpodoxime (Vantin) 200 mg Tab PO SCH (10:00)
--- NOTE | 2018-06-01 13:25 | PQF ---
PROVIDER RESPONSE TEXT: Patient has diastolic heart failure, but he was euvolemic, no sign of acute on chronic diastolic CHF during this admission. REVIEWER QUERY TEXT: CHF Acuity and Type Congestive Heart Failure is documented in the Medical Record. Please document the type and acuity (in cludes probable or suspected) Such as: Type: -- Systolic -- Diastolic -- Combined -- Other, please specify Acuity: -- Acute -- Chronic -- Acute on chronic -- Other, please specify Also please document the underlying cause of the CHF (includes probable or suspected) The patient's Clinical Indicators include: Patient with history of CHF continuously treated with lasix. Please specify the type and acuity of CH F. Query created by: Marietta Case on 06/01/2018 10:16 AM Electronically signed by: Karol Patricia MD 06/01/2018 1:21 PM
== END 2018-05-31 16:59 | disposition home or self-care (01) | DRG 699 ==
LOC: ED 21:08 → ERH 05-28 00:36 → 3RNO 05-28 01:52 → OBSVTOIN 05-29 08:00
PROVIDERS: ADMIT Internal Medicine; ATTEND Internal Medicine
PROC: 0T2BX0Z Change Drainage Device in Bladder, External Approach (ICD-10-PCS; principal; 2018-05-29)
DX: T83.83XA Hemorrhage due to genitourinary prosthetic devices, implants and grafts, initial encounter (principal); I50.30 Unspecified diastolic (congestive) heart failure; R31.0 Gross hematuria; N40.1 Benign prostatic hyperplasia with lower urinary tract symptoms; R33.8 Other retention of urine; J44.9 Chronic obstructive pulmonary disease, unspecified; I48.91 Unspecified atrial fibrillation; F03.90 Unspecified dementia, unspecified severity, without behavioral disturbance, psychotic disturbance, mood disturbance, and anxiety; I25.10 Atherosclerotic heart disease of native coronary artery without angina pectoris; K59.00 Constipation, unspecified; I11.0 Hypertensive heart disease with heart failure; I48.0 Paroxysmal atrial fibrillation; K80.20 Calculus of gallbladder without cholecystitis without obstruction; N43.3 Hydrocele, unspecified; Y84.6 Urinary catheterization as the cause of abnormal reaction of the patient, or of later complication, without mention of misadventure at the time of the procedure; Z87.891 Personal history of nicotine dependence; Z85.528 Personal history of other malignant neoplasm of kidney; Z79.01 Long term (current) use of anticoagulants; Z95.5 Presence of coronary angioplasty implant and graft; Z86.711 Personal history of pulmonary embolism; Z86.718 Personal history of other venous thrombosis and embolism; Z86.73 Personal history of transient ischemic attack (TIA), and cerebral infarction without residual deficits; Z74.01 Bed confinement status

== ENCOUNTER 2018-08-15 10:13 | Outpatient (CLI) | payer MEDICARE, OTHER | END 2018-08-15 10:14 | disposition home or self-care (01) | LOC: LAB 10:13 | DX: Z79.01 Long term (current) use of anticoagulants (principal) ==

== ENCOUNTER 2018-08-29 12:37 | Outpatient (CLI) | payer MEDICARE, OTHER | END 2018-08-29 12:38 | disposition home or self-care (01) | LOC: LAB 12:37 ==

== ENCOUNTER 2018-09-12 13:02 | Outpatient (CLI) | payer MEDICARE, OTHER | END 2018-09-12 13:03 | disposition home or self-care (01) | LOC: LAB 13:02 | DX: Z79.01 Long term (current) use of anticoagulants (principal) ==

== ENCOUNTER 2018-09-26 11:32 | Outpatient (CLI) | payer MEDICARE, OTHER | END 2018-09-26 11:33 | disposition home or self-care (01) | LOC: LAB 11:32 | DX: Z79.01 Long term (current) use of anticoagulants (principal) ==

== ENCOUNTER 2018-10-10 15:09 | Outpatient (CLI) | payer MEDICARE, OTHER | END 2018-10-10 15:10 | disposition home or self-care (01) | LOC: LAB 15:09 ==

== ENCOUNTER 2018-10-24 13:17 | Outpatient (CLI) | payer MEDICARE, OTHER | END 2018-10-24 13:18 | disposition home or self-care (01) | LOC: LAB 13:17 ==

== ENCOUNTER → 2018-11-07 | Outpatient (CLI) | payer MEDICARE, OTHER | LOC: LAB 16:24 ==

== ENCOUNTER 2018-11-21 11:40 | Outpatient (CLI) | payer MEDICARE, OTHER | END 2018-11-21 11:41 | disposition home or self-care (01) | LOC: LAB 11:40 ==

== ENCOUNTER → 2018-12-05 | Outpatient (CLI) | payer MEDICARE, OTHER | LOC: LAB 13:03 ==

== ENCOUNTER 2018-12-19 12:09 | Outpatient (CLI) | payer MEDICARE, OTHER | END 2018-12-19 12:10 | disposition home or self-care (01) | LOC: LAB 12:09 ==

== ENCOUNTER 2018-12-26 12:04 | Emergency (ER) | payer MEDICARE, OTHER ==
[2018-12-26 12:04] VITALS: BMI 29.7
--- NOTE | 2018-12-26 13:15 | ED PDOC ---
Arrival/HPI - History of Present Illness Narrative History of Present Illness (Text): 12/26/18 13:12 CC: suprapubic pain HPI: 88 yo male w/ PMH of CAD with stent, TIA, CVA, CHF, HTN, COPD, renal cell carcinoma, constipation, atrial fibrillation on coumadin, gallstones, and dementia; recently admitted to [facility] from 05/02-05/03 for urinary retention and intractable abdominal pain; DC'd w/ wilkins. Presented to [facility] ED on 05/28/18 w/ wilkins and hematuria. Patient has not followed up with urology outpatient, Dr. Perry. Patient during admission on 05/[address] which required CBI and a voiding trial was done and patient was discharged without wilkins. Patient is no longer taking his flomax. Patient has baseline dementia and information was gathered through . states that patient for past 4 days patient had 2 days of diarrhea but past 2 days no diarrhea. Patient was receiving miralax from but stopped after diarrhea started. Since the miralax has been stopped patient has had no more episodes of diarrhea. No recent antibiotic use. However, patient's says at times the patient will scream in pain and hold in his lower abdomen. Bladder Scan was done at bedside with >600ml urine. Denies fevers, chills, chest pain, sob, n/v, constipation or dysuria. Time/Duration: < week Symptom Onset: Sudden Symptom Course: Intermittent Quality: Pressure Activities at Onset: Rest Context: Sitting <Oliver Rocha - Last Filed: 12/26/18 15:07> <Carly Lambert - Last Filed: 12/26/18 15:36> - General Chief Complaint: Abdominal Pain Time Seen by Provider: 12/26/18 12:19 Past Medical History - Provider Review Nursing Documentation Reviewed: Yes - Past History Past History: Non-Contributing - Infectious Disease Hx of Infectious Diseases: None - Tetanus Immunization Tetanus Immunization: Unknown - Cardiac Hx Cardiac Disorders: Yes ( denies mi) Hx Angina: No Hx Cardiac Arrhythmia: Yes Hx Circulatory Problems: Yes Hx Congestive Heart Failure: No Hx Heart Murmur: No Hx Heart Transplant: No Hx Internal Defibrillator: No Hx Mitral Valve Prolapse: No Hx Pacemaker: No Hx Peripheral Edema: Yes (ble +1) Hx Peripheral Vascular Disease: Yes Other/Comment: hx pe/dvt, on 03/10/17 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, ivc filter placement 07/28/12, - Pulmonary Hx Respiratory Disorders: Yes (pe) Hx Respiratory Tract Infection: Yes - Neurological Hx Paralysis: Yes Hx Parkinson's Disease: ( denies parkinsons) Other/Comment: tia over 15 yrs ago and was found to have had multiple mini strokes prior to tia as per , denies hydrocephalis, spinal tap 2011 - HEENT Hx HEENT Disorder: Yes Hx Blind: No Hx Cataracts: Yes (b/l not a candidate for sx) Hx Deafness: No Hx Difficulty Chewing: No Hx Epistaxis: No Hx Glaucoma: No Hx Macular Degeneration: No - Renal Hx Renal Disorder: Yes Other/Comment: kidney tumor right removed 2007, 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 tumor was benign as per - Endocrine/Metabolic Hx Adrenal Cancer: No Hx Diabetes Insipidus: No Hx Diabetes Mellitus Type 1: No Hx Diabetes Mellitus Type 2: No Hx Hyperthyroidism: No Hx Hypothyroidism: No Hx Systemic Lupus Erythematosus: No - Hematological/Oncological Hx Blood Transfusions: Yes - Integumentary Other/Comment: ble +1 edema with brown discolored skin and multiple raised nodules, 4cm x 5cm dark brown oval shaped dark lumpy area lle doctors are awarre, has had for years no treatment as per - Musculoskeletal/Rheumatological Hx Musculoskeletal Disorders: Yes (LOWER EXTREMETY WEAKNESS R/T NEUROPATHY ) Hx Arthritis: Yes Hx Back Pain: Yes Hx Falls: Yes Hx Osteoarthritis: Yes Hx Unsteady Gait: Yes (hoya lift/recliner/bed/w/ch) Other/Comment: b/l hip replacement, 2 revisions of the right, and 1 revision on the left, was using a walker for a time but then couldn't walk at all as per due to arthritis. Pt can only tolerate w/ch for 2 hours due to b/l hip pain, c/o chronic b/l calf pain - Gastrointestinal Hx Gastrointestinal Disorders: (constipation, poor appetite) Hx Colostomy: No Hx Crohn's Disease: No Hx Diverticulitis: No Hx Gall Bladder Disease: Yes (gallstones) Hx Gastroesophageal Reflux: No Hx Ileostomy: No Hx Liver Failure: No Hx Pancreatitis: No HX Swallowing Problems: No - Genitourinary/Gynecological Hx Genitourinary Disorders: (scrotal edema) Hx Hematuria: Yes Hx Prostate Problems: ( uncertain) Hx Sexually Transmitted Diseases: No Other/Comment: had cysto with dr perry over 10 yrs ago as per - Psychiatric Hx Emotional Abuse: No Hx Physical Abuse: No Hx Substance Use: No - Past Surgical History Past Surgical History: Non-Contributing - Surgical History Hx Cardiac Catheterization: Yes (x1 stent 2000) Hx Musculoskeletal Surgery: Yes Other/Comment: tumor removed from the kidney 2007 benign - Anesthesia Hx Anesthesia Reactions: No - Suicidal Assessment Feels Threatened In Home Enviroment: No <Oliver Rocha - Last Filed: 12/26/18 15:07> Family/Social History - Physician Review Nursing Documentation Reviewed: Yes Family/Social History: No Known Family HX Smoking Status: Never Smoked Hx Alcohol Use: No Hx Substance Use: No Hx Substance Use Treatment: No <Oliver Rocha - Last Filed: 12/26/18 15:07> Allergies/Home Meds <Oliver Rocha - Last Filed: 12/26/18 15:07> <Carly Lambert - Last Filed: 12/26/18 15:36> Allergies/Adverse Reactions: Allergies No Known Allergies Allergy (Verified 05/01/18 20:58) Home Medications: Home Meds Medication Instructions Recorded Confirmed Albuterol Sulfate 1 puff PRN PRN 03/11/17 05/27/18 Docusate [Colace] 70 mg PRN PRN 03/11/17 05/27/18 Ipratropium Randolph 0.5 mg PRN PRN 03/11/17 05/27/18 Ipratropium 0.02% [Atrovent] 0.02 % PRN PRN 03/21/17 05/27/18 Potassium Chloride [Klor-Con 10] 10 meq PO DAILY 03/21/17 05/27/18 Review of Systems - Review of Systems Constitutional: Normal. absent: Fatigue, Weight Change, Fevers, Night Sweats Eyes: Normal. absent: Vision Changes, Photophobia, Eye Pain ENT: Normal. absent: Hearing Changes, Tinnitus, TMJ Pain, Sore Throat Respiratory: Normal. absent: SOB, Cough, Sputum Cardiovascular: Normal. absent: Chest Pain, Palpitations, Edema, Calf Pain, Orthopnea Gastrointestinal: Normal. absent: Abdominal Pain, Stool Changes, Constipation, Diarrhea, Nausea Genitourinary Male: Normal. absent: Dysuria, Frequency, Hematuria Musculoskeletal: Normal. absent: Arthralgias, Back Pain, Neck Pain Skin: Normal. absent: Rash, Pruritis Neurological: Normal. absent: Headache, Dizziness Endocrine: Normal. absent: Diaphoresis, Polyuria Hemo/Lymphatic: Normal. absent: Adenopathy, Easy Bleeding Psychiatric: Normal. absent: Anxiety, Depression <Rayshawn Rochaaser - Last Filed: 12/26/18 15:07> Physical Exam Vital Signs Reviewed: Yes Vital Signs Temp Pulse Resp BP Pulse Ox 12/26/18 12:25 97.9 F 86 18 150/83 96 Temperature: Afebrile Blood Pressure: Normal Pulse: Regular Respiratory Rate: Normal Appearance: Positive for: Well-Appearing, Non-Toxic, Comfortable Pain Distress: None Mental Status: Positive for: Alert and Oriented X 3 - Systems Exam Head: Present: Atraumatic, Normocephalic Pupils: Present: PERRL Extroacular Muscles: Present: EOMI Mouth: Present: Moist Mucous Membranes Respiratory/Chest: Present: Clear to Auscultation, Good Air Exchange. No: Respiratory Distress, Accessory Muscle Use, Wheezes, Decreased Breath Sounds Cardiovascular: Present: Regular Rate and Rhythm, Normal S1, S2. No: Murmurs Abdomen: Present: Tenderness, Distention, Normal Bowel Sounds. No: Peritoneal Signs, Rebound, Guarding Upper Extremity: Present: Normal Inspection. No: Cyanosis, Edema Lower Extremity: Present: Normal Inspection. No: Edema Neurological: Present: GCS=15, CN II-XII Intact, Speech Normal Skin: Present: Warm, Dry, Normal Color. No: Rashes Psychiatric: Present: Alert. No: Oriented x 3, Normal Insight, Normal Concentration <Rayshawn Rochaaser - Last Filed: 12/26/18 15:07> Vital Signs Temp Pulse Resp BP Pulse Ox 12/26/18 12:25 97.9 F 86 18 150/83 96 <Carly Lambert - Last Filed: 12/26/18 15:36> Medical Decision Making ED Course and Treatment: 12/26/18 13:17 Impression 87M w/ a PMH of CAD with stent, TIA, CVA, CHF, HTN, COPD, renal cell carcinoma, constipation, atrial fibrillation on coumadin, gallstones, and dementia comes to ED for evaluation of suprapubic pain Plan -CBC -CMP -U/A -Wilkins cather insertion s/p bladder scan (>600 ml urine) -Urine cx -PTT/PT -Lipase -Mag/Phos -Troponin -EKG Prior Visits All prior blood work and documentation reviewed prior to evaluation Progress Notes Bladder scan shows > [address] wilkins cather with urine study and culture Likely d/c with wilkins and f/u with urology 12/26/18 13:52 Wilkins was placed. >500 ml of urine was seen in collecting unit of wilkins pending urine studies 12/26/18 14:38 U/A showed with no +L.E or nitrites. Patient will be discharged with wilkins with instructions to followup urology outpatient. at bedside made aware of plan and she agrees with the plan above. Re-evaluation Time: 14:39 Reassessment Condition: Re-examined, Improved - Lab Interpretations I have reviewed the lab results: Yes Interpretation: All labs normal - EKG Interpretation Type: 12 lead EKG <Oliver Rocha - Last Filed: 12/26/18 15:07> ED Course and Treatment: 12/26/18 14:33 Patient Seen with Resident: In agreement with resident note which contains more details about the patient. Patient seen and evaluated with resident. Came up with plan and treatment together. Patient presenting with urinary retention. Bladder scan shows >600cc urine. Wilkins placed. UA negative. UCx negative. Creatinine WNL. Abdomen is now soft NT/ND. He reports that he feels fine. No abdominal tenderness. [facility]. Offered to call Dr. Perry to schedule follow- up appt but reports that she does not know her schedule and will call herself. Will dc with leg bag to follow-up with Dr. Perry - Lab Interpretations Lab Results: PT 25.0 SECONDS (9.4-12.5) H 12/26/18 13:00 INR 2.21 12/26/18 13:00 APTT 39.3 Seconds (26.9-38.3) H 12/26/18 13:00 Troponin I 0.04 ng/mL D 12/26/18 13:00 Total Bilirubin 0.5 mg/dL (0.2-1.3) 12/26/18 13:00 AST 17 U/L (17-59) D 12/26/18 13:00 ALT 19 U/L (7-56) 12/26/18 13:00 Alkaline Phosphatase 104 U/L (38-126) 12/26/18 13:00 Total Protein 6.2 g/dL (5.8-8.3) 12/26/18 13:00 Albumin 3.4 g/dL (3.0-4.8) 12/26/18 13:00 Globulin 2.9 gm/dL 12/26/18 13:00 Albumin/Globulin Ratio 1.2 (1.1-1.8) 12/26/18 13:00 Lipase 109 U/L (23-300) 12/26/18 13:00 <Carly Lambert - Last Filed: 12/26/18 15:36> - PA / PROGRAM MANAGEMENT INTERN / Resident Statement / has reviewed & agrees with the documentation as recorded. / has examined the patient and agrees with the treatment plan. <Carly Lambert - Last Filed: 12/26/18 15:36> Disposition/Present on Arrival - Present on Arrival Any Indicators Present on Arrival: No History of DVT/PE: No History of Uncontrolled Diabetes: No Urinary Catheter: No History of Decub. Ulcer: No History Surgical Site Infection Following: CABG - Mediastinitis, None - Disposition Have Diagnosis and Disposition been Completed?: Yes Disposition Time: 15:04 Patient Plan: Discharge <Oliver Rocha - Last Filed: 12/26/18 15:07> <Carly Lambert - Last Filed: 12/26/18 15:36> - Disposition Diagnosis: Urinary retention Disposition: HOME/ ROUTINE Patient Problems: Current Active Problems Problem Status Onset Urinary retention Acute Condition: GOOD Discharge Instructions (ExitCare): Urinary Retention Additional Instructions: 1. Patient will be discharged with Wilkins in place. 2. Instructions are given to followup outpatient w/ urology, Dr. Perry. at bedside understood and stated that she just needs to schedule based on her availability because she has multiple doctors appointments her self. 3. Please return to hospital if symptoms worsen or recur. Referrals: Gary Perry MD [Staff Provider] - Follow up with primary Forms: [facility] (Croatian)
[2018-12-26 13:38] LABS: BASO # 0.01 K/mm3 (0.0-2.0); BASO % 0.1 % (0.0-3.0); EOS # 0.3 (0.0-0.7); EOS % 2.7 % (1.5-5.0); HEMOGLOBIN 15.4 g/dL (14.0-18.0); LYMPH # 2.7 (1.2-3.4); LYMPH % 24.5 % (22.0-35.0); MEAN CELL VOLUME 94.7 fl (80.0-105.0); MEAN CORPUSCULAR HEMOGLOBIN 31.2 pg (25.0-35.0); MEAN PLATELET VOLUME 8.8 fl (7.0-11.0); MONO # 0.9 (0.1-0.6); MONO % 8.5 % (1.0-6.0); RBC 4.93 10^6/uL (3.5-6.1); RED CELL DISTRIBUTION WIDTH 14.4 % (11.5-14.5); WHITE BLOOD COUNT 10.8 10^3/uL (4.5-11.0)
[2018-12-26 13:43] LABS: INR 2.21; PARTIAL THROMBOPLASTIN TIME 39.3 Seconds (26.9-38.3)
[2018-12-26 13:45] LABS: ALB/GLOB RATIO 1.2 (1.1-1.8); ALBUMIN 3.4 g/dL (3.0-4.8); ALT/SGPT 19 U/L (7-56); AST/SGOT 17 U/L (17-59); BLOOD UREA NITROGEN 28 mg/dL (7-21); CALCIUM 8.9 mg/dL (8.4-10.5); GFR NON-AFRICAN AMERICAN 57; LIPASE 109 U/L (23-300)
[2018-12-26 13:54] LABS: TROPONIN I 0.04 ng/mL
[2018-12-26 14:31] LABS: URINE BILIRUBIN NEGATIVE (NEGATIVE); URINE BLOOD TRACE-LYSED (NEGATIVE); URINE GLUCOSE (UA) NEGATIVE (NEGATIVE); URINE LEUKOCYTE ESTERASE NEGATIVE Leu/uL (NEGATIVE); URINE PROTEIN TRACE mg/dL (<30 mg/dL); URINE UROBILINOGEN 0.2 E.U./dL (<1 E.U./dL)
[2018-12-26 14:33] LABS: URINE APPEARANCE CLEAR (CLEAR); URINE COLOR YELLOW (YELLOW)
[2018-12-26 14:42] LABS: URINE AMORPHOUS SEDIMENT FEW /hpf; URINE BACTERIA MOD /hpf; URINE EPITHELIAL CELLS 0 - 2 /hpf (0-5); URINE WBC 0 - 2 /hpf (0-6)
[2018-12-26 15:46] VITALS: O2SAT 95
[2018-12-26 17:47] VITALS: BP 110/70; PULSE 88; RESP 20; TEMP 98.2
--- NOTE | 2018-12-26 18:16 | CARD ---
APPROVED REPORT Date of service: 12/26/2018 EKG Measurement Heart [id number] <Conclusion> Normal sinus rhythm Left axis deviation Probable Inferior infarct, age undetermined Anterior infarct, age undetermined Abnormal ECG
== END 2018-12-26 17:45 | disposition home or self-care (01) ==
LOC: ED 12:04
DX: R33.9 Retention of urine, unspecified (principal); I25.10 Atherosclerotic heart disease of native coronary artery without angina pectoris; I11.0 Hypertensive heart disease with heart failure; I50.9 Heart failure, unspecified; I48.91 Unspecified atrial fibrillation; F02.80 Dementia in other diseases classified elsewhere, unspecified severity, without behavioral disturbance, psychotic disturbance, mood disturbance, and anxiety; Z86.73 Personal history of transient ischemic attack (TIA), and cerebral infarction without residual deficits; Z95.5 Presence of coronary angioplasty implant and graft; Z79.01 Long term (current) use of anticoagulants

== ENCOUNTER 2018-12-27 17:52 | Observation (INO) | payer MEDICARE, OTHER ==
[2018-12-27 17:52] VITALS: BMI 29.7
[2018-12-27] MEDS ORDERED: Morphine 2 mg/ml ISec IVP STA (18:44)
--- NOTE | 2018-12-27 19:05 | ED PDOC ---
Arrival/HPI <Abhijit Peña - Last Filed: 12/27/18 23:23> - General Historian: Patient, Spouse - History of Present Illness Narrative History of Present Illness (Text): 12/27/18 19:02 88 yo male w/ PMH of CAD with stent, TIA, CVA, CHF, HTN, COPD, renal cell carci noma, constipation, atrial fibrillation on coumadin, gallstones, and dementia; was recently seen in this ER yesterday for urinary retention and discharged with a wilkins, presents c/o lower abd pain. states that since this morning the leg bag has only been drained once. States that every tie she touches his abdomen he cries in pain. However, patient's says that he has been eating well and has good BM. She denies fevers, chills, chest pain, sob, n/v, constipation. PMD [employer] [place] <Clarisse Lopez - Last Filed: 12/27/18 23:44> - General Chief Complaint: Male Genitourinary Time Seen by Provider: 12/27/18 18:14 Past Medical History - Past History Past History: Non-Contributing - Infectious Disease Hx of Infectious Diseases: None - Tetanus Immunization Tetanus Immunization: Unknown - Cardiac Hx Cardiac Disorders: Yes Hx Cardiac Arrhythmia: Yes Hx Circulatory Problems: Yes Hx Peripheral Edema: Yes Hx Peripheral Vascular Disease: Yes - Pulmonary Hx Respiratory Disorders: Yes (pe) Hx Respiratory Tract Infection: Yes - Neurological Hx Paralysis: Yes Hx Transient Ischemic Attacks (TIA): Yes - HEENT Hx HEENT Disorder: Yes Hx Cataracts: Yes - Renal Hx Renal Disorder: Yes Hx Renal Failure: Yes - Endocrine/Metabolic Hx Adrenal Cancer: No Hx Diabetes Insipidus: No Hx Diabetes Mellitus Type 1: No Hx Diabetes Mellitus Type 2: No Hx Hyperthyroidism: No Hx Hypothyroidism: No Hx Systemic Lupus Erythematosus: No - Hematological/Oncological Hx Blood Disorders: Yes Hx Blood Transfusions: Yes - Integumentary Hx Dermatological Disorder: Yes - Musculoskeletal/Rheumatological Hx Musculoskeletal Disorders: Yes (LOWER EXTREMETY WEAKNESS R/T NEUROPATHY ) Hx Arthritis: Yes Hx Back Pain: Yes Hx Falls: Yes Hx Osteoarthritis: Yes Hx Unsteady Gait: Yes - Gastrointestinal Hx Gastrointestinal Disorders: Yes Hx Constipation: Yes Hx Gall Bladder Disease: Yes - Genitourinary/Gynecological Hx Genitourinary Disorders: Yes Hx Hematuria: Yes Other/Comment: URINE RETENTION - Psychiatric Hx Substance Use: No - Past Surgical History Past Surgical History: Non-Contributing - Surgical History Hx Cardiac Catheterization: Yes Hx Musculoskeletal Surgery: Yes Other/Comment: tumor removed from the kidney - Anesthesia Hx Anesthesia Reactions: No - Suicidal Assessment Feels Threatened In Home Enviroment: No <Clarisse Lopez - Last Filed: 12/27/18 23:44> Family/Social History Family/Social History: No Known Family HX Smoking Status: Never Smoked Hx Alcohol Use: No Hx Substance Use: No Hx Substance Use Treatment: No <Clarisse Lopez - Last Filed: 12/27/18 23:44> Allergies/Home Meds <Abhijit Peña - Last Filed: 12/27/18 23:23> <Clarisse Lopez - Last Filed: 12/27/18 23:44> Allergies/Adverse Reactions: Allergies No Known Allergies Allergy (Verified 12/27/18 18:01) Home Medications: Home Meds Medication Instructions Recorded Confirmed Albuterol Sulfate 1 puff PRN PRN 03/11/17 05/27/18 Docusate [Colace] 70 mg PRN PRN 03/11/17 05/27/18 Ipratropium [place] 0.5 mg PRN PRN 03/11/17 05/27/18 Ipratropium 0.02% [Atrovent] 0.02 % PRN PRN 03/21/17 05/27/18 Potassium Chloride [Klor-Con 10] 10 meq PO DAILY 03/21/17 05/27/18 Review of Systems - Review of Systems Constitutional: absent: Fatigue, Fevers Respiratory: absent: SOB, Cough Cardiovascular: absent: Chest Pain, Palpitations, Edema Gastrointestinal: Abdominal Pain, Diarrhea (+diarrhea a few days ago, none since). absent: Constipation, Nausea, Vomiting Genitourinary Male: absent: Dysuria, Frequency, Hematuria Musculoskeletal: absent: Arthralgias, Back Pain, Neck Pain Skin: absent: Rash, Pruritis, Skin Lesions Neurological: absent: Headache, Dizziness <Clarisse Lopez - Last Filed: 12/27/18 23:44> Physical Exam Vital Signs Temp Pulse Resp BP Pulse Ox 12/27/18 18:01 98.1 F 71 15 142/76 98 <CaseyAbhijit - Last Filed: 12/27/18 23:23> Vital Signs Temp Pulse Resp BP Pulse Ox 12/27/18 18:01 98.1 F 71 15 142/76 98 Temperature: Afebrile Blood Pressure: Normal Pulse: Regular Respiratory Rate: Normal Appearance: Positive for: Well-Appearing, Non-Toxic, Comfortable Pain Distress: Mild Mental Status: Positive for: Alert and Oriented X 3 - Systems Exam Head: Present: Atraumatic, Normocephalic Pupils: Present: PERRL Extroacular Muscles: Present: EOMI Conjunctiva: Present: Normal Mouth: Present: Moist Mucous Membranes Neck: Present: Normal Range of Motion Respiratory/Chest: Present: Clear to Auscultation, Good Air Exchange. No: Respiratory Distress, Accessory Muscle Use Cardiovascular: Present: Regular Rate and Rhythm, Normal S1, S2. No: Murmurs Abdomen: Present: Tenderness (+tenderness to the lower abdomen). No: Distention, Peritoneal Signs, Rebound, Guarding Genitourinary Male: Present: Other (+wilkins in place draining of yellow urine with tiny clots noted, +leg bag with 300 cc of urine) Back: Present: Normal Inspection Upper Extremity: Present: Normal Inspection. No: Cyanosis, Edema Lower Extremity: Present: Normal Inspection. No: Edema Neurological: Present: GCS=15, CN II-XII Intact Skin: Present: Warm, Dry, Normal Color. No: Rashes Psychiatric: Present: Alert, Normal Insight, Normal Concentration <Clarisse Lopez - Last Filed: 12/27/18 23:44> Medical Decision Making - Lab Interpretations Lab Results: PT 22.4 SECONDS (9.4-12.5) H 12/27/18 19:09 INR 2.02 12/27/18 19:09 APTT 38.5 Seconds (26.9-38.3) H 12/27/18 19:09 Troponin I 0.02 ng/mL D 12/27/18 19:09 Total Bilirubin 0.4 mg/dL (0.2-1.3) 12/27/18 19:09 AST 17 U/L (17-59) 12/27/18 19:09 ALT 21 U/L (7-56) 12/27/18 19:09 Alkaline Phosphatase 94 U/L (38-126) 12/27/18 19:09 Total Protein 5.9 g/dL (5.8-8.3) 12/27/18 19:09 Albumin 3.1 g/dL (3.0-4.8) 12/27/18 19:09 Globulin 2.7 gm/dL 12/27/18 19:09 Albumin/Globulin Ratio 1.1 (1.1-1.8) 12/27/18 19:09 Lipase 137 U/L (23-300) 12/27/18 19:09 Urine Color Yellow (YELLOW) 12/27/18 20:00 Urine Appearance Sl cloudy (CLEAR) 12/27/18 20:00 Urine pH 6.0 (4.7-8.0) 12/27/18 20:00 Ur Specific Stuart 1.025 (1.005-1.035) 12/27/18 20:00 Urine Protein 100 mg/dL (<30 mg/dL) H 12/27/18 20:00 Urine Glucose (UA) Negative mg/dL (NEGATIVE) 12/27/18 20:00 Urine Ketones Negative mg/dL (NEGATIVE) 12/27/18 20:00 Urine Blood Large (NEGATIVE) H 12/27/18 20:00 Urine Nitrate Negative (NEGATIVE) 12/27/18 20:00 Urine Bilirubin Negative (NEGATIVE) 12/27/18 20:00 Urine Urobilinogen 0.2 E.U./dL (<1 E.U./dL) 12/27/18 20:00 Ur Leukocyte Esterase Moderate Prakash/uL (NEGATIVE) H 12/27/18 20:00 Urine RBC 25 - 30 /hpf (0-2) H 12/27/18 20:00 Urine WBC Tntc /hpf (0-6) H 12/27/18 20:00 Ur Epithelial Cells 6 - 8 /hpf (0-5) H 12/27/18 20:00 Urine Bacteria Mod /hpf (NONE) 12/27/18 20:00 - RAD Interpretation Radiology Orders: 12/27/18 18:44 ABD & PELVIS W/O PO OR IV CONT [CT] Stat 12/27/18 18:46 CHEST ONE VIEW [RAD] Stat - Medication Orders Current Medication Orders: Discontinued Medications Morphine Sulfate (Morphine) 2 mg IVP STAT STA Stop: 12/27/18 18:45 Last Admin: 12/27/18 19:05 Dose: 2 mg MAR Pain Assessment Document 12/27/18 19:[address] [facility] (Rec: 12/27/18 19:05 [id number] Pain Reassessment Is this a pain reassessment? No Sleep Is patient sleeping during reassessment? No Presence of Pain Presence of Pain Yes IVP Administration Document 12/27/18 19:[address] [facility] (Rec: 12/27/18 19:05 [id number] Charges for Administration # of IVP Administrations 1 Ondansetron HCl (Zofran Inj) 4 mg IVP STAT STA Stop: 12/27/18 18:45 Last Admin: 12/27/18 19:05 Dose: 4 mg IVP Administration Document 12/27/18 19:[address] [facility] (Rec: 12/27/18 19:05 [id number] Charges for Administration # of IVP Administrations 1 Sodium Phosphate (Fleet Enema) 135 ml RC STAT STA Stop: 12/27/18 22:45 <Abhijit Peña - Last Filed: 12/27/18 23:23> ED Course and Treatment: 12/27/18 19:07 Previous medical records reviewed, patient was seen and evaluated here in the emergency room for urinary retention, on the bladder scan patient was noted to have 600 mL of urine in his bladder, Wilkins was inserted, labs were done, labs were all within normal limits except for troponin of 0.04. Plan : - IV - Labs - UA, urine cx - EKG - CXR - Morphine / Zofran - Reassess / disposition - CT A/P - Bladder scan 12/27/18 19:39 Bladder scan performed at the bedside which revealed 0 cc of urine in the bladder. Labs reviewed : cbc, cmp wnl. 12/27/18 23:15 CT results reviewed. Infrarenal aneursym seen in today's CT has grown in size, compared to last CT on 05/27/18, at this time it was measuring 3.3 cm in size, today it measures 4 cm. 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 CT results d/w the patient's , she states that the patient had a stent placed in his R iliac artery by Dr. Fabian, notified of possible need for observation considering that the infrarenal aneurysm has grown, with consult to Dr. Fabian in the morning. Of note, also adds that the patient takes miralax for his constipation and she has not given it to him for the past 2 days. Case d/w Dr. Watson and product manager medical device, they agree with plan for obs with consult to Dr. Fabian. Rectal exam : no hemorrhoids, no mass, (+) brown stool, guiaic (-), no fecal impaction noted on exam. [employer] MACHINE Poncho was present during the rectal exam. Patient given fleet enema. - RAD Interpretation Narrative RAD Interpretations (Text): CT Abdomen and Pelvis: LUNG BASES: There is trace right pleural effusion. Additionally, in the right lower lobe there is airspace opacity which may reflect any combination of atelectasis and/or pneumonia. There are also some calcifications in this region suggesting a component of chronic infectious or inflammatory process. A similar process was described on the May 2018 study. 5 mm nodule at the right base on series 2, image 4. If indicated, this could be further evaluated with dedicated chest CT. LIVER: Unremarkable. GALLBLADDER AND BILE DUCTS: The gallbladder appears within normal limits. No radioopaque gallstones are seen. No biliary ductal dilatation is evident. PANCREAS: Unremarkable. SPLEEN: Unremarkable. ADRENAL GLANDS: Unremarkable. KIDNEYS, URETERS, AND BLADDER: Multiple bilateral renal cystic lesions again noted. Surgical clips again noted at the right lower pole. No hydronephrosis bilaterally. There is a wilkins catheter in the bladder which also contains a small amount of air. Please correlate clinically. STOMACH AND BOWEL: There is constipation/mild fecal impaction at the rectum. This measures 6 cm in diameter on series 2, image 71. No bowel obstruction. APPENDIX: No evidence of acute appendicitis on CT examination. PERITONEUM: No free fluid. No free air. LYMPH NODES: No lymphadenopathy is evident. REPRODUCTIVE: Unremarkable as visualized. VASCULATURE: There is prominent coronary artery calcification. 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 At the same level the descending aorta measures 3.1 cm. There is moderate atherosclerotic calcification of the visualized thoracic aorta. There is a right common iliac artery stent extending to the right external iliac artery. 4.7 x 3.8 cm lesion at the right upper pelvis. This measures approximately 41 Hounsfield units and may represent aneurysm of the right internal iliac artery. Alternatively, this could represent mass. This was also described on the earlier studies and is stable in size. Consider correlation with pelvic sonogram if indicated. Substantial atherosclerotic calcification of the abdominal aorta and branches. Mild infrarenal abdominal aortic aneurysm measuring 4.1 x 3.4 cm on series 2, image 45. This is probably slightly enlarged from the earlier studies which described as measuring close to 3.5 cm. BONES: There are bilateral hip prostheses. The left-sided prosthesis appears in grossly the expected anatomic location. Right-sided prosthesis is located more superiorly. Please correlate with procedural history and with prior imaging if available to evaluate whether this has migrated superiorly or was placed in this location. The bilateral hip prostheses lead to extensive beam hardening artifact and limit evaluation in the pelvis. Moderately severe multilevel degenerative spine changes. MISCELLANEOUS: Again noted is prominent elevation of the right hemidiaphragm which is also described on the prior study. Multiple calcified gallstones again noted. Hyperdense lesion at the left midpole is again noted, measuring 3.4 cm, little change from the May 2018 study. IVC filter is noted infrarenally. Mass along the left pelvic sidewall with significant calcification this measures 6.4 x 4.3 cm on series 2, image 79. This was not described in earlier studies. Neoplasm is not excluded. Please correlate clinically and if indicated further evaluation could be obtained. Ciss IMPRESSION: 1. There is trace right pleural effusion. Additionally, in the right lower lobe there is airspace opacity which may reflect any combination of atelectasis and/or pneumonia. There are also some calcifications in this region suggesting a component of chronic infectious or inflammatory process. A similar process was described on the May 2018 study. 2. 5 mm nodule at the right base on series 2, image 4. If indicated, this could be further evaluated with dedicated chest CT. 3. There is prominent coronary artery calcification. 4. 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 At the same level the descending aorta measures 3.1 cm. 5. There is moderate atherosclerotic calcification of the visualized thoracic aorta. 6. Again noted is prominent elevation of the right hemidiaphragm which is also described on the prior study. 7. Multiple calcified gallstones again noted. 8. Multiple bilateral renal cystic lesions again noted. Surgical clips again noted at the right lower pole. 9. Hyperdense lesion at the left midpole is again noted, measuring 3.4 cm, little change from the May 2018 study. 10. There are bilateral hip prostheses. The left-sided prosthesis appears in grossly the expected anatomic location. Right-sided prosthesis is located more superiorly. Please correlate with procedural history and with prior imaging if available to evaluate whether this has migrated superiorly or was placed in this location. 11. The bilateral hip prostheses lead to extensive beam hardening artifact and limit evaluation in the pelvis. 12. There is constipation/mild fecal impaction at the rectum. This measures 6 cm in diameter on series 2, image 71. 13. 4.7 x 3.8 cm lesion at the right upper pelvis. This measures approximately 41 Hounsfield units and may represent aneurysm of the right internal iliac artery. Alternatively, this could represent mass. This was also described on the earlier studies and is stable in size. Consider correlation with pelvic sonogram if indicated. 14. Mass along the left pelvic sidewall with significant calcification this measures 6.4 x 4.3 cm on series 2, image 79. This was not described in earlier studies. Neoplasm is not excluded. Please correlate clinically and if indicated further evaluation could be obtained. Ciss 15. Mild infrarenal abdominal aortic aneurysm measuring 4.1 x 3.4 cm on series 2, image 45. This is probably slightly enlarged from the earlier studies which described as measuring close to 3.5 cm. 16. Additional findings as described above. Electronically signed on December 27, 2018 10:10:34 PM EDT by: Shahzad Candelaria M.D., Certified by [facility], Diagnostic Radiology Radiology Orders: 12/27/18 18:44 ABD & PELVIS IV CONTRAST ONLY [CT] Stat 12/27/18 18:46 CHEST ONE VIEW [RAD] Stat Cab Station Attendant: Radiologist - Medication Orders Current Medication Orders: Discontinued Medications Morphine Sulfate (Morphine) 2 mg IVP STAT STA Stop: 12/27/18 18:45 Ondansetron HCl (Zofran Inj) 4 mg IVP STAT STA Stop: 12/27/18 18:45 <Clarisse Lopez - Last Filed: 12/27/18 23:44> - PA / FLIGHT ENGINEER PERFORMANCE QUALIFIED / Resident Statement NURA has reviewed & agrees with the documentation as recorded. NURA has examined the patient and agrees with the treatment plan. <Abhijit Peña - Last Filed: 12/27/18 23:23> - PA / FLIGHT ENGINEER PERFORMANCE QUALIFIED / Resident Statement NURA has reviewed & agrees with the documentation as recorded. <Clarisse Lopez - Last Filed: 12/27/18 23:44> Disposition/Present on Arrival <Abhijit Peña - Last Filed: 12/27/18 23:23> - Present on Arrival Any Indicators Present on Arrival: No History of DVT/PE: No History of Uncontrolled Diabetes: No Urinary Catheter: No History of Decub. Ulcer: No History Surgical Site Infection Following: CABG - Mediastinitis, None - Disposition Have Diagnosis and Disposition been Completed?: Yes Disposition Time: 23:15 Patient Plan: Observation <Clarisse Lopez - Last Filed: 12/27/18 23:44> - Disposition Diagnosis: AAA (abdominal aortic aneurysm) without rupture, Abdominal pain, Constipation Disposition: HOSPITALIZED Condition: STABLE Referrals: PCP,NO [Primary Care Provider] - Follow up with primary Forms: SENSIM[employer] (Urdu)
[2018-12-27 19:14] LABS: BASO # 0.01 K/mm3 (0.0-2.0); BASO % 0.1 % (0.0-3.0); EOS # 0.3 (0.0-0.7); EOS % 3.4 % (1.5-5.0); HEMOGLOBIN 14.2 g/dL (14.0-18.0); LYMPH # 2.2 (1.2-3.4); LYMPH % 22.8 % (22.0-35.0); MEAN CELL VOLUME 95.4 fl (80.0-105.0); MEAN CORPUSCULAR HEMOGLOBIN 30.8 pg (25.0-35.0); MEAN CORPUSCULAR HGB CONC 32.3 g/dl (31.0-37.0); MEAN PLATELET VOLUME 8.8 fl (7.0-11.0); MONO # 0.8 (0.1-0.6); MONO % 7.9 % (1.0-6.0); RBC 4.61 10^6/uL (3.5-6.1); RED CELL DISTRIBUTION WIDTH 14.4 % (11.5-14.5); WHITE BLOOD COUNT 9.8 10^3/uL (4.5-11.0)
[2018-12-27 19:22] LABS: INR 2.02; PARTIAL THROMBOPLASTIN TIME 38.5 Seconds (26.9-38.3); PROTHROMBIN TIME 22.4 SECONDS (9.4-12.5)
[2018-12-27 19:25] LABS: ALB/GLOB RATIO 1.1 (1.1-1.8); ALBUMIN 3.1 g/dL (3.0-4.8); ALT/SGPT 21 U/L (7-56); AST/SGOT 17 U/L (17-59); BLOOD UREA NITROGEN 33 mg/dL (7-21); CALCIUM 8.6 mg/dL (8.4-10.5); GFR NON-AFRICAN AMERICAN 57; LIPASE 137 U/L (23-300)
[2018-12-27 19:35] LABS: TROPONIN I 0.02 ng/mL
[2018-12-27 20:13] LABS: URINE BILIRUBIN NEGATIVE (NEGATIVE); URINE BLOOD LARGE (NEGATIVE); URINE GLUCOSE (UA) NEGATIVE (NEGATIVE); URINE LEUKOCYTE ESTERASE MODERATE Leu/uL (NEGATIVE); URINE PROTEIN 100 mg/dL (<30 mg/dL); URINE UROBILINOGEN 0.2 E.U./dL (<1 E.U./dL)
[2018-12-27 20:23] LABS: URINE APPEARANCE SL CLOUDY (CLEAR); URINE COLOR YELLOW (YELLOW)
[2018-12-27 20:28] LABS: URINE BACTERIA MOD /hpf; URINE RBC 25 - 30 /hpf (0-2); URINE WBC TNTC /hpf (0-6)
--- NOTE | 2018-12-27 23:39 | CP.PCM.HP ---
<Marcial Payne - Last Filed: 12/28/18 00:49> History of Present Illness - History of Present Illness History of Present Illness: Marcial Payne, PGY1 H&P for Dr. Watson cc: "lower abdominal pain" Patient is a 88 yo male w/ PMH of CAD with stent, TIA, CVA, CHF, HTN, COPD, renal cell carcinoma, constipation, atrial fibrillation on coumadin, gallstones, and advanced dementia was recently seen in the ER yesterday for urinary retention and discharged with a wilkins. Upon this visit, patient presents for lower abdominal pain. Patient is a poor historian given his dementia. He is AAOx2 (person, place). History was obtained from . said that anytime she touched his lower abdomen, her would cry in pain. As per , patient has no fevers, night sweats, chills, headaches, n/v/d. He also has no issues with diet. Last hospitalization was on 05/31/18 for hematuria and suprapubic abdominal pain with urine cx +morganella morganii and patient had 3- way wilkins inserted w/ CBI and eventual resolution of hematuria. A full 12 point ROS limited as patient is a poor historian due to advanced dementia. PMD: [place] Uro: [place] PMH: CAD with stent, TIA, CVA, CHF, HTN, COPD, renal cell carcinoma, atrial fibrillation on coumadin, gallstones, and advanced dementia PSH: Repair of R iliac aneurysm, ivc filter placement, b/l hip surgery, cardiac stent, resected RCC, hip surgeries x 5 FH: difficult to obtain due to dementia SH: former smoker, denies alcohol, denies drug use, lives with Allergies: NKDA Meds: see MAR Present on Admission - Present on Admission Any Indicators Present on Admission: No Review of Systems - Review of Systems All systems: reviewed and no additional remarkable complaints except (as per HPI) Past Patient History - Infectious Disease Hx of Infectious Diseases: None - Tetanus Immunizations Tetanus Immunization: Unknown - Past Social History Smoking Status: Never Smoked - CARDIAC Hx Cardiac Disorders: Yes Hx Cardia Arrhythmia: Yes Hx Circulatory Problems: Yes Hx Peripheral Edema: Yes Hx Peripheral Vascular Disease: Yes - PULMONARY Hx Respiratory Disorders: Yes (pe) Hx Respiratory Tract Infection: Yes - NEUROLOGICAL Hx Paralysis: Yes Hx Transient Ischemic Attacks (TIA): Yes - HEENT Hx HEENT Problems: Yes Hx Cataracts: Yes - RENAL Hx Chronic Kidney Disease: Yes Hx Renal Failure: Yes - ENDOCRINE/METABOLIC Hx Adrenal Cancer: No Hx Diabetes Insipidus: No Hx Diabetes Mellitus Type 1: No Hx Diabetes Mellitus Type 2: No Hx Hyperthyroidism: No Hx Hypothyroidism: No Hx Systemic Lupus Erythematosus: No - HEMATOLOGICAL/ONCOLOGICAL Hx Blood Disorders: Yes Hx Blood Transfusions: Yes - INTEGUMENTARY Hx Dermatological Problems: Yes - MUSCULOSKELETAL/RHEUMATOLOGICAL Hx Musculoskeletal Disorders: Yes (LOWER EXTREMETY WEAKNESS R/T NEUROPATHY ) Hx Arthritis: Yes Hx Back Pain: Yes Hx Falls: Yes Hx Osteoarthritis: Yes Hx Unsteady Gait: Yes - GASTROINTESTINAL Hx Gastrointestinal Disorders: Yes Hx Constipation: Yes Hx Gall Bladder Disease: Yes - GENITOURINARY/GYNECOLOGICAL Hx Genitourinary Disorders: Yes Hx Hematuria: Yes Other/Comment: URINE RETENTION - PSYCHIATRIC Hx Substance Use: No - SURGICAL HISTORY Hx Cardiac Catheterization: Yes Hx Musculoskeletal Surgery: Yes Other/Comment: tumor removed from the kidney - ANESTHESIA Hx Anesthesia Reactions: No Meds Allergies/Adverse Reactions: Allergies Allergy/AdvReac Type Severity Reaction Status Date / Time No Known Allergies Allergy Verified 12/27/18 18:01 Physical Exam - Constitutional Appears: No Acute Distress - Head Exam Head Exam: ATRAUMATIC, NORMAL INSPECTION, NORMOCEPHALIC - Eye Exam Eye Exam: EOMI, Normal appearance Pupil Exam: NORMAL ACCOMODATION - ENT Exam ENT Exam: Mucous Membranes Moist - Respiratory Exam Respiratory Exam: Clear to Auscultation Bilateral. absent: Accessory Muscle Use, Chest Wall Tenderness, Rales, Rhonchi, Wheezes - Cardiovascular Exam Cardiovascular Exam: RRR, +S1, +S2 - GI/Abdominal Exam GI & Abdominal Exam: Diminished Bowel Sounds, Soft, Tenderness (Suprapubic tenderness on palpation ). absent: Firm, Guarding, Rebound, Rigid - Extremities Exam Extremities exam: Positive for: normal capillary refill, pedal pulses present. Negative for: calf tenderness, tenderness Additional comments: Chronic dermatitis changes in the lower extremities. - Neurological Exam Neurological exam: Alert (AAOx2 ) - Psychiatric Exam Psychiatric exam: Normal Affect, Normal Mood - Skin Skin Exam: Dry, Intact, Normal Color, Warm Results - Vital Signs Recent Vital Signs: Last Vital Signs Temp 98.1 F 12/27/18 18:01 Pulse 71 12/27/18 18:01 Resp 15 12/27/18 18:01 BP 142/76 12/27/18 18:01 Pulse Ox 98 12/27/18 18:01 - Labs Result Diagrams: 12/27/18 19:09 12/27/18 19:09 Labs: Laboratory Results - last 24 hr 12/27/18 12/27/18 12/27/18 19:09 19:09 19:09 WBC 9.8 RBC 4.61 Hgb 14.2 Hct 44.0 MCV 95.4 MCH 30.8 MCHC 32.3 RDW 14.4 Plt Count 186 MPV 8.8 Neut % (Auto) 65.8 Lymph % (Auto) 22.8 [place] % (Auto) 7.9 H Eos % (Auto) 3.4 Baso % (Auto) 0.1 Lymph # (Auto) 2.2 [place] # (Auto) 0.8 H Eos # (Auto) 0.3 Baso # (Auto) 0.01 Absolute Neuts (auto) 6.43 PT 22.4 H INR 2.02 APTT 38.5 H Sodium 138 Potassium 4.1 Chloride 103 Carbon Dioxide 29 Anion Gap 11 BUN 33 H Creatinine 1.2 Est GFR ( Amer) > 60 Est GFR (Non-Af Amer) 57 Random Glucose 97 Calcium 8.6 Magnesium 2.1 Total Bilirubin 0.4 AST 17 ALT 21 Alkaline Phosphatase 94 Troponin I 0.02 D Total Protein 5.9 Albumin 3.1 Globulin 2.7 Albumin/Globulin Ratio 1.1 Lipase 137 Urine Color Urine Appearance Urine pH Ur Specific [place] Urine Protein Urine Glucose (UA) Urine Ketones Urine Blood Urine Nitrate Urine Bilirubin Urine Urobilinogen Ur Leukocyte Esterase Urine RBC Urine WBC Ur Epithelial Cells Urine Bacteria 12/27/18 20:00 WBC RBC Hgb Hct MCV MCH MCHC RDW Plt Count MPV Neut % (Auto) Lymph % (Auto) [place] % (Auto) Eos % (Auto) Baso % (Auto) Lymph # (Auto) [place] # (Auto) Eos # (Auto) Baso # (Auto) Absolute Neuts (auto) PT INR APTT Sodium Potassium Chloride Carbon Dioxide Anion Gap BUN Creatinine Est GFR ( Amer) Est GFR (Non-Af Amer) Random Glucose Calcium Magnesium Total Bilirubin AST ALT Alkaline Phosphatase Troponin I Total Protein Albumin Globulin Albumin/Globulin Ratio Lipase Urine Color Yellow Urine Appearance Sl cloudy Urine pH 6.0 Ur Specific [place] 1.025 Urine Protein 100 H Urine Glucose (UA) Negative Urine Ketones Negative Urine Blood Large H Urine Nitrate Negative Urine Bilirubin Negative Urine Urobilinogen 0.2 Ur Leukocyte Esterase Moderate H Urine RBC 25 - 30 H Urine WBC Tntc H Ur Epithelial Cells 6 - 8 H Urine Bacteria Mod Assessment & Plan - Assessment and Plan (Free Text) Assessment: Patient is a 88 yo male w/ PMH of CAD with stent, TIA, CVA, CHF, HTN, COPD, renal cell carcinoma, constipation, atrial fibrillation on coumadin, gallstones, and advanced dementia who presents for lower abdominal pain. Plan: Lower Abdominal Pain 2/2 UTI vs Constipation vs Infrarenal Aortic Aneurysm (chronic/stable) - Rocephin 1g IVPB daily - Colace 100mg PO BID - Miralax 17g PO BID - UCx - UA: large blood, moderate LE, no nitrate, high wbc; epithelial cells 6-8 indicates contaminated sample however patient has suprapubic pain - Given history of urinary retention and wilkins; consult Urology (Dr. Perry) - Given infrarenal aneursym, consult IR (Dr. Fabian) -CT A/P: 1. There is trace right pleural effusion. Additionally, in the right lower lobe there is airspace opacity which may reflect any combination of atelectasis and/or pneumonia. 2. 5 mm nodule at the right base on series 2, image 4. If indicated, this could be further evaluated with dedicated chest CT. 3. There is prominent coronary artery calcification. 4. 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 At the same level the descending aorta measures 3.1 cm. 5. Multiple calcified gallstones again noted. 6. Multiple bilateral renal cystic lesions again noted. Surgical clips again noted at the right lower pole. 7. Hyperdense lesion at the left midpole is again noted, measuring 3.4 cm, little change from the May 2018 study. 8. There are bilateral hip prostheses. 9. There is constipation/mild fecal impaction at the rectum. 10. 4.7 x 3.8 cm lesion at the right upper pelvis. This measures approximately 41 Hounsfield units and may represent aneurysm of the right internal iliac artery. Alternatively, this could represent mass. 11. Mild infrarenal abdominal aortic aneurysm measuring 4.1 x 3.4 cm HTN/CHF - resume home med Norvasc 5mg daily - resume home med Lasix 40mg daily HLD - resume home med Lipitor 10mg HS Afib - resume home med warfarin 5mg daily - INR ordered ppx: - warfarin Diet: HHD Dispo: Will admit patient to med/surg. Case was discussed and reviewed with Attending Physician, Dr. Watson <Lyla Watson - Last Filed: 12/28/18 05:16> Results - Vital Signs Recent Vital Signs: Last Vital Signs Temp 97.7 F 12/28/18 01:30 Pulse 66 12/28/18 01:30 Resp 20 12/28/18 01:30 BP 116/64 12/28/18 01:30 Pulse Ox 94 L 12/28/18 01:30 - Labs Result Diagrams: 12/27/18 19:09 12/27/18 19:09 Labs: Laboratory Results - last 24 hr 12/27/18 12/27/18 12/27/18 19:09 19:09 19:09 WBC 9.8 RBC 4.61 Hgb 14.2 Hct 44.0 MCV 95.4 MCH 30.8 MCHC 32.3 RDW 14.4 Plt Count 186 MPV 8.8 Neut % (Auto) 65.8 Lymph % (Auto) 22.8 [place] % (Auto) 7.9 H Eos % (Auto) 3.4 Baso % (Auto) 0.1 Lymph # (Auto) 2.2 [place] # (Auto) 0.8 H Eos # (Auto) 0.3 Baso # (Auto) 0.01 Absolute Neuts (auto) 6.43 PT 22.4 H INR 2.02 APTT 38.5 H Sodium 138 Potassium 4.1 Chloride 103 Carbon Dioxide 29 Anion Gap 11 BUN 33 H Creatinine 1.2 Est GFR ( Amer) > 60 Est GFR (Non-Af Amer) 57 Random Glucose 97 Calcium 8.6 Magnesium 2.1 Total Bilirubin 0.4 AST 17 ALT 21 Alkaline Phosphatase 94 Troponin I 0.02 D Total Protein 5.9 Albumin 3.1 Globulin 2.7 Albumin/Globulin Ratio 1.1 Lipase 137 Urine Color Urine Appearance Urine pH Ur Specific [place] Urine Protein Urine Glucose (UA) Urine Ketones Urine Blood Urine Nitrate Urine Bilirubin Urine Urobilinogen Ur Leukocyte Esterase Urine RBC Urine WBC Ur Epithelial Cells Urine Bacteria 12/27/18 20:00 WBC RBC Hgb Hct MCV MCH MCHC RDW Plt Count MPV Neut % (Auto) Lymph % (Auto) [place] % (Auto) Eos % (Auto) Baso % (Auto) Lymph # (Auto) [place] # (Auto) Eos # (Auto) Baso # (Auto) Absolute Neuts (auto) PT INR APTT Sodium Potassium Chloride Carbon Dioxide Anion Gap BUN Creatinine Est GFR ( Amer) Est GFR (Non-Af Amer) Random Glucose Calcium Magnesium Total Bilirubin AST ALT Alkaline Phosphatase Troponin I Total Protein Albumin Globulin Albumin/Globulin Ratio Lipase Urine Color Yellow Urine Appearance Sl cloudy Urine pH 6.0 Ur Specific [place] 1.025 Urine Protein 100 H Urine Glucose (UA) Negative Urine Ketones Negative Urine Blood Large H Urine Nitrate Negative Urine Bilirubin Negative Urine Urobilinogen 0.2 Ur Leukocyte Esterase Moderate H Urine RBC 25 - 30 H Urine WBC Tntc H Ur Epithelial Cells 6 - 8 H Urine Bacteria Mod Attending/Attestation - Attestation I have personally seen and examined this patient.: Yes I have fully participated in the care of the patient.: Yes I have reviewed all pertinent clinical information: Yes Notes (Text): 12/28/18 05:15 Seen and examined. discussed with resident. A&P as above.
[2018-12-28] MEDS ORDERED: POLYETHYLENE GLYCOL 3350 17 GM/Dose PACKET PO PRN (00:22)
--- NOTE | 2018-12-28 09:18 | RAD ---
Date of service: 12/27/2018 PROCEDURE: CHEST RADIOGRAPH, 1 VIEW HISTORY: abd pain COMPARISON: 05/28/2018 FINDINGS: LUNGS: Clear. PLEURA: No pneumothorax or pleural fluid seen. CARDIOVASCULAR: There is atherosclerotic calcification of the thoracic aorta. Normal heart size. No congestive change. OSSEOUS STRUCTURES: No significant abnormalities. VISUALIZED UPPER ABDOMEN: Normal. OTHER FINDINGS: None. IMPRESSION: No active disease.
[2018-12-28] MEDS: cefTRIAXone 1 gm 1 GM/100 ML BAG IVPB SCH (09:42)
[2018-12-28] MEDS: POLYETHYLENE GLYCOL 3350 17 GM/Dose PACKET PO SCH ×2 (09:42→17:22)
--- NOTE | 2018-12-28 09:54 | CT ---
Date of service: 12/27/2018 PROCEDURE: CT abdomen and pelvis HISTORY: Lower abdominal pain. COMPARISON: No comparison made with prior study dated 05/28/2018. TECHNIQUE: Contiguous axial images of the abdomen and pelvis performed without oral or intravenous contrast material. Additional 2D sagittal and coronal reformats generated. Radiation dose: Total exam DLP = 1065.91 mGy-cm. This CT exam was performed using one or more of the following dose reduction techniques: Automated exposure control, adjustment of the mA and/or kV according to patient size, and/or use of iterative reconstruction technique. FINDINGS: LOWER THORAX: Heart is enlarged. No significant pericardial effusion.. Aneurysmal dilatation of the ascending thoracic aorta measuring approximately 4.7 cm. Mild bibasilar atelectasis right greater than left. Questionable trace right-sided effusion.. Redemonstrated are small densities right middle lobe and right lung base LIVER: The liver exhibits normal size and attenuation pattern without mass collection or calcification. GALLBLADDER AND BILE DUCTS: Cholelithiasis again noted PANCREAS: Pancreas is slightly atrophic and fatty replaced. No obvious pancreatic mass collection or calcification. SPLEEN: Spleen unremarkable without masses collections or calcifications. ADRENALS: There are no adrenal lesions seen. KIDNEYS AND URETERS: The kidneys are somewhat diminutive in overall size with cortical volume loss. Apparent postoperative changes with cortical scarring and localized of volume loss lateral cortex midpole right kidney that appears unchanged from prior exam. Apparent postoperative scarring changes in the perinephric fat. Redemonstrated is a ring like soft tissue density adjacent to the anterior inferior lower pole right kidney that probably represents some granulation tissue and is associated with a small metallic surgical clips. This focus is unchanged in appearance from prior study. Pole right granulation tissue just anterior and inferior to the lower pole right kidney although this is stable There are at least 3 exophytic cystic foci the largest arising from the posterior cortex upper pole right kidney measuring approximately 4.6 x 3.7 cm 2 additional adjacent smaller exophytic focus measuring 9 mm and another arising from the lateral upper/midpole cortex measuring approximately 9 mm however this smaller focus exhibits Hounsfield units in the mid 20s probably representing a hyperdense cyst. There is a 3.4 x 2.9 cm cyst seen lateral mid to lower pole cortex left kidney. Hyperdense appearing exophytic lesion seen arising from the upper/midpole lateral cortex left kidney with Hounsfield units in the mid 30s which suggest hyperdense cyst. Smaller exophytic cyst seen arising from the anterolateral cortex mid to lower pole left kidney measuring approximately 10.5 mm. Renal ultrasound follow-up could confirm hyperdense or hemorrhagic cyst and exclude any solid component. BLADDER: The urinary bladder is poorly delineated due to crossing streak and beam hardening artifact arising from bilateral total hip arthroplasties. There is an apparent in situ unclamped Nelson catheter around which the urinary bladder wall is collapsed... Urinary bladder wall is difficult to assess the urinary bladder is collapsed about an in situ unclamped Nelson catheter. Urinary bladder wall thickening due to collapse however muscular hypertrophy may contribute. Other intrinsic/invasive wall lesion cannot be excluded. Air within the urinary bladder felt to be secondary to recent instrumentation. REPRODUCTIVE: Prostate gland is nearly completely obscured by streak and beam hardening artifact arising from bilateral total hip arthroplasties. APPENDIX: Unremarkable. BOWEL: Evaluation of the bowel is somewhat limited due to the lack of oral contrast material. The stomach is incompletely distended with slight thick-walled appearance. Visualized loops of small bowel exhibit normal contour and caliber. No evidence acute mechanical small bowel obstruction. The descending colon exhibits a paucity of haustra markings of. There are also scattered colonic diverticula however no radiographic evidence of acute diverticulitis. Moderately large amount of stool seen within the mid and distal sigmoid colon as well as rectum suggesting mild fecal retention/constipation. PERITONEUM: No gross free intraperitoneal air. There is an elliptical shaped soft tissue masslike density right aspect of the pelvis that measures approximately 4.8 x 4.7 cm of uncertain etiology though this could represent a thrombosed iliac artery aneurysm. LYMPH NODES: Unremarkable. No enlarged lymph nodes. VASCULATURE: There is localized aneurysmal dilatation of the infrarenal abdominal aorta which measures up to approximately 4 cm x 3.5 cm in greatest dimension (measured on series 3 and image number 91). Aortic atherosclerotic calcification or mural plaque present. In situ right iliac artery endovascular stent graft unchanged from prior study. In situ IVC filter. BONES: Multilevel degenerative spondylosis of the thoracic and lumbar spine. There are no acute compression fractures no retropulsed fragments. Bilateral total hip arthroplasties. There is a soft tissue density with speckled hyperdense material the that abuts and involves the left acetabular roof unchanged from prior exam. Findings felt to be secondary to changes related to arthroplasty manipulation and cement OTHER FINDINGS: None. IMPRESSION: Renal cortical atrophy with postoperative changes lateral cortex right kidney. Surrounding postoperative scarring changes in the perinephric fat. There are multiple bilateral renal cysts a few which exhibit hyperdense appearance likely proteinaceous and/or hemorrhagic content. Renal ultrasound follow-up could be performed to exclude any solid components. Urinary bladder is collapsed about an in situ unclamped [place] catheter with wall thickening due to collapse and muscular hypertrophy however other intrinsic/invasive wall lesion not excluded. Air within the urinary bladder also felt to be secondary to recent instrumentation. 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 There is localized aneurysmal dilatation of the infrarenal abdominal aorta measuring 4.0 x 3.5 cm as described. There is also aneurysmal dilatation of the ascending thoracic aorta measuring approximately 4.7 cm. In situ IVC filter. Scattered colonic diverticula without radiographic evidence of acute diverticulitis. Findings consistent with mild fecal retention/constipation. Cholelithiasis. Bilateral total hip arthroplasties with what appears represent postoperative sequela involving the left acetabulum as above.
--- NOTE | 2018-12-28 11:25 | CARD ---
APPROVED REPORT Date of service: 12/27/2018 EKG Measurement Heart [id number] <Conclusion> Normal sinus rhythm Left axis deviation Inferior infarct, age undetermined Anterior infarct, age undetermined Abnormal ECG
--- NOTE | 2018-12-28 13:56 | CON ---
DATE OF CONSULTATION: 12/28/2018 GENITOURINARY CONSULTATION CHIEF COMPLAINT: Abdominal pain. HISTORY OF PRESENT ILLNESS: This is an 88-year-old male, who is well-known to me from prior admissions and from the office. The patient has a long history of urinary issues. He has advanced dementia and is bed-bound at home. He has had recurrent resistant urinary tract infections in the past. Reportedly, the patient was having constipation and some abdominal pain. He was apparently seen and released; however, his said he was having worsening abdominal pain and brought him back to the hospital. He apparently was in the emergency room for urinary retention. A bladder scan was done, which showed 600 mL and a Nelson catheter was inserted. He was then sent home, but his brought him back because of the abdominal pain. The patient has been managed at home without a Nelson catheter and has been voiding adequately, although he has had prior episodes of urinary retention. It is difficult to assess him given his advanced dementia whether he is voiding adequately at home or not. However, he has been able to empty in the past when the constipation has been resolved. A consultation was requested regarding the above issues. PAST MEDICAL HISTORY: Significant for renal cell carcinoma status post partial nephrectomy many years ago, coronary artery disease, TIA, CVA, congestive heart failure, hypertension, COPD, constipation, atrial fibrillation, gallstones, advanced dementia. MEDICATIONS: Currently include Colace, Coumadin, Ecotrin, Lasix, Lipitor, MiraLax, Norvasc, Protonix, Rocephin, Toradol, and Tylenol. The patient received a Fleet's enema. ALLERGIES: NO KNOWN DRUG ALLERGIES. FAMILY HISTORY: Noncontributory for this admission. SOCIAL HISTORY: No smoking or EtOH. Lives at home and is cared for by his . REVIEW OF SYSTEMS: As per the HPI. The patient currently is reporting abdominal pain, has resolved, per his , the abdominal pain resolved after the enema and a bowel movement. Other systems are negative other than noted in the history of present illness. PHYSICAL EXAMINATION: GENERAL: The patient is awake. He knows his name. He does not know the date or what hospital he is in. VITAL SIGNS: He is afebrile. Temperature 97.7, pulse of 75, blood pressure 114/65, respirations 28. NECK: Supple. There is no adenopathy. CHEST: Exam of the chest revealed a normal inspiratory effort. CARDIAC: Shows an irregular rhythm. There is moderate peripheral edema noted. ABDOMEN: Soft, nontender, nondistended. There is no hepatosplenomegaly. There is no costovertebral angle tenderness. There is no suprapubic tenderness. GENITOURINARY: Phallus is recessed into his pubic fat pad. There is a Nelson catheter in place, which is draining clear urine. Scrotum is normal. Testes bilaterally descended, nontender, no masses. Epididymis are normal. EXTREMITIES: No cyanosis, but there is positive edema. LABORATORY DATA: On laboratory exam, WBC count normal at 9.8, creatinine 1.2 with a GFR of 57. Urinalysis showed 25 to 30 rbc, too numerous to count wbc, positive epithelial cells, and nitrites were negative. No microbiology specimens are available. On radiologic exam, the patient had a CT scan of the abdomen and pelvis done, which showed postoperative changes, cortical scarring in the right kidney unchanged from prior exams. There are free exophytic cystic foci arising from the posterior cortex of the upper pole of the right kidney. There is a cyst seen in the lateral to mid pole of the left kidney. There is a possible hyperdense cyst on the left. Bladder was hard to delineate given the streak artifact from hip arthroplasties. There is a Nelson catheter noted in the bladder. There is an elliptical soft tissue mass in the right aspect of the pelvis of uncertain etiology, which could represent a thrombosed iliac artery aneurysm. There are in situ right iliac and avascular stent. 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 There is an IVC filter in place, scattered colonic diverticula, bilateral hip arthroplasties. IMPRESSION AND PLAN: This is an 88-year-old male with advanced dementia, current urinary tract infections appears he had urinary retention, likely from constipation. The patient has received an enema. I would continue treatment for his constipation, check urine culture, and continue appropriate antibiotics. Vascular interventional radiologist has been called to assess the aneurysms. We will await his opinion to see if anything is going to be done. Urologically, I would recommend voiding trial and remove the Nelson catheter and treat him with antibiotics for possible urinary infection, and he should be able to void spontaneously once the constipation has resolved. The patient has urinary incontinence, which is managed with Depends. The patient has had an indwelling Nleson catheter in the past but was getting recurrent severe infections, and I think he has done better at home without the Nelson catheter. If urinary retention recurs, then he will need to be managed with an indwelling Nelson, but I would certainly attempt to give him a voiding trial prior to discharge. He is not a candidate for any invasive the urologic procedures given his age and comorbidities. The patient can be discharged from a urologic standpoint when medically stable. Gary Perry MD
--- NOTE | 2018-12-28 13:57 | CP.PCM.APN ---
Subjective - Date & Time of Evaluation Date of Evaluation: 12/28/18 Time of Evaluation: 11:45 - Subjective Subjective: pt seen and examined at bedside with pt in NAD , reports feeling better Review of Systems - Review of Systems All systems: reviewed and no additional remarkable complaints except Objective - Vital Signs/Intake and Output Vital Signs (last 24 hours): Temp Pulse Resp BP Pulse Ox 97.7 F 75 20 114/65 92 L 12/28/18 06:00 12/28/18 06:00 12/28/18 06:00 12/28/18 09:42 12/28/18 06:00 - Medications Medications: Current Medications Acetaminophen (Tylenol 325mg Tab) 650 mg PO Q6H PRN PRN Reason: Pain, Mild (1-3) Amlodipine Besylate (Norvasc) 5 mg PO DAILY [facility] Last Admin: 12/28/18 09:43 Dose: 5 mg Aspirin (Ecotrin) 81 mg PO DAILY [facility] Last Admin: 12/28/18 09:42 Dose: 81 mg Atorvastatin Calcium (Lipitor) 10 mg PO DIN [facility] Docusate Sodium (Colace) 100 mg PO BID [facility] Last Admin: 12/28/18 09:43 Dose: 100 mg Furosemide (Lasix) 40 mg PO DAILY [facility] Last Admin: 12/28/18 09:42 Dose: 40 mg Ceftriaxone Sodium (Rocephin 1 Gram Ivpb) 1 gm in 100 mls @ 100 mls/hr IVPB DAILY [facility]; Protocol Last Admin: 12/28/18 09:42 Dose: 100 mls/hr Ketorolac Tromethamine (Toradol) 15 mg IVP Q6H PRN PRN Reason: Pain, moderate (4-7) Last Admin: 12/28/18 04:27 Dose: 15 mg Pantoprazole Sodium (Protonix Ec Tab) 40 mg PO 0600 [facility] Polyethylene Glycol (Miralax) 17 gm PO BID [facility] Last Admin: 12/28/18 09:42 Dose: 17 gm Warfarin Sodium (Coumadin) 5 mg PO 1800 [facility]; Protocol - Labs Labs: 12/27/18 19:09 12/27/18 19:09 PT 22.4 SECONDS (9.4-12.5) H 12/27/18 19:09 INR 2.02 12/27/18 19:09 APTT 38.5 Seconds (26.9-38.3) H 12/27/18 19:09 - Constitutional Appears: No Acute Distress - Head Exam Head Exam: ATRAUMATIC, NORMOCEPHALIC - Eye Exam Eye Exam: Normal appearance - ENT Exam ENT Exam: Normal Exam - Neck Exam Neck Exam: Normal Inspection - Respiratory Exam Respiratory Exam: Decreased Breath Sounds - Cardiovascular Exam Cardiovascular Exam: +S1, +S2 - GI/Abdominal Exam GI & Abdominal Exam: Soft, Normal Bowel Sounds - Extremities Exam Extremities Exam: Normal Capillary Refill - Neurological Exam Neurological Exam: Alert, Awake - Psychiatric Exam Psychiatric exam: Normal Affect, Normal Mood - Skin Skin Exam: Dry, Intact Assessment and Plan - Assessment and Plan (Free Text) Plan: Impressions Abdomen/Pelvis CT 12/27/18 18:44 IMPRESSION: Renal cortical atrophy with postoperative changes lateral cortex right kidney. Surrounding postoperative scarring changes in the perinephric fat. There are multiple bilateral renal cysts a few which exhibit hyperdense appearance likely proteinaceous and/or hemorrhagic content. Renal ultrasound follow-up could be performed to exclude any solid components. Urinary bladder is collapsed about an in situ unclamped Nelson catheter with wall thickening due to collapse and muscular hypertrophy however other intrinsic/invasive wall lesion not excluded. Air within the urinary bladder also felt to be secondary to recent instrumentation. 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 There is localized aneurysmal dilatation of the infrarenal abdominal aorta measuring 4.0 x 3.5 cm as described. There is also aneurysmal dilatation of the ascending thoracic aorta measuring approximately 4.7 cm. In situ IVC filter. Scattered colonic diverticula without radiographic evidence of acute diverticulitis. Findings consistent with mild fecal retention/constipation. Cholelithiasis. Bilateral total hip arthroplasties with what appears represent postoperative sequela involving the left acetabulum as above. Chest X-Ray 12/27/18 18:46 IMPRESSION: No active disease. a/p 88 yr old male with pmh sig for cad with stents, tia, cva, htn, renal ell ca, copd, chf, advanced dementia who was admitted with c/o abd pain and poor UO. pt ct showed fecal retention. pt was given emema with good results and is now on bowel regimen of colace and miralax. 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 will follow with and IR recommendations. BPCI/TIC - BPCIA/TIC Educated pt/family on BPCIA/CIR/Med to Bed Programs: N/A Flyers given, including CMS Beneficiary letter: N/A Pt/family verbalized understanding & agreed to program: N/A
--- NOTE | 2018-12-29 02:11 | CON ---
DATE: 12/28/2018 TIME: 5:53 p.m. I have known Amber for many years. I originally saw him in the office for lower extremity swelling and stasis changes. In 2017, I performed embolization and stent graft placement for treatment of a large right internal iliac artery aneurysm. He did very well with that treatment and there were no complications. The right iliac aneurysm is stable and presumably thrombosed. No additional workup is needed at this time. There is no evidence of hemorrhage or enlargement. He has a normal right femoral pulse. Amber also has some ectasia and dilatation of his infrarenal abdominal aorta. This is mild and does not need to be addressed at the current time. I discussed the situation with his . Amber is essentially bedridden at this point. Jorge Fabian MD MTDD
[2018-12-29] MEDS ORDERED: Pantoprazole 40 mg EC Tab PO SCH (06:00)
[2018-12-29 06:47] LABS: INR 1.99; PROTHROMBIN TIME 22.5 SECONDS (9.4-12.5)
[2018-12-29 06:53] LABS: HEMOGLOBIN 13.6 g/dL (14.0-18.0); MEAN CELL VOLUME 95.9 fl (80.0-105.0); MEAN CORPUSCULAR HEMOGLOBIN 30.6 pg (25.0-35.0); MEAN CORPUSCULAR HGB CONC 31.9 g/dl (31.0-37.0); MEAN PLATELET VOLUME 9.1 fl (7.0-11.0); RBC 4.44 10^6/uL (3.5-6.1); RED CELL DISTRIBUTION WIDTH 14.4 % (11.5-14.5); WHITE BLOOD COUNT 8.6 10^3/uL (4.5-11.0)
[2018-12-29 07:18] LABS: ALB/GLOB RATIO 1.1 (1.1-1.8); ALBUMIN 2.9 g/dL (3.0-4.8); CALCIUM 8.3 mg/dL (8.4-10.5)
[2018-12-29 08:21] VITALS: BP 123/70; PULSE 64; RESP 18; TEMP 97.8; O2SAT 94
[2018-12-29] MEDS: cefTRIAXone 1 gm 1 GM/100 ML BAG IVPB SCH (09:34)
[2018-12-29] MEDS: POLYETHYLENE GLYCOL 3350 17 GM/Dose PACKET PO SCH (09:34)
--- NOTE | 2018-12-29 10:23 | CP.PCM.PCO ---
Physician Communication Note - Physician Communication Note Physician Communication Note: pt with voiding trail in progress per recs, will follow
--- NOTE | 2018-12-29 14:25 | CP.PCM.DIS ---
<Sharon Joe - Last Filed: 12/29/18 16:30> Provider - Provider Date of Admission: 12/27/18 23:24 Attending physician: Karol Patricia MD Primary care physician: NO PRIMARY CARE PROVIDER Consults: 12/27/18 23:26 Physician Consult Routine Comment: infrarenal aneurysm Consulting Provider: Jorge Fabian Consulting Physician: Jorge Fabian Reason for Consult: infrarenal aneurysm 12/27/18 23:46 Physician Consult Routine Comment: urinary retention, has a wilkins Consulting Provider: Gary Perry Consulting Physician: Gary Perry Reason for Consult: urinary retention, has a wilkins 12/28/18 01:30 Nursing Referral for Palliative Care Routine Comment: Physician Instructions: Reason For Exam: constant readmit Nursing Referral for Wound Care Routine Comment: Physician Instructions: Reason For Exam: reddened sacrum Transition In Care/Readmission Reduction Routine Comment: Physician Instructions: Reason For Exam: readmit less than 24 hrs Time Spent in preparation of Discharge (in minutes): 45 Hospital Course - Lab Results Lab Results: Micro Results 12/27/18 20:30 Urine,Clean Catch Urine Culture - Final No Growth (<1,000 CFU/ML) Most Recent Lab Values WBC 8.6 10^3/uL (4.5-11.0) 12/29/18 06:10 RBC 4.44 10^6/uL (3.5-6.1) 12/29/18 06:10 Hgb 13.6 g/dL (14.0-18.0) L 12/29/18 06:10 Hct 42.6 % (42.0-52.0) 12/29/18 06:10 MCV 95.9 fl (80.0-105.0) 12/29/18 06:10 MCH 30.6 pg (25.0-35.0) 12/29/18 06:10 MCHC 31.9 g/dl (31.0-37.0) 12/29/18 06:10 RDW 14.4 % (11.5-14.5) 12/29/18 06:10 Plt Count 191 10^3/uL (120.0-450.0) 12/29/18 06:10 MPV 9.1 fl (7.0-11.0) 12/29/18 06:10 Neut % (Auto) 65.8 % (50.0-68.0) 12/27/18 19:09 Lymph % (Auto) 22.8 % (22.0-35.0) 12/27/18 19:09 [place] % (Auto) 7.9 % (1.0-6.0) H 12/27/18 19:09 Eos % (Auto) 3.4 % (1.5-5.0) 12/27/18 19:09 Baso % (Auto) 0.1 % (0.0-3.0) 12/27/18 19:09 Lymph # (Auto) 2.2 (1.2-3.4) 12/27/18 19:09 [place] # (Auto) 0.8 (0.1-0.6) H 12/27/18 19:09 Eos # (Auto) 0.3 (0.0-0.7) 12/27/18 19:09 Baso # (Auto) 0.01 K/mm3 (0.0-2.0) 12/27/18 19:09 Absolute Neuts (auto) 6.43 (1.4-6.5) 12/27/18 19:09 PT 22.5 SECONDS (9.4-12.5) H 12/29/18 06:10 INR 1.99 12/29/18 06:10 APTT 38.5 Seconds (26.9-38.3) H 12/27/18 19:09 Sodium 137 mmol/L (132-148) 12/29/18 06:10 Potassium 4.2 mmol/L (3.6-5.0) 12/29/18 06:10 Chloride 102 mmol/L (98-107) 12/29/18 06:10 Carbon Dioxide 31 mmol/L (21-33) 12/29/18 06:10 Anion Gap 9 (10-20) L 12/29/18 06:10 BUN 43 mg/dL (7-21) H 12/29/18 06:10 Creatinine 1.4 mg/dl (0.8-1.5) 12/29/18 06:10 Est GFR ( Amer) 58 12/29/18 06:10 Est GFR (Non-Af Amer) 48 12/29/18 06:10 Random Glucose 85 mg/dL (70-110) 12/29/18 06:10 Calcium 8.3 mg/dL (8.4-10.5) L 12/29/18 06:10 Magnesium 2.1 mg/dL (1.7-2.2) 12/27/18 19:09 Total Bilirubin 0.3 mg/dL (0.2-1.3) 12/29/18 06:10 AST 19 U/L (17-59) 12/29/18 06:10 ALT 18 U/L (7-56) 12/29/18 06:10 Alkaline Phosphatase 83 U/L (38-126) 12/29/18 06:10 Troponin I 0.02 ng/mL D 12/27/18 19:09 Total Protein 5.5 g/dL (5.8-8.3) L 12/29/18 06:10 Albumin 2.9 g/dL (3.0-4.8) L 12/29/18 06:10 Globulin 2.6 gm/dL 12/29/18 06:10 Albumin/Globulin Ratio 1.1 (1.1-1.8) 12/29/18 06:10 Lipase 137 U/L (23-300) 12/27/18 19:09 Urine Color Yellow (YELLOW) 12/27/18 20:00 Urine Appearance Sl cloudy (CLEAR) 12/27/18 20:00 Urine pH 6.0 (4.7-8.0) 12/27/18 20:00 Ur Specific [place] 1.025 (1.005-1.035) 12/27/18 20:00 Urine Protein 100 mg/dL (<30 mg/dL) H 12/27/18 20:00 Urine Glucose (UA) Negative mg/dL (NEGATIVE) 12/27/18 20:00 Urine Ketones Negative mg/dL (NEGATIVE) 12/27/18 20:00 Urine Blood Large (NEGATIVE) H 12/27/18 20:00 Urine Nitrate Negative (NEGATIVE) 12/27/18 20:00 Urine Bilirubin Negative (NEGATIVE) 12/27/18 20:00 Urine Urobilinogen 0.2 E.U./dL (<1 E.U./dL) 12/27/18 20:00 Ur Leukocyte Esterase Moderate Prakash/uL (NEGATIVE) H 12/27/18 20:00 Urine RBC 25 - 30 /hpf (0-2) H 12/27/18 20:00 Urine WBC Tntc /hpf (0-6) H 12/27/18 20:00 Ur Epithelial Cells 6 - 8 /hpf (0-5) H 12/27/18 20:00 Urine Bacteria Mod /hpf (NONE) 12/27/18 20:00 - Hospital Course Hospital Course: Sharon Joe, PGY-1, Internal Medicine Discharge Summary for Dr. Patricia 88 year old male with past medical history of CAD with stent, TIA, CVA, CHF, HTN, COPD, renal cell carcinoma, constipation, atrial fibrillation on coumadin, gallstones, and advanced dementia was recently seen in the ER two days ago for urinary retention and discharged with a wilkins. Upon this admission, patient presented for lower abdominal pain. As per at bedside, patient had no fevers, night sweats, chills, headaches, nausea, vomiting, and diarrhea at home. 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 Patient also had indwelling IVC filter. Scattered colonic diverticula was seen. UA showed moderate LE, negative nitrate, tntc WBC, 6-8 epithelial cells, thus likely a contaminated sample. Patient was treated for UTI with rocephin 1 gm daily. For constipation, patient was started on miralax. For history of urinary retention, Dr. Perry, was consulted. Dr. Perry recommended that wilkins should be removed and patient should be treated for constipation as this could be cause of urinary retention. However, while wilkins was discontinued last night, patient was unable to void at 10 AM this morning. As a result, patient had wilkins placed. Conversation with Dr. Perry was had. Discussion was for patient to continue with wilkins and have voiding trial outpatient with VNS. Patient was to start flomax as well. For patient's infrarenal aorta aneurysm, this was a chronic findings and Dr. Fabian, IR, had no recommendations at this time. Urine culture was found to be negative today. Patient was found to be stable and ready for discharge. Patient was told to take all medications as prescribed. Patient was told to follow up with primary care doctor within 3-5 days. Patient was told to return to the emergency department if he had any new or concerning symptoms. Patient was additionally told to follow up with Dr. Perry and having voiding trial outpatient. Discharge Diagnosis Urinary retention UTI Right infrarenal aorta aneurysm Constipation - Date & Time of H&P Date of H&P: 12/28/18 Time of H&P: 00:50 Discharge Exam - Head Exam Head Exam: ATRAUMATIC, NORMOCEPHALIC - Eye Exam Eye Exam: EOMI, PERRL - Respiratory Exam Respiratory Exam: Clear to PA & Lateral, NORMAL BREATHING PATTERN. absent: Rales, Rhonchi, Wheezes - Cardiovascular Exam Cardiovascular Exam: REGULAR RHYTHM, RRR, +S1, +S2. absent: Clicks, Gallop, Rubs - GI/Abdominal Exam GI & Abdominal Exam: Normal Bowel Sounds, Soft. absent: Distended, Firm, Guarding, Tenderness - Exam Additional comments: Wilkins in place and draining yellow urine - Extremities Exam Extremities exam: normal capillary refill, pedal pulses present (+2 bilaterally and warm) - Neurological Exam Neurological exam: Alert, CN II-XII Intact Additional comments: bedbound, AAOX1 - Skin Skin Exam: Dry, Intact Additional comments: darkened bilateral lower extremities, no edema, Discharge Plan - Discharge Medications Prescriptions: Amoxicillin/Clavulanate [Augmentin 875 MG-125 MG] 1 tab PO BID 3 Days #6 tab Polyethylene Glycol 3350 [Miralax] 17 gm PO DAILY PRN 30 Days #30 powd.pack PRN Reason: Constipation Tamsulosin [Flomax] 0.4 mg PO DAILY 30 Days #30 cap - Follow Up Plan Condition: STABLE Disposition: HOME/ ROUTINE Additional Instructions: Please follow up with primary care doctor within 3-5 days. Please follow up with Dr. Perry, Urology, within 1 week. Please have VNS remove wilkins for voiding trial in 1-2 weeks. Please take all medications as prescribed. Please take augmentin twice a day for 3 days. Please take new flomax 0.4 mg once a day Please check INR value with blood work on Tuesday. Please return to the emergency department if you have any new or concerning symptoms. Referrals: Gary Perry MD [Staff Provider] - Adams Barnhart MD [Family Provider] - <Karol Patricia - Last Filed: 12/30/18 12:13> Provider - Provider Date of Admission: 12/27/18 23:24 Attending physician: Karol Patricia MD Primary care physician: NO PRIMARY CARE PROVIDER Consults: 12/27/18 23:26 Physician Consult Routine Comment: infrarenal aneurysm Consulting Provider: Jorge Fabian Consulting Physician: Jorge Fabian Reason for Consult: infrarenal aneurysm 12/27/18 23:46 Physician Consult Routine Comment: urinary retention, has a wilkins Consulting Provider: Gary Perry Consulting Physician: Gary Perry Reason for Consult: urinary retention, has a wilkins 12/28/18 01:30 Nursing Referral for Palliative Care Routine Comment: Physician Instructions: Reason For Exam: constant readmit Nursing Referral for Wound Care Routine Comment: Physician Instructions: Reason For Exam: reddened sacrum Transition In Care/Readmission Reduction Routine Comment: Physician Instructions: Reason For Exam: readmit less than 24 hrs Hospital Course - Lab Results Lab Results: Micro Results 12/27/18 20:30 Urine,Clean Catch Urine Culture - Final No Growth (<1,000 CFU/ML) Most Recent Lab Values WBC 8.6 10^3/uL (4.5-11.0) 12/29/18 06:10 RBC 4.44 10^6/uL (3.5-6.1) 12/29/18 06:10 Hgb 13.6 g/dL (14.0-18.0) L 12/29/18 06:10 Hct 42.6 % (42.0-52.0) 12/29/18 06:10 MCV 95.9 fl (80.0-105.0) 12/29/18 06:10 MCH 30.6 pg (25.0-35.0) 12/29/18 06:10 MCHC 31.9 g/dl (31.0-37.0) 12/29/18 06:10 RDW 14.4 % (11.5-14.5) 12/29/18 06:10 Plt Count 191 10^3/uL (120.0-450.0) 12/29/18 06:10 MPV 9.1 fl (7.0-11.0) 12/29/18 06:10 Neut % (Auto) 65.8 % (50.0-68.0) 12/27/18 19:09 Lymph % (Auto) 22.8 % (22.0-35.0) 12/27/18 19:09 [place] % (Auto) 7.9 % (1.0-6.0) H 12/27/18 19:09 Eos % (Auto) 3.4 % (1.5-5.0) 12/27/18 19:09 Baso % (Auto) 0.1 % (0.0-3.0) 12/27/18 19:09 Lymph # (Auto) 2.2 (1.2-3.4) 12/27/18 19:09 [place] # (Auto) 0.8 (0.1-0.6) H 12/27/18 19:09 Eos # (Auto) 0.3 (0.0-0.7) 12/27/18 19:09 Baso # (Auto) 0.01 K/mm3 (0.0-2.0) 12/27/18 19:09 Absolute Neuts (auto) 6.43 (1.4-6.5) 12/27/18 19:09 PT 22.5 SECONDS (9.4-12.5) H 12/29/18 06:10 INR 1.99 12/29/18 06:10 APTT 38.5 Seconds (26.9-38.3) H 12/27/18 19:09 Sodium 137 mmol/L (132-148) 12/29/18 06:10 Potassium 4.2 mmol/L (3.6-5.0) 12/29/18 06:10 Chloride 102 mmol/L (98-107) 12/29/18 06:10 Carbon Dioxide 31 mmol/L (21-33) 12/29/18 06:10 Anion Gap 9 (10-20) L 12/29/18 06:10 BUN 43 mg/dL (7-21) H 12/29/18 06:10 Creatinine 1.4 mg/dl (0.8-1.5) 12/29/18 06:10 Est GFR ( Amer) 58 12/29/18 06:10 Est GFR (Non-Af Amer) 48 12/29/18 06:10 Random Glucose 85 mg/dL (70-110) 12/29/18 06:10 Calcium 8.3 mg/dL (8.4-10.5) L 12/29/18 06:10 Magnesium 2.1 mg/dL (1.7-2.2) 12/27/18 19:09 Total Bilirubin 0.3 mg/dL (0.2-1.3) 12/29/18 06:10 AST 19 U/L (17-59) 12/29/18 06:10 ALT 18 U/L (7-56) 12/29/18 06:10 Alkaline Phosphatase 83 U/L (38-126) 12/29/18 06:10 Troponin I 0.02 ng/mL D 12/27/18 19:09 Total Protein 5.5 g/dL (5.8-8.3) L 12/29/18 06:10 Albumin 2.9 g/dL (3.0-4.8) L 12/29/18 06:10 Globulin 2.6 gm/dL 12/29/18 06:10 Albumin/Globulin Ratio 1.1 (1.1-1.8) 12/29/18 06:10 Lipase 137 U/L (23-300) 12/27/18 19:09 Urine Color Yellow (YELLOW) 12/27/18 20:00 Urine Appearance Sl cloudy (CLEAR) 12/27/18 20:00 Urine pH 6.0 (4.7-8.0) 12/27/18 20:00 Ur Specific [place] 1.025 (1.005-1.035) 12/27/18 20:00 Urine Protein 100 mg/dL (<30 mg/dL) H 12/27/18 20:00 Urine Glucose (UA) Negative mg/dL (NEGATIVE) 12/27/18 20:00 Urine Ketones Negative mg/dL (NEGATIVE) 12/27/18 20:00 Urine Blood Large (NEGATIVE) H 12/27/18 20:00 Urine Nitrate Negative (NEGATIVE) 12/27/18 20:00 Urine Bilirubin Negative (NEGATIVE) 12/27/18 20:00 Urine Urobilinogen 0.2 E.U./dL (<1 E.U./dL) 12/27/18 20:00 Ur Leukocyte Esterase Moderate Prakash/uL (NEGATIVE) H 12/27/18 20:00 Urine RBC 25 - 30 /hpf (0-2) H 12/27/18 20:00 Urine WBC Tntc /hpf (0-6) H 12/27/18 20:00 Ur Epithelial Cells 6 - 8 /hpf (0-5) H 12/27/18 20:00 Urine Bacteria Mod /hpf (NONE) 12/27/18 20:00 Attending/Attestation - Attestation I have personally seen and examined this patient.: Yes I have fully participated in the care of the patient.: Yes I have reviewed all pertinent clinical information, including history, physical exam and plan: Yes Notes (Text): 12/30/18 12:04 Medical record note made by the resident after discussion with my direction and input after the patient was personally seen and examined by me. I have reviewed the chart and agree that the record accurately reflects by personal performance of the history, physical exam, data review, and medical decision-making, in the course for the patient. I have also personally directed the plan of care. 87 yo male with a PMH of CAD, TIA, CVA, CHF, HTN, COPD, renal cell carcinoma, atrial fibrillation, gallstones, and dementia was admitted with abdominal pain , found to have urinary retention,UTI and constipation.He was treated with IV antibiotics and laxative.He is afebrile.Abdominal pain is improving.Blood and urine cultures are negative for any growth.Patient is tolerating food. Patient Wilkins catheter was removed but he unable to void , Wilkins catheter was re inserted.He has been started on Flomax. This was discussed with patient Urologist by resident team. Patient is mostly bed bound and has refused NH placement. He will be discharged home .He will follow up with PCP /Urology. Management plan was discussed in detail with . Education was provide
== END 2018-12-29 16:33 | disposition home or self-care (01) ==
LOC: ED 17:52 → ERH 23:24 → 3RSO 12-28 00:59
PROVIDERS: ADMIT Internal Medicine; ATTEND Internal Medicine
DX: R10.30 Lower abdominal pain, unspecified (principal); R33.9 Retention of urine, unspecified; K56.41 Fecal impaction; N39.0 Urinary tract infection, site not specified; I71.4 Abdominal aortic aneurysm, without rupture; I11.0 Hypertensive heart disease with heart failure; I50.9 Heart failure, unspecified; I48.91 Unspecified atrial fibrillation; F03.90 Unspecified dementia, unspecified severity, without behavioral disturbance, psychotic disturbance, mood disturbance, and anxiety; I25.10 Atherosclerotic heart disease of native coronary artery without angina pectoris; J44.9 Chronic obstructive pulmonary disease, unspecified; K57.30 Diverticulosis of large intestine without perforation or abscess without bleeding; K80.20 Calculus of gallbladder without cholecystitis without obstruction; Z74.01 Bed confinement status; Z86.73 Personal history of transient ischemic attack (TIA), and cerebral infarction without residual deficits; Z85.528 Personal history of other malignant neoplasm of kidney; Z79.01 Long term (current) use of anticoagulants; Z87.891 Personal history of nicotine dependence; Z90.5 Acquired absence of kidney; Z95.5 Presence of coronary angioplasty implant and graft
CPT/HCPCS: 36415; 71045; 74176; 80053; 81001; 83690; 83735; 84484; 85025; 85027; 85610; 85730; 87086; 93005; 96365; 96366; 96375; 99285; G0378; J0696; J1885; J2270; J2405